=== PATIENT | male | born 1945 | race Caucasian/White ===

== ENCOUNTER 2019-08-18 08:04 | Inpatient (IN) ==
--- OUTSIDE RECORDS SUMMARY | 2019-08-18 08:07 | External Medical Summary | Continuity of Care Document ---
:1945 Author Name Charlotte De La Rosa Address Unavailable Unavailable , Care Team Providers Name Role Phone Unavailable Unavailable Unavailable Sebastien De La Rosa Unavailable [email or web address] Unavailable Unavailable Unavailable Unavailable Unavailable Problems Hypertension (401.9) (I10) Diabetes mellitus (250.00) (E11.9) Coronary arteriosclerosis (414.00) (I25.10) Obstructive sleep apnea (327.23) (G47.33) Shortness of breath (786.05) (R06.02) Sinusitis (473.9) (J32.9) Chronic obstructive pulmonary disease (496) (J44.9) Bloating (787.3) (R14.0) Lower back pain (724.2) (M54.5) Neck pain (723.1) (M54.2) Hyperlipidemia (272.4) (E78.5) Asthma (493.90) (J45.909) Panic disorder without agoraphobia (300.01) (F41.0) Gout (274.9) (M10.9) Allergies and Adverse Reactions Iodinated Contrast Media (Allergy) Lisinopril TABS (Allergy) Morphine Derivatives (Allergy) Medications Naproxen 500 MG Oral Tablet; TAKE 1 TABLET EVERY 12 HOURS NEEDED. , M.DJavon Start: 03-Mar-2013 Quantity: 60 Refills: 1 Omeprazole 20 MG Oral Capsule Delayed Release; TAKE 1 CAPSULE TWICE DAILY. , M.D. Quantity: 60 Refills: 3 Potassium Chloride 20 MEQ TBCR; TAKE 1 TABLET TWICE DAILY. , M.D. Refills: 0 Furosemide 40 MG Oral Tablet; TAKE 1 TABLET DAILY. , M.D. Quantity: 30 Refills: 5 Zolpidem Tartrate 10 MG Oral Tablet; TAKE 1 TABLET AT BEDTIM E NEEDED. , M.D. Refills: 0 metFORMIN HCl - 1000 MG Oral Tablet; TAKE 1 TABLET EVERY 12 HOURS DAILY. , M.DJavon Refills: 0 Plavix 75 MG Oral Tablet; TAKE 1 TABLET DAILY. , M.DJavon Quantity: 30 Refills: 5 Metoprolol Tartrate 50 MG Oral Tablet; TAKE 1 TABLET TWICE D Rj STILES Quantity: 180 Refills: 3 glipiZIDE ER 10 MG Oral Tablet Extended Release 24 Hour; TAKE 1 TABLET TWICE DAILY. , M.D. Refills: 0 EpiPen 2-Micky 0.3 MG/0.3ML CARMEN; USE DIRECTED. Lynn.D. Refills: 0 Nitrostat 0.4 MG Sublingual Tablet Subli ngual; PLACE 1 TABLET UNDER THE TONGUE EVERY 5 MINUTES FOR UP TO 3 DOSES NEEDED FOR CHEST PAIN.CALL 911 IF PAIN PERSISTS. GLORIA Leon Quantity: 25 Refills: 0 Flexeril 10 MG TABS; TAKE 1 TABLET 3 TIMES DAILY NEEDED. , M.D. Quantity: 90 Refills: 0 Symbicort 160-4.5 MCG/ACT Inhalation Aer osol; INHALE 1 PUFF TWICE DAILY. RINSE MOUTH AFTER USE GLORIA Leon Start: 17-Jan-2015 Quantity: 1 10.2 GM Inhaler Refills: 0 Gentamicin in Saline 0.8-0.9 MG/ML-% Int ravenous Solution; GENTAMYCIN 60MG IN 45 ML NASAL SOLUTION SI SPRAYS EACH NOSTRIL TID GLORIA Leon S tart: 17-May-2015 Quantity: 45 Refills: 0 Levalbuterol HCl - 1.25 MG/3ML Inhalatio n Nebulization Solution; USE 1 UNIT DOSE IN NEBULIZER EVERY 4 TO 6 HOURS NEEDED. Rj Crowe Start: 05-Sep-2014 Quantity: 8 3 ML Plas Cont (24 P las Conts) Refills: 5 Spiriva Respimat 2.5 MCG/ACT Inhalation Aerosol Solution; INHALE 2 PUFFS ONCE DAILY GLORIA Leon Start: 05-Sep-2014 Quantity: 4 Refills: 5 SM Saline Solution Solution; USE ONE VIA L SALINE VIA NEBULIZER EVERY 3-4 HOURS NEEDED GLORIA Leon Start: 15-Dec-2013 Quantity: 240 Refills: 0 Ipratropium [place] 0.02 % Inhalation So lution; USE 1 UNIT DOSE IN NEBULIZER EVERY 4 HOURS. MIX WITH 1 UNIT DOSE OF ALBUTEROL FOR EACH TREATMENT. , M.D. Start: 02-Nov-2012 Quantity: 1 2.5 ML Plas Cont (60 Plas Conts) Refills: 5 Actos 45 MG Oral Tablet; TAKE 1 TABLET ONCE DAILY. , M.D. Quantity: 90 Refills: 3 Allopurinol 300 MG Oral Tablet; TAKE 1 TABLET DAILY. , M.D. Quantity: 90 Refills: 3 Percocet 7.5-325 MG Oral Tablet; TAKE 1 TABLET EVERY 8 HOURS NEEDED FOR PAIN. , M.D. Refills: 0 Combivent Respimat AERS; One Puff (4) times daily , M.D. Refills: 0 OneTouch Ultra Blue STRP , M.D. Refills: 0 OneTouch UltraSoft Lancets MISC , M.D. Refills: 0 Lactulose POWD; USE DIRECTED. , M.D. Refills: 0 Procedures History of Card Cath Post-Proc Data: ___ Lesions Successfull y Status: Completed Dilated History of Rotator Cuff Repair Status: C ompleted History of Cholecystectomy Status: Compl eted History of Cath Stent Placement Status: Completed Immunizations Td On: Feb-1999 Influenza On: 03-Dec-2010 Pneumococcal polysaccharide vaccine, 23 valent On: 22-Sep-19 12 Family History Unknown Family Member Family history of Metabolic Disorders Status: Active Co mments: Family History (V18.19) Family history of Reported Family History Of Status: Active Comments: Family History Heart Disease Father Family history of Reported Family History Of Heart Disease S tatus: Active Social History - Smoking Status Ex-smoker Plan of Treatment Planned Observations Planned Goals not documented Results No Known Results Results not documented
[2019-08-18] MEDS ORDERED: ONDANSETRON INJ 2 MG/ML 2 ML VIAL IV STA (08:22)
[2019-08-18 08:45] LABS: Basophils # (auto) 0.03 K/uL (0-0.2); Basophils % (auto) 0.3 %; Eosinophils # (auto) 0.11 K/uL (0-0.5); Immature Granulocytes # (auto) 0.05 K/uL (0.00-0.02); Immature Granulocytes % (auto) 0.5 %; Lymphocytes # (auto) 1.17 K/uL (1.2-3.4); Lymphocytes % (auto) 11.1 %; Mean Corpuscular Hemoglobin 31.7 pg (25-34); Mean Corpuscular Hgb Conc 32.5 g/dL (32-36); Mean Corpuscular Volume 97.6 fL (80-100); Monocytes # (auto) 0.88 K/uL (0.11-0.59); Monocytes % (auto) 8.4 %; Neutrophils # (auto) 8.28 K/uL (1.4-6.5); Neutrophils % (auto) 78.7 %; Platelet Count 226 K/uL (130-400); RDW Standard Deviation 53.6 fL (36.4-46.3); White Blood Count 10.52 K/uL (4.8-10.8)
--- NOTE | 2019-08-18 08:55 | CT Scan Report ---
CT head/brain wo con CT DOSE: 614.27 mGy.cm HISTORY: Trauma. Mental status change. fall at home TECHNIQUE: Multiaxial CT images of the head were performed without the use of intravenous contrast. A dose lowering technique was utilized adhering to the principles of ALARA. Comparison: 03/15/2012 Findings: The paranasal sinuses and mastoid air cells are clear. The calvarium and skull base are int act. The ventricles and sulci are within normal limits. There is no mass, hematoma, midline shift, or acute infarct. Impression: No acute intracranial abnormality. ACT 112: Negative or not required by law. The above report was generated using voice recognition software. It may contain grammatical, syntax or spelling errors. Electronically signed by: Edwar Barajas M.D. 08/18/2019 8:54 AM
[2019-08-18 09:02] LABS: Albumin Level 3.1 gm/dl (3.4-5.0); BUN Creatinine Ratio 18.8 (10-20); Calcium 9.5 mg/dl (8.5-10.1); Creatinine Clr Calc Pharmacy 73.4 ml/min; Est GFR (African American) 68.4; Potassium 3.9 mmol/L (3.5-5.1)
[2019-08-18 09:05] LABS: Albumin Globulin Ratio 0.7 (0.9-2); Globulin 4.4 gm/dl (2.5-4.0); Total Protein 7.5 gm/dl (6.4-8.2)
--- NOTE | 2019-08-18 09:06 | XRay Report ---
XR chest 1V portable CLINICAL HISTORY: SOB dyspnea COMPARISON STUDY: 11/19/2015 FINDINGS: Moderate cardiomegaly. Prominent pulmonary vasculature. Diaphragms are smooth. No focal inf iltrate. IMPRESSION: Developing congestive heart failure ACT 112: Negative or not required by law. The above report was generated using voice recognition software. It may contain grammatical, syntax or spelling errors. Electronically signed by: Edwar Barajas M.D. 08/18/2019 9:05 AM
[2019-08-18] MEDS ORDERED: FUROSEMIDE 40 MG/4 ML VIAL IV STA (09:31)
[2019-08-18] MEDS ORDERED: METOPROLOL TARTRATE 1 MG/ML VIAL IV STA (09:31)
--- NOTE | 2019-08-18 09:35 | Emergency Department Note ---
ED Visit Note This patient was seen in concert with Dr. Cardona. We discussed and agreed upon the history, physical, assessment and plan. . Resident Activity Tracking Resident Involvement: Resident Care Provided Care Provided: Adult ED
[2019-08-18 09:36] LABS: Base Excess ABG 2.8 mEq/L (-9-1.8); HCO3 ABG 28 mmol/L (19-24); Oxygen Saturation ABG 90.7 % (90-95); PCO2 ABG 47 mmHg (35-46); PO2 ABG 60 mmHg (80-95)
[2019-08-18 09:38] LABS: Allen Test Pos (Pos)
[2019-08-18] MEDS ORDERED: GLUCOSE 40% GEL 15 GM TUBE PO PRN (11:12)
[2019-08-18] MEDS ORDERED: GLUCOSE 10 TABS/TUBE PO PRN (11:12)
[2019-08-18] MEDS ORDERED: CARBOHYDRATES FOR HYPOGLYCEMIA PO PRN (11:12)
[2019-08-18] MEDS ORDERED: GLUCAGON FOR INJ 1 MG VIAL SQ PRN (11:12)
[2019-08-18] MEDS ORDERED: DEXTROSE 50% 50 ML SYRINGE IV PRN (11:12)
--- NOTE | 2019-08-18 11:33 | History & Physical Report ---
Date of Service August 18, 2019 Assessment & Plan (1) Congestive heart failure: Suspect related to non-compliance and dietary indiscretion although history from pt is limited. Last ECHO appears to have been in 2016 and shower LVEF 55-59%, moderate concentric LVH, dilated IVC, elevated RA pressure - Lasix 40 mg IV BID - Check ECHO - Monitor on telemetry, I's and O's, daily weights - Consult cardiology - Monitor electrolytes (2) Atrial fibrillation with rapid ventricular response: Given metoprolol 5 mg IV x 1 dose in ED - rate appears more stable around 90-110 unless pt gets agitated. Per pt's MediWound chart, history of PAF diagnosed in Oct 2018 by [facility] - Continue home metoprolol succinate 100 mg daily - unclear if patient is taking consistently - See plan for #1 - Will need to consider risk/benefit of anticoagulation with fall risk and hx of non-compliance (3) Cellulitis of leg: CRP elevated at 3.64. WBCs not elevated and pt currently afebrile. Unclear how actue LE skin changes are but with elevated CRP and physical exam, will start antibiotics. - Will start empiric IV Vanco and Ceftriaxone - Check blood cultures (4) Neck mass: Had a lesion removed from left upper back in late 2018 - biopsy confirmed squamous cell CA (prior hx of same in 2018 on chest and left elbow). Reports two new lesions on neck for which he was trying to get back in with MOHS surgery to see - seem to be causing increasing neck pain. He reports oxycodone has not been helpful and causes GI distress. - Tylenol for pain with Tramadol for breakthrough - Consider CT neck/chest without contrast for further evaluation once more stable from cardiac perspective. (5) COPD (chronic obstructive pulmonary disease): Does not complain of SOB at present and lungs without wheezing - suspect hypoxia on presentation more related to CHF than COPD - Continue home inhalers with prn nebs (6) JOSE on CPAP: Pt unclear if he uses CPAP (which he tells me) or BiPAP (which he told the ED staff) but does know that he uses oxygen with his machine while he sleeps - Will start with CPAP per protocol while admitted (7) CKD (chronic kidney disease) stage 3, GFR 30-59 ml/min: Labs from Feb 2019 - BUN 22, Creatinine 1.3. Stable today on labs in the ED - Monitor labs with diuresis (8) Type 2 diabetes mellitus: Last A1c in Feb 2019 = 9.3. It is unclear if patient is taking oral hypogylcemics as prescribed - HOLD home oral meds - Insulin sliding scale - adjust pending response - BSG ACHS - Diabetic diet - Check A1c in AM Patient seen and reviewed with collaborating physician, Dr. Dawn. Plan of care discussed and as outlined above. Pt's oil dispatcher is Dalia Baumann at [phone]. Stays with patient at night. Jeff Alford PA-C Admission and Anticipated Discharge Date Admission Date: August 18, 2019 History of Present Illness Chief Complaint: "I feel horrible" Primary Care Provider: Guy Atkinson MD This is a 74 y/o male with a complicated PMH including CAD w/ hx AL, hx PAF, DM2, CKD3, chronic neck pain, JOSE on CPAP (or BiPAP - pt unclear), and non- compliance who was brought to the ED today via EMS after apparently falling at home and family unable to get him up. History from the patient was difficult to obtain as he frequently refused to answer questions or changed his answers depending on when and who asked him the question. The chart was extensively reviewed and the patient was discussed with the resident and the ED nurse for additional history. Apparently, the patient fell at home, likely earlier this morning, and his family was unable to get him up so they called EMS. According to the EMS report, pt was unhappy about coming to the ED but did finally agree after discussing with the medic. In the ED, pt's main complaint has been generalized pain, leg cramps, and malaise. He has been non-compliant and frequently attempting to get out of bed without assistance, removing his oxygen canula, and yelling at the nurses. When I asked pt why he was here, he asked where here was and then stated that his family wanted to get rid of him, so they called EMS. He refused to give me any contact information for his family. His PCP is Dr. Atkinson but the pt tells me that he is only willing to see Dr. Briceño with MOHS surgery and she is the "only one who listens" to him. Pt was previously followed by cardiology but has not been seen in the office since 2016 due to multiple cancellations and no-shows. He is unclear on his current medications although can confirm that he is taking the furosemide twice a day and does not think that the Combivent is helping his neck pain, which is his main concern over the past few weeks. He states that he has also tried oxycodone for the next pain but doesn't think that helps either. He is also concerned about leg cramps "since childhood" but more frequent recently so he has been drinking a glass of pickle juice whenever he has these cramps, which helps. He notes chronic issues with LE edema, worse at the end of the day, but is unclear if that has been worse recently. He is unsure how long that he has had redness on his legs. Allergies Allergy/AdvReac Type Severity Reaction Status Date / Time Iodinated Contrast Media Allergy Unknown . Verified 08/18/19 09:14 lisinopril AdvReac Severe Anaphylaxis Unverified 08/18/19 09:14 tetanus toxoid, adsorbed AdvReac Intermediate Arm Unverified 08/18/19 09:14 Swelling codeine AdvReac Mild NAUSEA Verified 08/18/19 09:14 morphine AdvReac Mild itching, Unverified 08/18/19 09:14 nausea/vomiting atorvastatin AdvReac Unknown myalgia Unverified 08/18/19 09:14 doxycycline AdvReac Unknown Unknown Unverified 08/18/19 09:14 Home Medications Home Medications Medication Instructions Recorded Confirmed Type albuterol sulfate 2 puff INHALATION Q6H PRN 08/18/19 08/18/19 History allopurinol 300 mg PO DAILY 08/18/19 08/18/19 History budesonide-formoterol [Symbicort] 2 puff INHALATION BID 08/18/19 08/18/19 History camphor-menthol 1 applic TOPICAL DAILY PRN 08/18/19 08/18/19 History clopidogrel 75 mg PO DAILY 08/18/19 08/18/19 History empagliflozin [Jardiance] 10 mg PO DAILY 08/18/19 08/18/19 History epinephrine [EpiPen] 0.3 mg IM Q3H PRN 08/18/19 08/18/19 History fexofenadine 180 mg PO DAILY PRN 08/18/19 08/18/19 History furosemide 80 mg PO DAILY 08/18/19 08/18/19 History glipizide 20 mg PO BID 08/18/19 08/18/19 History ipratropium-albuterol 3 ml INHALATION Q6H PRN 08/18/19 08/18/19 History melatonin 10 mg PO HS 08/18/19 08/18/19 History metformin 1,000 mg PO BID 08/18/19 08/18/19 History metoprolol succinate 100 mg PO DAILY 08/18/19 08/18/19 History nitroglycerin 0.4 mg SUBLINGUAL UD 08/18/19 08/18/19 History omeprazole 20 mg PO BID 08/18/19 08/18/19 History oxycodone 15 mg PO Q6H PRN 08/18/19 08/18/19 History pioglitazone 30 mg PO DAILY 08/18/19 08/18/19 History potassium chloride 20 meq PO DAILY 08/18/19 08/18/19 History tiotropium bromide [Spiriva 2 puff INHALATION DAILY 08/18/19 08/18/19 History Respimat] zolpidem 1 mg PO HS 08/18/19 08/18/19 History Past Med/Surg History Medical History CAD (coronary artery disease) CKD (chronic kidney disease) stage 3, GFR 30-59 ml/min COPD (chronic obstructive pulmonary disease) Gout History of AL (myocardial infarction) JOSE on CPAP Osteoarthritis Paroxysmal atrial fibrillation Recurrent major depression Type 2 diabetes mellitus Surgical History History of cardiac cath 2003, 2008, 2012, 2016 History of cataract surgery History of cholecystectomy History of coronary angioplasty with insertion of stent 10/11/15 - distal LAD stent placed at [facility] [place] History of repair of rotator cuff Family History Father , age 62 Heart disease Mother , age 70 Stroke Social History Communication Ability: Impaired Beliefs That Will Affect Care: None marital status: Current Living Situation: Alone Feels Safe at Home: Declines to Answer Smoking Status: Former smoker Review of Systems Review of Systems: Other (Limited due to patient refusal/poor historian - see HPI) Physical Exam Constitutional: WD/WN, vitals as above + obese; no acute distress Irritable, attempting to get out of bed, difficult to redirect at times, other t imes appears drowsy Eyes: + anicteric sclerae; no conjunctival abnormality ENMT: external ear and nose normal, oropharynx normal Neck: trachea midline Respiratory: no respiratory distress, no labored breathing and no retractions Auscultation: + crackles (at bilateral bases); no rhonchi and no wheezes Cardiovascular: Rate/Rhythm: + tachycardic and + irregularly irregular Extremities: normal capillary refill and + edema (trace to 1+ bilateral LE edema) Gastrointestinal (Abdomen): Inspection/Auscultation: normal bowel sounds Percussion/Palpation: abdomen soft; abdomen nontender Musculoskeletal: Head/Neck/Chest: neck supple Extremities: no cyanosis and no clubbing Skin: no jaundice Bilateral LE with patchy erythema superimposed on chronic-appearing skin changes - left > right. Mild warmth on left. No drainage or large open wounds. Some peeling skin on left. Neurologic: moves all extremities Psychiatric: Mood: + irritable mood Insight: + limited insight Judgem ent: + poor judgement Results & Data Results & Data ([facility]) Vital Signs (Past 12 Hours) Vital Signs Temp Pulse Pulse Resp BP BP Pulse Ox 08/18/19 10:57 36.6 C 93 H 18 151/91 H 95 08/18/19 10:32 96 H 18 143/67 H 96 08/18/19 09:42 108 H 20 133/80 94 08/18/19 09:41 113 H 22 119/91 88 L 08/18/19 09:03 109 H 22 109/69 93 08/18/19 08:27 88 L 08/18/19 08:16 36.7 C 104 H 24 145/72 H 88 L Laboratory Results Laboratory Results - last 24 hr 08/18/19 08/18/19 08/18/19 08:30 08:30 08:30 WBC 10.52 RBC 4.10 L Hgb 13.0 L Hct 40.0 L MCV 97.6 MCH 31.7 MCHC 32.5 RDW Std Deviation 53.6 H RDW Coeff of [place] 15.0 H Plt Count 226 MPV 10.0 Immature Gran % (Auto) 0.5 Neut % (Auto) 78.7 Lymph % (Auto) 11.1 Cochran % (Auto) 8.4 Eos % (Auto) 1.0 Baso % (Auto) 0.3 Neut # (Auto) 8.28 H Lymph # (Auto) 1.17 L Cochran # (Auto) 0.88 H Eos # (Auto) 0.11 Baso # (Auto) 0.03 Immature Gran # (Auto) 0.05 H ABG pH ABG pCO2 ABG pO2 ABG HCO3 ABG O2 Saturation ABG Base Excess Augustine Test Barometric Pressure Oxygen Given Sodium 137 Potassium 3.9 Chloride 103 Carbon Dioxide 27 Anion Gap 7.0 BUN 23 H Creatinine 1.21 Est Cr Clr Drug Dosing 73.4 Est GFR ( Amer) 68.4 Est GFR (Non-Af Amer) 59.0 BUN/Creatinine Ratio 18.8 Glucose 261 H POC Glucose Calcium 9.5 Total Bilirubin 1.0 AST 20 ALT 21 Alkaline Phosphatase 131 H Troponin I 0.015 Total Protein 7.5 Albumin 3.1 L Globulin 4.4 H Albumin/Globulin Ratio 0.7 L 08/18/19 08/18/19 09:18 11:35 WBC RBC Hgb Hct MCV MCH MCHC RDW Std Deviation RDW Coeff of [place] Plt Count MPV Immature Gran % (Auto) Neut % (Auto) Lymph % (Auto) [place]chran % (Auto) Eos % (Auto) Baso % (Auto) Neut # (Auto) Lymph # (Auto) Cochran # (Auto) Eos # (Auto) Baso # (Auto) Immature Gran # (Auto) ABG pH 7.40 ABG pCO2 47 H ABG pO2 60 L ABG HCO3 28 H ABG O2 Saturation 90.7 ABG Base Excess 2.8 H Augustine Test Pos Barometric Pressure 732.6 Oxygen Given ROOM AIR Sodium Potassium Chloride Carbon Dioxide Anion Gap BUN Creatinine Est Cr Clr Drug Dosing Est GFR ( Amer) Est GFR (Non-Af Amer) BUN/Creatinine Ratio Glucose POC Glucose 242 H Calcium Total Bilirubin AST ALT Alkaline Phosphatase Troponin I Total Protein Albumin Globulin Albumin/Globulin Ratio Diagnostic Findings Chest x-ray 08/18/19 - IMPRESSION: Developing congestive heart failure CT Head 08/18/19 - Impression: No acute intracranial abnormality. Medications Administered Discontinued Medications Furosemide (Lasix) 40 mg IV NOW STA Stop: 08/18/19 09:32 Last Admin: 08/18/19 09:37 Dose: 40 mg Documented by: [id number] Metoprolol Tartrate (Lopressor) 5 mg IV NOW STA Stop: 08/18/19 09:32 Last Admin: 08/18/19 09:37 Dose: 5 mg Documented by: [id number] Ondansetron HCl (Zofran) 4 mg IV NOW STA Stop: 08/18/19 08:23 Last Admin: 08/18/19 08:41 Dose: 4 mg Documented by: [id number] Code Status & VTE Plan VTE Prophylaxis Plan VTE Prophylaxis will be ordered: Yes Supervising Physician Co-Signing Physician Notes HISTORY: Record reviewed. Patient interviewed and examined. Care coordinated with Sierra Alford PA-C; please refer to her documentation for complete history. Briefly, 74 YO M with history of CAD, atrial fibrillation (? PAF or chronic), CHF, COPD, sleep apnea, DM, squamous cell carcinoma of skin. Has noted growths in the left supraclavicular and left axillary regions, increasing in size. The masses are sometimes painful and he has been using acetaminophen PRN. Not sleeping well because of pain. Fell this morning and could not raise himself from the floor. No apparent chest pain, unusual SOB, palpitations, lightheadedness, LOC. Animal Care Provider called 911 and he was brought to the ED for evaluation. EXAM: General- no distress Lungs- bibasilar rales; no respiratory distress Cardiovascular- irregular; no murmur (exam limited); no gallop (exam limited) ; + JVD; 1-2+ pretibial edema Abdomen- + bowel sounds, soft, nontender Extremities- no cyanosis; no calf tenderness Neuro- alert, oriented Skin- warm & dry; erythema and warmth bilat legs L > R Lymphatics- large palpable masses left supraclavicular region and left axilla DATA: Hgb 13.0, WBC 10,520, plts 226,000. BUN 23, creatinine 1.21, random glucose 261. Other lab studies as noted. Chest x-ray reviewed and demonstrated cardiomegaly, CHF. EKG performed at 0812 reviewed and demonstrated AF at 130 / minute, no significant ST or T-wave changes. ASSESSMENT AND PLAN: CHF Exam and CXR consistent with CHF. Cardiology consulted. IV furosemide ordered. Echo shows LVEF 45-50%. Acute on chronic left ventricular systolic heart failure. Further titration of meds per Cardiology. AF with RVR Atrial fib / flutter apparently noted in Oct 2018, but has not had regular follow-up. Records state PAF, but may be chronic. Cardiology consulted. Metoprolol for rate control. IV heparin. Long-term plan to be determined. ERYTHEMA LOWER EXTREMITIES Cellulitis vs venous stasis. No fever or leukocytosis, but CRP elevated. Check blood cultures. IV vancomycin and ceftriaxone pending culture results. HISTORY OF SQUAMOUS CELL CA BACK S/P Mohs excision Jan [address] Briceño. Current findings worrisome for metastatic disease. Check CT neck / chest once cardiac status permits. Please refer to YESICA Alford's documentation for discussion of other issues. (1) Type 2 diabetes mellitus Chronic kidney disease stage: stage 3 (moderate) Diabetes mellitus complication detail: with chronic kidney disease Diabetes mellitus complication status: with kidney complications Diabetes mellitus retirement insulin use: without retirement use Qualified Code(s): 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 mellitus with diabetic chronic kidney disease; N18.3 - Chronic kidney disease, stage 3 (moderate) (2) Congestive heart failure Heart failure chronicity: acute Heart failure type: unspecified Qualified Code(s): I50.9 - Heart failure, unspecified (3) Cellulitis of leg Laterality: left Qualified Code(s): L03.116 - Cellulitis of left lower limb (4) COPD (chronic obstructive pulmonary disease) COPD type: unspecified COPD Qualified Code(s): J44.9 - Chronic obstructive pulmonary disease, unspecified
[2019-08-18 12:16] LABS: C Reactive Protein 3.64 mg/dl (0-0.29); Magnesium 1.8 mg/dl (1.8-2.4)
[2019-08-18] MEDS ORDERED: ENOXAPARIN INJ 40 MG/0.4 ML SYR SQ SCH (12:30)
[2019-08-18] MEDS ORDERED: VANCOMYCIN CONSULT ACTIVE PRN (12:34)
[2019-08-18] MEDS ORDERED: VANCOMYCIN HCL 2,750 MG in SODIUM CHLORIDE 0.9% 500 ML IV SCH (13:00)
--- NOTE | 2019-08-18 13:00 | Cardiology Consultation ---
Date of Consultation August 18, 2019 Assessment & Plan (1) Acute decompensated heart failure: (2) Paroxysmal atrial fibrillation: (3) Cellulitis of leg: (4) CAD (coronary artery disease), jena coronary artery: (5) CKD (chronic kidney disease) stage 3, GFR 30-59 ml/min: (6) Type 2 diabetes mellitus: (7) JOSE on CPAP: Continue IV Lasix 40 mg every 12. Follow daily weight, fluid balance, GFR, and electrolytes. Duration of atrial fibrillation unknown. Recommend anticoagulation with IV heparin. Candidacy for long-term anticoagulation to be determined. Metoprolol succinate will be transitioned to tartrate formulation, 25 mg every 6hrs, to allow for ease of titration during hospitalization. Patient relatively asymptomatic in regard to his atrial fibrillation. I would not add IV AV edwige blocking agents currently. Update resting 2D transthoracic echocardiogram. Trend cardiac enzymes x3 sets. Diabetes management and antibiotic therapy as per internal medicine. History of Present Illness Reason for Consultation: 74-year-old male with complex cardiovascular history noted below. Presented to the emergency department today via EMS after falling at home. His family was unable to get him off the floor. Patient is a poor historian. History gleaned from chart and discussion with consulting physicians. He denies chest pain or shortness of breath. He does not recall falling. No injuries reported. CT of the head without acute intracranial abnormality. Patient previously followed by cardiology until 2016. He has missed multiple appointments due to cancellations. There is a chart history of paroxysmal atrial fibrillation however, no documented ECGs available. Telemetry currently demonstrate atrial fibrillation heart rates ranging from 90 to 110 bpm. Patient is somewhat confused, however, he is cooperative with physical exam. History of complex coronary disease dating back to 1991 when he had his first angioplasty. Since that time he has had multiple cardiac catheterizations and coronary interventions including PCI to the right coronary artery, LAD, circumflex. Most recent stenting procedure occurred 2012 at [facility]. During that procedure, LAD stent was noted to be patent. Percutaneous intervention of the proximal circumflex was successful. Drug-eluting stent implanted without complication. Requesting Physician: Dr. Moffett Attending Physician: Mariangel Moffett MD Allergies Allergy/AdvReac Type Severity Reaction Status Date / Time Iodinated Contrast Media Allergy Unknown . Verified 08/18/19 09:14 lisinopril AdvReac Severe Anaphylaxis Unverified 08/18/19 09:14 tetanus toxoid, adsorbed AdvReac Intermediate Arm Unverified 08/18/19 09:14 Swelling codeine AdvReac Mild NAUSEA Verified 08/18/19 09:14 morphine AdvReac Mild itching, Unverified 08/18/19 09:14 nausea/vomiting atorvastatin AdvReac Unknown myalgia Unverified 08/18/19 09:14 doxycycline AdvReac Unknown Unknown Unverified 08/18/19 09:14 Home Medications Home Medications Medication Instructions Recorded Confirmed Type albuterol sulfate 2 puff INHALATION Q6H PRN 08/18/19 08/18/19 History allopurinol 300 mg PO DAILY 08/18/19 08/18/19 History budesonide-formoterol [Symbicort] 2 puff INHALATION BID 08/18/19 08/18/19 History camphor-menthol 1 applic TOPICAL DAILY PRN 08/18/19 08/18/19 History clopidogrel 75 mg PO DAILY 08/18/19 08/18/19 History empagliflozin [Jardiance] 10 mg PO DAILY 08/18/19 08/18/19 History epinephrine [EpiPen] 0.3 mg IM Q3H PRN 08/18/19 08/18/19 History fexofenadine 180 mg PO DAILY PRN 08/18/19 08/18/19 History furosemide 80 mg PO DAILY 08/18/19 08/18/19 History glipizide 20 mg PO BID 08/18/19 08/18/19 History ipratropium-albuterol 3 ml INHALATION Q6H PRN 08/18/19 08/18/19 History melatonin 10 mg PO HS 08/18/19 08/18/19 History metformin 1,000 mg PO BID 08/18/19 08/18/19 History metoprolol succinate 100 mg PO DAILY 08/18/19 08/18/19 History nitroglycerin 0.4 mg SUBLINGUAL UD 08/18/19 08/18/19 History omeprazole 20 mg PO BID 08/18/19 08/18/19 History oxycodone 15 mg PO Q6H PRN 08/18/19 08/18/19 History pioglitazone 30 mg PO DAILY 08/18/19 08/18/19 History potassium chloride 20 meq PO DAILY 08/18/19 08/18/19 History tiotropium bromide [Spiriva 2 puff INHALATION DAILY 08/18/19 08/18/19 History Respimat] zolpidem 1 mg PO HS 08/18/19 08/18/19 History Patient History Medical History CAD (coronary artery disease) CKD (chronic kidney disease) stage 3, GFR 30-59 ml/min COPD (chronic obstructive pulmonary disease) Gout History of VT (myocardial infarction) JOSE on CPAP Osteoarthritis Paroxysmal atrial fibrillation Recurrent major depression Type 2 diabetes mellitus Surgical History History of cardiac cath 2003, 2008, 2012, 2016 History of cataract surgery History of cholecystectomy History of coronary angioplasty with insertion of stent 10/11/15 - distal LAD stent placed at [facility] History of repair of rotator cuff Family History Father , age 62 Heart disease Mother , age 70 Stroke Social History Communication Ability: Impaired Beliefs That Will Affect Care: None marital status: Current Living Situation: Alone Feels Safe at Home: Declines to Answer Smoking Status: Former smoker Physical Exam Constitutional: well developed, well nourished, + ill appearing and + obese; no acute distress Respiratory: + abnormal respiratory effort, no respiratory distress, no labored breathing and no retractions Auscultation: + diminished lung sounds and + rales (Bases bilateral); no crackles, no rhonchi and no wheezes Cardiovascular: Rate/Rhythm: + tachycardic and + irregularly irregular Heart Sounds: normal S1 and normal S2; no murmur Vessels: no JVD Extremities: + edema (1+ bilateral pedal edema.) Gastrointestinal (Abdomen): Inspection/Auscultation: abdomen normal to inspection and normal bowel sounds; abdomen not distended Percussion/Palpation: abdomen soft; abdomen nontender, no guarding and abdomen not rigid Skin: no rashes, warm and dry Neurologic: CN's II-XI intact bilaterally and moves all extremities; no focal motor deficits Speech / Cognition: normal speech Motor/Sensory: no tremor Results & Data ([facility]) Vital Signs (Past 12 Hours) Vital Signs Temp Pulse Pulse Resp BP BP Pulse Ox 08/18/19 10:57 36.6 C 93 H 18 151/91 H 95 08/18/19 10:32 96 H 18 143/67 H 96 08/18/19 09:42 108 H 20 133/80 94 08/18/19 09:41 113 H 22 119/91 88 L 08/18/19 09:03 109 H 22 109/69 93 08/18/19 08:27 88 L 08/18/19 08:16 36.7 C 104 H 24 145/72 H 88 L (1) Type 2 diabetes mellitus Chronic kidney disease stage: stage 3 (moderate) Diabetes mellitus complication detail: with chronic kidney disease Diabetes mellitus complication status: with kidney complications Diabetes mellitus tank terminal gauger insulin use: without tank terminal gauger use Qualified Code(s): 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 mellitus with diabetic chronic kidney disease; N18.3 - Chronic kidney disease, stage 3 (moderate) (2) Cellulitis of leg Laterality: left Qualified Code(s): L03.116 - Cellulitis of left lower limb (3) CAD (coronary artery disease), jena coronary artery Associated angina: angina presence unspecified [place] vs. transplanted heart: jena heart Qualified Code(s): I25.10 - Atherosclerotic heart disease of jena coronary artery without angina pectoris
[2019-08-18] MEDS: UMECLIDINIUM BROMIDE 62.5MCG/BLISTER 7 PUFFS/INHALER INH SCH (13:10)
[2019-08-18] MEDS: cefTRIAXone SODIUM 2,000 MG in DEXTROSE 5% 50 ML IV SCH (13:10)
[2019-08-18] MEDS ORDERED: TRAMADOL HCL 50 MG TABLET PO PRN (13:32)
[2019-08-18] MEDS ORDERED: HEPARIN IV BOLUS 8,000 UNITS in SYRINGE 0 ML IV ONE (14:00)
[2019-08-18] MEDS: INSULIN ASPART 100 UNITS/ML 3 ML PEN SC SCH ×3 (14:11→21:26)
[2019-08-18] MEDS: HEPARIN SODIUM/DEXTROSE 25,000 UNITS/500 ML BAG IV SCH (14:12)
[2019-08-18 14:25] LABS: Partial Thromboplastin Time 27.3 Seconds (21.0-31.0)
--- NOTE | 2019-08-18 14:28 | Pharmacy Report ---
Pharmacy Abx Initial Consult - Date of Service August 18, 2019 - Pharmacy Dosing Scope Date of Consult: 08/17 Consultation requested by: Irais Alford PA-c Pharmacy is consulted to initiate vancomycin IV/PO dosing therapy, order appropriate labs and adjust drug dose/frequency. - Subjective The patient is a 74 year old M admitted on 08/18/19 10:06. - Objective Height: 5 ft 9 in Weight: 132.5 kg Vital Signs (Past 12hrs): Vital Signs Temp Pulse Pulse Resp BP BP Pulse Ox 08/18/19 10:57 36.6 C 93 H 18 151/91 H 95 08/18/19 10:32 96 H 18 143/67 H 96 08/18/19 09:42 108 H 20 133/80 94 08/18/19 09:41 113 H 22 119/91 88 L 08/18/19 09:03 109 H 22 109/69 93 08/18/19 08:27 88 L 08/18/19 08:16 36.7 C 104 H 24 145/72 H 88 L Lab Results (24hrs): Laboratory Tests (24 Hours) 08/18/19 08/18/19 08/18/19 08:30 08:30 08:30 WBC 10.52 Neut # (Auto) 8.28 H Creatinine 1.21 Est Cr Clr Drug Dosing 73.4 C-Reactive Protein 3.64 H Micro Results: 08/18/19 13:49 Aerobic Blood Culture - Pending Blood Anaerobic Blood Culture - Pending 08/18/19 13:40 Aerobic Blood Culture - Pending Blood Anaerobic Blood Culture - Pending - Assessment & Plan Assessment 74 year old M admitted with heart failure, complaints of lower extremity pain. Normal WBC, afebrile, beginning vancomycin/ceftriaxone empirically for cellulitis. Plan Vancomycin IV * Estimated PK Parameters: Vd 0.6 L/kg, Feng 0.065 hr-1, t1/2 10.6 hr * Loading dose: 2750 mg (20.7 mg/kg) * Maintenance dose: 1500 mg IV (11.3 mg/kg) every 12 hours * Goal trough level 10-20 mcg/mL * Trough ordered for 08/18@2330 * A less than traditional dose and/or extended dosing interval has/have been selected due to likelihood of drug accumulation in obese patient Pharmacy will continue to follow and will adjust dose/frequency as necessary. Thank you.
[2019-08-18] MEDS ORDERED: METOPROLOL TARTRATE 25 MG TAB PO STA (15:49)
--- NOTE | 2019-08-18 15:55 | Emergency Department Note ---
History of Present Illness General Chief complaint: Fall Stated complaint: fall/ ams Source: patient and RN notes reviewed Mode of arrival: EMS Limitations: patient cooperation History of Present Illness Provider complaint: Fall Maximum Pain Intensity: 0 This patient is a 74-year-old male who presents emergency department after a fall today. Patient has difficulty hearing and limited enthusiasm to cooperate with the history. By report the patient states he was nauseated and attempted to get up out of his chair. He fell to the ground. Family was unable to get him up off of the floor and called the ambulance. Patient denies hitting his head or loss of consciousness. He denies chest pain currently. Home Medications Home Medications Medication Instructions Recorded Confirmed Type albuterol sulfate 2 puff INHALATION Q6H PRN 08/18/19 08/18/19 History allopurinol 300 mg PO DAILY 08/18/19 08/18/19 History budesonide-formoterol [Symbicort] 2 puff INHALATION BID 08/18/19 08/18/19 History camphor-menthol 1 applic TOPICAL DAILY PRN 08/18/19 08/18/19 History clopidogrel 75 mg PO DAILY 08/18/19 08/18/19 History empagliflozin [Jardiance] 10 mg PO DAILY 08/18/19 08/18/19 History epinephrine [EpiPen] 0.3 mg IM Q3H PRN 08/18/19 08/18/19 History fexofenadine 180 mg PO DAILY PRN 08/18/19 08/18/19 History furosemide 80 mg PO DAILY 08/18/19 08/18/19 History glipizide 20 mg PO BID 08/18/19 08/18/19 History ipratropium-albuterol 3 ml INHALATION Q6H PRN 08/18/19 08/18/19 History melatonin 10 mg PO HS 08/18/19 08/18/19 History metformin 1,000 mg PO BID 08/18/19 08/18/19 History metoprolol succinate 100 mg PO DAILY 08/18/19 08/18/19 History nitroglycerin 0.4 mg SUBLINGUAL UD 08/18/19 08/18/19 History omeprazole 20 mg PO BID 08/18/19 08/18/19 History oxycodone 15 mg PO Q6H PRN 08/18/19 08/18/19 History pioglitazone 30 mg PO DAILY 08/18/19 08/18/19 History potassium chloride 20 meq PO DAILY 08/18/19 08/18/19 History tiotropium bromide [Spiriva 2 puff INHALATION DAILY 08/18/19 08/18/19 History Respimat] zolpidem 1 mg PO HS 08/18/19 08/18/19 History Allergies Allergy/AdvReac Type Severity Reaction Status Date / Time Iodinated Contrast Media Allergy Unknown . Verified 08/18/19 09:14 lisinopril AdvReac Severe Anaphylaxis Unverified 08/18/19 09:14 tetanus toxoid, adsorbed AdvReac Intermediate Arm Unverified 08/18/19 09:14 Swelling codeine AdvReac Mild NAUSEA Verified 08/18/19 09:14 morphine AdvReac Mild itching, Unverified 08/18/19 09:14 nausea/vomiting atorvastatin AdvReac Unknown myalgia Unverified 08/18/19 09:14 doxycycline AdvReac Unknown Unknown Unverified 08/18/19 09:14 Past Med/Surg History Medical History CAD (coronary artery disease) CKD (chronic kidney disease) stage 3, GFR 30-59 ml/min COPD (chronic obstructive pulmonary disease) Gout History of NV (myocardial infarction) JOSE on CPAP Osteoarthritis Paroxysmal atrial fibrillation Recurrent major depression Type 2 diabetes mellitus Surgical History History of cardiac cath 2004, 2008, 2012, 2016 History of cataract surgery History of cholecystectomy History of coronary angioplasty with insertion of stent 10/11/15 - distal LAD stent placed at [facility] [place] History of repair of rotator cuff Family History Father , age 62 Heart disease Mother , age 70 Stroke Social History Communication Ability: Effective Beliefs That Will Affect Care: None marital status: Current Living Situation: Alone Feels Safe at Home: Declines to Answer Smoking Status: Former smoker Review of Systems See HPI for pertinent positives & negatives. and A total of 10 systems reviewed and were otherwise negative Physical Exam Vital Signs Vital Signs - 24 hr 08/18/19 08:16 08/18/19 08:27 08/18/19 09:03 Temperature 36.7 C Temperature Source Oral Pulse Rate 104 H Pulse Rate [Left Finger] 109 H Respiratory Rate 24 22 Blood Pressure 145/72 H Blood Pressure [Left Arm] 109/69 Blood Pressure Mean 96 Blood Pressure Mean [Left Arm] 82 Pulse Oximetry 88 L 88 L 93 Oxygen Delivery Method Room Air Nasal Cannula Nasal Cannula Oxygen Flow Rate 2 3 Sepsis Recent Fever Within 48 Hours No Sepsis New/Unexplained Change in Mental Status No Sepsis Action Taken by Nursing No Action Required 08/18/19 09:41 08/18/19 09:42 Temperature Temperature Source Pulse Rate Pulse Rate [Left Finger] 113 H 108 H Respiratory Rate 22 20 Blood Pressure Blood Pressure [Left Arm] 119/91 133/80 Blood Pressure Mean Blood Pressure Mean [Left Arm] 100 97 Pulse Oximetry 88 L 94 Oxygen Delivery Method Room Air Nasal Cannula Oxygen Flow Rate 2 Sepsis Recent Fever Within 48 Hours Sepsis New/Unexplained Change in Mental Status Sepsis Action Taken by Nursing Vital signs reviewed. General: Chronically ill-appearing 74-year-old male, in no significant distress. HEENT: No scleral icterus, PERRLA, neck supple. Atraumatic. Cardiovascular: Tachycardic and irregular, diminished heart tones Pulmonary: Slightly increased work of breathing, noted to be hypoxic on room air. Abdomen: Soft, nontender, nondistended, positive bowel sounds. Musculoskeletal: Atraumatic, edema to the bilateral lower extremities. Neurologic: Patient awake alert and oriented x 3 Skin: Warm, dry, no rash Course Administered Medications Clopidogrel Bisulfate (Plavix) 75 mg PO DAILY [facility] Stop: 09/18/19 08:59 Last Admin: 08/19/19 08:15 Dose: 75 mg Documented by: [id number] Fluticasone/Vilanterol (Breo Ellipta 100/25 Mcg Inh) 1 puffs INH DAILY [facility]; Protocol Stop: 09/18/19 08:59 Last Admin: 08/19/19 08:15 Dose: 1 puffs Documented by: [id number] Furosemide 40 mg/ Syringe 4 mls @ 4 mls/min IV BID17 [facility] Stop: 09/17/19 16:59 Last Admin: 08/19/19 08:13 Dose: 4 mls/min Documented by: [id number] Admin: 08/18/19 18:22 Dose: 4 mls/min Documented by: [id number] Ceftriaxone Sodium 2,000 mg/ (Dextrose) 70 mls @ 100 mls/hr IV DAILY [facility]; Prot ocol Stop: 08/25/19 12:59 Last Infusion: 08/19/19 09:02 Dose: 0 mls/hr Documented by: [id number] Admin: 08/19/19 08:20 Dose: 100 mls/hr Documented by: [id number] Infusion: 08/18/19 15:30 Dose: 0 mls/hr Documented by: [id number] Admin: 08/18/19 13:10 Dose: 100 mls/hr Documented by: [id number] Heparin Sodium/Dextrose (Heparin Sodium/Dextrose) 25,000 units in 500 mls @ 34 mls/hr IV .[id number] [facility]; Protocol Stop: 09/17/19 12:59 Last Titration: 08/19/19 08:25 Dose: 1,700 units/hr, 34 mls/hr Documented by: [id number] Cosigned by: [id number] Titration: 08/19/19 07:08 Dose: 1,700 units/hr, 34 mls/hr Documented by: [id number] Cosigned by: [id number] Admin: 08/19/19 04:32 Dose: 1,700 units/hr, 34 mls/hr Documented by: [id number] Cosigned by: [id number] Titration: 08/19/19 04:32 Dose: 1,700 units/hr, 34 mls/hr Documented by: [id number] Cosigned by: [id number] Titration: 08/18/19 22:20 Dose: 1,700 units/hr, 34 mls/hr Documented by: [id number] Cosigned by: [id number] Titration: 08/18/19 18:54 Dose: 1,700 units/hr, 34 mls/hr Documented by: [id number] Cosigned by: [id number] Admin: 08/18/19 14:12 Dose: 1,700 units/hr, 34 mls/hr Documented by: [id number] Cosigned by: [id number] Vancomycin HCl 1,500 mg/ (Sodium Chloride) 530 mls @ 200 mls/hr IV Q12H [facility] Stop: 08/26/19 00:00 Last Infusion: 08/19/19 15:05 Dose: 0 mls/hr Documented by: [id number] Admin: 08/19/19 12:13 Dose: 200 mls/hr Documented by: [id number] Infusion: 08/19/19 04:42 Dose: 0 mls/hr Documented by: [id number] Admin: 08/19/19 01:38 Dose: 200 mls/hr Documented by: [id number] Insulin Aspart (Novolog Flexpen) 0 units SC ACHS [facility] Stop: 09/17/19 11:29 Last Admin: 08/19/19 12:14 Dose: 2 units Documented by: [id number] Cosigned by: [id number] Admin: 08/19/19 08:14 Dose: 4 units Documented by: [id number] Cosigned by: [id number] Admin: 08/18/19 21:26 Dose: Not Given Documented by: [id number] Cosigned by: [id number] Admin: 08/18/19 17:15 Dose: 2 units Documented by: [id number] Cosigned by: [id number] Admin: 08/18/19 14:11 Dose: 12 units Documented by: [id number] Cosigned by: [id number] Insulin Glargine (Lantus Solostar Pen) 0 units SC BID [facility]; Protocol Stop: 09/17/19 20:59 Last Admin: 08/19/19 08:14 Dose: 20 units Documented by: [id number] Cosigned by: [id number] Admin: 08/18/19 21:27 Dose: 10 units Documented by: [id number] Cosigned by: [id number] Metoprolol Tartrate (Lopressor) 50 mg PO TID [facility] Stop: 09/18/19 13:59 Last Admin: 08/19/19 13:56 Dose: 50 mg Documented by: [id number] Oxycodone/Acetaminophen (Percocet 5mg/325mg) 2 tab PO Q4H PRN PRN Reason: Pain Stop: 09/02/19 10:15 Last Admin: 08/19/19 14:58 Dose: 2 tab Documented by: [id number] Admin: 08/19/19 11:02 Dose: 2 tab Documented by: [id number] Umeclidinium [place] (Incruse Ellipta) 1 puffs INH DAILY [facility] Stop: 09/17/19 12:29 Last Admin: 08/19/19 08:15 Dose: 1 puffs Documented by: [id number] Admin: 08/18/19 13:10 Dose: 1 puffs Documented by: [id number] Discontinued Medications Acetaminophen (Tylenol) 650 mg PO Q4H PRN PRN Reason: Pain or Fever Stop: 09/17/19 11:05 Last Admin: 08/19/19 05:56 Dose: 650 mg Documented by: [id number] Admin: 08/18/19 21:33 Dose: 650 mg Documented by: [id number] Enoxaparin Sodium (Lovenox) 40 mg SQ Q12H [facility] Stop: 09/17/19 12:29 Last Admin: 08/18/19 19:17 Dose: Not Given Documented by: [id number] Furosemide (Lasix) 40 mg IV NOW STA Stop: 08/18/19 09:32 Last Admin: 08/18/19 09:37 Dose: 40 mg Documented by: [id number] Vancomycin HCl 2,750 mg/ (Sodium Chloride) 555 mls @ 200 mls/hr IV TODAY@1300 [facility] Stop: 08/18/19 15:47 Last Infusion: 08/18/19 17:24 Dose: 0 mls/hr Documented by: [id number] Admin: 08/18/19 14:12 Dose: 200 mls/hr Documented by: [id number] Heparin Sodium (Porcine) 8,000 (units/ Syringe) 8 mls @ 10 mls/min IV NOW ONE Stop: 08/18/19 14:01 Last Admin: 08/18/19 14:12 Dose: 10 mls/min Documented by: [id number] Cosigned by: [id number] Metoprolol Tartrate (Lopressor) 5 mg IV NOW STA Stop: 08/18/19 09:32 Last Admin: 08/18/19 09:37 Dose: 5 mg Documented by: [id number] Metoprolol Tartrate (Lopressor) 25 mg PO Q6 [facility] Stop: 09/17/19 17:59 Last Admin: 08/19/19 08:13 Dose: 25 mg Documented by: [id number] Admin: 08/19/19 06:22 Dose: 25 mg Documented by: [id number] Admin: 08/19/19 01:39 Dose: 25 mg Documented by: [id number] Admin: 08/18/19 18:22 Dose: 25 mg Documented by: [id number] Metoprolol Tartrate (Lopressor) 25 mg PO NOW STA Stop: 08/18/19 15:50 Last Admin: 08/18/19 17:14 Dose: 25 mg Documented by: [id number] Ondansetron HCl (Zofran) 4 mg IV NOW STA Stop: 08/18/19 08:23 Last Admin: 08/18/19 08:41 Dose: 4 mg Documented by: [id number] Tramadol HCl (Ultram) 50 mg PO Q8H PRN PRN Reason: Pain Stop: 09/17/19 13:31 Last Admin: 08/19/19 08:13 Dose: 50 mg Documented by: [id number] Critical Care Time Critical Care Time: Yes I have personally spent greater than 35 minutes of critical care time in the direct management of this patient. This includes bedside care, interpretation of diagnostic studies, and testing, discussion with consultants, patient, and family members, and other required patient management activities. This 35 minutes is in excess of all separately billable procedures. Medical Decision Making Differential Diagnosis Differential includes acute coronary syndrome, myocardial infarction, CVA, TIA, anemia, infection, pneumonia, UTI, pyelonephritis, poor nutrition, dehydration, electrolyte disturbance,hypoglycemia. Medical Records Attestation: I reviewed the patient's medical records. Home Medications Current Medication List: was personally reviewed by me Laboratory Data Attestation: I reviewed the patient's lab results. Result diagrams: 08/18/19 08:30 08/19/19 06:45 Lab Results 08/18/19 08/18/19 08/18/19 Range/Units 08:30 08:30 08:30 WBC 10.52 (4.8-10.8) K/uL RBC 4.10 L (4.7-6.1) M/uL Hgb 13.0 L (14.0-18.0) g/dL Hct 40.0 L (42-52) % MCV 97.6 (80-100) fL MCH 31.7 (25-34) pg MCHC 32.5 (32-36) g/dL RDW Std Deviation 53.6 H (36.4-46.3) fL RDW Coeff of [place] 15.0 H (11.5-14.5) % Plt Count 226 (130-400) K/uL MPV 10.0 (7.4-10.4) fL Immature Gran % (Auto) 0.5 % Neut % (Auto) 78.7 % Lymph % (Auto) 11.1 % [place] % (Auto) 8.4 % Eos % (Auto) 1.0 % Baso % (Auto) 0.3 % Neut # (Auto) 8.28 H (1.4-6.5) K/uL Lymph # (Auto) 1.17 L (1.2-3.4) K/uL [place] # (Auto) 0.88 H (0.11-0.59) K/uL Eos # (Auto) 0.11 (0-0.5) K/uL Baso # (Auto) 0.03 (0-0.2) K/uL Immature Gran # (Auto) 0.05 H (0.00-0.02) K/uL ABG pH (7.35-7.45) ABG pCO2 (35-46) mmHg ABG pO2 (80-95) mmHg ABG HCO3 (19-24) mmol/L ABG O2 Saturation (90-95) % ABG Base Excess (-9-1.8) mEq/L [place] Test (Pos) Barometric Pressure mm/Hg Oxygen Given Sodium 137 (136-145) mmol/L Potassium 3.9 (3.5-5.1) mmol/L Chloride 103 (98-107) mmol/L Carbon Dioxide 27 (21-32) mmol/L Anion Gap 7.0 (3-11) BUN 23 H (7-18) mg/dl Creatinine 1.21 (0.6-1.4) mg/dl Est Cr Clr Drug Dosing 73.4 ml/min Est GFR ( Amer) 68.4 Est GFR (Non-Af Amer) 59.0 BUN/Creatinine Ratio 18.8 (10-20) Glucose 261 H (70-99) mg/dl Calcium 9.5 (8.5-10.1) mg/dl Magnesium (1.8-2.4) mg/dl Total Bilirubin 1.0 (0.2-1) mg/dl AST 20 (15-37) U/L ALT 21 (12-78) U/L Alkaline Phosphatase 131 H (45-117) U/L Troponin I 0.015 (0-0.045) ng/ml C-Reactive Protein (0-0.29) mg/dl Total Protein 7.5 (6.4-8.2) gm/dl Albumin 3.1 L (3.4-5.0) gm/dl Globulin 4.4 H (2.5-4.0) gm/dl Albumin/Globulin Ratio 0.7 L (0.9-2) 08/18/19 08/18/19 Range/Units 08:30 09:18 WBC (4.8-10.8) K/uL RBC (4.7-6.1) M/uL Hgb (14.0-18.0) g/dL Hct (42-52) % MCV (80-100) fL MCH (25-34) pg MCHC (32-36) g/dL RDW Std Deviation (36.4-46.3) fL RDW Coeff of [place] (11.5-14.5) % Plt Count (130-400) K/uL MPV (7.4-10.4) fL Immature Gran % (Auto) % Neut % (Auto) % Lymph % (Auto) % [place] % (Auto) % Eos % (Auto) % Baso % (Auto) % Neut # (Auto) (1.4-6.5) K/uL Lymph # (Auto) (1.2-3.4) K/uL [place] # (Auto) (0.11-0.59) K/uL Eos # (Auto) (0-0.5) K/uL Baso # (Auto) (0-0.2) K/uL Immature Gran # (Auto) (0.00-0.02) K/uL ABG pH 7.40 (7.35-7.45) ABG pCO2 47 H (35-46) mmHg ABG pO2 60 L (80-95) mmHg ABG HCO3 28 H (19-24) mmol/L ABG O2 Saturation 90.7 (90-95) % ABG Base Excess 2.8 H (-9-1.8) mEq/L [place] Test Pos (Pos) Barometric Pressure 732.6 mm/Hg Oxygen Given ROOM AIR Sodium (136-145) mmol/L Potassium (3.5-5.1) mmol/L Chloride (98-107) mmol/L Carbon Dioxide (21-32) mmol/L Anion Gap (3-11) BUN (7-18) mg/dl Creatinine (0.6-1.4) mg/dl Est Cr Clr Drug Dosing ml/min Est GFR ( Amer) Est GFR (Non-Af Amer) BUN/Creatinine Ratio (10-20) Glucose (70-99) mg/dl Calcium (8.5-10.1) mg/dl Magnesium 1.8 (1.8-2.4) mg/dl Total Bilirubin (0.2-1) mg/dl AST (15-37) U/L ALT (12-78) U/L Alkaline Phosphatase (45-117) U/L Troponin I (0-0.045) ng/ml C-Reactive Protein 3.64 H (0-0.29) mg/dl Total Protein (6.4-8.2) gm/dl Albumin (3.4-5.0) gm/dl Globulin (2.5-4.0) gm/dl Albumin/Globulin Ratio (0.9-2) Imaging Data Radiologist's Impression: XR chest 1V portable CLINICAL HISTORY: SOB dyspnea COMPARISON STUDY: 11/19/2015 FINDINGS: Moderate cardiomegaly. Prominent pulmonary vasculature. Diaphragms are smooth. No focal infiltrate. IMPRESSION: Developing congestive heart failure ACT 112: Negative or not required by law. The above report was generated using voice recognition software. It may contain grammatical, syntax or spelling errors. Electronically signed by: Edwar Barajas M.D. 08/18/2019 9:05 AM Dictated: 08/18/19904 Transcribed: 08/18/19904 CT head/brain wo con CT DOSE: 614.27 mGy.cm HISTORY: Trauma. Mental status change. fall at home TECHNIQUE: Multiaxial CT images of the head were performed without the use of intravenous contrast. A dose lowering technique was utilized adhering to the principles of ALARA. Comparison: 03/15/2012 Findings: The paranasal sinuses and mastoid air cells are clear. The calvarium and skull base are intact. The ventricles and sulci are within normal limits. There is no mass, hematoma, midline shift, or acute infarct. Impression: No acute intracranial abnormality. ACT 112: Negative or not required by law. The above report was generated using voice recognition software. It may contain grammatical, syntax or spelling errors. Electronically signed by: Edwar Barajas M.D. 08/18/2019 8:54 AM Dictated: 08/18/1950 Transcribed: 08/18/19850 ECG Data Attestation: I personally reviewed and interpreted this ECG as follows: Indication: + tachycardia Rate (beats per minute): 126 Rhythm: + atrial fibrillation ECG Intervals/blocks: + Normal QT ECG [place]: + Normal ECG ST segments: + Nonspecific ST abnormalities (inferior) ECG Findings: no PACs and no PVCs Blood Pressure Blood Pressure Findings: Elevated blood pressure Blood Pressure Disposition: further management by hospitalist MDM Narrative This patient was evaluated and appeared to be in no significant distress. Patient is noted to be somewhat hypoxia. IV access was obtained and laboratory work was drawn. An order was placed for cardiac monitoring and patient is found to be in rapid atrial fibrillation. He did receive 4 mg of IV Zofran for na usea. 5 mg of IV metoprolol was ordered. Patient was also given 40 mg of IV Lasix after chest x-ray reveals pulmonary vascular congestion. Patient's laboratory work reveals a WBC of 10.5, troponin of 0.015. Patient will be evaluated by the hospitalist service due to pulmonary vascular congestion, rapid atrial fib and hypoxia. Impression & Plan Congestive heart failure, Atrial fibrillation with rapid ventricular response, Hypoxia Discharge Plan Visit Data *Final* Discharge Date/Time: 08/18/19 10:47 Chief Complaint: Fall Stated Complaint: fall/ ams ED Provider: Janie Cardona ED Midlevel Provider: Fina Garcia Discharge Problem: Congestive heart failure, Atrial fibrillation with rapid ventricular response, Hypoxia Patient Disposition: Admitted As Inpatient Discharge Instructions Interventions: ED Discharge Assessment Last Done: 08/18/19 10:47 Discharge Problem: Congestive heart failure Qualifiers: Heart failure type: unspecified Heart failure chronicity: acute on chronic Qualified Code(s): I50.9 - Heart failure, unspecified
[2019-08-18] MEDS: METOPROLOL TARTRATE 25 MG TAB PO SCH (18:22)
[2019-08-18] MEDS: FUROSEMIDE 40 MG in SYRINGE 0 ML IV SCH (18:22)
[2019-08-18 20:56] LABS: Partial Thromboplastin Ratio 2.4
[2019-08-18 21:03] LABS: Partial Thromboplastin Time 66.1 Seconds (21.0-31.0)
[2019-08-18] MEDS: INSULIN GLARGINE SOLOSTAR 100 UNITS/ML 3 ML PEN SC SCH (21:27)
[2019-08-18] MEDS: ACETAMINOPHEN 325 MG TAB PO PRN (21:33)
[2019-08-19] MEDS: VANCOMYCIN HCL 1,500 MG in SODIUM CHLORIDE 0.9% 500 ML IV SCH ×2 (01:38→12:13)
[2019-08-19] MEDS: METOPROLOL TARTRATE 25 MG TAB PO SCH ×3 (01:39→08:13)
[2019-08-19 01:53] LABS: Appearance Urine Clear (Clear); Bacteria Urine Automated Negative (Negative); Bilirubin Urine Negative (Negative); Blood Urine Negative (Negative); Color Urine Dark Yellow; Glucose Urine UA Negative (Negative); Ketones Urine Negative (Negative); Leukocyte Esterase Urine Negative (Negative); Nitrite Urine Negative (Negative); Protein Urine 1+ (Negative); RBC Urine Automated 0-4 /hpf (0-4); Specific Gravity Urine 1.025 (1.000-1.030); Urobilinogen Urine Negative (Negative)
[2019-08-19] MEDS: HEPARIN SODIUM/DEXTROSE 25,000 UNITS/500 ML BAG IV SCH ×2 (04:32→19:24)
--- NOTE | 2019-08-19 04:48 | Electrocardiogram Report ---
Test Reason : Blood Pressure : / mmHG Vent. Rate : 126 BPM Atrial Rate : 077 BPM P-R Int : 000 ms QRS Dur : 088 ms QT Int : 324 ms P-R-T Axes : 000 060 039 degrees QTc Int : 469 ms Atrial fibrillation with rapid ventricular response Abnormal ECG When compared with ECG of 19-NOV-2015 22:37, Atrial fibrillation has replaced Sinus rhythm Confirmed by Fidel Mcgrath ([id number]) on 08/19/2019 4:48:10 AM Referred By: REFERRED SELF Confirmed By:Fidel Mcgrath
[2019-08-19] MEDS: ACETAMINOPHEN 325 MG TAB PO PRN (05:56)
[2019-08-19 07:23] LABS: BUN Creatinine Ratio 18.7 (10-20); Calcium 9.6 mg/dl (8.5-10.1); Creatinine Clr Calc Pharmacy 66.3 ml/min; Est GFR (African American) 62.2; Est GFR (Non-African American) 53.6; Potassium 3.7 mmol/L (3.5-5.1)
[2019-08-19 07:24] LABS: Estimated Average Glucose 301 mg/dl; Hemoglobin A1C 12.1 % (4.5-5.6)
[2019-08-19 07:26] LABS: Partial Thromboplastin Ratio 1.8
[2019-08-19 07:34] LABS: Partial Thromboplastin Time 49.8 Seconds (21.0-31.0)
[2019-08-19] MEDS: FUROSEMIDE 40 MG in SYRINGE 0 ML IV SCH ×2 (08:13→17:24)
[2019-08-19] MEDS: INSULIN ASPART 100 UNITS/ML 3 ML PEN SC SCH ×4 (08:14→21:27)
[2019-08-19] MEDS: INSULIN GLARGINE SOLOSTAR 100 UNITS/ML 3 ML PEN SC SCH ×2 (08:14→21:25)
[2019-08-19] MEDS: UMECLIDINIUM BROMIDE 62.5MCG/BLISTER 7 PUFFS/INHALER INH SCH (08:15)
[2019-08-19] MEDS: CLOPIDOGREL BISULFATE 75 MG TAB PO SCH (08:15)
[2019-08-19] MEDS: FLUTICASONE/VILANTEROL 100/25MCG 14 PUFFS/INHALER INH SCH (08:15)
[2019-08-19] MEDS: cefTRIAXone SODIUM 2,000 MG in DEXTROSE 5% 50 ML IV SCH (08:20)
[2019-08-19] MEDS ORDERED: METOPROLOL SUCC 50MG EXT REL TAB PO SCH (09:00)
[2019-08-19] MEDS: OXYCODONE/ACETAMINOPHEN 5mg/325mg TAB PO PRN ×2 (11:02→14:58)
--- NOTE | 2019-08-19 12:03 | Cardiology Progress Note ---
Date of Service August 19, 2019 Assessment & Plan (1) Acute decompensated heart failure: (2) Paroxysmal atrial fibrillation: (3) Cellulitis of leg: (4) CAD (coronary artery disease), [place] coronary artery: (5) CKD (chronic kidney disease) stage 3, GFR 30-59 ml/min: (6) Type 2 diabetes mellitus: (7) JOSE on CPAP: Titrate metoprolol tartrate to 50 mg 3 times daily. (Outpatient beta-pao dose, Toprol-XL 100 mg daily). I had a long discussion with the patient regarding natural history, pathophysiology, and stroke risk associated with atrial fibrillation. Oral anticoagulation options discussed. Patient agreeable to Eliquis 5 mg twice daily at time of discharge. Echocardiogram demonstrates mild left ventricular systolic dysfunction without significant valvular pathology. Continue IV Lasix 40 mg every 12hours. Follow daily weight, fluid balance, GFR, and electrolytes. Consider addition of BHARAT inhibitor or ARB prior to discharge, however, will not add currently to allow for titration of beta-pao therapy. Diabetes management and antibiotic therapy as per internal medicine. Subjective Patient seen exam at the bedside. Complains of left-sided neck and shoulder discomfort. Reports pain is chronic and typically managed with oxycodone at home. Denies chest heaviness or tightness. No unusual shortness of breath. Notes lower extremity edema which she states "is usual for me". Denies orthopnea or PND. He becomes tearful at times when discussing his chronic pain. Denies signs/symptoms of GI/ blood loss. Voices frustration with his medical care. Telemetry reveals atrial fibrillation with heart rate ranging from 90 to 110 bpm. Review of Systems Review of Systems: All systems reviewed & are unremarkable except as noted in HPI & below Physical Exam Constitutional: well developed, well nourished, + ill appearing and + obese; no acute distress Respiratory: normal respiratory effort; no respiratory distress, no labored breathing and no retractions Auscultation: + diminished lung sounds, + rales (Bases bilateral) and + wheezes (Bilateral expiratory); no crackles and no rhonchi Cardiovascular: Rate/Rhythm: + tachycardic and + irregularly irregular Heart Sounds: normal S1 and normal S2; no murmur Vessels: no JVD Extrem ities: + edema (1+ bilateral pedal edema. + Stasis changes) Gastrointestinal (Abdomen): Inspection/Auscultation: abdomen normal to ins pection and normal bowel sounds; abdomen not distended Percussion/Palpation: abdomen soft; abdomen nontender, no guarding and abdomen not rigid Skin: no rashes, warm and dry Neurologic: CN's II-XI intact bilaterally and moves all extremities; no focal motor deficits Speech / Cognition: normal speech Motor/Sensory: no tremor Results & Data Vital Signs (Past 12 Hours) Vital Signs Temp Pulse Pulse Resp BP Pulse Ox 08/19/19 11:30 36.7 C 102 H 20 130/83 94 08/19/19 08:00 109 H 08/19/19 07:28 36.7 C 89 18 133/95 91 08/19/19 03:52 37.0 C 85 20 141/108 H 95 08/19/19 00:06 36.7 C 93 H 20 151/94 H 92 (1) Cellulitis of leg Laterality: left Qualified Code(s): L03.116 - Cellulitis of left lower limb (2) CAD (coronary artery disease), [place] coronary artery [place] vs. transplanted heart: [place] heart Associated angina: angina presence unspecified Qualified Code(s): I25.10 - Atherosclerotic heart disease of [place] coronary artery without angina pectoris (3) Type 2 diabetes mellitus Diabetes mellitus usp insulin use: without usp use Diabetes mellitus complication status: with kidney complications Diabetes mellitus complication detail: with chronic kidney disease Chronic kidney disease stage: stage 3 (moderate) Qualified Code(s): 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 mellitus with diabetic chronic kidney disease; N18.3 - Chronic kidney disease, stage 3 (moderate)
[2019-08-19] MEDS: METOPROLOL TARTRATE 50 MG TAB PO SCH ×2 (13:56→21:24)
--- NOTE | 2019-08-19 15:08 | Hospitalist Progress Note ---
Date of Service August 19, 2019 Assessment & Plan (1) Congestive heart failure: Suspect related to non-compliance and dietary indiscretion although history from pt is limited. Last ECHO appears to have been in 2016 and shower LVEF 55-59%, moderate concentric LVH, dilated IVC, elevated RA pressure Acute decompensated congestive heart failure Lasix 40 mg IV BID ECHO showed LV systolic function is mildly reduced to 45 to 50% of EF, mild global hypokinesis of the left ventricle, left atrium moderately dilated, aortic valve sclerosis without significant stenosis, trace AR, mild MR and mild TR estimated systolic pulmonary artery pressure 45 mmHg and dilated IVC with normal inspiratory variation suggesting a right atrial pressure of 8 mmHg Consult cardiology-appreciate input and recommendation Patient is clinically a little bit better (2) Atrial fibrillation with rapid ventricular response: Given metoprolol 5 mg IV x 1 dose in ED - rate appears more stable around 90-110 Toprol-XL 100 mg daily has been changed to metoprolol tartrate 50 mg 3 times daily Eliquis 5 mg twice daily has been started Heart rate seems to be in the right direction (3) Cellulitis of leg: CRP elevated at 3.64. WBCs not elevated and pt currently afebrile. Unclear how actue LE skin changes are but with elevated CRP and physical exam, will start antibiotics. - Will start empiric IV Vanco and Ceftriaxone - Check blood cultures (4) Neck mass: Had a lesion removed from left upper back in late 2019 - biopsy confirmed squamous cell CA (prior hx of same in 2018 on chest and left elbow). Reports two new lesions on neck for which he was trying to get back in with MOHS surgery to see - seem to be causing increasing neck pain. He reports oxycodone has not been helpful and causes GI distress. - Tylenol for pain with Tramadol for breakthrough -Has been screaming in pain -Would have metastatic disease -Started oral Percocet and will get CT of the neck and chest without contrast to evaluate the mass (5) COPD (chronic obstructive pulmonary disease): Does not complain of SOB at present and lungs without wheezing - suspect hypoxia on presentation more related to CHF than COPD - Continue home inhalers with prn nebs (6) JOSE on CPAP: Pt unclear if he uses CPAP (which he tells me) or BiPAP (which he told the ED staff) but does know that he uses oxygen with his machine while he sleeps - Will start with CPAP per protocol while admitted (7) CKD (chronic kidney disease) stage 3, GFR 30-59 ml/min: Labs from Feb 2019 - BUN 22, Creatinine 1.3. Stable today on labs in the ED - Monitor labs with diuresis (8) Type 2 diabetes mellitus: Last A1c in Feb 2019 = 9.3. It is unclear if patient is taking oral hypogylcemics as prescribed - HOLD home oral meds - Insulin sliding scale - adjust pending response - BSG ACHS - Diabetic diet - Check A1c in AM-12.1 Admission and Anticipated Discharge Date Admission Date: August 18, 2019 Subjective The patient was seen and examined in telemetry unit He is a 74-year-old obese male with significant past medical history including JOSE on CPAP, CKD, COPD, CHF was admitted with increasing shortness of breath His breathing seems to be improving but complains of some pain in the left lower neck and left upper chest wall adjoining the axillary area He denies any chest pain and/or palpitation No abdominal pain, nausea and/or vomiting Review of Systems Review of Systems: All systems reviewed and are unremarkable except as noted below Constitutional: + body aches and + weight gain Respiratory: Left upper chest wall pain Musculoskeletal: + neck pain Physical Exam Physical Exam: Sitting on a chair with distress secondary to neck pain and left anterior chest pain Constitutional: + acute distress (Due to pain), + ill appearing and + morbidly obese Eyes: Slight redness involving eyelids on both sides. No drainage from the eyes ENMT: external ear and nose normal, oropharynx normal Neck: Swelling in the lower left lateral neck with tenderness to palpation Respiratory: normal respiratory effort; no respiratory distress Auscultation: + diminished lung sounds and + crackles (Bibasilar crackles) Cardiovascular: Rate/Rhythm: regular rate and regular rhythm Heart Sounds: no murmur Gastrointestinal (Abdomen): Inspection/Auscultation: + abdomen distended Percussion/Palpation: abdomen soft; abdomen nontender Musculoskeletal: No acute arthritis involving any joints Neurologic: moves all extremities; no focal motor deficits Results & Data Results & Data ([facility]) Vital Signs (Past 12 Hours) Vital Signs Temp Pulse Pulse Resp BP Pulse Ox 08/19/19 14:52 102 H 08/19/19 13:57 120 H 136/112 H 08/19/19 11:30 36.7 C 102 H 20 130/83 94 08/19/19 08:00 109 H 08/19/19 07:28 36.7 C 89 18 133/95 91 08/19/19 03:52 37.0 C 85 20 141/108 H 95 Laboratory Results BMP 08/19/19 06:45 Sodium 136 Potassium 3.7 Chloride 100 Carbon Dioxide 27 BUN 25 H Creatinine 1.31 Glucose 166 H Calcium 9.6 Urine 08/19/19 Range/Units Unknown Urine Color Dark Yellow Urine Appearance Clear (Clear) Urine pH 5.0 (4.5-7.5) Ur Specific [place] 1.025 (1.000-1.030) Urine Protein 1+ H (Negative) Urine Glucose (UA) Negative (Negative) Medications Administered Current Inpatient Medications Albuterol (Duoneb) 3 ml INH Q6R PRN PRN Reason: cough/shortness of breath Stop: 09/17/19 12:59 Clopidogrel Bisulfate (Plavix) 75 mg PO DAILY JOS[facility] Stop: 09/18/19 08:59 Last Admin: 08/19/19 08:15 Dose: 75 mg Documented by: Dextrose (Dextrose 50%) 25 - 50 ml IV UD PRN; Protocol PRN Reason: Hypoglycemia Protocol Stop: 09/17/19 11:11 Fluticasone/Vilanterol (Breo Ellipta 100/25 Mcg Inh) 1 puffs INH DAILY JOS[facility]; Protocol Stop: 09/18/19 08:59 Last Admin: 08/19/19 08:15 Dose: 1 puffs Documented by: Glucagon (Glucagen) 1 mg SQ UD PRN; Protocol PRN Reason: Hypoglycemia Protocol Stop: 09/17/19 11:11 Glucose (Dex4 Glucose) 4 - 8 tabs PO UD PRN; Protocol PRN Reason: Hypoglycemia Protocol Stop: 09/17/19 11:11 Glucose (Glucose 40%) 15 - 30 gm PO UD PRN; Protocol PRN Reason: Hypoglycemia Protocol Stop: 09/17/19 11:11 Furosemide 40 mg/ Syringe 4 mls @ 4 mls/min IV [id number] JOS[facility] Stop: 09/17/19 16:59 Last Admin: 08/19/19 08:13 Dose: 4 mls/min Documented by: Ceftriaxone Sodium 2,000 mg/ (Dextrose) 70 mls @ 100 mls/hr IV DAILY JOSH; Protocol Stop: 08/25/19 12:59 Last Infusion: 08/19/19 09:02 Dose: Infused Documented by: Heparin Sodium/Dextrose (Heparin Sodium/Dextrose) 25,000 units in 500 mls @ 34 mls/hr IV .[id number] [facility]; Protocol Stop: 09/17/19 12:59 Last Titration: 08/19/19 08:25 Dose: 1,700 units/hr, 34 mls/hr Documented by: Vancomycin HCl 1,500 mg/ (Sodium Chloride) 530 mls @ 200 mls/hr IV Q12H [facility] Stop: 08/26/19 00:00 Last Infusion: 08/19/19 15:05 Dose: Infused Documented by: Insulin Aspart (Novolog Flexpen) 0 units SC ACHS [facility] Stop: 09/17/19 11:29 Last Admin: 08/19/19 12:14 Dose: 2 units Documented by: Insulin Glargine (Lantus Solostar Pen) 0 units SC BID [facility]; Protocol Stop: 09/17/19 20:59 Last Admin: 08/19/19 08:14 Dose: 20 units Documented by: Metoprolol Tartrate (Lopressor) 50 mg PO TID [facility] Stop: 09/18/19 13:59 Last Admin: 08/19/19 13:56 Dose: 50 mg Documented by: Miscellaneous (Carbohydrates For Hypoglycemia) 15 - 30 gm PO UD PRN PRN Reason: Hypoglycemia Protocol Stop: 09/17/19 11:11 Miscellaneous Information (Consult) 1 ea N/A UD PRN PRN Reason: Consult Stop: 09/17/19 12:33 Oxycodone/Acetaminophen (Percocet 5mg/325mg) 2 tab PO Q4H PRN PRN Reason: Pain Stop: 09/02/19 10:15 Last Admin: 08/19/19 14:58 Dose: 2 tab Documented by: Umeclidinium [place] (Incruse Ellipta) 1 puffs INH DAILY [facility] Stop: 09/17/19 12:29 Last Admin: 08/19/19 08:15 Dose: 1 puffs Documented by: (1) Congestive heart failure Heart failure type: unspecified Heart failure chronicity: acute Qualified Code(s): I50.9 - Heart failure, unspecified (2) Cellulitis of leg Laterality: left Qualified Code(s): L03.116 - Cellulitis of left lower limb (3) COPD (chronic obstructive pulmonary disease) COPD type: unspecified COPD Qualified Code(s): J44.9 - Chronic obstructive pulmonary disease, unspecified (4) Type 2 diabetes mellitus Diabetes mellitus nursing home insulin use: without ferry terminal supervisor use Diabetes mellitus complication status: with kidney complications Diabetes mellitus complication detail: with chronic kidney disease Chronic kidney disease stage: stage 3 (moderate) Qualified Code(s): 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 mellitus with diabetic chronic kidney disease; N18.3 - Chronic kidney disease, stage 3 (moderate)
[2019-08-19] MEDS ORDERED: VANCOMYCIN TROUGH ONE (23:30)
[2019-08-20] MEDS: VANCOMYCIN HCL 1,500 MG in SODIUM CHLORIDE 0.9% 500 ML IV SCH (00:19)
[2019-08-20] MEDS: OXYCODONE/ACETAMINOPHEN 5mg/325mg TAB PO PRN ×2 (04:25→09:54)
[2019-08-20] MEDS ORDERED: HALOPERIDOL LACTATE 5 MG/ML 1 ML VIAL IM STA (04:48)
[2019-08-20 07:58] LABS: Partial Thromboplastin Ratio 1.9
[2019-08-20 08:08] LABS: Partial Thromboplastin Time 53.2 Seconds (21.0-31.0)
[2019-08-20 08:09] LABS: Calcium 9.2 mg/dl (8.5-10.1); Creatinine Clr Calc Pharmacy 63.7 ml/min; Est GFR (African American) 58.9; Est GFR (Non-African American) 50.8; Potassium 3.5 mmol/L (3.5-5.1)
[2019-08-20] MEDS: FLUTICASONE/VILANTEROL 100/25MCG 14 PUFFS/INHALER INH SCH (08:58)
[2019-08-20] MEDS: INSULIN GLARGINE SOLOSTAR 100 UNITS/ML 3 ML PEN SC SCH ×2 (08:58→21:33)
[2019-08-20] MEDS: UMECLIDINIUM BROMIDE 62.5MCG/BLISTER 7 PUFFS/INHALER INH SCH (08:58)
[2019-08-20] MEDS: FUROSEMIDE 40 MG in SYRINGE 0 ML IV SCH (08:59)
[2019-08-20] MEDS: METOPROLOL TARTRATE 50 MG TAB PO SCH (08:59)
[2019-08-20] MEDS: CLOPIDOGREL BISULFATE 75 MG TAB PO SCH (09:00)
[2019-08-20] MEDS: INSULIN ASPART 100 UNITS/ML 3 ML PEN SC SCH ×4 (09:01→21:33)
[2019-08-20] MEDS: cefTRIAXone SODIUM 2,000 MG in DEXTROSE 5% 50 ML IV SCH (09:07)
[2019-08-20] MEDS: HEPARIN SODIUM/DEXTROSE 25,000 UNITS/500 ML BAG IV SCH ×2 (09:51→23:03)
--- NOTE | 2019-08-20 10:21 | Cardiology Progress Note ---
Date of Service August 20, 2019 Assessment & Plan (1) Acute decompensated heart failure: Significant edema and minimal diuresis with high-volume IV fluids (2) Paroxysmal atrial fibrillation: (3) Cellulitis of leg: (4) CAD (coronary artery disease), [place] coronary artery: (5) CKD (chronic kidney disease) stage 3, GFR 30-59 ml/min: (6) Type 2 diabetes mellitus: (7) JOSE on CPAP: Little change other than slightly better heart rate control since admission. We will titrate diuretics higher, furosemide IV 60 mg 3 times daily Change metoprolol tartrate to metoprolol succinate at increased dosing Supplement potassium, add spironolactone Recommend restriction of fluid minimization of IV fluids if possible Subjective Patient was seen and examined, chart, medications, telemetry reviewed. Patient sitting out of bed in chair. Still in atrial fibrillation with elevated ventricular response rates. Blood pressure elevated Denies chest pain or worsening shortness of breath. Persistent lower extremity edema and abdominal fullness present, not much diuresis Physical Exam Constitutional: + morbidly obese; no acute distress Eyes: PERRL, conjunctivae normal, anicteric sclerae ENMT: external ear and nose normal, oropharynx normal Neck: trachea midline, no thyromegaly + thick neck Respiratory: Auscultation: + diminished lung sounds Cardiovascular: Rate/Rhythm: + tachycardic and + irregularly irregular Heart Sounds: normal S1 and normal S2; no gallop and no murmur Palpation: normal PMI Vessels: normal carotid upstroke and radial pulses present; no carotid bruit Extremities: + edema (3+ lower extremity) Chest (Breasts): Additional Comments: Barrel chested Gastrointestinal (Abdomen): Percussion/Palpation: abdomen soft Mildly distended with large panniculus Musculoskeletal: no cyanosis or clubbing, extremities motor strength 5/5 Skin: no rashes, warm and dry Neurologic: PERRL, EOMI, accommodation nl, no face palsy, no dysarthria Psychiatric: A+Ox3, euthymic affect Results & Data Vital Signs (Past 12 Hours) Vital Signs Temp Pulse Pulse Resp BP Pulse Ox 08/20/19 07:30 98 H 08/20/19 07:22 37.3 C 93 H 23 141/113 H 93 08/20/19 04:15 37.2 C 98 H 20 93 08/20/19 03:06 95 H 18 93 07/11/20 00:00 87 16 121/69 94 Laboratory Results Laboratory Results - last 24 hr 08/19/19 08/19/19 08/19/19 11:32 16:45 20:11 APTT PTT Ratio Sodium Potassium Chloride Carbon Dioxide Anion Gap BUN Creatinine Est Cr Clr Drug Dosing Est GFR ( Amer) Est GFR (Non-Af Amer) BUN/Creatinine Ratio Glucose POC Glucose 198 H 195 H 187 H Calcium Vancomycin Trough 08/19/19 08/20/19 08/20/19 23:18 06:57 06:57 APTT 53.2 H* PTT Ratio 1.9 Sodium 132 L Potassium 3.5 Chloride 95 L Carbon Dioxide 28 Anion Gap 9.0 BUN 30 H Creatinine 1.37 Est Cr Clr Drug Dosing 63.7 Est GFR ( Amer) 58.9 Est GFR (Non-Af Amer) 50.8 BUN/Creatinine Ratio 22.0 H Glucose 193 H POC Glucose Calcium 9.2 Vancomycin Trough 24.6 08/20/19 07:17 APTT PTT Ratio Sodium Potassium Chloride Carbon Dioxide Anion Gap BUN Creatinine Est Cr Clr Drug Dosing Est GFR ( Amer) Est GFR (Non-Af Amer) BUN/Creatinine Ratio Glucose POC Glucose 209 H Calcium Vancomycin Trough (1) Cellulitis of leg Laterality: left Qualified Code(s): L03.116 - Cellulitis of left lower limb (2) CAD (coronary artery disease), [place] coronary artery [place] vs. transplanted heart: [place] heart Associated angina: angina presence unspecified Qualified Code(s): I25.10 - Atherosclerotic heart disease of [place] coronary artery without angina pectoris (3) Type 2 diabetes mellitus Diabetes mellitus long term care pharmacist insulin use: without senior care use Diabetes mellitus complication status: with kidney complications Diabetes mellitus complication detail: with chronic kidney disease Chronic kidney disease stage: stage 3 (moderate) Qualified Code(s): 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 mellitus with diabetic chronic kidney disease; N18.3 - Chronic kidney disease, stage 3 (moderate)
[2019-08-20] MEDS ORDERED: POTASSIUM CHLORIDE 20 MEQ TABCR PO ONE (10:29)
[2019-08-20] MEDS: SPIRONOLACTONE 12.5 MG TAB PO SCH (13:03)
[2019-08-20] MEDS: FUROSEMIDE 60 MG in SYRINGE 0 ML IV SCH ×2 (14:33→20:36)
[2019-08-20] MEDS: METOPROLOL SUCC 50MG EXT REL TAB PO SCH ×2 (14:33→20:36)
--- NOTE | 2019-08-20 14:44 | Hospitalist Progress Note ---
Date of Service August 20, 2019 Assessment & Plan (1) Congestive heart failure: Suspect related to non-compliance and dietary indiscretion although history from pt is limited. Last ECHO appears to have been in 2016 and shower LVEF 55-59%, moderate concentric LVH, dilated IVC, elevated RA pressure Acute decompensated congestive heart failure Lasix 40 mg IV BID ECHO showed LV systolic function is mildly reduced to 45 to 50% of EF, mild global hypokinesis of the left ventricle, left atrium moderately dilated, aortic valve sclerosis without significant stenosis, trace AR, mild MR and mild TR estimated systolic pulmonary artery pressure 45 mmHg and dilated IVC with normal inspiratory variation suggesting a right atrial pressure of 8 mmHg Consult cardiology-appreciate input and recommendation Denies any significant shortness of breath at rest Looks better clinically Essential (primary) hypertension Blood pressure seems to be controlled with current medication (2) Atrial fibrillation with rapid ventricular response: Given metoprolol 5 mg IV x 1 dose in ED - rate appears more stable around 90-110 Toprol-XL 100 mg daily has been changed to metoprolol tartrate 50 mg 3 times daily Eliquis 5 mg twice daily has been started Heart rate seems to be in the right direction Rate remains elevated at 102 (3) Cellulitis of leg: CRP elevated at 3.64. WBCs not elevated and pt currently afebrile. Unclear how actue LE skin changes are but with elevated CRP and physical exam, will start antibiotics. - Will start empiric IV Vanco and Ceftriaxone - Check blood cultures-negative -We will continue current antibiotic for now and de-escalate tomorrow (4) Neck mass: Had a lesion removed from left upper back in late 2019 - biopsy confirmed squamous cell CA (prior hx of same in 2018 on chest and left elbow). Reports two new lesions on neck for which he was trying to get back in with MOHS surgery to see - seem to be causing increasing neck pain. He reports oxycodone has not been helpful and causes GI distress. - Tylenol for pain with Tramadol for breakthrough -Has been screaming in pain -Would have metastatic disease -Started oral Percocet and will get CT of the neck and chest without contrast to evaluate the mass -Patient acute to have CAT scan of the neck and chest any time now (5) COPD (chronic obstructive pulmonary disease): Does not complain of SOB at present and lungs without wheezing - suspect hypoxia on presentation more related to CHF than COPD - Continue home inhalers with prn nebs (6) JOSE on CPAP: Pt unclear if he uses CPAP (which he tells me) or BiPAP (which he told the ED staff) but does know that he uses oxygen with his machine while he sleeps - Will start with CPAP per protocol while admitted (7) CKD (chronic kidney disease) stage 3, GFR 30-59 ml/min: Labs from Feb 2019 - BUN 22, Creatinine 1.3. Stable today on labs in the ED - Monitor labs with diuresis (8) Type 2 diabetes mellitus: Last A1c in Feb 2019 = 9.3. It is unclear if patient is taking oral hypogylcemics as prescribed - HOLD home oral meds - Insulin sliding scale - adjust pending response - BSG ACHS - Diabetic diet - Check A1c in AM-12.1 Admission and Anticipated Discharge Date Admission Date: August 18, 2019 Subjective The patient was seen and examined in telemetry unit He is a 74-year-old obese male with significant past medical history including JOSE on CPAP, CKD, COPD, CHF was admitted with increasing shortness of breath His breathing seems to be improving but complains of some pain in the left lower neck and left upper chest wall adjoining the axillary area He denies any chest pain and/or palpitation No abdominal pain, nausea and/or vomiting 08/20/2019 Patient was seen and examined in telemetry unit He has been feeling a little bit better today and wanted to know who sent him to the hospital His neck pain has been reasonably controlled He was rushed out from the city department yesterday due to aggressive behavior which required security to call up-he was upset by the way he was handled to the city department He agreed to have the test again Review of Systems Review of Systems: All systems reviewed and are unremarkable except as noted below Constitutional: + body aches and + weight gain Respiratory: Left upper chest wall pain Musculoskeletal: + neck pain (Left lateral neck pain and left upper chest wall pain are much better) Physical Exam Physical Exam: Sitting on a chair without significant distress Constitutional: + ill appearing and + morbidly obese; no acute distress (Due to pain) ENMT: external ear and nose normal, oropharynx normal Respiratory: normal respiratory effort; no respiratory distress Auscultation: + diminished lung sounds and + crackles (Bibasilar crackles) Cardiovascular: Rate/Rhythm: regular rate and regular rhythm Heart Sounds: no murmur Gastrointestinal (Abdomen): Inspection/Auscultation: + abdomen distended Percussion/Palpation: abdomen soft; abdomen nontender Musculoskeletal: Denies any acute arthritis involving any joints Neurologic: moves all extremities; no focal motor deficits Results & Data Results & Data ([facility]) Vital Signs (Past 12 Hours) Vital Signs Temp Pulse Pulse Resp BP BP Pulse Ox 08/20/19 12:14 37.5 C 08/20/19 11:36 37.7 C H 97 H 20 102/68 90 08/20/19 07:30 98 H 08/20/19 07:22 37.3 C 93 H 23 141/113 H 93 08/20/19 04:15 37.2 C 98 H 20 93 08/20/19 03:06 95 H [address] [facility] 08/20/19 06:57 Sodium 132 L Potassium 3.5 Chloride 95 L Carbon Dioxide 28 BUN 30 H Creatinine 1.37 Glucose 193 H Calcium 9.2 Medications Administered Current Inpatient Medications Albuterol (Duoneb) 3 ml INH Q6R PRN PRN Reason: cough/shortness of breath Stop: 09/17/19 12:59 Clopidogrel Bisulfate (Plavix) 75 mg PO DAILY JOSH Stop: 09/18/19 08:59 Last Admin: 08/20/19 09:00 Dose: 75 mg Documented by: Dextrose (Dextrose 50%) 25 - 50 ml IV UD PRN; Protocol PRN Reason: Hypoglycemia Protocol Stop: 09/17/19 11:11 Fluticasone/Vilanterol (Breo Ellipta 100/25 Mcg Inh) 1 puffs INH DAILY [facility]OS[facility]; Protocol Stop: 09/18/19 08:59 Last Admin: 08/20/19 08:58 Dose: 1 puffs Documented by: Glucagon (Glucagen) 1 mg SQ UD PRN; Protocol PRN Reason: Hypoglycemia Protocol Stop: 09/17/19 11:11 Glucose (Dex4 Glucose) 4 - 8 tabs PO UD PRN; Protocol PRN Reason: Hypoglycemia Protocol Stop: 09/17/19 11:11 Glucose (Glucose 40%) 15 - 30 gm PO UD PRN; Protocol PRN Reason: Hypoglycemia Protocol Stop: 09/17/19 11:11 Haloperidol Lactate (Haldol) 2 mg IM TID PRN PRN Reason: Agitation Stop: 09/19/19 04:50 Ceftriaxone Sodium 2,000 mg/ (Dextrose) 70 mls @ 100 mls/hr IV DAILY [facility]; Protocol Stop: 08/25/19 12:59 Last Infusion: 08/20/19 09:50 Dose: Infused Documented by: Heparin Sodium/Dextrose (Heparin Sodium/Dextrose) 25,000 units in 500 mls @ 34 mls/hr IV .[id number] [facility]; Protocol Stop: 09/17/19 12:59 Last Admin: 08/20/19 09:51 Dose: 1,700 units/hr, 34 mls/hr Documented by: Vancomycin HCl 1,500 mg/ (Sodium Chloride) 530 mls @ 200 mls/hr IV Q12H [facility] Stop: 08/26/19 00:00 Last Infusion: 08/20/19 03:01 Dose: Infused Documented by: Furosemide 60 mg/ Syringe 6 mls @ 4 mls/min IV TID [facility] Stop: 09/19/19 13:59 Last Admin: 08/20/19 14:33 Dose: 4 mls/min Documented by: Insulin Aspart (Novolog Flexpen) 0 units SC ACHS [facility] Stop: 09/17/19 11:29 Last Admin: 08/20/19 12:39 Dose: 9 units Documented by: Insulin Glargine (Lantus Solostar Pen) 0 units SC BID [facility]; Protocol Stop: 09/17/19 20:59 Last Admin: 08/20/19 08:58 Dose: 25 units Documented by: Metoprolol Succinate (Toprol Xl) 50 mg PO TID [facility] Stop: 09/19/19 13:59 Last Admin: 08/20/19 14:33 Dose: 50 mg Documented by: Miscellaneous (Carbohydrates For Hypoglycemia) 15 - 30 gm PO UD PRN PRN Reason: Hypoglycemia Protocol Stop: 09/17/19 11:11 Miscellaneous Information (Consult) 1 ea N/A UD PRN PRN Reason: Consult Stop: 09/17/19 12:33 Oxycodone/Acetaminophen (Percocet 5mg/325mg) 2 tab PO Q4H PRN PRN Reason: Pain Stop: 09/02/19 10:15 Last Admin: 08/20/19 09:54 Dose: 2 tab Documented by: Spironolactone (Aldactone) 12.5 mg PO DAILY [facility] Stop: 09/19/19 10:29 Last Admin: 08/20/19 13:03 Dose: 12.5 mg Documented by: Umeclidinium [place] (Incruse Ellipta) 1 puffs INH DAILY [facility] Stop: 09/17/19 12:29 Last Admin: 08/20/19 08:58 Dose: 1 puffs Documented by: (1) Type 2 diabetes mellitus Chronic kidney disease stage: stage 3 (moderate) Diabetes mellitus complication detail: with chronic kidney disease Diabetes mellitus complication status: with kidney complications Diabetes mellitus shelter insulin use: without shelter use Qualified Code(s): 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 mellitus with diabetic chronic kidney disease; N18.3 - Chronic kidney disease, stage 3 (moderate) (2) Congestive heart failure Heart failure chronicity: acute on chronic Heart failure type: unspecified Qualified Code(s): I50.9 - Heart failure, unspecified (3) Cellulitis of leg Laterality: left Qualified Code(s): L03.116 - Cellulitis of left lower limb (4) COPD (chronic obstructive pulmonary disease) COPD type: unspecified COPD Qualified Code(s): J44.9 - Chronic obstructive pulmonary disease, unspecified
[2019-08-20] MEDS ORDERED: LORazepam 0.5 MG/1 ML VIAL IV STA (16:27)
[2019-08-20] MEDS: HALOPERIDOL LACTATE 5 MG/ML 1 ML VIAL IM PRN (19:42)
[2019-08-21 07:59] LABS: Basophils # (auto) 0.03 K/uL (0-0.2); Basophils % (auto) 0.2 %; Eosinophils # (auto) 0.05 K/uL (0-0.5); Eosinophils % (auto) 0.3 %; Hematocrit (blood only) 41.6 % (42-52); Hemoglobin 13.3 g/dL (14.0-18.0); Immature Granulocytes # (auto) 0.08 K/uL (0.00-0.02); Immature Granulocytes % (auto) 0.4 %; Lymphocytes # (auto) 1.35 K/uL (1.2-3.4); Lymphocytes % (auto) 7.4 %; Mean Corpuscular Hemoglobin 31.2 pg (25-34); Mean Corpuscular Volume 97.7 fL (80-100); Mean Platelet Volume 10.3 fL (7.4-10.4); Monocytes # (auto) 1.43 K/uL (0.11-0.59); Monocytes % (auto) 7.9 %; Neutrophils # (auto) 15.19 K/uL (1.4-6.5); Neutrophils % (auto) 83.8 %; Platelet Count 261 K/uL (130-400); RDW Coefficient of Variation 15.1 % (11.5-14.5); Red Blood Count 4.26 M/uL (4.7-6.1); White Blood Count 18.13 K/uL (4.8-10.8)
[2019-08-21 08:07] LABS: Partial Thromboplastin Ratio 1.3; Partial Thromboplastin Time 37.3 Seconds (21.0-31.0)
[2019-08-21 08:25] LABS: BUN Creatinine Ratio 22.2 (10-20); Calcium 9.4 mg/dl (8.5-10.1); Creatinine Clr Calc Pharmacy 65.9 ml/min; Est GFR (African American) 61.6; Est GFR (Non-African American) 53.1; Magnesium 1.7 mg/dl (1.8-2.4); Potassium 3.6 mmol/L (3.5-5.1)
[2019-08-21] MEDS: FLUTICASONE/VILANTEROL 100/25MCG 14 PUFFS/INHALER INH SCH (08:36)
[2019-08-21] MEDS: CLOPIDOGREL BISULFATE 75 MG TAB PO SCH (08:37)
[2019-08-21] MEDS: METOPROLOL SUCC 50MG EXT REL TAB PO SCH ×2 (08:37→20:40)
[2019-08-21] MEDS: FUROSEMIDE 60 MG in SYRINGE 0 ML IV SCH (08:37)
[2019-08-21] MEDS: SPIRONOLACTONE 12.5 MG TAB PO SCH (08:37)
[2019-08-21] MEDS: UMECLIDINIUM BROMIDE 62.5MCG/BLISTER 7 PUFFS/INHALER INH SCH (08:37)
[2019-08-21] MEDS: INSULIN GLARGINE SOLOSTAR 100 UNITS/ML 3 ML PEN SC SCH ×2 (08:40→20:38)
[2019-08-21] MEDS: INSULIN ASPART 100 UNITS/ML 3 ML PEN SC SCH ×4 (08:42→20:36)
[2019-08-21] MEDS: cefTRIAXone SODIUM 2,000 MG in DEXTROSE 5% 50 ML IV SCH (08:44)
[2019-08-21] MEDS ORDERED: HEPARIN IV BOLUS 8,000 UNITS in SYRINGE 0 ML IV ONE (08:45)
[2019-08-21] MEDS: OXYCODONE/ACETAMINOPHEN 5mg/325mg TAB PO PRN ×2 (09:18→20:35)
--- NOTE | 2019-08-21 10:11 | CT Scan Report ---
CT soft tissue neck wo con CT DOSE: CLINICAL HISTORY: left neck lump,R/O Metastasis TECHNIQUE: Patient was scanned without intravenous contrast due to reported contrast allergy. A dose lowering technique was utilized adhering to the principles of ALARA. COMPARISON STUDY: None. FINDINGS: The lung apices are unremarkable in appearance. No thyroid lesions are visualized. No salivary gland lesions are visualized on this noncontrast study. No mucosal space lesions are visualized. There is a large left supraclavicular mass/pathologic node measuring 5 cm. This is suspicious for manuel plasm. This lesion would be amenable to ultrasound-guided fine-needle aspiration biopsy. IMPRESSION: 5 cm left supraclavicular mass/pathologic node suspicious for neoplasm. This lesion woul d be amenable to ultrasound-guided fine-needle aspiration biopsy. ACT 112: Negative or not required by law. Electronically signed by: Michel Mejia M.D. 08/21/2019 10:09 AM
--- NOTE | 2019-08-21 10:14 | CT Scan Report ---
CT chest wo con CLINICAL HISTORY: Palpable mass. Evaluate for malignancy. COMPARISON STUDY: No previous studies for comparison. CT DOSE: 2093.55 mGy.cm TECHNIQUE: CT of the thorax was performed from the thoracic inlet to the lung bases. Images are revi ewed in the axial, sagittal, and coronal planes. IV contrast was not administered for this examinatio n. A dose lowering technique was utilized adhering to the principles of ALARA. FINDINGS: Thyroid: Imaged portions of the thyroid gland are normal in appearance. Thoracic aorta: The thoracic aorta is normal in course and caliber, noting standard 3 vessel arch jerome lefty. Heart: The heart is enlarged with coronary artery calcifications. Lungs and pleural spaces: There is respiratory motion artifact. There are dependent atelectatic christopher es. There is no focal pulmonary consolidation. No suspicious pulmonary masses are visualized. Mediastinum: There is no evidence of pathologic mediastinal lymphadenopathy. Darling: There is no evidence of pathologic hilar lymphadenopathy given the limitations of a noncontrast study Axilla: There is a 10 cm left axillary mass suspicious for neoplasm. This would be amenable to ultras ound-guided fine-needle aspiration biopsy. Upper abdomen: Partially visualized upper abdominal viscera is within normal limits. Skeletal structures: There are no lytic or blastic osseous lesions. IMPRESSION: 10 cm left axillary mass/adenopathy. This lesion would be amenable to ultrasound-guided fine-needle aspiration biopsy ACT 112: Negative or not required by law. Electronically signed by: Michel Mejia M.D. 08/21/2019 10:12 AM
--- NOTE | 2019-08-21 12:05 | Cardiology Progress Note ---
Date of Service August 21, 2019 Assessment & Plan (1) Acute decompensated heart failure: (2) Paroxysmal atrial fibrillation: (3) Cellulitis of leg: (4) CAD (coronary artery disease), [place] coronary artery: (5) CKD (chronic kidney disease) stage 3, GFR 30-59 ml/min: (6) Type 2 diabetes mellitus: (7) JOSE on CPAP: Will increase metoprolol succinate to 100 mg twice daily Increase furosemide 80 mg 3 times daily Tenderness overlying left axilla on antibiotic therapy Patient anticoagulated appropriate with heparin but due to body mass receiving nearly liter of fluids. Will ask pharmacy to concentrate if possible Supplement potassium, increase Spironolactone Subjective Patient seen and examined, chart, medications, telemetry reviewed. Main complaint today is left axillary pain, tenderness Only minimal diuresis with heart rate still elevated White cell count now elevated Physical Exam Constitutional: + morbidly obese; no acute distress Eyes: PERRL, conjunctivae normal, anicteric sclerae ENMT: external ear and nose normal, oropharynx normal Neck: trachea midline, no thyromegaly + thick neck Respiratory: Auscultation: + diminished lung sounds Cardiovascular: Rate/Rhythm: + tachycardic and + irregularly irregular Heart Sounds: normal S1 and normal S2; no gallop and no murmur Palpation: normal PMI Vessels: normal carotid upstroke and radial pulses present; no carotid bruit Extremities: + edema (3+ lower extremity) Gastrointestinal (Abdomen): Percussion/Palpation: abdomen soft Musculoskeletal: no cyanosis or clubbing, extremities motor strength 5/5 Skin: Erythema and tenderness overlying left axilla Neurologic: PERRL, EOMI, accommodation nl, no face palsy, no dysarthria Psychiatric: A+Ox3, euthymic affect Results & Data Vital Signs (Past 12 Hours) Vital Signs Temp Pulse Pulse Resp BP BP Pulse Ox 08/21/19 08:00 100 H 08/21/19 07:07 37.3 C 102 H 24 170/87 H 92 08/21/19 03:54 37.6 C H 100 H 24 147/75 H 92 Laboratory Results Laboratory Results - last 24 hr 08/20/19 08/20/19 08/21/19 16:32 21:30 07:05 WBC RBC Hgb Hct MCV MCH MCHC RDW Std Deviation RDW Coeff of [place] Plt Count MPV Immature Gran % (Auto) Neut % (Auto) Lymph % (Auto) [place] % (Auto) Eos % (Auto) Baso % (Auto) Neut # (Auto) Lymph # (Auto) [place] # (Auto) Eos # (Auto) Baso # (Auto) Immature Gran # (Auto) APTT PTT Ratio Sodium Potassium Chloride Carbon Dioxide Anion Gap BUN Creatinine Est Cr Clr Drug Dosing Est GFR ( Amer) Est GFR (Non-Af Amer) BUN/Creatinine Ratio Glucose POC Glucose 131 H 195 H 172 H Calcium Magnesium 08/21/19 08/21/19 08/21/19 07:41 07:41 07:41 WBC 18.13 H RBC 4.26 L Hgb 13.3 L Hct 41.6 L MCV 97.7 MCH 31.2 MCHC 32.0 RDW Std Deviation 53.0 H RDW Coeff of [place] 15.1 H Plt Count 261 MPV 10.3 Immature Gran % (Auto) 0.4 Neut % (Auto) 83.8 Lymph % (Auto) 7.4 [place] % (Auto) 7.9 Eos % (Auto) 0.3 Baso % (Auto) 0.2 Neut # (Auto) 15.19 H Lymph # (Auto) 1.35 [place] # (Auto) 1.43 H Eos # (Auto) 0.05 Baso # (Auto) 0.03 Immature Gran # (Auto) 0.08 H APTT 37.3 H PTT Ratio 1.3 Sodium 132 L Potassium 3.6 Chloride 95 L Carbon Dioxide 30 Anion Gap 8.0 BUN 29 H Creatinine 1.32 Est Cr Clr Drug Dosing 65.9 Est GFR ( Amer) 61.6 Est GFR (Non-Af Amer) 53.1 BUN/Creatinine Ratio 22.2 H Glucose 159 H POC Glucose Calcium 9.4 Magnesium 1.7 L 08/21/19 11:37 WBC RBC Hgb Hct MCV MCH MCHC RDW Std Deviation RDW Coeff of [place] Plt Count MPV Immature Gran % (Auto) Neut % (Auto) Lymph % (Auto) [place] % (Auto) Eos % (Auto) Baso % (Auto) Neut # (Auto) Lymph # (Auto) [place] # (Auto) Eos # (Auto) Baso # (Auto) Immature Gran # (Auto) APTT PTT Ratio Sodium Potassium Chloride Carbon Dioxide Anion Gap BUN Creatinine Est Cr Clr Drug Dosing Est GFR ( Amer) Est GFR (Non-Af Amer) BUN/Creatinine Ratio Glucose POC Glucose 389 H* Calcium Magnesium (1) Cellulitis of leg Laterality: left Qualified Code(s): L03.116 - Cellulitis of left lower limb (2) CAD (coronary artery disease), [place] coronary artery [place] vs. 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
[2019-08-21] MEDS ORDERED: POTASSIUM CHLORIDE 20 MEQ TABCR PO ONE (12:18)
[2019-08-21] MEDS: FUROSEMIDE 80 MG in SYRINGE 0 ML IV SCH ×2 (14:19→20:39)
[2019-08-21] MEDS: HEPARIN SODIUM/DEXTROSE 25,000 UNITS/500 ML BAG IV SCH ×2 (14:19→18:46)
--- NOTE | 2019-08-21 14:42 | Hospitalist Progress Note ---
Date of Service August 21, 2019 Assessment & Plan (1) Congestive heart failure: Suspect related to non-compliance and dietary indiscretion although history from pt is limited. Last ECHO appears to have been in 2016 and shower LVEF 55-59%, moderate concentric LVH, dilated IVC, elevated RA pressure Acute decompensated congestive heart failure Lasix 40 mg IV BID ECHO showed LV systolic function is mildly reduced to 45 to 50% of EF, mild global hypokinesis of the left ventricle, left atrium moderately dilated, aortic valve sclerosis without significant stenosis, trace AR, mild MR and mild TR estimated systolic pulmonary artery pressure 45 mmHg and dilated IVC with normal inspiratory variation suggesting a right atrial pressure of 8 mmHg Consult cardiology-appreciate input and recommendation Denies any significant shortness of breath at rest Lasix dose has been increased to 80 mg 3 times daily Essential (primary) hypertension Blood pressure seems to be controlled with current medication (2) Atrial fibrillation with rapid ventricular response: Given metoprolol 5 mg IV x 1 dose in ED - rate appears more stable around 90-110 Toprol-XL 100 mg daily has been changed to metoprolol tartrate 50 mg 3 times daily Eliquis 5 mg twice daily has been started Heart rate seems to be in the right direction Rate remains elevated at 102 Metoprolol succinate has been increased to 100 mg twice daily (3) Cellulitis of leg: CRP elevated at 3.64. WBCs not elevated and pt currently afebrile. Unclear how actue LE skin changes are but with elevated CRP and physical exam, will start antibiotics. - Will start empiric IV Vanco and Ceftriaxone - Check blood cultures-negative -We will continue current antibiotic for now and de-escalate tomorrow -There is no definite cellulitis of the leg and the erythema has improved -We will change antibiotic to intravenous Unasyn to cover possible axillary abscess/erysipelas involving the lower extremity (4) Neck mass: Had a lesion removed from left upper back in late 2019 - biopsy confirmed squamous cell CA (prior hx of same in 2018 on chest and left elbow). Reports two new lesions on neck for which he was trying to get back in with [facility] surgery to see - seem to be causing increasing neck pain. He reports oxycodone has not been helpful and causes GI distress. - Tylenol for pain with Tramadol for breakthrough -Has been screaming in pain -Would have metastatic disease -Started oral Percocet and will get CT of the neck and chest without contrast to evaluate the mass -CT of the neck:5 cm left supraclavicular mass/pathologic node suspicious for neoplasm. This lesion would be amenable to ultrasound-guided fine-needle aspiration biopsy. - CT chest did show: 10 cm left axillary mass/adenopathy. This lesion would be amenable to ultrasound-guided fine-needle aspiration biopsy -Ultrasound-guided biopsy will be done tomorrow (5) COPD (chronic obstructive pulmonary disease): Does not complain of SOB at present and lungs without wheezing - suspect hypoxia on presentation more related to CHF than COPD - Continue home inhalers with prn nebs (6) JOSE on CPAP: Pt unclear if he uses CPAP (which he tells me) or BiPAP (which he told the ED staff) but does know that he uses oxygen with his machine while he sleeps - Will start with CPAP per protocol while admitted (7) CKD (chronic kidney disease) stage 3, GFR 30-59 ml/min: Labs from Feb 2019 - BUN 22, Creatinine 1.3. Stable today on labs in the ED - Monitor labs with diuresis (8) Type 2 diabetes mellitus: Last A1c in Feb 2019 = 9.3. It is unclear if patient is taking oral hypogylcemics as prescribed - HOLD home oral meds - Insulin sliding scale - adjust pending response - BSG ACHS - Diabetic diet - Check A1c in AM-Very High at 12.1 Admission and Anticipated Discharge Date Admission Date: August 18, 2019 Subjective The patient was seen and examined in telemetry unit He is a 74-year-old obese male with significant past medical history including JOSE on CPAP, CKD, COPD, CHF was admitted with increasing shortness of breath His breathing seems to be improving but complains of some pain in the left lower neck and left upper chest wall adjoining the axillary area He denies any chest pain and/or palpitation No abdominal pain, nausea and/or vomiting 08/20/2019 Patient was seen and examined in telemetry unit He has been feeling a little bit better today and wanted to know who sent him to the hospital His neck pain has been reasonably controlled He was rushed out from the city department yesterday due to aggressive behavior which required security to call up-he was upset by the way he was handled to the city department He agreed to have the test again 08/21/2019 The patient was seen and examined in telemetry unit He has been complaining of ongoing swelling of the legs Denies any significant shortness of breath at rest His neck and axilla pain seem to be improving Review of Systems Review of Systems: All systems reviewed and are unremarkable except as noted below Constitutional: + body aches and + weight gain Respiratory: Left upper chest wall pain Musculoskeletal: + neck pain (Left lateral neck pain and left upper chest wall pain are much better) Physical Exam Physical Exam: Sitting on a chair without significant distress Constitutional: + ill appearing and + morbidly obese; no acute distress (Due to pain) ENMT: external ear and nose normal, oropharynx normal Neck: Left lateral lower neck lump which is tense and tender. Left anterior axillary fold tenderness with lumpiness Respiratory: normal respiratory effort; no respiratory distress Auscultation: + diminished lung sounds and + crackles (Bibasilar crackles) Cardiovascular: Rate/Rhythm: regular rate and regular rhythm Heart Sounds: no murmur Gastrointestinal (Abdomen): Inspection/Auscultation: + abdomen distended Percussion/Palpation: abdomen soft; abdomen nontender Musculoskeletal: No acute arthritis involving any joints Neurologic: moves all extremities; no focal motor deficits Alert, awake and oriented x3 Results & Data Results & Data ([facility]) Vital Signs (Past 12 Hours) Vital Signs Temp Pulse Pulse Resp BP BP Pulse Ox 08/21/19 13:23 37.3 C 99 H 20 121/62 91 08/21/19 08:00 100 H 08/21/19 07:07 37.3 C 102 H 24 170/87 H 92 08/21/19 03:54 37.6 C H 100 H 24 147/75 H 92 Laboratory Results Short CBC 08/21/19 Range/Units 07:41 WBC 18.13 H (4.8-10.8) K/uL Hgb 13.3 L (14.0-18.0) g/dL Hct 41.6 L (42-52) % Plt Count 261 (130-400) K/uL BMP 08/21/19 07:41 Sodium 132 L Potassium 3.6 Chloride 95 L Carbon Dioxide 30 BUN 29 H Creatinine 1.32 Glucose 159 H Calcium 9.4 Medications Administered Current Inpatient Medications Albuterol (Duoneb) 3 ml INH Q6R PRN PRN Reason: cough/shortness of breath Stop: 09/17/19 12:59 Clopidogrel Bisulfate (Plavix) 75 mg PO DAILY JOSH Stop: 09/18/19 08:59 Last Admin: 08/21/19 08:37 Dose: 75 mg Documented by: Dextrose (Dextrose 50%) 25 - 50 ml IV UD PRN; Protocol PRN Reason: Hypoglycemia Protocol Stop: 09/17/19 11:11 Fluticasone/Vilanterol (Breo Ellipta 100/25 Mcg Inh) 1 puffs INH DAILY JOSH; Protocol Stop: 09/18/19 08:59 Last Admin: 08/21/19 08:36 Dose: 1 puffs Documented by: Glucagon (Glucagen) 1 mg SQ UD PRN; Protocol PRN Reason: Hypoglycemia Protocol Stop: 09/17/19 11:11 Glucose (Dex4 Glucose) 4 - 8 tabs PO UD PRN; Protocol PRN Reason: Hypoglycemia Protocol Stop: 09/17/19 11:11 Glucose (Glucose 40%) 15 - 30 gm PO UD PRN; Protocol PRN Reason: Hypoglycemia Protocol Stop: 09/17/19 11:11 Haloperidol Lactate (Haldol) 2 mg IM TID PRN PRN Reason: Agitation Stop: 09/19/19 04:50 Last Admin: 08/20/19 19:42 Dose: 2 mg Documented by: Ceftriaxone Sodium 2,000 mg/ (Dextrose) 70 mls @ 100 mls/hr IV DAILY JOSH; Protocol Stop: 08/25/19 12:59 Last Infusion: 08/21/19 09:26 Dose: Infused Documented by: Heparin Sodium/Dextrose (Heparin Sodium/Dextrose) 25,000 units in 500 mls @ 42 mls/hr IV .[id number] JOSH; Protocol Stop: 08/21/19 14:59 Last Admin: 08/21/19 14:19 Dose: 2,100 units/hr, 42 mls/hr Documented by: Furosemide 80 mg/ Syringe 8 mls @ 4 mls/min IV TID JOSH Stop: 09/20/19 13:59 Last Admin: 08/21/19 14:19 Dose: 4 mls/min Documented by: Heparin Sodium (Porcine) 25, (000 units/ Dextrose) 250 mls @ 21 mls/hr IV .[id number] PRN; Protocol PRN Reason: IV Anticoagulation titration Stop: 08/11/20 14:59 Insulin Aspart (Novolog Flexpen) 0 units SC ACHS [facility] Stop: 09/17/19 11:29 Last Admin: 08/21/19 12:16 Dose: 17 units Documented by: Insulin Glargine (Lantus Solostar Pen) 0 units SC BID [facility]; Protocol Stop: 09/17/19 20:59 Last Admin: 08/21/19 08:40 Dose: 20 units Documented by: Metoprolol Succinate (Toprol Xl) 100 mg PO BID [facility] Stop: 09/20/19 20:59 Miscellaneous (Carbohydrates For Hypoglycemia) 15 - 30 gm PO UD PRN PRN Reason: Hypoglycemia Protocol Stop: 09/17/19 11:11 Oxycodone/Acetaminophen (Percocet 5mg/325mg) 2 tab PO Q4H PRN PRN Reason: Pain Stop: 09/02/19 10:15 Last Admin: 08/21/19 09:18 Dose: 2 tab Documented by: Spironolactone (Aldactone) 25 mg PO DAILY [facility] Stop: 09/21/19 08:59 Umeclidinium [place] (Incruse Ellipta) 1 puffs INH DAILY [facility] Stop: 09/17/19 12:29 Last Admin: 08/21/19 08:37 Dose: 1 puffs Documented by: (1) Type 2 diabetes mellitus Chronic kidney disease stage: stage 3 (moderate) Diabetes mellitus complication detail: with chronic kidney disease Diabetes mellitus complication status: with kidney complications Diabetes mellitus alf insulin use: without alf use Qualified Code(s): 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 mellitus with diabetic chronic kidney disease; N18.3 - Chronic kidney disease, stage 3 (moderate) (2) Congestive heart failure Heart failure chronicity: acute on chronic Heart failure type: unspecified Qualified Code(s): I50.9 - Heart failure, unspecified (3) Cellulitis of leg Laterality: left Qualified Code(s): L03.116 - Cellulitis of left lower limb (4) COPD (chronic obstructive pulmonary disease) COPD type: unspecified COPD Qualified Code(s): J44.9 - Chronic obstructive pulmonary disease, unspecified
[2019-08-21] MEDS: DEXTROSE 5% IV PRN (15:14)
[2019-08-21] MEDS: HEPARIN SODIUM IV PRN (15:14)
[2019-08-21 15:40] LABS: Partial Thromboplastin Ratio 2.3
[2019-08-21 15:50] LABS: Partial Thromboplastin Time 63.8 Seconds (21.0-31.0)
[2019-08-21] MEDS: AMPICILLIN/SULBACTAM SOD 3,000 MG in 0.9 % SODIUM CHLORIDE 100 ML IV SCH ×2 (15:54→22:31)
[2019-08-22] MEDS: DEXTROSE 5% IV PRN ×2 (03:49→16:41)
[2019-08-22] MEDS: HEPARIN SODIUM IV PRN ×2 (03:49→16:41)
[2019-08-22] MEDS: AMPICILLIN/SULBACTAM SOD 3,000 MG in 0.9 % SODIUM CHLORIDE 100 ML IV SCH ×4 (04:00→20:31)
[2019-08-22 06:03] LABS: Basophils # (auto) 0.04 K/uL (0-0.2); Basophils % (auto) 0.3 %; Eosinophils % (auto) 1.6 %; Hematocrit (blood only) 43.2 % (42-52); Hemoglobin 13.9 g/dL (14.0-18.0); Immature Granulocytes # (auto) 0.07 K/uL (0.00-0.02); Immature Granulocytes % (auto) 0.5 %; Lymphocytes # (auto) 1.21 K/uL (1.2-3.4); Lymphocytes % (auto) 9.5 %; Mean Corpuscular Hemoglobin 31.4 pg (25-34); Mean Corpuscular Hgb Conc 32.2 g/dL (32-36); Mean Corpuscular Volume 97.7 fL (80-100); Mean Platelet Volume 10.5 fL (7.4-10.4); Monocytes # (auto) 1.16 K/uL (0.11-0.59); Monocytes % (auto) 9.1 %; Neutrophils # (auto) 10.06 K/uL (1.4-6.5); Platelet Count 254 K/uL (130-400); RDW Coefficient of Variation 14.8 % (11.5-14.5); RDW Standard Deviation 53.3 fL (36.4-46.3); Red Blood Count 4.42 M/uL (4.7-6.1); White Blood Count 12.74 K/uL (4.8-10.8)
[2019-08-22 06:37] LABS: BUN Creatinine Ratio 20.3 (10-20); Calcium 9.2 mg/dl (8.5-10.1); Creatinine Clr Calc Pharmacy 54.6 ml/min; Est GFR (African American) 49.6; Est GFR (Non-African American) 42.8; Magnesium 1.9 mg/dl (1.8-2.4); Potassium 3.6 mmol/L (3.5-5.1)
[2019-08-22 06:42] LABS: Partial Thromboplastin Ratio 1.6
[2019-08-22] MEDS: UMECLIDINIUM BROMIDE 62.5MCG/BLISTER 7 PUFFS/INHALER INH SCH (08:34)
[2019-08-22] MEDS: FLUTICASONE/VILANTEROL 100/25MCG 14 PUFFS/INHALER INH SCH (08:34)
[2019-08-22] MEDS: FUROSEMIDE 80 MG in SYRINGE 0 ML IV SCH (08:34)
[2019-08-22] MEDS: METOPROLOL SUCC 50MG EXT REL TAB PO SCH ×2 (10:05→20:07)
[2019-08-22] MEDS: SPIRONOLACTONE 25 MG TAB PO SCH (10:05)
[2019-08-22] MEDS: CLOPIDOGREL BISULFATE 75 MG TAB PO SCH (10:05)
[2019-08-22] MEDS: INSULIN GLARGINE SOLOSTAR 100 UNITS/ML 3 ML PEN SC SCH ×2 (10:21→20:32)
[2019-08-22] MEDS: INSULIN ASPART 100 UNITS/ML 3 ML PEN SC SCH ×4 (10:22→20:33)
--- NOTE | 2019-08-22 10:54 | Ultrasound Report ---
ULTRASOUND-GUIDED FINE-NEEDLE ASPIRATION OF A LEFT AXILLARY MASS HISTORY: Left axillary mass. Left lower neck and left Axillary nodes COMPARISON: Chest CT 08/21/2019. PROCEDURE: Written informed consent was obtained. The left axilla was prepped and draped in the usual sterile fashion. 1% lidocaine was used for local anesthesia. A total of 2 passes using a 25-gauge n eedle and 20-gauge needle were made through 10 cm left axillary mass/lymph node under ultrasound guid ance. Specimens were given to the on-site pathologist who determined adequate tissue for diagnosis. T he patient tolerated the procedure well. There were no immediate locations. IMPRESSION: Successful ultrasound-guided fine-needle aspiration of a left axillary mass/lymph node. ACT 112: Negative or not required by law. Electronically signed by: Rishi Truong M.D. 08/22/2019 10:52 AM
--- NOTE | 2019-08-22 11:24 | Cardiology Progress Note ---
Date of Service August 22, 2019 Assessment & Plan (1) Acute decompensated heart failure: Significant edema and minimal diuresis with high-volume IV fluids (2) Paroxysmal atrial fibrillation: (3) Cellulitis of leg: (4) CAD (coronary artery disease), [place] coronary artery: (5) CKD (chronic kidney disease) stage 3, GFR 30-59 ml/min: (6) Type 2 diabetes mellitus: (7) JOSE on CPAP: Will increase metoprolol succinate to 100 mg twice daily We will discontinue IV furosemide today begin furosemide 80 mg p.o. twice daily Continue spironolactone Likely switch anticoagulation to apixaban versus warfarin in a.m. patient is at upper limits of weight for apixaban however would likely be more compliant with this medication if insurance approved Subjective Patient seen and examined, chart, medications telemetry reviewed. Underwent biopsy earlier today with good tolerance patient remains in atrial fibrillation though rates better controlled. Good diuresis over the last 48 hours weight down 7 kg from admission. Less dyspneic less edema Recent diuresis of greater than 3 L Physical Exam Constitutional: + morbidly obese; no acute distress Eyes: PERRL, conjunctivae normal, anicteric sclerae ENMT: external ear and nose normal, oropharynx normal Neck: trachea midline, no thyromegaly + thick neck Respiratory: Auscultation: + diminished lung sounds Cardiovascular: Rate/Rhythm: + tachycardic and + irregularly irregular Heart Sounds: normal S1 and normal S2; no gallop and no murmur Palpation: normal PMI Vessels: normal carotid upstroke and radial pulses present; no carotid bruit Extremities: + edema (1-2+, improved) Gastrointestinal (Abdomen): Percussion/Palpation: abdomen soft Musculoskeletal: no cyanosis or clubbing, extremities motor strength 5/5 Skin: no rashes, warm and dry Neurologic: PERRL, EOMI, accommodation nl, no face palsy, no dysarthria Psychiatric: A+Ox3, euthymic affect Results & Data Vital Signs (Past 12 Hours) Vital Signs Temp Pulse Pulse Resp BP Pulse Ox 08/22/19 08:32 37.1 C 94 H 20 144/96 H 94 08/22/19 07:27 94 H 08/22/19 03:45 36.8 C 95 H 18 138/85 92 08/22/19 03:42 101 H 18 99 Laboratory Results Laboratory Results - last 24 hr 08/21/19 08/21/19 08/21/19 11:37 15:05 16:24 WBC RBC Hgb Hct MCV MCH MCHC RDW Std Deviation RDW Coeff of [place] Plt Count MPV Immature Gran % (Auto) Neut % (Auto) Lymph % (Auto) [place] % (Auto) Eos % (Auto) Baso % (Auto) Neut # (Auto) Lymph # (Auto) [place] # (Auto) Eos # (Auto) Baso # (Auto) Immature Gran # (Auto) APTT 63.8 H* PTT Ratio 2.3 Sodium Potassium Chloride Carbon Dioxide Anion Gap BUN Creatinine Est Cr Clr Drug Dosing Est GFR ( Amer) Est GFR (Non-Af Amer) BUN/Creatinine Ratio Glucose POC Glucose 389 H* 106 H Calcium Magnesium 08/21/19 08/22/19 08/22/19 20:26 05:32 05:32 WBC 12.74 H RBC 4.42 L Hgb 13.9 L Hct 43.2 MCV 97.7 MCH 31.4 MCHC 32.2 RDW Std Deviation 53.3 H RDW Coeff of [place] 14.8 H Plt Count 254 MPV 10.5 H Immature Gran % (Auto) 0.5 Neut % (Auto) 79.0 Lymph % (Auto) 9.5 [place] % (Auto) 9.1 Eos % (Auto) 1.6 Baso % (Auto) 0.3 Neut # (Auto) 10.06 H Lymph # (Auto) 1.21 [place] # (Auto) 1.16 H Eos # (Auto) 0.20 Baso # (Auto) 0.04 Immature Gran # (Auto) 0.07 H APTT PTT Ratio Sodium 137 Potassium 3.6 Chloride 99 Carbon Dioxide 30 Anion Gap 8.0 BUN 32 H Creatinine 1.58 H Est Cr Clr Drug Dosing 54.6 Est GFR ( Amer) 49.6 Est GFR (Non-Af Amer) 42.8 BUN/Creatinine Ratio 20.3 H Glucose 117 H POC Glucose 175 H Calcium 9.2 Magnesium 1.9 08/22/19 08/22/19 05:32 10:17 WBC RBC Hgb Hct MCV MCH MCHC RDW Std Deviation RDW Coeff of [place] Plt Count MPV Immature Gran % (Auto) Neut % (Auto) Lymph % (Auto) [place] % (Auto) Eos % (Auto) Baso % (Auto) Neut # (Auto) Lymph # (Auto) [place] # (Auto) Eos # (Auto) Baso # (Auto) Immature Gran # (Auto) APTT 46.0 H* PTT Ratio 1.6 Sodium Potassium Chloride Carbon Dioxide Anion Gap BUN Creatinine Est Cr Clr Drug Dosing Est GFR ( Amer) Est GFR (Non-Af Amer) BUN/Creatinine Ratio Glucose POC Glucose 143 H Calcium Magnesium (1) Type 2 diabetes mellitus Chronic kidney disease stage: stage 3 (moderate) Diabetes mellitus complication detail: with chronic kidney disease Diabetes mellitus complication status: with kidney complications Diabetes mellitus [employer] insulin use: without [employer] use Qualified Code(s): 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 mellitus with diabetic chronic kidney disease; N18.3 - Chronic kidney disease, stage 3 (moderate) (2) Cellulitis of leg Laterality: left Qualified Code(s): L03.116 - Cellulitis of left lower limb (3) CAD (coronary artery disease), [place] coronary artery Associated angina: angina presence unspecified [place] vs. transplanted heart: [place] heart Qualified Code(s): I25.10 - Atherosclerotic heart disease of [place] coronary artery without angina pectoris
--- NOTE | 2019-08-22 13:57 | Hospitalist Progress Note ---
Date of Service August 22, 2019 Assessment & Plan (1) Congestive heart failure: Suspect related to non-compliance and dietary indiscretion although history from pt is limited. Last ECHO appears to have been in 2016 and shower LVEF 55-59%, moderate concentric LVH, dilated IVC, elevated RA pressure Acute decompensated congestive heart failure Lasix 40 mg IV BID ECHO showed LV systolic function is mildly reduced to 45 to 50% of EF, mild global hypokinesis of the left ventricle, left atrium moderately dilated, aortic valve sclerosis without significant stenosis, trace AR, mild MR and mild TR estimated systolic pulmonary artery pressure 45 mmHg and dilated IVC with normal inspiratory variation suggesting a right atrial pressure of 8 mmHg Consult cardiology-appreciate input and recommendation Denies any significant shortness of breath at rest Lasix dose has been increased to 80 mg 3 times daily Symptomatically a little better We will continue current doses of Lasix Essential (primary) hypertension Blood pressure seems to be controlled with current medication better (2) Atrial fibrillation with rapid ventricular response: Given metoprolol 5 mg IV x 1 dose in ED - rate appears more stable around 90-110 Toprol-XL 100 mg daily has been changed to metoprolol tartrate 50 mg 3 times daily Eliquis 5 mg twice daily has been started Heart rate seems to be in the right direction Rate remains elevated at 102 Metoprolol succinate has been increased to 100 mg twice daily Heart rate remains elevated at around 120s Appreciate cardiology input and adjustment of medication to control the heart rate (3) Cellulitis of leg: CRP elevated at 3.64. WBCs not elevated and pt currently afebrile. Unclear how actue LE skin changes are but with elevated CRP and physical exam, will start antibiotics. - Will start empiric IV Vanco and Ceftriaxone - Check blood cultures-negative -We will continue current antibiotic for now and de-escalate tomorrow -There is no definite cellulitis of the leg and the erythema has improved -We will change antibiotic to intravenous Unasyn to cover possible axillary abscess/erysipelas involving the lower extremity Left axillary area cellulitis Skin redness and tenderness Lymphadenopathy without any abscess Antibiotics have been changed to intravenous Unasyn Oral Augmentin on discharge (4) Neck mass: Had a lesion removed from left upper back in late 2019 - biopsy confirmed squamous cell CA (prior hx of same in 2018 on chest and left elbow). Reports two new lesions on neck for which he was trying to get back in with [facility] surgery to see - seem to be causing increasing neck pain. He reports oxycodone has not been helpful and causes GI distress. - Tylenol for pain with Tramadol for breakthrough -Has been screaming in pain -Would have metastatic disease -Started oral Percocet and will get CT of the neck and chest without contrast to evaluate the mass -CT of the neck:5 cm left supraclavicular mass/pathologic node suspicious for neoplasm. This lesion would be amenable to ultrasound-guided fine-needle aspiration biopsy. - CT chest did show: 10 cm left axillary mass/adenopathy. This lesion would be amenable to ultrasound-guided fine-needle aspiration biopsy -Status post US guided lymph node biopsy from left supraclavicular lymph node (5) COPD (chronic obstructive pulmonary disease): Does not complain of SOB at present and lungs without wheezing - suspect hypoxia on presentation more related to CHF than COPD - Continue home inhalers with prn nebs -No signs of exacerbation (6) JOSE on CPAP: Pt unclear if he uses CPAP (which he tells me) or BiPAP (which he told the ED staff) but does know that he uses oxygen with his machine while he sleeps - Will start with CPAP per protocol while admitted (7) CKD (chronic kidney disease) stage 3, GFR 30-59 ml/min: Labs from Feb 2019 - BUN 22, Creatinine 1.3. Stable today on labs in the ED - Monitor labs with diuresis (8) Type 2 diabetes mellitus: Last A1c in Feb 2019 = 9.3. It is unclear if patient is taking oral hypogylcemics as prescribed - HOLD home oral meds - Insulin sliding scale - adjust pending response - BSG ACHS - Diabetic diet - Check A1c in AM-Very High at 12.1 PT and OT evaluation Possible discharge in 2 to 3 days Admission and Anticipated Discharge Date Admission Date: August 18, 2019 Subjective The patient was seen and examined in telemetry unit He is a 74-year-old obese male with significant past medical history including JOSE on CPAP, CKD, COPD, CHF was admitted with increasing shortness of breath His breathing seems to be improving but complains of some pain in the left lower neck and left upper chest wall adjoining the axillary area He denies any chest pain and/or palpitation No abdominal pain, nausea and/or vomiting 08/20/2019 Patient was seen and examined in telemetry unit He has been feeling a little bit better today and wanted to know who sent him to the hospital His neck pain has been reasonably controlled He was rushed out from the city department yesterday due to aggressive behavior which required security to call up-he was upset by the way he was handled to the city department He agreed to have the test again 08/21/2019 The patient was seen and examined in telemetry unit He has been complaining of ongoing swelling of the legs Denies any significant shortness of breath at rest His neck and axilla pain seem to be improving 08/22/2019 The patient was seen and examined in telemetry unit He feels a little bit better but he still has shortness of breath with minimal exertion Pain in the left lower neck and left axillary area are improved Review of Systems Review of Systems: All systems reviewed and are unremarkable except as noted below Constitutional: + body aches and + weight gain Respiratory: Left upper chest wall pain Musculoskeletal: + neck pain (Left lateral neck pain and left upper chest wall pain are much better) Physical Exam Physical Exam: Sitting on a chair without significant distress Constitutional: + ill appearing and + morbidly obese; no acute distress (Due to pain) ENMT: external ear and nose normal, oropharynx normal Neck: Tender lymphadenopathy left supraclavicular area and left axillary region Respiratory: normal respiratory effort; no respiratory distress Auscultation: + diminished lung sounds and + crackles (Bibasilar crackles) Cardiovascular: Rate/Rhythm: regular rate and regular rhythm Heart Sounds: no murmur Extremities: + edema (1+ bilateral) Gastrointestinal (Abdomen): Inspection/Auscultation: + abdomen distended Percussion/Palpation: abdomen soft; abdomen nontender Musculoskeletal: No acute arthritis involving any joints Neurologic: moves all extremities; no focal motor deficits Alert, awake and oriented. Occasional confusion Results & Data Results & Data ([facility]) Vital Signs (Past 12 Hours) Vital Signs Temp Pulse Pulse Resp BP Pulse Ox 08/22/19 12:23 36.9 C 121 H 24 135/79 88 L 08/22/19 11:53 92 08/22/19 08:32 37.1 C 94 H 20 144/96 H 94 08/22/19 07:27 94 H 08/22/19 03:45 36.8 C 95 H 18 138/85 92 08/22/19 03:42 101 H 18 99 Laboratory Results Short CBC 08/22/19 Range/Units 05:32 WBC 12.74 H (4.8-10.8) K/uL Hgb 13.9 L (14.0-18.0) g/dL Hct 43.2 (42-52) % Plt Count 254 (130-400) K/uL BMP 08/22/19 05:32 Sodium 137 Potassium 3.6 Chloride 99 Carbon Dioxide 30 BUN 32 H Creatinine 1.58 H Glucose 117 H Calcium 9.2 Medications Administered Current Inpatient Medications Albuterol (Duoneb) 3 ml INH Q6R PRN PRN Reason: cough/shortness of breath Stop: 09/17/19 12:59 Clopidogrel Bisulfate (Plavix) 75 mg PO DAILY JOSH Stop: 09/18/19 08:59 Last Admin: 08/22/19 10:05 Dose: 75 mg Documented by: Dextrose (Dextrose 50%) 25 - 50 ml IV UD PRN; Protocol PRN Reason: Hypoglycemia Protocol Stop: 09/17/19 11:11 Fluticasone/Vilanterol (Breo Ellipta 100/25 Mcg Inh) 1 puffs INH DAILY JOSH; Protocol Stop: 09/18/19 08:59 Last Admin: 08/22/19 08:34 Dose: 1 puffs Documented by: Furosemide (Lasix) 80 mg PO BID17 JOSH Stop: 09/21/19 16:59 Glucagon (Glucagen) 1 mg SQ UD PRN; Protocol PRN Reason: Hypoglycemia Protocol Stop: 09/17/19 11:11 Glucose (Dex4 Glucose) 4 - 8 tabs PO UD PRN; Protocol PRN Reason: Hypoglycemia Protocol Stop: 09/17/19 11:11 Glucose (Glucose 40%) 15 - 30 gm PO UD PRN; Protocol PRN Reason: Hypoglycemia Protocol Stop: 09/17/19 11:11 Haloperidol Lactate (Haldol) 2 mg IM TID PRN PRN Reason: Agitation Stop: 09/19/19 04:50 Last Admin: 08/20/19 19:42 Dose: 2 mg Documented by: Heparin Sodium (Porcine) 25, (000 units/ Dextrose) 250 mls @ 21 mls/hr IV .[id number] PRN; Protocol PRN Reason: IV Anticoagulation titration Stop: 09/20/19 14:59 Last Titration: 08/22/19 07:07 Dose: 2,100 units/hr, 21 mls/hr Documented by: Ampicillin Sodium/Sulbactam Sodium 3,000 mg/ Sodium Chloride 108 mls @ 200 mls/hr IV Q6H [facility]; Protocol Stop: 08/28/19 15:29 Last Infusion: 08/22/19 09:11 Dose: Infused Documented by: Insulin Aspart (Novolog Flexpen) 0 units SC ACHS [facility] Stop: 09/17/19 11:29 Last Admin: 08/22/19 11:54 Dose: 6 units Documented by: Insulin Glargine (Lantus Solostar Pen) 0 units SC BID [facility]; Protocol Stop: 09/17/19 20:59 Last Admin: 08/22/19 10:21 Dose: 20 units Documented by: Metoprolol Succinate (Toprol Xl) 100 mg PO BID [facility] Stop: 09/20/19 20:59 Last Admin: 08/22/19 10:05 Dose: 100 mg Documented by: Miscellaneous (Carbohydrates For Hypoglycemia) 15 - 30 gm PO UD PRN PRN Reason: Hypoglycemia Protocol Stop: 09/17/19 11:11 Oxycodone/Acetaminophen (Percocet 5mg/325mg) 2 tab PO Q4H PRN PRN Reason: Pain Stop: 09/02/19 10:15 Last Admin: 08/21/19 20:35 Dose: 2 tab Documented by: Spironolactone (Aldactone) 25 mg PO DAILY [facility] Stop: 09/21/19 08:59 Last Admin: 08/22/19 10:05 Dose: 25 mg Documented by: Umeclidinium [place] (Incruse Ellipta) 1 puffs INH DAILY [facility] Stop: 09/17/19 12:29 Last Admin: 08/22/19 08:34 Dose: 1 puffs Documented by: (1) Congestive heart failure Heart failure type: unspecified Heart failure chronicity: acute on chronic Qualified Code(s): I50.9 - Heart failure, unspecified (2) Cellulitis of leg Laterality: left Qualified Code(s): L03.116 - Cellulitis of left lower limb (3) COPD (chronic obstructive pulmonary disease) COPD type: unspecified COPD Qualified Code(s): J44.9 - Chronic obstructive pulmonary disease, unspecified (4) Type 2 diabetes mellitus Diabetes mellitus termite inspector insulin use: without custodial use Diabetes mellitus complication status: with kidney complications Diabetes mellitus complication detail: with chronic kidney disease Chronic kidney disease stage: stage 3 (moderate) Qualified Code(s): 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 mellitus with diabetic chronic kidney disease; N18.3 - Chronic kidney disease, stage 3 (moderate)
[2019-08-22] MEDS: FUROSEMIDE 80 MG TAB PO SCH (16:13)
[2019-08-22] MEDS ORDERED: ACETAMINOPHEN 500 MG TAB ONE (19:13)
[2019-08-23] MEDS: ACETAMINOPHEN 500 MG TAB PO PRN ×2 (04:22→13:42)
[2019-08-23] MEDS: DEXTROSE 5% IV PRN ×2 (04:22→17:09)
[2019-08-23] MEDS: HEPARIN SODIUM IV PRN ×2 (04:22→17:09)
[2019-08-23] MEDS: AMPICILLIN/SULBACTAM SOD 3,000 MG in 0.9 % SODIUM CHLORIDE 100 ML IV SCH ×4 (04:22→20:35)
[2019-08-23 06:17] LABS: Partial Thromboplastin Ratio 1.7
[2019-08-23 06:21] LABS: Partial Thromboplastin Time 46.7 Seconds (21.0-31.0)
[2019-08-23] MEDS: METOPROLOL SUCC 50MG EXT REL TAB PO SCH ×2 (08:16→20:36)
[2019-08-23] MEDS: INSULIN GLARGINE SOLOSTAR 100 UNITS/ML 3 ML PEN SC SCH ×2 (08:16→20:37)
[2019-08-23] MEDS: FUROSEMIDE 80 MG TAB PO SCH ×2 (08:16→17:36)
[2019-08-23] MEDS: SPIRONOLACTONE 25 MG TAB PO SCH (08:16)
[2019-08-23] MEDS: CLOPIDOGREL BISULFATE 75 MG TAB PO SCH (08:16)
[2019-08-23] MEDS: FLUTICASONE/VILANTEROL 100/25MCG 14 PUFFS/INHALER INH SCH (08:18)
[2019-08-23] MEDS: INSULIN ASPART 100 UNITS/ML 3 ML PEN SC SCH ×4 (08:18→20:38)
[2019-08-23] MEDS: UMECLIDINIUM BROMIDE 62.5MCG/BLISTER 7 PUFFS/INHALER INH SCH (08:19)
--- NOTE | 2019-08-23 13:53 | Cardiology Progress Note ---
Date of Service August 23, 2019 Assessment & Plan (1) Acute decompensated heart failure: (2) Paroxysmal atrial fibrillation: (3) Cellulitis of leg: (4) CAD (coronary artery disease), [place] coronary artery: (5) CKD (chronic kidney disease) stage 3, GFR 30-59 ml/min: (6) Type 2 diabetes mellitus: (7) JOSE on CPAP: Problem list as above. Patient's heart failure has improved with therapies. Still remains in atrial fibrillation with elevated ventricular response though better controlled. Discussed management in detail with the patient. Noted indications for anticoagulation although uncertain patient would manage anticoagulation with warfarin well Plan continue oral diuretics as ordered. 1800 cc fluid restriction. CHF instructions/daily weight. Continue Spironolactone Continue Toprol-XL 125 mg twice per day (increased dose) We will discontinue heparin and initiate anticoagulation with apixaban Given significant fluid retention would not initiate Actos on discharge given significant fluid retention Optimally patient should be on BHARAT inhibitor given diabetes hypertension and right heart failure however with prior noted allergy. May consider combination hydralazine / nitrates in the future Subjective Patient seen and examined, chart, medications telemetry reviewed. Underwent biopsy earlier today with good tolerance patient remains in atrial fibrillation though rates better controlled. Continues to diurese on oral medications, uncertain of patient following fluid restriction Physical Exam Constitutional: + morbidly obese; no acute distress Eyes: PERRL, conjunctivae normal, anicteric sclerae ENMT: external ear and nose normal, oropharynx normal Neck: trachea midline, no thyromegaly + thick neck Respiratory: Auscultation: + diminished lung sounds Cardiovascular: Rate/Rhythm: + tachycardic and + irregularly irregular Heart Sounds: normal S1 and normal S2; no gallop and no murmur Palpation: normal PMI Vessels: normal carotid upstroke and radial pulses present; no carotid bruit Extremities: + edema (1-2+, improved) Gastrointestinal (Abdomen): Percussion/Palpation: abdomen soft Musculoskeletal: no cyanosis or clubbing, extremities motor strength 5/5 Skin: no rashes, warm and dry Neurologic: PERRL, EOMI, accommodation nl, no face palsy, no dysarthria Psychiatric: A+Ox3, euthymic affect Results & Data Vital Signs (Past 12 Hours) Vital Signs Temp Pulse Resp BP BP Pulse Ox Pulse Ox 08/23/19 12:03 37.2 C 76 20 139/106 H 93 08/23/19 11:00 94 08/23/19 07:35 36.9 C 92 H 20 163/66 H 94 08/23/19 04:29 36.6 C 93 H 18 142/82 H 94 (1) Cellulitis of leg Laterality: left Qualified Code(s): L03.116 - Cellulitis of left lower limb (2) CAD (coronary artery disease), [place] coronary artery [place] vs. transplanted heart: [place] heart Associated angina: angina presence unspecified Qualified Code(s): I25.10 - Atherosclerotic heart disease of [place] coronary artery without angina pectoris (3) Type 2 diabetes mellitus Diabetes mellitus superintendent terminal insulin use: without fci use Diabetes mellitus complication status: with kidney complications Diabetes mellitus complication detail: with chronic kidney disease Chronic kidney disease stage: stage 3 (moderate) Qualified Code(s): 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 mellitus with diabetic chronic kidney disease; N18.3 - Chronic kidney disease, stage 3 (moderate)
--- NOTE | 2019-08-23 16:11 | Hospitalist Progress Note ---
Date of Service August 23, 2019 Assessment & Plan (1) Congestive heart failure: Suspect related to non-compliance and dietary indiscretion although history from pt is limited. Last ECHO appears to have been in 2016 and shower LVEF 55-59%, moderate concentric LVH, dilated IVC, elevated RA pressure Acute decompensated congestive heart failure Lasix 40 mg IV BID ECHO showed LV systolic function is mildly reduced to 45 to 50% of EF, mild global hypokinesis of the left ventricle, left atrium moderately dilated, aortic valve sclerosis without significant stenosis, trace AR, mild MR and mild TR estimated systolic pulmonary artery pressure 45 mmHg and dilated IVC with normal inspiratory variation suggesting a right atrial pressure of 8 mmHg Consult cardiology-appreciate input and recommendation Denies any significant shortness of breath at rest Lasix dose has been increased to 80 mg 3 times daily Symptomatically a little better Furosemide has been changed to oral 80 mg twice daily and will be continued as an outpatient Essential (primary) hypertension Blood pressure seems to be controlled with current medication better Blood pressure seems to be reasonably controlled Down the line hydralazine/nitrates can be used (2) Atrial fibrillation with rapid ventricular response: Given metoprolol 5 mg IV x 1 dose in ED - rate appears more stable around 90-110 Toprol-XL 100 mg daily has been changed to metoprolol tartrate 50 mg 3 times daily Eliquis 5 mg twice daily has been started Heart rate seems to be in the right direction Rate remains elevated at 102 Metoprolol succinate has been increased to 100 mg twice daily Heart rate remains elevated at around 120s Appreciate cardiology input and adjustment of medication to control the heart rate Beta-pao dose has been increased and will continue to maintain heart rate (3) Cellulitis of leg: CRP elevated at 3.64. WBCs not elevated and pt currently afebrile. Unclear how actue LE skin changes are but with elevated CRP and physical exam, will start antibiotics. - Will start empiric IV Vanco and Ceftriaxone - Check blood cultures-negative -We will continue current antibiotic for now and de-escalate tomorrow -There is no definite cellulitis of the leg and the erythema has improved -We will change antibiotic to intravenous Unasyn to cover possible axillary abscess/erysipelas involving the lower extremity Left axillary area cellulitis Skin redness and tenderness Lymphadenopathy without any abscess Antibiotics have been changed to intravenous Unasyn Oral Augmentin on discharge (4) Neck mass: Had a lesion removed from left upper back in late 2018 - biopsy confirmed squamous cell CA (prior hx of same in 2018 on chest and left elbow). Reports two new lesions on neck for which he was trying to get back in with [facility] surgery to see - seem to be causing increasing neck pain. He reports oxycodone has not been helpful and causes GI distress. - Tylenol for pain with Tramadol for breakthrough -Has been screaming in pain -Would have metastatic disease -Started oral Percocet and will get CT of the neck and chest without contrast to evaluate the mass -CT of the neck:5 cm left supraclavicular mass/pathologic node suspicious for neoplasm. This lesion would be amenable to ultrasound-guided fine-needle aspiration biopsy. - CT chest did show: 10 cm left axillary mass/adenopathy. 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 -We will talk to her plastic surgeon and he will need to have an appointment with oncologist on discharge (5) COPD (chronic obstructive pulmonary disease): Does not complain of SOB at present and lungs without wheezing - suspect hypoxia on presentation more related to CHF than COPD - Continue home inhalers with prn nebs -No signs of exacerbation (6) JOSE on CPAP: Pt unclear if he uses CPAP (which he tells me) or BiPAP (which he told the ED staff) but does know that he uses oxygen with his machine while he sleeps - Will start with CPAP per protocol while admitted (7) CKD (chronic kidney disease) stage 3, GFR 30-59 ml/min: Labs from Feb 2019 - BUN 22, Creatinine 1.3. Stable today on labs in the ED - Monitor labs with diuresis (8) Type 2 diabetes mellitus: Last A1c in Feb 2019 = 9.3. It is unclear if patient is taking oral hypogylcemics as prescribed - HOLD home oral meds - Insulin sliding scale - adjust pending response - BSG ACHS - Diabetic diet - Check A1c in AM-Very High at 12.1 PT and OT evaluation Possible discharge in in a day or 2 Discussed with the daughter in detail and answered all of her questions. Overall prognosis remains guarded Admission and Anticipated Discharge Date Admission Date: August 18, 2019 Subjective The patient was seen and examined in telemetry unit He is a 74-year-old obese male with significant past medical history including JOSE on CPAP, CKD, COPD, CHF was admitted with increasing shortness of breath His breathing seems to be improving but complains of some pain in the left lower neck and left upper chest wall adjoining the axillary area He denies any chest pain and/or palpitation No abdominal pain, nausea and/or vomiting 08/20/2019 Patient was seen and examined in telemetry unit He has been feeling a little bit better today and wanted to know who sent him to the hospital His neck pain has been reasonably controlled He was rushed [facility] from the city department yesterday due to aggressive behavior which required security to call up-he was upset by the way he was handled to the [facility] He agreed to have the test again 08/21/2019 The patient was seen and examined in telemetry unit He has been complaining of ongoing swelling of the legs Denies any significant shortness of breath at rest His neck and axilla pain seem to be improving 08/22/2019 The patient was seen and examined in telemetry unit He feels a little bit better but he still has shortness of breath with minimal exertion Pain in the left lower neck and left axillary area are improved 08/23/2019 The patient was seen and examined in telemetry unit He has been complaining of more pain in the neck and left lateral chest wall and axillary area Denies any increasing shortness of breath and no chest pain No fever and/or chills Review of Systems Review of Systems: All systems reviewed and are unremarkable except as noted below Constitutional: + body aches and + weight gain Respiratory: Left upper chest wall pain Musculoskeletal: + neck pain (Left lateral neck pain and left upper chest wall pain are much better) Physical Exam Physical Exam: Sitting on a chair with distress due to neck pain and moderate shortness of breath Constitutional: + ill appearing and + morbidly obese; no acute distress (Due to pain) Eyes: PERRL, conjunctivae normal, anicteric sclerae ENMT: external ear and nose normal, oropharynx normal Neck: Left supraclavicular swelling with tenderness on palpation Respiratory: normal respiratory effort; no respiratory distress Auscultation: + diminished lung sounds and + crackles (Bibasilar crackles) Cardiovascular: Rate/Rhythm: regular rate and regular rhythm Heart Sounds: no murmur Extremities: + edema (1+ bilateral) Gastrointestinal (Abdomen): Inspection/Auscultation: + abdomen distended and normal bowel sounds Percussion/Palpation: abdomen soft; abdomen nontender Musculoskeletal: No acute arthritis involving any joint Neurologic: moves all extremities; no focal motor deficits Alert , awake .pleasantly confused at times with occasional hallucinations worse with use of narcotics pain medication Lymphatic: + lymphadenopathy (Left supraclavicular) Results & Data Results & Data ([facility]) Vital Signs (Past 12 Hours) Vital Signs Temp Pulse Resp BP BP Pulse Ox Pulse Ox 08/23/19 12:03 37.2 C 76 20 139/106 H 93 08/23/19 11:00 94 08/23/19 07:35 36.9 C 92 H 20 163/66 H 94 08/23/19 04:29 36.6 C 93 H 18 142/82 H 94 Medications Administered Current Inpatient Medications Acetaminophen (Tylenol) 1,000 mg PO Q6H PRN PRN Reason: Pain Stop: 09/21/19 19:06 Last Admin: 08/23/19 13:42 Dose: 1,000 mg Documented by: Albuterol (Duoneb) 3 ml INH Q6R PRN PRN Reason: cough/shortness of breath Stop: 09/17/19 12:59 Apixaban (Eliquis) 5 mg PO BID [facility] Stop: 09/22/19 20:59 Clopidogrel Bisulfate (Plavix) 75 mg PO DAILY [facility] Stop: 09/18/19 08:59 Last Admin: 08/23/19 08:16 Dose: 75 mg Documented by: Dextrose (Dextrose 50%) 25 - 50 ml IV UD PRN; Protocol PRN Reason: Hypoglycemia Protocol Stop: 09/17/19 11:11 Fluticasone/Vilanterol (Breo Ellipta 100/25 Mcg Inh) 1 puffs INH DAILY [facility]; Protocol Stop: 09/18/19 08:59 Last Admin: 08/23/19 08:18 Dose: 1 puffs Documented by: Furosemide (Lasix) 80 mg PO BID17 [facility] Stop: 09/21/19 16:59 Last Admin: 08/23/19 08:16 Dose: 80 mg Documented by: Glucagon (Glucagen) 1 mg SQ UD PRN; Protocol PRN Reason: Hypoglycemia Protocol Stop: 09/17/19 11:11 Glucose (Dex4 Glucose) 4 - 8 tabs PO UD PRN; Protocol PRN Reason: Hypoglycemia Protocol Stop: 09/17/19 11:11 Glucose (Glucose 40%) 15 - 30 gm PO UD PRN; Protocol PRN Reason: Hypoglycemia Protocol Stop: 09/17/19 11:11 Haloperidol Lactate (Haldol) 2 mg IM TID PRN PRN Reason: Agitation Stop: 09/19/19 04:50 Last Admin: 08/20/19 19:42 Dose: 2 mg Documented by: Heparin Sodium (Porcine) 25, (000 units/ Dextrose) 250 mls @ 21 mls/hr IV .[id number] PRN; Protocol PRN Reason: IV Anticoagulation titration Stop: 08/23/19 20:00 Last Titration: 08/23/19 06:26 Dose: 2,100 units/hr, 21 mls/hr Documented by: Ampicillin Sodium/Sulbactam Sodium 3,000 mg/ Sodium Chloride 108 mls @ 200 mls/hr IV Q6H [facility]; Protocol Stop: 08/28/19 15:29 Last Infusion: 08/23/19 09:26 Dose: Infused Documented by: Insulin Aspart (Novolog Flexpen) 0 units SC ACHS [facility] Stop: 09/17/19 11:29 Last Admin: 08/23/19 12:05 Dose: 9 units Documented by: Insulin Glargine (Lantus Solostar Pen) 25 units SC BID [facility]; Protocol Stop: 09/21/19 20:59 Last Admin: 08/23/19 08:16 Dose: 25 units Documented by: Metoprolol Succinate (Toprol Xl) 100 mg PO BID [facility] Stop: 09/20/19 20:59 Last Admin: 08/23/19 08:16 Dose: 100 mg Documented by: Miscellaneous (Carbohydrates For Hypoglycemia) 15 - 30 gm PO UD PRN PRN Reason: Hypoglycemia Protocol Stop: 09/17/19 11:11 Miscellaneous (Remove Nicoderm Patch) 1 ea N/A DAILY@0859 [facility] Stop: 09/23/19 08:58 Nicotine (Nicoderm Cq) 21 mg TD QAM [facility] Stop: 09/23/19 08:59 Oxycodone/Acetaminophen (Percocet 5mg/325mg) 1 tab PO Q4H PRN PRN Reason: Pain Stop: 09/02/19 10:15 Spironolactone (Aldactone) 25 mg PO DAILY [facility] Stop: 09/21/19 08:59 Last Admin: 08/23/19 08:16 Dose: 25 mg Documented by: Umeclidinium [place] (Incruse Ellipta) 1 puffs INH DAILY [facility] Stop: 09/17/19 12:29 Last Admin: 08/23/19 08:19 Dose: 1 puffs Documented by: (1) Congestive heart failure Heart failure type: unspecified Heart failure chronicity: acute on chronic Qualified Code(s): I50.9 - Heart failure, unspecified (2) Cellulitis of leg Laterality: left Qualified Code(s): L03.116 - Cellulitis of left lower limb (3) COPD (chronic obstructive pulmonary disease) COPD type: unspecified COPD Qualified Code(s): J44.9 - Chronic obstructive pulmonary disease, unspecified (4) Type 2 diabetes mellitus Diabetes mellitus [employer] insulin use: without watcher [employer] use Diabetes mellitus complication status: with kidney complications Diabetes mellitus complication detail: with chronic kidney disease Chronic kidney disease stage: stage 3 (moderate) Qualified Code(s): 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 mellitus with diabetic chronic kidney disease; N18.3 - Chronic kidney disease, stage 3 (moderate)
[2019-08-23] MEDS: OXYCODONE/ACETAMINOPHEN 5mg/325mg TAB PO PRN ×2 (16:14→21:13)
[2019-08-23] MEDS: APIXABAN 5 MG TABLET PO SCH (20:36)
[2019-08-24] MEDS: AMPICILLIN/SULBACTAM SOD 3,000 MG in 0.9 % SODIUM CHLORIDE 100 ML IV SCH ×4 (03:44→20:49)
[2019-08-24] MEDS ORDERED: PHARMACY GLYCEMIC MGMT CONSULT SCH (08:26)
[2019-08-24] MEDS: INSULIN ASPART 100 UNITS/ML 3 ML PEN SC SCH ×4 (08:27→20:53)
[2019-08-24] MEDS: APIXABAN 5 MG TABLET PO SCH ×2 (08:28→20:50)
[2019-08-24] MEDS: METOPROLOL SUCC 50MG EXT REL TAB PO SCH ×2 (08:28→20:50)
[2019-08-24] MEDS: NICOTINE 21 MG/24 HR TDSY TD SCH (08:28)
[2019-08-24] MEDS: CLOPIDOGREL BISULFATE 75 MG TAB PO SCH (08:28)
[2019-08-24] MEDS: SPIRONOLACTONE 25 MG TAB PO SCH (08:28)
[2019-08-24] MEDS: INSULIN GLARGINE SOLOSTAR 100 UNITS/ML 3 ML PEN SC SCH ×2 (08:29→20:51)
[2019-08-24] MEDS: UMECLIDINIUM BROMIDE 62.5MCG/BLISTER 7 PUFFS/INHALER INH SCH (08:29)
[2019-08-24] MEDS: FLUTICASONE/VILANTEROL 100/25MCG 14 PUFFS/INHALER INH SCH (08:29)
[2019-08-24] MEDS: OXYCODONE/ACETAMINOPHEN 5mg/325mg TAB PO PRN ×3 (08:31→20:51)
--- NOTE | 2019-08-24 09:04 | Hospitalist Progress Note ---
Date of Service August 24, 2019 Assessment & Plan (1) Congestive heart failure: Suspect related to non-compliance and dietary indiscretion although history from pt is limited. Last ECHO appears to have been in 2016 and shower LVEF 55-59%, moderate concentric LVH, dilated IVC, elevated RA pressure Acute decompensated congestive heart failure Diuresed initially with IV Lasix Current ECHO showed LV systolic function is mildly reduced to 45 to 50% of EF, mild global hypokinesis of the left ventricle, left atrium moderately dilated, aortic valve sclerosis without significant stenosis, trace AR, mild MR and mild TR estimated systolic pulmonary artery pressure 45 mmHg and dilated IVC with normal inspiratory variation suggesting a right atrial pressure of 8 mmHg Consult cardiology-appreciate input and recommendation Denies any significant shortness of breath at rest Symptomatically much better Furosemide has been changed to oral 80 mg twice daily and will be continued as an outpatient Essential (primary) hypertension Blood pressure seems to be controlled with current medication better Down the line hydralazine/nitrates can be used (2) Atrial fibrillation with rapid ventricular response: Given metoprolol 5 mg IV x 1 dose in ED - rate appears more stable around 90-110 Toprol-XL 100 mg daily has been changed to metoprolol tartrate 50 mg 3 times daily Eliquis 5 mg twice daily has been started HR in low 100 Metoprolol succinate has been increased to 100 mg twice daily Beta-pao dose has been increased and will continue to maintain heart rate (3) Cellulitis of leg: CRP elevated at 3.64. WBCs not elevated and pt currently afebrile. Unclear how actue LE skin changes are but with elevated CRP and physical exam, will start antibiotics. - Will start empiric IV Vanco and Ceftriaxone - Check blood cultures-negative -There is no definite cellulitis of the leg and the erythema has improved -changed antibiotic to intravenous Unasyn to cover possible axillary abscess/erysipelas involving the lower extremity Left axillary area cellulitis Skin redness and tenderness Lymphadenopathy without any abscess Antibiotics have been changed to intravenous Unasyn Oral Augmentin on discharge (4) Neck mass: Had a lesion removed from left upper back in late 2019 - biopsy confirmed squamous cell CA (prior hx of same in 2018 on chest and left elbow). Reports two new lesions on neck for which he was trying to get back in with [facility] surgery to see - seem to be causing increasing neck pain. He reports oxycodone has not been helpful and causes GI distress. - Tylenol for pain with Tramadol for breakthrough -Would have metastatic disease -Started oral Percocet and obtained CT of the neck and chest without contrast to evaluate the mass -CT of the neck:5 cm left supraclavicular mass/pathologic node suspicious for neoplasm. This lesion would be amenable to ultrasound-guided fine-needle aspiration biopsy. - CT chest did show: 10 cm left axillary mass/adenopathy. 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 Moffett discussed with plastic surgeon and pt will need to have an appointment with oncolog. surgeon on discharge (5) COPD (chronic obstructive pulmonary disease): Does not complain of SOB at present and lungs without wheezing - suspect hypoxia on presentation more related to CHF than COPD - Continue home inhalers with prn nebs -No signs of exacerbation (6) JOSE on CPAP: Pt unclear if he uses CPAP (which he tells me) or BiPAP (which he told the ED staff) but does know that he uses oxygen with his machine while he sleeps -CPAP per protocol while admitted (7) CKD (chronic kidney disease) stage 3, GFR 30-59 ml/min: Labs from Feb 2019 - BUN 22, Creatinine 1.3. Stable labs in the ED - Monitor labs with diuresis (8) Type 2 diabetes mellitus: Uncontrolled Last A1c in Feb 2019 = 9.3. It is unclear if patient is taking oral hypogylcemics as prescribed - HOLD home oral meds - Insulin sliding scale - adjust pending response - BSG ACHS - Diabetic diet - Current A1c 12.1% - diabetic education and pharm. glycemic control ordered - pt will benefit from starting insulin on discharge (pt is new insulin) PT and OT evaluation - recommend rehab but pt hesitant about rehab, discussed w/ caregiver Dalia who also agrees that pt would benefit from rehab after d/c Possible discharge in a day or 2 Dr. Moffett discussed with the daughter in detail and answered all of her questions. I discussed with Dalia (caregiver) and answered all her questions. Overall prognosis remains guarded Admission and Anticipated Discharge Date Admission Date: August 18, 2019 Subjective Pt is sitting up in chair, in some distress d/t neck pain. Pt cries d/t pain but then gets easily distracted during my interview. Otherwise answers questions slowly but appropriately. Denies any fever, chills, chest pain or shortness of breath. Seen earlier by [facility] liaison, at that time pt was confused, and possibly had some hallucinations. This seems to be related to pain meds. Review of Systems Review of Systems: All systems reviewed & are unremarkable except as noted in HPI & below Constitutional: no fever and no chills Respiratory: no cough and no dyspnea Left upper chest wall pain Cardiovascular: no chest pain and no palpitations Gastrointestinal: no abdominal pain, no nausea and no vomiting Musculoskeletal: left chest wall and left neck pain Physical Exam Physical Exam: Physical Exam: Sitting on a chair, in some distress due to neck pain Constitutional: + ill appearing and + morbidly obese; some distress (Due to pain) Eyes: PERRL, conjunctivae normal, anicteric sclerae ENMT: external ear and nose normal, oropharynx normal Neck: Left supraclavicular swelling with tenderness on palpation Respiratory: normal respiratory effort; no respiratory distress Auscultation: + diminished lung sounds and + crackles (Bibasilar crackles) Cardiovascular: Rate/Rhythm: regular rate and regular rhythm Heart Sounds: no murmur Extremities: + edema (1+ bilateral) Gastrointestinal (Abdomen): Inspection/Auscultation: + abdomen distended and normal bowel sounds Percussion/Palpation: abdomen soft; abdomen nontender Musculoskeletal: No acute arthritis involving any joint Neurologic: moves all extremities; no focal motor deficits Alert , awake .p leasantly confused at times with occasional hallucinations worse with use of narcotics pain medication Lymphatic: + lymphadenopathy (Left supraclavicular) Results & Data Results & Data ([facility]) Vital Signs (Past 12 Hours) Vital Signs Temp Pulse Resp BP Pulse Ox 08/24/19 08:50 37.0 C 108 H 22 119/75 90 08/24/19 04:00 36.7 C 100 H 20 138/66 90 08/23/19 23:03 36.8 C 84 20 110/58 L 90 Laboratory Results 08/24/19 08/23/19 08/23/19 Range/Units 07:22 20:34 16:25 POC Glucose 140 H 159 H 147 H (70-99) mg/dl Magnesium (1.8-2.4) mg/dl 08/23/19 08/23/19 Range/Units 11:32 08:40 POC Glucose 236 H (70-99) mg/dl Magnesium 2.0 (1.8-2.4) mg/dl Medications Administered Current Inpatient Medications Acetaminophen (Tylenol) 1,000 mg PO Q6H PRN PRN Reason: Pain Stop: 09/21/19 19:06 Last Admin: 08/23/19 13:42 Dose: 1,000 mg Documented by: Albuterol (Duoneb) 3 ml INH Q6R PRN PRN Reason: cough/shortness of breath Stop: 09/17/19 12:59 Apixaban (Eliquis) 5 mg PO BID [facility] Stop: 09/22/19 20:59 Last Admin: 08/24/19 08:28 Dose: 5 mg Documented by: Clopidogrel Bisulfate (Plavix) 75 mg PO DAILY [facility] Stop: 09/18/19 08:59 Last Admin: 08/24/19 08:28 Dose: 75 mg Documented by: Dextrose (Dextrose 50%) 25 - 50 ml IV UD PRN; Protocol PRN Reason: Hypoglycemia Protocol Stop: 09/17/19 11:11 Fluticasone/Vilanterol (Breo Ellipta 100/25 Mcg Inh) 1 puffs INH DAILY [facility]; Protocol Stop: 09/18/19 08:59 Last Admin: 08/24/19 08:29 Dose: 1 puffs Documented by: Furosemide (Lasix) 80 mg PO BID17 [facility] Stop: 09/21/19 16:59 Last Admin: 08/23/19 17:36 Dose: 80 mg Documented by: Glucagon (Glucagen) 1 mg SQ UD PRN; Protocol PRN Reason: Hypoglycemia Protocol Stop: 09/17/19 11:11 Glucose (Dex4 Glucose) 4 - 8 tabs PO UD PRN; Protocol PRN Reason: Hypoglycemia Protocol Stop: 09/17/19 11:11 Glucose (Glucose 40%) 15 - 30 gm PO UD PRN; Protocol PRN Reason: Hypoglycemia Protocol Stop: 09/17/19 11:11 Haloperidol Lactate (Haldol) 2 mg IM TID PRN PRN Reason: Agitation Stop: 09/19/19 04:50 Last Admin: 08/20/19 19:42 Dose: 2 mg Documented by: Ampicillin Sodium/Sulbactam Sodium 3,000 mg/ Sodium Chloride 108 mls @ 200 mls/hr IV Q6H [facility]; Protocol Stop: 08/28/19 15:29 Last Admin: 08/24/19 08:31 Dose: 200 mls/hr Documented by: Insulin Aspart (Novolog Flexpen) 0 units SC ACHS [facility] Stop: 09/17/19 11:29 Last Admin: 08/24/19 08:27 Dose: 10 units Documented by: Insulin Glargine (Lantus Solostar Pen) 25 units SC BID [facility]; Protocol Stop: 09/21/19 20:59 Last Admin: 08/24/19 08:29 Dose: 25 units Documented by: Metoprolol Succinate (Toprol Xl) 100 mg PO BID [facility] Stop: 09/20/19 20:59 Last Admin: 08/24/19 08:28 Dose: 100 mg Documented by: Miscellaneous (Carbohydrates For Hypoglycemia) 15 - 30 gm PO UD PRN PRN Reason: Hypoglycemia Protocol Stop: 09/17/19 11:11 Miscellaneous (Remove Nicoderm Patch) 1 ea N/A DAILY@0859 [facility] Stop: 09/23/19 08:58 Last Admin: 08/24/19 08:28 Dose: 1 ea Documented by: Miscellaneous Information (Consult Glycemic Management Pharmacy) 1 ea N/A UD [facility] Stop: 09/23/19 08:25 Nicotine (Nicoderm Cq) 21 mg TD QAM [facility] Stop: 09/23/19 08:59 Last Admin: 08/24/19 08:28 Dose: 21 mg Documented by: Oxycodone/Acetaminophen (Percocet 5mg/325mg) 1 tab PO Q4H PRN PRN Reason: Pain Stop: 09/02/19 10:15 Last Admin: 08/24/19 08:31 Dose: 1 tab Documented by: Spironolactone (Aldactone) 25 mg PO DAILY [facility] Stop: 09/21/19 08:59 Last Admin: 08/24/19 08:28 Dose: 25 mg Documented by: Umeclidinium [place] (Incruse Ellipta) 1 puffs INH DAILY [facility] Stop: 09/17/19 12:29 Last Admin: 08/24/19 08:29 Dose: 1 puffs Documented by: (1) Congestive heart failure Heart failure type: unspecified Heart failure chronicity: acute on chronic Qualified Code(s): I50.9 - Heart failure, unspecified (2) Cellulitis of leg Laterality: left Qualified Code(s): L03.116 - Cellulitis of left lower limb (3) COPD (chronic obstructive pulmonary disease) COPD type: unspecified COPD Qualified Code(s): J44.9 - Chronic obstructive pulmonary disease, unspecified (4) Type 2 diabetes mellitus Diabetes mellitus shelter insulin use: without supervisor long goods use Diabetes mellitus complication status: with kidney complications Diabetes mellitus complication detail: with chronic kidney disease Chronic kidney disease stage: stage 3 (moderate) Qualified Code(s): 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 mellitus with diabetic chronic kidney disease; N18.3 - Chronic kidney disease, stage 3 (moderate)
[2019-08-24 09:11] LABS: Basophils # (auto) 0.06 K/uL (0-0.2); Basophils % (auto) 0.4 %; Eosinophils # (auto) 0.21 K/uL (0-0.5); Eosinophils % (auto) 1.5 %; Hematocrit (blood only) 41.5 % (42-52); Immature Granulocytes # (auto) 0.08 K/uL (0.00-0.02); Immature Granulocytes % (auto) 0.6 %; Lymphocytes # (auto) 1.47 K/uL (1.2-3.4); Lymphocytes % (auto) 10.4 %; Mean Corpuscular Hemoglobin 32.1 pg (25-34); Mean Corpuscular Hgb Conc 33.7 g/dL (32-36); Mean Corpuscular Volume 95.2 fL (80-100); Mean Platelet Volume 10.1 fL (7.4-10.4); Monocytes # (auto) 1.09 K/uL (0.11-0.59); Monocytes % (auto) 7.7 %; Neutrophils # (auto) 11.23 K/uL (1.4-6.5); Neutrophils % (auto) 79.4 %; Platelet Count 294 K/uL (130-400); RDW Coefficient of Variation 14.6 % (11.5-14.5); RDW Standard Deviation 51.1 fL (36.4-46.3); Red Blood Count 4.36 M/uL (4.7-6.1); White Blood Count 14.14 K/uL (4.8-10.8)
[2019-08-24 09:26] LABS: Partial Thromboplastin Ratio 0.9; Partial Thromboplastin Time 26.2 Seconds (21.0-31.0)
[2019-08-24 10:34] LABS: BUN Creatinine Ratio 21.5 (10-20); Calcium 9.8 mg/dl (8.5-10.1); Creatinine Clr Calc Pharmacy 59.1 ml/min; Est GFR (Non-African American) 47.4; Potassium 4.2 mmol/L (3.5-5.1)
--- NOTE | 2019-08-24 10:58 | Pharmacy Report ---
Pharmacy Glycemic Short Note 2 - Date of Service August 24, 2019 - Glycemic Short BSG Results (Last 24 hours): 08/23/19 08/23/19 08/23/19 11:32 16:25 20:34 POC Glucose 236 H 147 H 159 H 08/24/19 07:22 POC Glucose 140 H OUTPATIENT ANTIDIABETIC REGIMEN: * Compliance with out-pt regimen uncertain * empagliflozin 10mg PO daily * glipizide 20mg PO BID * metformin 1gm PO BID * A1c = 12.1% ASSESSMENT: * Type 2 diabetic admitted for ADHF, a fib w/ RVR, lower extremity and axiliary cellulitis * Patient's compliance with home medication regimen uncertain, however given A1c a trail of insulin therapy on discharge should be considered * Since hospitalization, pt has been managed with SQ basal/bolus regimen. * Of note, BSGs have improved over the last 2 days. Lantus dose was increased on 08/21, Novolog doses were increased 08/22 * Fasting BSG 140 this AM with 50 units of basal on board * Post-prandial BSGs better controlled w/ change to CF/CR made yesterday * Anticipate patient to require ~80-90 units of insulin per day while tolerating a diet with current stressors PLAN FOR INPATIENT GLYCEMIC CONTROL: * Hold outpatient oral diabetes medications * Basal insulin * Lantus 25 units SQ BID * Bolus insulin * NovoLog per scale ACHS or Q6hrs while NPO * Goal Range: Low 110 mg/dL - High 140 mg/dL * Correction Factor: 15 mg/dL/unit * Nutritional / Prandial insulin per carb ratio of 1 unit per 5 grams CHO consumed PLAN FOR DISCHARGE: * Given A1c > 10%, insulin therapy should be considered on discharge. Would recommend Basal insulin + Prandial insulin + Metformin on discharge if no contraindications to ongoing metformin therapy. If unable to comply with Prandial insulin, could consider use of GLP1RA administered SQ once weekly (liraglutide or semaglutide) in place of Prandial insulin - however coverage of these agents should be confirmed with insurance prior to prescribing. * Basal insulin recommendation: Lantus 40 units daily * Novolog recommendation: Novolog 10 units with each meal - hold if not eating * Metformin recommendation: 1gm PO BID with meals * BSGs monitored before each meal and at bedtime with this regimen * Would recommend d/c of pioglitizone given ADHF * Would recommend d/c of glipizide on discharge if starting insulin therapy * Patient should f/u promptly with PCP or Endocrinology to have further dosing adjustments made upon discharge.
[2019-08-24] MEDS: FUROSEMIDE 80 MG TAB PO SCH ×2 (11:58→17:03)
[2019-08-24] MEDS: LIDOCAINE 5% 1 PATCH TD SCH (16:23)
--- NOTE | 2019-08-24 23:25 | Communication Note ---
Date of Service: August 24, 2019 Notified by RN of patient family request for call back from AM provider tomorrow to discuss family desire to transfer patient to tertiary center for further management. Will relay to AM provider.
[2019-08-25] MEDS: OXYCODONE/ACETAMINOPHEN 5mg/325mg TAB PO PRN ×4 (01:06→20:21)
[2019-08-25] MEDS: AMPICILLIN/SULBACTAM SOD 3,000 MG in 0.9 % SODIUM CHLORIDE 100 ML IV SCH ×2 (05:33→08:31)
[2019-08-25 07:48] LABS: Hematocrit (blood only) 43.3 % (42-52); Hemoglobin 14.4 g/dL (14.0-18.0); Mean Corpuscular Hemoglobin 31.9 pg (25-34); Mean Corpuscular Hgb Conc 33.3 g/dL (32-36); Mean Platelet Volume 9.7 fL (7.4-10.4); Platelet Count 306 K/uL (130-400); RDW Coefficient of Variation 14.6 % (11.5-14.5); RDW Standard Deviation 51.8 fL (36.4-46.3); Red Blood Count 4.51 M/uL (4.7-6.1); White Blood Count 16.55 K/uL (4.8-10.8)
[2019-08-25 08:14] LABS: BUN Creatinine Ratio 23.8 (10-20); Calcium 10.3 mg/dl (8.5-10.1); Est GFR (African American) 51.5; Est GFR (Non-African American) 44.5; Magnesium 2.2 mg/dl (1.8-2.4); Partial Thromboplastin Ratio 1.1; Partial Thromboplastin Time 29.9 Seconds (21.0-31.0); Phosphorus 3.8 mg/dl (2.5-4.9); Potassium 3.7 mmol/L (3.5-5.1)
[2019-08-25] MEDS: INSULIN ASPART 100 UNITS/ML 3 ML PEN SC SCH ×4 (08:26→20:21)
[2019-08-25] MEDS: LIDOCAINE 5% 1 PATCH TD SCH (08:27)
[2019-08-25] MEDS: METOPROLOL SUCC 50MG EXT REL TAB PO SCH ×2 (08:27→20:22)
[2019-08-25] MEDS: APIXABAN 5 MG TABLET PO SCH ×2 (08:27→20:23)
[2019-08-25] MEDS: CLOPIDOGREL BISULFATE 75 MG TAB PO SCH (08:27)
[2019-08-25] MEDS: SPIRONOLACTONE 25 MG TAB PO SCH (08:27)
[2019-08-25] MEDS: NICOTINE 21 MG/24 HR TDSY TD SCH (08:28)
[2019-08-25] MEDS: UMECLIDINIUM BROMIDE 62.5MCG/BLISTER 7 PUFFS/INHALER INH SCH (08:28)
[2019-08-25] MEDS: FLUTICASONE/VILANTEROL 100/25MCG 14 PUFFS/INHALER INH SCH (08:28)
[2019-08-25] MEDS: INSULIN GLARGINE SOLOSTAR 100 UNITS/ML 3 ML PEN SC SCH ×2 (08:28→20:22)
--- NOTE | 2019-08-25 08:57 | Hospitalist Progress Note ---
Date of Service August 25, 2019 Assessment & Plan Admission and Anticipated Discharge Date Admission Date: August 18, 2019 Subjective Tried to contact patient's family at . Unfortunately nobody answered and I was not able to leave a message either. We will try again later. Case management aware. Results & Data Results & Data ([facility]) Vital Signs (Past 12 Hours) Vital Signs Temp Pulse Resp BP Pulse Ox 08/25/19 07:37 36.7 C 92 H 20 117/64 93 08/25/19 00:25 36.7 C 85 21 146/83 H 95
[2019-08-25] MEDS ORDERED: VANCOMYCIN CONSULT ACTIVE PRN (08:58)
--- NOTE | 2019-08-25 09:02 | Hospitalist Progress Note ---
Date of Service August 25, 2019 Assessment & Plan (1) Congestive heart failure: Suspect related to non-compliance and dietary indiscretion although history from pt is limited. Last ECHO appears to have been in 2016 and shower LVEF 55-59%, moderate concentric LVH, dilated IVC, elevated RA pressure Acute decompensated congestive heart failure Diuresed initially with IV Lasix Current ECHO showed LV systolic function is mildly reduced to 45 to 50% of EF, mild global hypokinesis of the left ventricle, left atrium moderately dilated, aortic valve sclerosis without significant stenosis, trace AR, mild MR and mild TR estimated systolic pulmonary artery pressure 45 mmHg and dilated IVC with normal inspiratory variation suggesting a right atrial pressure of 8 mmHg Consult cardiology-appreciate input and recommendation Denies any significant shortness of breath at rest Symptomatically much better Furosemide has been changed to oral 80 mg twice daily and will be continued as an outpatient Essential (primary) hypertension Blood pressure seems to be controlled with current medication better Down the line hydralazine/nitrates can be used (2) Atrial fibrillation with rapid ventricular response: Given metoprolol 5 mg IV x 1 dose in ED - rate appears more stable around 90-110 Toprol-XL 100 mg daily has been changed to metoprolol tartrate 50 mg 3 times daily Eliquis 5 mg twice daily has been started HR in low 100 Metoprolol succinate has been increased to 100 mg twice daily Beta-pao dose has been increased and will continue to maintain heart rate (3) Cellulitis of leg: CRP elevated at 3.64. WBCs not elevated and pt currently afebrile. Unclear how actue LE skin changes are but with elevated CRP and physical exam, will start antibiotics. - Will start empiric IV Vanco and Ceftriaxone - Check blood cultures-negative -There is no definite cellulitis of the leg and the erythema has improved -changed antibiotic to intravenous Unasyn to cover possible axillary abscess/erysipelas involving the lower extremity by previous hospitalist -Now however WBC elevated, will repeat chest x-ray, will obtain UA, and blood culture, will broaden of antibiotic coverage Left axillary area cellulitis Skin redness and tenderness Lymphadenopathy without any abscess Antibiotics have been changed to intravenous Unasyn by previous hospitalist, however now WBC count is elevated, see above likely Oral Augmentin on discharge (4) Neck mass: Had a lesion removed from left upper back in late 2018 - biopsy confirmed squamous cell CA (prior hx of same in 2018 on chest and left elbow). Reports two new lesions on neck for which he was trying to get back in with [facility] surgery to see - seem to be causing increasing neck pain. He reports oxycodone has not been helpful and causes GI distress. - Tylenol for pain with Tramadol for breakthrough -Would have metastatic disease -Started oral Percocet and obtained CT of the neck and chest without contrast to evaluate the mass -CT of the neck:5 cm left supraclavicular mass/pathologic node suspicious for neoplasm. This lesion would be amenable to ultrasound-guided fine-needle aspiration biopsy. - CT chest did show: 10 cm left axillary mass/adenopathy. 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 Moffett discussed with plastic surgeon and pt will need to have an appointment with oncolog. surgeon on discharge -Continues to have pain at neck and left axilla, gets somewhat confused with pain medications, will consult with pain management -Lidocaine patch added (5) COPD (chronic obstructive pulmonary disease): Does not complain of SOB at present and lungs without wheezing - suspect hypoxia on presentation more related to CHF than COPD - Continue home inhalers with prn nebs -No signs of exacerbation (6) JOSE on CPAP: Pt unclear if he uses CPAP (which he tells me) or BiPAP (which he told the ED staff) but does know that he uses oxygen with his machine while he sleeps -CPAP per protocol while admitted (7) CKD (chronic kidney disease) stage 3, GFR 30-59 ml/min: Labs from Feb 2019 - BUN 22, Creatinine 1.3. Stable labs in the ED - Monitor labs with diuresis (8) Type 2 diabetes mellitus: Uncontrolled Last A1c in Feb 2019 = 9.3. It is unclear if patient is taking oral hypogylcemics as prescribed - HOLD home oral meds - Insulin sliding scale - adjust pending response - BSG ACHS - Diabetic diet - Current A1c 12.1% - diabetic education and pharm. glycemic control ordered - pt will benefit from starting insulin on discharge (pt is new insulin) PT and OT evaluation - recommend rehab but pt hesitant about rehab, discussed w/ caregiver Dalia who also agrees that pt would benefit from rehab after d/c Possible discharge in a day or [address] Dr. Moffett discussed with the daughter in detail and answered all of her questions. I discussed with Dalia (caregiver) and answered all her questions. Overall prognosis remains guarded Admission and Anticipated Discharge Date Admission Date: August 18, 2019 Subjective Made aware of events overnight by nurse Chaz, and pace analyst Dr. Ford. Tried to contact patient's family at . Unfortunately nobody answered and I was not able to leave a message either. Case management aware. Patient is currently sitting up in a chair, in no acute distress. He is apologetic about his behavior. Currently has no complaints besides left neck pain. Says the lidocaine patch is helping somewhat. Pain management consulted. Denies fevers, chills, chest pain, shortness of breath, abdominal pain, nausea or vomiting. White blood cell count elevated. Will obtain repeat chest x-ray, UA, blood culture, will broaden up antibiotics. Review of Systems Review of Systems: All systems reviewed & are unremarkable except as noted in HPI & below Constitutional: no fever and no chills Respiratory: no cough and no dyspnea Cardiovascular: no chest pain and no palpitations Gastrointestinal: no abdominal pain, no nausea and no vomiting Physical Exam Physical Exam: Physical Exam: Sitting on a chair, in mild distress due to neck pain Constitutional: + ill appearing and + morbidly obese; some distress (Due to pain) Eyes: PERRL, conjunctivae normal, anicteric sclerae ENMT: external ear and nose normal, oropharynx normal Neck: Left supraclavicular swelling with tenderness on palpation Respiratory: normal respiratory effort; no respiratory distress Auscultation: + diminished lung sounds and + crackles (mild bibasilar crackles) Cardiovascular: Rate/Rhythm: regular rate and regular rhythm Heart Sounds: no murmur Extremities: + edema (1+ bilateral) Gastrointestinal (Abdomen): Inspection/Auscultation: + abdomen distended and normal bowel sounds Percussion/Palpation: abdomen soft; abdomen nontender : Miller catheter in place, drains dark urine Musculoskeletal: No acute arthritis involving any joint Neurologic: moves all extremities; no focal motor deficits Alert , awake .currently answers questions appropriately, but occasionally gets confused (per nursing staff) at times with occasional hallucinations worse with use of narcotics /pain medication Lymphatic: + lymphadenopathy (Left supraclavicular) Results & Data Results & Data ([facility]) Vital Signs (Past 12 Hours) Vital Signs Temp Pulse Resp BP Pulse Ox 08/25/19 07:37 36.7 C 92 H 20 117/64 93 08/25/19 00:25 36.7 C 85 21 146/83 H 95 (1) Type 2 diabetes mellitus Chronic kidney disease stage: stage 3 (moderate) Diabetes mellitus complication detail: with chronic kidney disease Diabetes mellitus complication status: with kidney complications Diabetes mellitus buttermaker continuous churn insulin use: without longterm use Qualified Code(s): 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 mellitus with diabetic chronic kidney disease; N18.3 - Chronic kidney disease, stage 3 (moderate) (2) Congestive heart failure Heart failure chronicity: acute on chronic Heart failure type: unspecified Qualified Code(s): I50.9 - Heart failure, unspecified (3) Cellulitis of leg Laterality: left Qualified Code(s): L03.116 - Cellulitis of left lower limb (4) COPD (chronic obstructive pulmonary disease) COPD type: unspecified COPD Qualified Code(s): J44.9 - Chronic obstructive pulmonary disease, unspecified
[2019-08-25] MEDS ORDERED: CEFEPIME CONSULT ACTIVE PRN (09:03)
[2019-08-25] MEDS ORDERED: VANCOMYCIN HCL 2,500 MG in SODIUM CHLORIDE 0.9% 500 ML IV ONE (09:15)
--- NOTE | 2019-08-25 09:17 | XRay Report ---
XR chest 1V portable CLINICAL HISTORY: elev WBC, r/o develop. pna dyspnea COMPARISON STUDY: 08/18/2019 FINDINGS: Improving congestive heart failure. Mild decrease in cardiac size. Improved pulmonary vascu lature. IMPRESSION: Improving congestive heart failure ACT 112: Negative or not required by law. The above report was generated using voice recognition software. It may contain grammatical, syntax or spelling errors. Electronically signed by: Edwar Barajas M.D. 08/25/2019 9:16 AM
[2019-08-25] MEDS: CEFEPIME 2,000 MG in SYRINGE 7.5 ML IV SCH ×2 (10:00→21:04)
[2019-08-25] MEDS: FUROSEMIDE 80 MG TAB PO SCH ×2 (10:17→17:30)
--- NOTE | 2019-08-25 10:42 | Pharmacy Report ---
Pharmacy Abx Dose Short Note - Date of Service August 25, 2019 - Assessment & Plan Assessment * 74 year old M admitted 08/17 for ADHF, a fib RVR, lower extremity cellulitis and axillary cellulitis * Patient received Vanco 08/17-08/19, Rocephin 08/17-08/20, Unasyn started 08/20 and continued until this AM * Provider has ordered Vancomycin IV + Cefepime IV for lack of improvement in cellulitis and concern for possible developing HAP. Pharm to dose abx. * CXR ordered today: read as "improved congestive heart failure" * WBC has been trending upwards since 08/21 * Patient remains afebrile * O2 sat 93-95% on room air * BLCXs have been sent * Will check procal and nasal swab for MRSA. If HAP unlikely, might consider converting patient to daptomycin monotherapy for SSTI Plan Vancomycin * Patient received vancomycin early this admission. A maint dose of 1500mg IV Q 12 hrs led to supratherapeutic level of 24.6 and this was prior to achieving steady state. Given rise in SCr and no consolidation noted on CXR read, will dose vancomycin 1500mg IV Q 24 hrs with goal trough level of ~15mcg/mL * Given patient's body habitus and changing renal fxn, he is not a candidate for AUC dosing method * Will check trough level w/ 3rd dose if therapy to continue Cefepime * eCrCl 30-60cc/min: 2gm IV Q 12 hrs indicated Pharmacy will continue to follow and will adjust dose/frequency as necessary. Thank you.
[2019-08-25] MEDS ORDERED: INSULIN GLARGINE SOLOSTAR 100 UNITS/ML 3 ML PEN SC SCH (11:30)
--- NOTE | 2019-08-25 11:47 | Pharmacy Report ---
Pharmacy Glycemic Short Note 2 - Date of Service August 25, 2019 - Glycemic Short BSG Results (Last 24 hours): 08/24/19 08/24/19 08/25/19 16:32 20:26 07:17 Glucose 169 H POC Glucose 131 H 191 H 08/25/19 08/25/19 07:35 11:18 Glucose POC Glucose 180 H 233 H OUTPATIENT ANTIDIABETIC REGIMEN: * Compliance with out-pt regimen uncertain * empagliflozin 10mg PO daily * glipizide 20mg PO BID * metformin 1gm PO BID * A1c = 12.1% ASSESSMENT: 08/24 * Over the last 24 hrs 79 units of SQ insulin administered (patient was tolerating diet) * BSGs have ranged 131-233 * Fasting BSG 169-180 this AM with 50 units of basal on board - will titrate upwards ~20% * Post-prandial BSGs controlled with current CR ~50% of the time. Pre-lunch BSG appears to be most elevated. Will trial higher dose of Novolog w/ breakfast. 08/23 * Type 2 diabetic admitted for ADHF, a fib w/ RVR, lower extremity and axiliary cellulitis * Patient's compliance with home medication regimen uncertain, however given A1c a trail of insulin therapy on discharge should be considered * Since hospitalization, pt has been managed with SQ basal/bolus regimen. * Of note, BSGs have improved over the last 2 days. Lantus dose was increased on 08/21, Novolog doses were increased 08/22 * Fasting BSG 140 this AM with 50 units of basal on board * Post-prandial BSGs better controlled w/ change to CF/CR made yesterday * Anticipate patient to require ~80-90 units of insulin per day while tolerating a diet with current stressors PLAN FOR INPATIENT GLYCEMIC CONTROL: * Hold outpatient oral diabetes medications * Basal insulin - increase * Lantus 30 units SQ BID * Bolus insulin - increase * NovoLog per scale ACHS or Q6hrs while NPO * Goal Range: Low 110 mg/dL - High 140 mg/dL * Correction Factor: 15 mg/dL/unit * Nutritional / Prandial insulin per carb ratio of 1 unit per 4 grams CHO consumed with breakfast, 1 unit per 5 grams CHO consumed w/ lunch and dinn er PLAN FOR DISCHARGE: * Given A1c > 10%, insulin therapy should be considered on discharge. Would recommend Basal insulin + Prandial insulin + Metformin on discharge if no contraindications to ongoing metformin therapy. If unable to comply with Prandial insulin, could consider use of GLP1RA administered SQ once weekly (liraglutide or semaglutide) in place of Prandial insulin - however coverage of these agents should be confirmed with insurance prior to prescribing. * Basal insulin recommendation: Lantus 50 units daily * Novolog recommendation: Novolog 10 units with each meal - hold if not eating * Metformin recommendation: 1gm PO BID with meals * BSGs monitored before each meal and at bedtime with this regimen * Would recommend d/c of pioglitizone given ADHF * Would recommend d/c of glipizide on discharge if starting insulin therapy * Patient should f/u promptly with PCP or Endocrinology to have further dosing adjustments made upon discharge.
[2019-08-25 18:57] LABS: Hematocrit (blood only) 40.6 % (42-52); Hemoglobin 13.7 g/dL (14.0-18.0); Mean Corpuscular Hemoglobin 32.1 pg (25-34); Mean Corpuscular Hgb Conc 33.7 g/dL (32-36); Mean Corpuscular Volume 95.1 fL (80-100); Mean Platelet Volume 10.2 fL (7.4-10.4); Platelet Count 309 K/uL (130-400); RDW Coefficient of Variation 14.6 % (11.5-14.5); RDW Standard Deviation 50.8 fL (36.4-46.3); Red Blood Count 4.27 M/uL (4.7-6.1); White Blood Count 18.69 K/uL (4.8-10.8)
[2019-08-25] MEDS: ACETAMINOPHEN 500 MG TAB PO PRN (22:10)
[2019-08-26] MEDS: OXYCODONE/ACETAMINOPHEN 5mg/325mg TAB PO PRN ×4 (00:26→15:38)
[2019-08-26 04:39] LABS: Appearance Urine Clear (Clear); Bacteria Urine Automated Negative (Negative); Bilirubin Urine Negative (Negative); Blood Urine Trace (Negative); Color Urine Yellow; Glucose Urine UA Negative (Negative); Ketones Urine Negative (Negative); Leukocyte Esterase Urine 1+ (Negative); Nitrite Urine Negative (Negative); Protein Urine Negative (Negative); RBC Urine Automated 0-4 /hpf (0-4); Specific Gravity Urine 1.016 (1.000-1.030); Urobilinogen Urine Negative (Negative)
[2019-08-26 07:00] LABS: Hematocrit (blood only) 40.7 % (42-52); Hemoglobin 13.8 g/dL (14.0-18.0); Mean Corpuscular Hemoglobin 32.5 pg (25-34); Mean Corpuscular Hgb Conc 33.9 g/dL (32-36); Mean Corpuscular Volume 95.8 fL (80-100); Platelet Count 307 K/uL (130-400); RDW Coefficient of Variation 14.7 % (11.5-14.5); RDW Standard Deviation 51.3 fL (36.4-46.3); Red Blood Count 4.25 M/uL (4.7-6.1); White Blood Count 15.04 K/uL (4.8-10.8)
[2019-08-26 07:15] LABS: Partial Thromboplastin Ratio 1.1; Partial Thromboplastin Time 30.2 Seconds (21.0-31.0)
[2019-08-26 07:33] LABS: BUN Creatinine Ratio 23.7 (10-20); Calcium 10.1 mg/dl (8.5-10.1); Est GFR (African American) 50.3; Est GFR (Non-African American) 43.4; Potassium 3.8 mmol/L (3.5-5.1)
[2019-08-26] MEDS: INSULIN ASPART 100 UNITS/ML 3 ML PEN SC SCH ×4 (07:37→22:08)
[2019-08-26] MEDS: FLUTICASONE/VILANTEROL 100/25MCG 14 PUFFS/INHALER INH SCH (07:40)
[2019-08-26] MEDS: METOPROLOL SUCC 50MG EXT REL TAB PO SCH ×2 (07:40→22:05)
[2019-08-26] MEDS: CLOPIDOGREL BISULFATE 75 MG TAB PO SCH (07:41)
[2019-08-26] MEDS: NICOTINE 21 MG/24 HR TDSY TD SCH (07:41)
[2019-08-26] MEDS: APIXABAN 5 MG TABLET PO SCH ×2 (07:42→22:04)
[2019-08-26] MEDS: LIDOCAINE 5% 1 PATCH TD SCH (07:42)
[2019-08-26] MEDS: SPIRONOLACTONE 25 MG TAB PO SCH (07:42)
[2019-08-26] MEDS: UMECLIDINIUM BROMIDE 62.5MCG/BLISTER 7 PUFFS/INHALER INH SCH (07:43)
[2019-08-26] MEDS: FUROSEMIDE 80 MG TAB PO SCH ×2 (07:43→16:55)
--- NOTE | 2019-08-26 08:00 | Hospitalist Progress Note ---
Date of Service August 26, 2019 Assessment & Plan (1) Congestive heart failure: Suspect related to non-compliance and dietary indiscretion although history from pt is limited. Last ECHO appears to have been in 2016 and shower LVEF 55-59%, moderate concentric LVH, dilated IVC, elevated RA pressure Acute decompensated congestive heart failure Diuresed initially with IV Lasix Current ECHO showed LV systolic function is mildly reduced to 45 to 50% of EF, mild global hypokinesis of the left ventricle, left atrium moderately dilated, aortic valve sclerosis without significant stenosis, trace AR, mild MR and mild TR estimated systolic pulmonary artery pressure 45 mmHg and dilated IVC with normal inspiratory variation suggesting a right atrial pressure of 8 mmHg Consult cardiology-appreciate input and recommendation Denies any significant shortness of breath at rest Symptomatically much better Furosemide has been changed to oral 80 mg twice daily and will be continued as an outpatient Essential (primary) hypertension Blood pressure seems to be controlled with current medication better Down the line hydralazine/nitrates can be used (2) Atrial fibrillation with rapid ventricular response: Given metoprolol 5 mg IV x 1 dose in ED - rate appears more stable around 90-110 Toprol-XL 100 mg daily has been changed to metoprolol tartrate 50 mg 3 times daily Eliquis 5 mg twice daily has been started HR in low 100 Metoprolol succinate has been increased to 100 mg twice daily Beta-pao dose has been increased and will continue to maintain heart rate (3) Cellulitis of leg: CRP elevated at 3.64. WBCs not elevated and pt currently afebrile. Unclear how actue LE skin changes are but with elevated CRP and physical exam, will start antibiotics. - Will start empiric IV Vanco and Ceftriaxone - Check blood cultures-negative -There is no definite cellulitis of the leg and the erythema has improved -changed antibiotic to intravenous Unasyn to cover possible axillary abscess/erysipelas involving the lower extremity by previous hospitalist -Now however WBC elevated, repeated chest x-ray -negative, Miller removed, UA negative, blood culture so far negative, broadened antibiotic coverage Left axillary area cellulitis Skin redness and tenderness Lymphadenopathy without any abscess Antibiotics have been changed to intravenous Unasyn by previous hospitalist, however now WBC count is elevated, see above likely Oral Augmentin on discharge (4) Neck mass: Had a lesion removed from left upper back in late 2018 - biopsy confirmed squamous cell CA (prior hx of same in 2018 on chest and left elbow). Reports two new lesions on neck for which he was trying to get back in with [facility] surgery to see - seem to be causing increasing neck pain. He reports oxycodone has not been helpful and causes GI distress. - Tylenol for pain with Tramadol for breakthrough -Would have metastatic disease -Started oral Percocet and obtained CT of the neck and chest without contrast to evaluate the mass -CT of the neck:5 cm left supraclavicular mass/pathologic node suspicious for neoplasm. This lesion would be amenable to ultrasound-guided fine-needle aspiration biopsy. - CT chest did show: 10 cm left axillary mass/adenopathy. 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 Moffett discussed with plastic surgeon and pt will need to have an appointment with oncolog. surgeon on discharge -Continues to have pain at neck and left axilla, gets somewhat confused with pain medications, will consult with pain management -Lidocaine patch added, cont. percocet as needed (5) COPD (chronic obstructive pulmonary disease): Does not complain of SOB at present and lungs without wheezing - suspect hypoxia on presentation more related to CHF than COPD - Continue home inhalers with prn nebs -No signs of exacerbation (6) JOSE on CPAP: Pt unclear if he uses CPAP (which he tells me) or BiPAP (which he told the ED staff) but does know that he uses oxygen with his machine while he sleeps -CPAP per protocol while admitted (7) CKD (chronic kidney disease) stage 3, GFR 30-59 ml/min: Labs from Feb 2019 - BUN 22, Creatinine 1.3. Stable labs in the ED - Monitor labs with diuresis (8) Type 2 diabetes mellitus: Uncontrolled Last A1c in Feb 2019 = 9.3. It is unclear if patient is taking oral hypogylcemics as prescribed - HOLD home oral meds - Insulin sliding scale - adjust pending response - BSG ACHS - Diabetic diet - Current A1c 12.1% - diabetic education and pharm. glycemic control ordered - pt will benefit from starting insulin on discharge (pt is new insulin) PT and OT evaluation - recommend rehab but pt hesitant about rehab, discussed w/ caregiver Dalia who also agrees that pt would benefit from rehab after d/c Possible discharge in a day or 2 Dr. Moffett discussed with the daughter in detail and answered all of her questio ns. I discussed with Dalia (caregiver) and answered all her questions. Overall prognosis remains guarded Admission and Anticipated Discharge Date Admission Date: August 18, 2019 Subjective Tried to contact patient's family at yesterday, unfortunately nobody answered and I was not able to leave a message either. Case management aware. Made aware by case management, that patient's daughter Betina will be the primary contact from now on, her number is [phone]. Patient is currently sitting up in a chair, eating lunch, comfortable, in no acute distress. Currently has no complaints, states that his pain is not bothering him, reports that he was "aggravated by nursing staff which made the pain worse". I consulted pain management, and at this point, they feel that patient's pain was well-controlled on the current regimen. Denies fevers, chills, chest pain, shortness of breath, abdominal pain, nausea or vomiting. White blood cell count elevated. UA negative, Miller removed, chest x-ray negative, blood culture negative so far, white blood cell count elevated likely due to cellulitis in his left armpit. Update: Made aware by staff, patient had 4 beat V. tach, discussed this with cardiology. Review of Systems Review of Systems: All systems reviewed & are unremarkable except as noted in HPI & below Constitutional: no fever and no chills Respiratory: no cough and no dyspnea Cardiovascular: no chest pain and no palpitations Gastrointestinal: no abdominal pain, no nausea and no vomiting Physical Exam Physical Exam: Physical Exam: Sitting on a chair, in no acute distress, eating lunch, comfortable Constitutional: + ill appearing and + morbidly obese Eyes: PERRL, conjunctivae normal, anicteric sclerae ENMT: external ear and nose normal, oropharynx normal Neck: Left supraclavicular swelling with tenderness on palpation Respiratory: normal respiratory effort; no respiratory distress Auscultation: + diminished lung sounds and + crackles (mild bibasilar crackles) Cardiovascular: Rate/Rhythm: regular rate and regular rhythm Heart Sounds: no murmur Extremities: + edema (trace bilateral) Gastrointestinal (Abdomen): Inspection/Auscultation: + abdomen distended and normal bowel sounds Percussion/Palpation: abdomen soft; abdomen nontender : Miller catheter removed Musculoskeletal: No acute arthritis involving any joint, moves extremities spontaneously Neurologic: moves all extremities; no focal motor deficits Alert , awake .currently answers questions appropriately, but occasionally gets confused (per nursing staff) at times with occasional hallucinations worse with use of narcotics /pain medication Lymphatic: + lymphadenopathy (Left supraclavicular) Results & Data Results & Data ([facility]) Vital Signs (Past 12 Hours) Vital Signs Temp Pulse Pulse Resp BP BP Pulse Ox 08/26/19 07: 37.0 C 88 20 124/91 93 08/26/19 05:04 36.8 C 93 H 22 120/66 93 08/25/19 22:23 100 H 22 95 08/25/19 20:30 36.8 C 96 H 24 131/88 94 Laboratory Results 08/26/19 08/26/19 08/26/19 Range/Units 07:18 06:27 06:27 WBC (4.8-10.8) K/uL RBC (4.7-6.1) M/uL Hgb (14.0-18.0) g/dL Hct (42-52) % MCV (80-100) fL MCH (25-34) pg MCHC (32-36) g/dL RDW Std Deviation (36.4-46.3) fL RDW Coeff of [place] (11.5-14.5) % Plt Count (130-400) K/uL MPV (7.4-10.4) fL APTT 30.2 (21.0-31.0) Seconds PTT Ratio 1.1 Sodium 135 L (136-145) mmol/L Potassium 3.8 (3.5-5.1) mmol/L Chloride 96 L (98-107) mmol/L Carbon Dioxide 29 (21-32) mmol/L Anion Gap 10.0 (3-11) BUN 37 H (7-18) mg/dl Creatinine 1.56 H (0.6-1.4) mg/dl Est Cr Clr Drug Dosing 55.0 ml/min Est GFR ( Amer) 50.3 Est GFR (Non-Af Amer) 43.4 BUN/Creatinine Ratio 23.7 H (10-20) Glucose 119 H (70-99) mg/dl POC Glucose 125 H (70-99) mg/dl Calcium 10.1 (8.5-10.1) mg/dl Phosphorus (2.5-4.9) mg/dl Magnesium (1.8-2.4) mg/dl Procalcitonin (0-0.5) ng/ml Urine Color Urine Appearance (Clear) Urine pH (4.5-7.5) Ur Specific [place] (1.000-1.030) Urine Protein (Negative) Urine Glucose (UA) (Negative) Urine Ketones (Negative) Urine Blood (Negative) Urine Nitrite (Negative) Urine Bilirubin (Negative) Urine Urobilinogen (Negative) Ur Leukocyte Esterase (Negative) Urine WBC (Auto) (0-5) /hpf Urine RBC (Auto) (0-4) /hpf U Hyaline Cast (Auto) (0-5) /lpf U Epithel Cells (Auto) (0-5) /lpf Urine Bacteria (Auto) (Negative) Nasal Screen MRSA (PCR) (Negative) 08/26/19 08/26/19 08/25/19 Range/Units 06:27 03:55 20:21 WBC 15.04 H (4.8-10.8) K/uL RBC 4.25 L (4.7-6.1) M/uL Hgb 13.8 L (14.0-18.0) g/dL Hct 40.7 L (42-52) % MCV 95.8 (80-100) fL MCH 32.5 (25-34) pg MCHC 33.9 (32-36) g/dL RDW Std Deviation 51.3 H (36.4-46.3) fL RDW Coeff of [place] 14.7 H (11.5-14.5) % Plt Count 307 (130-400) K/uL MPV 10.0 (7.4-10.4) fL APTT (21.0-31.0) Seconds PTT Ratio Sodium (136-145) mmol/L Potassium (3.5-5.1) mmol/L Chloride (98-107) mmol/L Carbon Dioxide (21-32) mmol/L Anion Gap (3-11) BUN (7-18) mg/dl Creatinine (0.6-1.4) mg/dl Est Cr Clr Drug Dosing ml/min Est GFR ( Amer) Est GFR (Non-Af Amer) BUN/Creatinine Ratio (10-20) Glucose (70-99) mg/dl POC Glucose 153 H (70-99) mg/dl Calcium (8.5-10.1) mg/dl Phosphorus (2.5-4.9) mg/dl Magnesium (1.8-2.4) mg/dl Procalcitonin (0-0.5) ng/ml Urine Color Yellow Urine Appearance Clear (Clear) Urine pH 5.0 (4.5-7.5) Ur Specific [place] 1.016 (1.000-1.030) Urine Protein Negative (Negative) Urine Glucose (UA) Negative (Negative) Urine Ketones Negative (Negative) Urine Blood Trace H (Negative) Urine Nitrite Negative (Negative) Urine Bilirubin Negative (Negative) Urine Urobilinogen Negative (Negative) Ur Leukocyte Esterase 1+ H (Negative) Urine WBC (Auto) 1-5 (0-5) /hpf Urine RBC (Auto) 0-4 (0-4) /hpf U Hyaline Cast (Auto) 1-5 (0-5) /lpf U Epithel Cells (Auto) 5-10 H (0-5) /lpf Urine Bacteria (Auto) Negative (Negative) Nasal Screen MRSA (PCR) (Negative) 08/25/19 08/25/19 08/25/19 Range/Units 20:00 17:42 16:29 WBC 18.69 H (4.8-10.8) K/uL RBC 4.27 L (4.7-6.1) M/uL Hgb 13.7 L (14.0-18.0) g/dL Hct 40.6 L (42-52) % MCV 95.1 (80-100) fL MCH 32.1 (25-34) pg MCHC 33.7 (32-36) g/dL RDW Std Deviation 50.8 H (36.4-46.3) fL RDW Coeff of [place] 14.6 H (11.5-14.5) % Plt Count 309 (130-400) K/uL MPV 10.2 (7.4-10.4) fL APTT (21.0-31.0) Seconds PTT Ratio Sodium (136-145) mmol/L Potassium (3.5-5.1) mmol/L Chloride (98-107) mmol/L Carbon Dioxide (21-32) mmol/L Anion Gap (3-11) BUN (7-18) mg/dl Creatinine (0.6-1.4) mg/dl Est Cr Clr Drug Dosing ml/min Est GFR ( Amer) Est GFR (Non-Af Amer) BUN/Creatinine Ratio (10-20) Glucose (70-99) mg/dl POC Glucose 76 (70-99) mg/dl Calcium (8.5-10.1) mg/dl Phosphorus (2.5-4.9) mg/dl Magnesium (1.8-2.4) mg/dl Procalcitonin (0-0.5) ng/ml Urine Color Urine Appearance (Clear) Urine pH (4.5-7.5) Ur Specific [place] (1.000-1.030) Urine Protein (Negative) Urine Glucose (UA) (Negative) Urine Ketones (Negative) Urine Blood (Negative) Urine Nitrite (Negative) Urine Bilirubin (Negative) Urine Urobilinogen (Negative) Ur Leukocyte Esterase (Negative) Urine WBC (Auto) (0-5) /hpf Urine RBC (Auto) (0-4) /hpf U Hyaline Cast (Auto) (0-5) /lpf U Epithel Cells (Auto) (0-5) /lpf Urine Bacteria (Auto) (Negative) Nasal Screen MRSA (PCR) Negative (Negative) 08/25/19 08/25/19 08/25/19 Range/Units 11:18 10:45 07:17 WBC (4.8-10.8) K/uL RBC (4.7-6.1) M/uL Hgb (14.0-18.0) g/dL Hct (42-52) % MCV (80-100) fL MCH (25-34) pg MCHC (32-36) g/dL RDW Std Deviation (36.4-46.3) fL RDW Coeff of [place] (11.5-14.5) % Plt Count (130-400) K/uL MPV (7.4-10.4) fL APTT 29.9 (21.0-31.0) Seconds PTT Ratio 1.1 Sodium (136-145) mmol/L Potassium (3.5-5.1) mmol/L Chloride (98-107) mmol/L Carbon Dioxide (21-32) mmol/L Anion Gap (3-11) BUN (7-18) mg/dl Creatinine (0.6-1.4) mg/dl Est Cr Clr Drug Dosing ml/min Est GFR ( Amer) Est GFR (Non-Af Amer) BUN/Creatinine Ratio (10-20) Glucose (70-99) mg/dl POC Glucose 233 H (70-99) mg/dl Calcium (8.5-10.1) mg/dl Phosphorus (2.5-4.9) mg/dl Magnesium (1.8-2.4) mg/dl Procalcitonin 0.37 (0-0.5) ng/ml Urine Color Urine Appearance (Clear) Urine pH (4.5-7.5) Ur Specific [place] (1.000-1.030) Urine Protein (Negative) Urine Glucose (UA) (Negative) Urine Ketones (Negative) Urine Blood (Negative) Urine Nitrite (Negative) Urine Bilirubin (Negative) Urine Urobilinogen (Negative) Ur Leukocyte Esterase (Negative) Urine WBC (Auto) (0-5) /hpf Urine RBC (Auto) (0-4) /hpf U Hyaline Cast (Auto) (0-5) /lpf U Epithel Cells (Auto) (0-5) /lpf Urine Bacteria (Auto) (Negative) Nasal Screen MRSA (PCR) (Negative) 08/25/19 Range/Units 07:17 WBC (4.8-10.8) K/uL RBC (4.7-6.1) M/uL Hgb (14.0-18.0) g/dL Hct (42-52) % MCV (80-100) fL MCH (25-34) pg MCHC (32-36) g/dL RDW Std Deviation (36.4-46.3) fL RDW Coeff of [place] (11.5-14.5) % Plt Count (130-400) K/uL MPV (7.4-10.4) fL APTT (21.0-31.0) Seconds PTT Ratio Sodium 133 L (136-145) mmol/L Potassium 3.7 (3.5-5.1) mmol/L Chloride 94 L (98-107) mmol/L Carbon Dioxide 32 (21-32) mmol/L Anion Gap 7.0 (3-11) BUN 36 H (7-18) mg/dl Creatinine 1.53 H (0.6-1.4) mg/dl Est Cr Clr Drug Dosing 56.0 ml/min Est GFR ( Amer) 51.5 Est GFR (Non-Af Amer) 44.5 BUN/Creatinine Ratio 23.8 H (10-20) Glucose 169 H (70-99) mg/dl POC Glucose (70-99) mg/dl Calcium 10.3 H (8.5-10.1) mg/dl Phosphorus 3.8 (2.5-4.9) mg/dl Magnesium 2.2 (1.8-2.4) mg/dl Procalcitonin (0-0.5) ng/ml Urine Color Urine Appearance (Clear) Urine pH (4.5-7.5) Ur Specific [place] (1.000-1.030) Urine Protein (Negative) Urine Glucose (UA) (Negative) Urine Ketones (Negative) Urine Blood (Negative) Urine Nitrite (Negative) Urine Bilirubin (Negative) Urine Urobilinogen (Negative) Ur Leukocyte Esterase (Negative) Urine WBC (Auto) (0-5) /hpf Urine RBC (Auto) (0-4) /hpf U Hyaline Cast (Auto) (0-5) /lpf U Epithel Cells (Auto) (0-5) /lpf Urine Bacteria (Auto) (Negative) Nasal Screen MRSA (PCR) (Negative) Medications Administered Current Inpatient Medications Acetaminophen (Tylenol) 1,000 mg PO Q6H PRN PRN Reason: Pain Stop: 09/21/19 19:06 Last Admin: 08/25/19 22:10 Dose: 1,000 mg Documented by: Albuterol (Duoneb) 3 ml INH Q6R PRN PRN Reason: cough/shortness of breath Stop: 09/17/19 12:59 Apixaban (Eliquis) 5 mg PO BID JOSH Stop: 09/22/19 20:59 Last Admin: 08/26/19 07:42 Dose: 5 mg Documented by: Clopidogrel Bisulfate (Plavix) 75 mg PO DAILY JOSH Stop: 09/18/19 08:59 Last Admin: 08/26/19 07:41 Dose: 75 mg Documented by: Dextrose (Dextrose 50%) 25 - 50 ml IV UD PRN; Protocol PRN Reason: Hypoglycemia Protocol Stop: 09/17/19 11:11 Fluticasone/Vilanterol (Breo Ellipta 100/25 Mcg Inh) 1 puffs INH DAILY [facility]; Protocol Stop: 09/18/19 08:59 Last Admin: 08/26/19 07:40 Dose: 1 puffs Documented by: Furosemide (Lasix) 80 mg PO BID17 JOSH Stop: 09/21/19 16:59 Last Admin: 08/26/19 07:43 Dose: 80 mg Documented by: Glucagon (Glucagen) 1 mg SQ UD PRN; Protocol PRN Reason: Hypoglycemia Protocol Stop: 09/17/19 11:11 Glucose (Dex4 Glucose) 4 - 8 tabs PO UD PRN; Protocol PRN Reason: Hypoglycemia Protocol Stop: 09/17/19 11:11 Glucose (Glucose 40%) 15 - 30 gm PO UD PRN; Protocol PRN Reason: Hypoglycemia Protocol Stop: 09/17/19 11:11 Haloperidol Lactate (Haldol) 2 mg IM TID PRN PRN Reason: Agitation Stop: 09/19/19 04:50 Last Admin: 08/20/19 19:42 Dose: 2 mg Documented by: Cefepime HCl 2,000 mg/ Syringe 20 mls @ 5 mls/min IV Q12H [facility] Stop: 09/01/19 09:59 Last Admin: 08/25/19 21:04 Dose: 5 mls/min Documented by: Vancomycin HCl 1,500 mg/ (Sodium Chloride) 530 mls @ 200 mls/hr IV Q24H [facility] Stop: 08/31/19 11:38 Insulin Aspart (Novolog Flexpen) 0 units SC 1130,1630,2100 [facility] Stop: 09/24/19 11:29 Last Admin: 08/25/19 20:21 Dose: 1 units Documented by: Insulin Aspart (Novolog Flexpen) 0 units SC DAILY@0730 [facility] Stop: 09/24/19 07:29 Last Admin: 08/26/19 07:37 Dose: 10 units Documented by: Insulin Glargine (Lantus Solostar Pen) 30 units SC BID [facility]; Protocol Stop: 09/24/19 20:59 Last Admin: 08/25/19 20:22 Dose: 30 units Documented by: Lidocaine (Lidoderm 5%) 1 patch TD QAM [facility] Stop: 09/23/19 15:59 Last Admin: 08/26/19 07:42 Dose: 1 patch Documented by: Metoprolol Succinate (Toprol Xl) 100 mg PO BID [facility] Stop: 09/20/19 20:59 Last Admin: 08/26/19 07:40 Dose: 100 mg Documented by: Miscellaneous (Carbohydrates For Hypoglycemia) 15 - 30 gm PO UD PRN PRN Reason: Hypoglycemia Protocol Stop: 09/17/19 11:11 Miscellaneous (Remove Nicoderm Patch) 1 ea N/A DAILY@0859 [facility] Stop: 09/23/19 08:58 Last Admin: 08/26/19 07:39 Dose: 1 ea Documented by: Miscellaneous (Remove Lidoderm Patch) 1 ea N/A DAILY@2100 [facility] Stop: 09/23/19 20:59 Last Admin: 08/25/19 20:22 Dose: 1 ea Documented by: Miscellaneous Information (Consult Glycemic Management Pharmacy) 1 ea N/A UD [facility] Stop: 09/23/19 08:25 Miscellaneous Information (Consult) 1 ea N/A UD PRN PRN Reason: Consult Stop: 09/24/19 08:57 Miscellaneous Information (Cefepime Consult Active) 1 ea N/A UD PRN PRN Reason: Consult Stop: 09/24/19 09:02 Nicotine (Nicoderm Cq) 21 mg TD QAM [facility] Stop: 09/23/19 08:59 Last Admin: 08/26/19 07:41 Dose: 21 mg Documented by: Oxycodone/Acetaminophen (Percocet 5mg/325mg) 1 tab PO Q4H PRN PRN Reason: Pain Stop: 09/02/19 10:15 Last Admin: 08/26/19 05:08 Dose: 1 tab Documented by: Spironolactone (Aldactone) 25 mg PO DAILY [facility] Stop: 09/21/19 08:59 Last Admin: 08/26/19 07:42 Dose: 25 mg Documented by: Umeclidinium [place] (Incruse Ellipta) 1 puffs INH DAILY [facility] Stop: 09/17/19 12:29 Last Admin: 08/26/19 07:43 Dose: 1 puffs Documented by: (1) Congestive heart failure Heart failure type: unspecified Heart failure chronicity: acute on chronic Qualified Code(s): I50.9 - Heart failure, unspecified (2) Cellulitis of leg Laterality: left Qualified Code(s): L03.116 - Cellulitis of left lower limb (3) COPD (chronic obstructive pulmonary disease) COPD type: unspecified COPD Qualified Code(s): J44.9 - Chronic obstructive pulmonary disease, unspecified (4) Type 2 diabetes mellitus Diabetes mellitus care home insulin use: without dedicated intermodal truck driver use Diabetes mellitus complication status: with kidney complications Diabetes mellitus complication detail: with chronic kidney disease Chronic kidney disease stage: stage 3 (moderate) Qualified Code(s): 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 mellitus with diabetic chronic kidney disease; N18.3 - Chronic kidney disease, stage 3 (moderate)
[2019-08-26] MEDS ORDERED: VANCOMYCIN HCL 1,500 MG in SODIUM CHLORIDE 0.9% 500 ML IV SCH (09:00)
--- NOTE | 2019-08-26 09:21 | Pain Management Consultation ---
Date of Consultation August 26, 2019 Assessment & Plan (1) Neck mass: (2) Cellulitis of leg: Laterality: left Qualified Code(s): L03.116 - Cellulitis of left lower limb (3) Chronic neck pain: Pain is well controlled with lidocaine patch and Percocet 5/325mg x 4 hours. He is pleased with his pain relief so no changes were made. History of Present Illness Attending Physician: Herrera Carrera MD History of Present Illness Mr. Jean is a 74 year old male that has been seen at [facility] for neck pain. Patient does have long standing neck pain after falling into a wall at his house many years ago. For the chronic neck pain he has been taking Oxycodone 15mg TID as prescribed by PCP. Patient states that the Oxycodone was not very effective towards diminishing his chronic pain. He was brought into the Emergency Department 08/18/2019 for a fall that occurred at his home. 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 With lidocaine patch and Percocet 5/325mg x 4 hours he is reporting adequate pain relief. He does not request any changes. No constipation, nausea, confusion. Pain Assessment Full Body Front + Back: 1. 2. 3. 4. Allergies Allergy/AdvReac Type Severity Reaction Status Date / Time Iodinated Contrast Media Allergy Unknown . Verified 08/18/19 09:14 lisinopril AdvReac Severe Anaphylaxis Unverified 08/18/19 09:14 tetanus toxoid, adsorbed AdvReac Intermediate Arm Unverified 08/18/19 09:14 Swelling codeine AdvReac Mild NAUSEA Verified 08/18/19 09:14 morphine AdvReac Mild itching, Unverified 08/18/19 09:14 nausea/vomiting atorvastatin AdvReac Unknown myalgia Unverified 08/18/19 09:14 doxycycline AdvReac Unknown Unknown Unverified 08/18/19 09:14 Home Medications Home Medications Medication Instructions Recorded Confirmed Type albuterol sulfate 2 puff INHALATION Q6H PRN 08/18/19 08/18/19 History allopurinol 300 mg PO DAILY 08/18/19 08/18/19 History budesonide-formoterol [Symbicort] 2 puff INHALATION BID 08/18/19 08/18/19 History camphor-menthol 1 applic TOPICAL DAILY PRN 08/18/19 08/18/19 History clopidogrel 75 mg PO DAILY 08/18/19 08/18/19 History empagliflozin [Jardiance] 10 mg PO DAILY 08/18/19 08/18/19 History epinephrine [EpiPen] 0.3 mg IM Q3H PRN 08/18/19 08/18/19 History fexofenadine 180 mg PO DAILY PRN 08/18/19 08/18/19 History furosemide 80 mg PO DAILY 08/18/19 08/18/19 History glipizide 20 mg PO BID 08/18/19 08/18/19 History ipratropium-albuterol 3 ml INHALATION Q6H PRN 08/18/19 08/18/19 History melatonin 10 mg PO HS 08/18/19 08/18/19 History metformin 1,000 mg PO BID 08/18/19 08/18/19 History metoprolol succinate 100 mg PO DAILY 08/18/19 08/18/19 History nitroglycerin 0.4 mg SUBLINGUAL UD 08/18/19 08/18/19 History omeprazole 20 mg PO BID 08/18/19 08/18/19 History oxycodone 15 mg PO Q6H PRN 08/18/19 08/18/19 History pioglitazone 30 mg PO DAILY 08/18/19 08/18/19 History potassium chloride 20 meq PO DAILY 08/18/19 08/18/19 History tiotropium bromide [Spiriva 2 puff INHALATION DAILY 08/18/19 08/18/19 History Respimat] zolpidem 1 mg PO HS 08/18/19 08/18/19 History Patient History Medical History CAD (coronary artery disease) CKD (chronic kidney disease) stage 3, GFR 30-59 ml/min COPD (chronic obstructive pulmonary disease) Gout History of ME (myocardial infarction) JOSE on CPAP Osteoarthritis Paroxysmal atrial fibrillation Recurrent major depression Type 2 diabetes mellitus Surgical History History of cardiac cath 2003, 2008, 2012, 2016 History of cataract surgery History of cholecystectomy History of coronary angioplasty with insertion of stent 10/11/15 - [place] [facility] [place] of repair of rotator cuff Family History Father , age 62 Heart disease Mother , age 70 Stroke Social History Communication Ability: Effective Beliefs That Will Affect Care: None marital status: Current Living Situation: Alone Feels Safe at Home: Declines to Answer Smoking Status: Former smoker Physical Exam Physical Exam: GENERAL: This is a 74 year old morbidly obese white male. Does not appear in any acute distress. HEAD/FACE: Normocephalic and atraumatic. EYES: No drainage or conjunctival injection. ENT: Nose without bleeding or discharge. Oral mucosa moist. NECK: Full ROM without apparent pain. There is a mass noted on the left side of the neck with a lidocaine patch on top of it. RESPIRATORY: Patient with unlabored breathing. No signs of respiratory distress. CHEST/AXILLA: Chest movement symmetrical. No deformities noted. MS/EXTREMITY: Moving extremities appropriately. NEURO: Alert and appears oriented. Speech is fluent. Cranial Nerves are grossly intact. PSYCH: Alert, pleasant, affect is calm Results Diagnostic Review CT Findings: CT soft tissue neck wo con CT DOSE: CLINICAL HISTORY: left neck lump,R/O Metastasis TECHNIQUE: Patient was scanned without intravenous contrast due to reported contrast allergy. A dose lowering technique was utilized adhering to the principles of ALARA. COMPARISON STUDY: None. FINDINGS: The lung apices are unremarkable in appearance. No thyroid lesions are visualized. No salivary gland lesions are visualized on this noncontrast study. No mucosal space lesions are visualized. There is a large left supraclavicular mass/pathologic node measuring 5 cm. This is suspicious for neoplasm. This lesion would be amenable to ultrasound-guided f ine-needle aspiration biopsy. IMPRESSION: 5 cm left supraclavicular mass/pathologic node suspicious for neoplasm. This lesion would be amenable to ultrasound-guided fine-needle aspiration biopsy. ACT 112: Negative or not required by law. Electronically signed by: Michel Mejia M.D. 08/21/2019 10:09 AM
[2019-08-26] MEDS: INSULIN GLARGINE SOLOSTAR 100 UNITS/ML 3 ML PEN SC SCH ×2 (09:41→22:07)
[2019-08-26] MEDS: CEFEPIME 2,000 MG in SYRINGE 7.5 ML IV SCH ×2 (09:47→22:04)
[2019-08-26] MEDS ORDERED: POTASSIUM CHLORIDE 20 MEQ TABCR PO STA (10:59)
[2019-08-26 11:30] LABS: BUN Creatinine Ratio 24.9 (10-20); Creatinine Clr Calc Pharmacy 55.4 ml/min; Est GFR (African American) 50.7; Est GFR (Non-African American) 43.8; Magnesium 2.2 mg/dl (1.8-2.4); Potassium 4.1 mmol/L (3.5-5.1)
[2019-08-26 11:31] LABS: Phosphorus 3.4 mg/dl (2.5-4.9)
[2019-08-26] MEDS ORDERED: DAPTOMYCIN CONSULT ACTIVE PRN (14:18)
[2019-08-26] MEDS: DAPTOmycin 550 MG in SYRINGE 0 ML IV SCH (15:39)
[2019-08-26] MEDS ORDERED: NICOTINE POLACRILEX 2 MG GUM MT PRN (20:35)
[2019-08-27 07:51] LABS: Partial Thromboplastin Ratio 1.1; Partial Thromboplastin Time 30.3 Seconds (21.0-31.0)
[2019-08-27 07:57] LABS: Hematocrit (blood only) 44.7 % (42-52); Hemoglobin 14.6 g/dL (14.0-18.0); Mean Corpuscular Hemoglobin 31.7 pg (25-34); Mean Corpuscular Hgb Conc 32.7 g/dL (32-36); Mean Platelet Volume 9.8 fL (7.4-10.4); Platelet Count 346 K/uL (130-400); RDW Coefficient of Variation 14.7 % (11.5-14.5); Red Blood Count 4.61 M/uL (4.7-6.1); White Blood Count 16.34 K/uL (4.8-10.8)
[2019-08-27 08:01] LABS: BUN Creatinine Ratio 24.7 (10-20); Calcium 10.8 mg/dl (8.5-10.1); Est GFR (African American) 48.1; Est GFR (Non-African American) 41.5; Potassium 3.6 mmol/L (3.5-5.1)
[2019-08-27] MEDS: NICOTINE 21 MG/24 HR TDSY TD SCH ×3 (08:52→09:32)
[2019-08-27] MEDS: FUROSEMIDE 80 MG TAB PO SCH ×3 (08:52→17:04)
[2019-08-27] MEDS: METOPROLOL SUCC 50MG EXT REL TAB PO SCH ×3 (08:53→21:48)
[2019-08-27] MEDS: APIXABAN 5 MG TABLET PO SCH ×3 (08:53→21:48)
[2019-08-27] MEDS: SPIRONOLACTONE 25 MG TAB PO SCH ×2 (08:53→09:30)
[2019-08-27] MEDS: LIDOCAINE 5% 1 PATCH TD SCH ×2 (08:54→09:30)
[2019-08-27] MEDS: FLUTICASONE/VILANTEROL 100/25MCG 14 PUFFS/INHALER INH SCH ×2 (08:54→09:31)
[2019-08-27] MEDS: CLOPIDOGREL BISULFATE 75 MG TAB PO SCH ×2 (08:55→09:31)
[2019-08-27] MEDS: INSULIN GLARGINE SOLOSTAR 100 UNITS/ML 3 ML PEN SC SCH ×2 (08:56→21:50)
[2019-08-27] MEDS: INSULIN ASPART 100 UNITS/ML 3 ML PEN SC SCH ×4 (08:58→21:28)
[2019-08-27] MEDS: HALOPERIDOL LACTATE 5 MG/ML 1 ML VIAL IM PRN (09:12)
[2019-08-27] MEDS: CEFEPIME 2,000 MG in SYRINGE 7.5 ML IV SCH ×2 (09:26→21:43)
[2019-08-27] MEDS: metroNIDAZOLE 500 MG/100 ML BAG IV SCH ×2 (11:13→21:58)
[2019-08-27] MEDS: DAPTOmycin 550 MG in SYRINGE 0 ML IV SCH (14:05)
[2019-08-27] MEDS: OXYCODONE/ACETAMINOPHEN 5mg/325mg TAB PO PRN ×2 (14:08→21:47)
[2019-08-28] MEDS: OXYCODONE/ACETAMINOPHEN 5mg/325mg TAB PO PRN ×2 (01:39→15:14)
[2019-08-28] MEDS: metroNIDAZOLE 500 MG/100 ML BAG IV SCH ×3 (02:37→19:24)
[2019-08-28 08:16] LABS: Hematocrit (blood only) 43.5 % (42-52); Mean Corpuscular Hemoglobin 31.5 pg (25-34); Mean Corpuscular Hgb Conc 32.2 g/dL (32-36); Mean Corpuscular Volume 97.8 fL (80-100); Mean Platelet Volume 9.4 fL (7.4-10.4); Platelet Count 376 K/uL (130-400); RDW Coefficient of Variation 14.7 % (11.5-14.5); RDW Standard Deviation 52.9 fL (36.4-46.3); Red Blood Count 4.45 M/uL (4.7-6.1); White Blood Count 15.86 K/uL (4.8-10.8)
[2019-08-28 08:50] LABS: Creatinine Clr Calc Pharmacy 54.8 ml/min; Est GFR (African American) 50.3; Est GFR (Non-African American) 43.4
[2019-08-28 08:51] LABS: BUN Creatinine Ratio 25.4 (10-20); Calcium 10.3 mg/dl (8.5-10.1); Creatinine Clr Calc Pharmacy 55.9 ml/min; Est GFR (African American) 51.5; Est GFR (Non-African American) 44.5; Potassium 3.8 mmol/L (3.5-5.1)
[2019-08-28] MEDS: SPIRONOLACTONE 25 MG TAB PO SCH (09:11)
[2019-08-28] MEDS: APIXABAN 5 MG TABLET PO SCH ×2 (09:11→20:28)
[2019-08-28] MEDS: NICOTINE 21 MG/24 HR TDSY TD SCH (09:11)
[2019-08-28] MEDS: CLOPIDOGREL BISULFATE 75 MG TAB PO SCH (09:11)
[2019-08-28] MEDS: FUROSEMIDE 80 MG TAB PO SCH (09:11)
[2019-08-28] MEDS: LIDOCAINE 5% 1 PATCH TD SCH ×2 (09:12→10:54)
[2019-08-28] MEDS: INSULIN GLARGINE SOLOSTAR 100 UNITS/ML 3 ML PEN SC SCH ×2 (09:13→20:29)
[2019-08-28] MEDS: METOPROLOL SUCC 50MG EXT REL TAB PO SCH ×2 (09:14→20:28)
[2019-08-28] MEDS: FLUTICASONE/VILANTEROL 100/25MCG 14 PUFFS/INHALER INH SCH (09:14)
[2019-08-28] MEDS: INSULIN ASPART 100 UNITS/ML 3 ML PEN SC SCH ×4 (09:18→20:30)
--- NOTE | 2019-08-28 09:44 | Hospitalist Progress Note ---
Date of Service August 27, 2019 Assessment & Plan (1) Congestive heart failure: Suspect related to non-compliance and dietary indiscretion although history from pt is limited. Last ECHO appears to have been in 2016 and shower LVEF 55-59%, moderate concentric LVH, dilated IVC, elevated RA pressure Acute decompensated congestive heart failure Diuresed initially with IV Lasix Current ECHO showed LV systolic function is mildly reduced to 45 to 50% of EF, mild global hypokinesis of the left ventricle, left atrium moderately dilated, aortic valve sclerosis without significant stenosis, trace AR, mild MR and mild TR estimated systolic pulmonary artery pressure 45 mmHg and dilated IVC with normal inspiratory variation suggesting a right atrial pressure of 8 mmHg Consult cardiology-appreciate input and recommendation Denies any significant shortness of breath at rest Symptomatically much better Furosemide has been changed to oral 80 mg twice daily and will be continued as an outpatient Essential (primary) hypertension Blood pressure seems to be controlled with current medication better Down the line hydralazine/nitrates can be used (2) Atrial fibrillation with rapid ventricular response: Given metoprolol 5 mg IV x 1 dose in ED - rate appears more stable around 90-110 Toprol-XL 100 mg daily has been changed to metoprolol tartrate 50 mg 3 times daily Eliquis 5 mg twice daily has been started HR in low 100 Metoprolol succinate has been increased to 100 mg twice daily Beta-pao dose has been increased and will continue to maintain heart rate (3) Cellulitis of leg: CRP elevated at 3.64. WBCs not elevated and pt currently afebrile. Unclear how actue LE skin changes are but with elevated CRP and physical exam, will start antibiotics. - Will start empiric IV Vanco and Ceftriaxone - Check blood cultures-negative -There is no definite cellulitis of the leg and the erythema has improved -changed antibiotic to intravenous Unasyn to cover possible axillary abscess/erysipelas involving the lower extremity by previous hospitalist -Now however WBC elevated, repeated chest x-ray -negative, Miller removed, UA negative, blood culture so far negative, broadened antibiotic coverage Left axillary area cellulitis Skin redness and tenderness Lymphadenopathy without any abscess Antibiotics have been changed to intravenous Unasyn by previous hospitalist, however now WBC count is elevated, see above likely Oral Augmentin on discharge (4) Neck mass: Had a lesion removed from left upper back in late 2018 - biopsy confirmed squamous cell CA (prior hx of same in 2018 on chest and left elbow). Reports two new lesions on neck for which he was trying to get back in with [facility] surgery to see - seem to be causing increasing neck pain. He reports oxycodone has not been helpful and causes GI distress. - Tylenol for pain with Tramadol for breakthrough -Would have metastatic disease -Started oral Percocet and obtained CT of the neck and chest without contrast to evaluate the mass -CT of the neck:5 cm left supraclavicular mass/pathologic node suspicious for neoplasm. This lesion would be amenable to ultrasound-guided fine-needle aspiration biopsy. - CT chest did show: 10 cm left axillary mass/adenopathy. 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 Moffett discussed with plastic surgeon and pt will need to have an appointment with oncolog. surgeon on discharge -Continues to have pain at neck and left axilla, gets somewhat confused with pain medications, will consult with pain management -Lidocaine patch added, cont. percocet as needed -Pain management does not recommend any changes to his current treatment (5) COPD (chronic obstructive pulmonary disease): Does not complain of SOB at present and lungs without wheezing - suspect hypoxia on presentation more related to CHF than COPD - Continue home inhalers with prn nebs -No signs of exacerbation (6) JOSE on CPAP: Pt unclear if he uses CPAP (which he tells me) or BiPAP (which he told the ED staff) but does know that he uses oxygen with his machine while he sleeps -CPAP per protocol while admitted (7) CKD (chronic kidney disease) stage 3, GFR 30-59 ml/min: Labs from Feb 2019 - BUN 22, Creatinine 1.3. Stable labs in the ED - Monitor labs with diuresis (8) Type 2 diabetes mellitus: Uncontrolled Last A1c in Feb 2019 = 9.3. It is unclear if patient is taking oral hypogylcemics as prescribed - HOLD home oral meds - Insulin sliding scale - adjust pending response - BSG ACHS - Diabetic diet - Current A1c 12.1% - diabetic education and pharm. glycemic control ordered - pt will benefit from starting insulin on discharge (pt is new insulin) PT and OT evaluation - recommend rehab but pt hesitant about rehab, discussed w/ caregiver Dalia who also agrees that pt would benefit from rehab after d/c Possible discharge in a day or 2 Dr. Moffett discussed with the daughter in detail and answered all of her questions. I discussed with Dalia (caregiver) and answered all her questions. I also discussed today (08/26) with [id number] Veda, who is currently updated and all her questions were answered to her satisfaction. Veda is concerned about possible transfer on discharge to [facility] as she is not in agreement with this facility. We will have to communicate to case management. Overall prognosis remains guarded Admission and Anticipated Discharge Date Admission Date: August 18, 2019 Subjective Tried to contact patient's family at 2 days ago, unfortunately nobody answered and I was not able to leave a message either. Case management aware. Made aware by case management, that patient's daughter Betina will be the primary contact from now on, her number is . I was able to discuss with patient's qxyqsbve-[id number]-nyb, Veda, today (08/26) over the phone while she was visiting the patient with patient's son. She is updated on current condition and all her questions were answered. She is appreciative of all the updates. On my exam, Patient sitting up in a chair, comfortable, in no acute distress, denies any complaints, states that his pain is not bothering him too much now. I consulted pain management, and at they felt that patient's pain was well-controlled on the current regimen. Pt denies fevers, chills, chest pain, shortness of breath, abdominal pain, nausea or vomiting. White blood cell count elevated. UA negative, Miller removed, chest x-ray negative, blood culture negative so far, white blood cell count elevated likely due to cellulitis in his left armpit. Review of Systems Review of Systems: All systems reviewed & are unremarkable except as noted in HPI & below Constitutional: no fever and no chills Respiratory: no cough and no dyspnea Cardiovascular: no chest pain and no palpitations Gastrointestinal: no abdominal pain, no nausea and no vomiting Musculoskeletal: left chest wall and left neck pain Physical Exam Physical Exam: Physical Exam: Sitting on a chair, in no acute distress, eating, comfortable Constitutional: + ill appearing and + morbidly obese Eyes: PERRL, conjunctivae normal, anicteric sclerae ENMT: external ear and nose normal, oropharynx normal Neck: Left supraclavicular swelling with tenderness on palpation Respiratory: normal respiratory effort; no respiratory distress Auscultation: + diminished lung sounds and + crackles (mild bibasilar crackles) Cardiovascular: Rate/Rhythm: regular rate and regular rhythm Heart Sounds: no murmur Extremities: + edema (trace bilateral) Gastrointestinal (Abdomen): Inspection/Auscultation: + abdomen distended and normal bowel sounds Percussion/Palpation: abdomen soft; abdomen nontender : Miller catheter removed Musculoskeletal: No acute arthritis involving any joint, moves extremities spontaneously Neurologic: moves all extremities; no focal motor deficits Alert , awake .currently answers questions appropriately, but occasionally gets confused (per nursing staff) at times with occasional hallucinations worse with use of narcotics /pain medication Lymphatic: + lymphadenopathy (Left supraclavicular) Results & Data Results & Data ([facility]) Vital Signs (Past 12 Hours) Vital Signs Temp Pulse Resp BP Pulse Ox 08/28/19 07:12 36.9 C 91 H 20 160/95 H 94 (1) Congestive heart failure Heart failure type: unspecified Heart failure chronicity: acute on chronic Qualified Code(s): I50.9 - Heart failure, unspecified (2) Cellulitis of leg Laterality: left Qualified Code(s): L03.116 - Cellulitis of left lower limb (3) COPD (chronic obstructive pulmonary disease) COPD type: unspecified COPD Qualified Code(s): J44.9 - Chronic obstructive pulmonary disease, unspecified (4) Type 2 diabetes mellitus Diabetes mellitus mcfp insulin use: without sewer hand use Diabetes mellitus complication status: with kidney complications Diabetes mellitus complication detail: with chronic kidney disease Chronic kidney disease stage: stage 3 (moderate) Qualified Code(s): 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 mellitus with diabetic chronic kidney disease; N18.3 - Chronic kidney disease, stage 3 (moderate)
--- NOTE | 2019-08-28 09:45 | Hospitalist Progress Note ---
Date of Service August 28, 2019 Assessment & Plan (1) Congestive heart failure: Suspect related to non-compliance and dietary indiscretion although history from pt is limited. Last ECHO appears to have been in 2016 and shower LVEF 55-59%, moderate concentric LVH, dilated IVC, elevated RA pressure Acute decompensated congestive heart failure Diuresed initially with IV Lasix Current ECHO showed LV systolic function is mildly reduced to 45 to 50% of EF, mild global hypokinesis of the left ventricle, left atrium moderately dilated, aortic valve sclerosis without significant stenosis, trace AR, mild MR and mild TR estimated systolic pulmonary artery pressure 45 mmHg and dilated IVC with normal inspiratory variation suggesting a right atrial pressure of 8 mmHg Consult cardiology-appreciate input and recommendation Denies any significant shortness of breath at rest Symptomatically much better Furosemide has been changed to oral 80 mg twice daily and will be continued as an outpatient Essential (primary) hypertension Blood pressure seems to be controlled with current medication better Down the line hydralazine/nitrates can be used (2) Atrial fibrillation with rapid ventricular response: Given metoprolol 5 mg IV x 1 dose in ED - rate appears more stable around 90-110 Toprol-XL 100 mg daily has been changed to metoprolol tartrate 50 mg 3 times daily Eliquis 5 mg twice daily has been started HR in low 100 Metoprolol succinate has been increased to 100 mg twice daily Beta-pao dose has been increased and will continue to maintain heart rate (3) Cellulitis of leg: CRP elevated at 3.64. WBCs not elevated and pt currently afebrile. Unclear how actue LE skin changes are but with elevated CRP and physical exam, will start antibiotics. - Will start empiric IV Vanco and Ceftriaxone - Check blood cultures-negative -There is no definite cellulitis of the leg and the erythema has improved -changed antibiotic to intravenous Unasyn to cover possible axillary abscess/erysipelas involving the lower extremity by previous hospitalist -Now however WBC elevated, repeated chest x-ray -negative, Miller removed, UA negative, blood culture so far negative, broadened antibiotic coverage Left axillary area cellulitis Skin redness and tenderness Lymphadenopathy without any abscess Antibiotics have been changed to intravenous Unasyn by previous hospitalist, however now WBC count is elevated, see above likely Oral Augmentin on discharge (4) Neck mass: Had a lesion removed from left upper back in late 2018 - biopsy confirmed squamous cell CA (prior hx of same in 2018 on chest and left elbow). Reports two new lesions on neck for which he was trying to get back in with [facility] surgery to see - seem to be causing increasing neck pain. He reports oxycodone has not been helpful and causes GI distress. - Tylenol for pain with Tramadol for breakthrough -Would have metastatic disease -Started oral Percocet and obtained CT of the neck and chest without contrast to evaluate the mass -CT of the neck:5 cm left supraclavicular mass/pathologic node suspicious for neoplasm. This lesion would be amenable to ultrasound-guided fine-needle aspiration biopsy. - CT chest did show: 10 cm left axillary mass/adenopathy. 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 Moffett discussed with plastic surgeon and pt will need to have an appointment with oncolog. surgeon on discharge -Continues to have pain at neck and left axilla, gets somewhat confused with pain medications, will consult with pain management -Lidocaine patch added, cont. percocet as needed -Pain management does not recommend any changes to his current treatment (5) COPD (chronic obstructive pulmonary disease): Does not complain of SOB at present and lungs without wheezing - suspect hypoxia on presentation more related to CHF than COPD - Continue home inhalers with prn nebs -No signs of exacerbation (6) JOSE on CPAP: Pt unclear if he uses CPAP (which he tells me) or BiPAP (which he told the ED staff) but does know that he uses oxygen with his machine while he sleeps -CPAP per protocol while admitted (7) CKD (chronic kidney disease) stage 3, GFR 30-59 ml/min: Labs from Feb 2019 - BUN 22, Creatinine 1.3. Stable labs in the ED - Monitor labs with diuresis (8) Type 2 diabetes mellitus: Uncontrolled Last A1c in Feb 2019 = 9.3. It is unclear if patient is taking oral hypogylcemics as prescribed - HOLD home oral meds - Insulin sliding scale - adjust pending response - BSG ACHS - Diabetic diet - Current A1c 12.1% - diabetic education and pharm. glycemic control ordered - pt will benefit from starting insulin on discharge (pt is new insulin) PT and OT evaluation - recommend rehab but pt hesitant about rehab, discussed w/ caregiver Dalia who also agrees that pt would benefit from rehab after d/c Possible discharge in a day or 2 Dr. Moffett discussed with the daughter in detail and answered all of her questions. I discussed with Dalia (caregiver) and answered all her questions. I also discussed (08/26) with [id number] Veda, who is currently updated and all her questions were answered to her satisfaction. Veda is concerned about possible transfer on discharge to [facility] as she is not in agreement with t his facility. We will have to communicate to case management. Overall prognosis remains guarded Admission and Anticipated Discharge Date Admission Date: August 18, 2019 Subjective Patient's family, daughter in-law Veda, can be reached . Patient's daughter Betina can be reached at . I was able to discuss with patient's [id number], Veda, yesterday (08/26). She appreciated all the updates. she also does not want Mr. Jean to be discharged to [facility] as they have some bad experience with the facility. Will let case management aware. On my exam today, Patient sitting up in a chair, in mild distress d/t pain, asking for hot blanket as it seems to help w/ pain. I consulted pain management, and at they felt that patient's pain was well-controlled on the current regimen. Pt denies fevers, chills, chest pain, shortness of breath, abdominal pain, nausea or vomiting. White blood cell count elevated. UA negative, Miller removed, chest x-ray negative, blood culture negative so far, white blood cell count elevated likely due to cellulitis in his left armpit. Review of Systems Review of Systems: All systems reviewed & are unremarkable except as noted in HPI & below Constitutional: no fever and no chills Respiratory: no cough and no dyspnea Cardiovascular: no chest pain and no palpitations Gastrointestinal: no abdominal pain and no vomiting Genitourinary: no dysuria Musculoskeletal: left chest wall and left neck pain Physical Exam Physical Exam: Physical Exam: Sitting on a chair, in mild distress d/t pain Constitutional: + ill appearing and + morbidly obese Eyes: PERRL, conjunctivae normal, anicteric sclerae ENMT: external ear and nose normal, oropharynx normal Neck: Left supraclavicular swelling with tenderness on palpation Respiratory: normal respiratory effort; no respiratory distress Auscultation: + diminished lung sounds and + crackles (mild bibasilar crackles) Cardiovascular: Rate/Rhythm: regular rate and regular rhythm Heart Sounds: no murmur Extremities: + edema (trace bilateral) Gastrointestinal (Abdomen): Inspection/Auscultation: + abdomen distended and normal bowel sounds Percussion/Palpation: abdomen soft; abdomen nontender : Miller catheter removed Musculoskeletal: No acute arthritis involving any joint, moves extremities spontaneously Neurologic: moves all extremities; no focal motor deficits Alert , awake .currently answers questions appropriately, but occasionally gets confused (per nursing staff) at times with occasional hallucinations worse with use of narcotics /pain medication Lymphatic: + lymphadenopathy (Left supraclavicular) Results & Data Results & Data ([facility]) Vital Signs (Past 12 Hours) Vital Signs Temp Pulse Resp BP Pulse Ox 08/28/19 07:12 36.9 C 91 H 20 160/95 H 94 Laboratory Results 08/28/19 08/28/19 08/28/19 Range/Units 08:06 08:06 08:06 WBC 15.86 H (4.8-10.8) K/uL RBC 4.45 L (4.7-6.1) M/uL Hgb 14.0 (14.0-18.0) g/dL Hct 43.5 (42-52) % MCV 97.8 (80-100) fL MCH 31.5 (25-34) pg MCHC 32.2 (32-36) g/dL RDW Std Deviation 52.9 H (36.4-46.3) fL RDW Coeff of [place] 14.7 H (11.5-14.5) % Plt Count 376 (130-400) K/uL MPV 9.4 (7.4-10.4) fL Sodium 134 L (136-145) mmol/L Potassium 3.8 (3.5-5.1) mmol/L Chloride 97 L (98-107) mmol/L Carbon Dioxide 32 (21-32) mmol/L Anion Gap 5.0 (3-11) BUN 39 H (7-18) mg/dl Creatinine 1.53 H 1.56 H (0.6-1.4) mg/dl Est Cr Clr Drug Dosing 55.9 54.8 ml/min Est GFR ( Amer) 51.5 50.3 Est GFR (Non-Af Amer) 44.5 43.4 BUN/Creatinine Ratio 25.4 H (10-20) Glucose 94 (70-99) mg/dl POC Glucose (70-99) mg/dl Calcium 10.3 H (8.5-10.1) mg/dl 08/28/19 08/27/19 08/27/19 Range/Units 07:26 20:58 16:38 WBC (4.8-10.8) K/uL RBC (4.7-6.1) M/uL Hgb (14.0-18.0) g/dL Hct (42-52) % MCV (80-100) fL MCH (25-34) pg MCHC (32-36) g/dL RDW Std Deviation (36.4-46.3) fL RDW Coeff of [place] (11.5-14.5) % Plt Count (130-400) K/uL MPV (7.4-10.4) fL Sodium (136-145) mmol/L Potassium (3.5-5.1) mmol/L Chloride (98-107) mmol/L Carbon Dioxide (21-32) mmol/L Anion Gap (3-11) BUN (7-18) mg/dl Creatinine (0.6-1.4) mg/dl Est Cr Clr Drug Dosing ml/min Est GFR ( Amer) Est GFR (Non-Af Amer) BUN/Creatinine Ratio (10-20) Glucose (70-99) mg/dl POC Glucose 99 79 137 H (70-99) mg/dl Calcium (8.5-10.1) mg/dl 08/27/19 Range/Units 11:42 WBC (4.8-10.8) K/uL RBC (4.7-6.1) M/uL Hgb (14.0-18.0) g/dL Hct (42-52) % MCV (80-100) fL MCH (25-34) pg MCHC (32-36) g/dL RDW Std Deviation (36.4-46.3) fL RDW Coeff of Ky (11.5-14.5) % Plt Count (130-400) K/uL MPV (7.4-10.4) fL Sodium (136-145) mmol/L Potassium (3.5-5.1) mmol/L Chloride (98-107) mmol/L Carbon Dioxide (21-32) mmol/L Anion Gap (3-11) BUN (7-18) mg/dl Creatinine (0.6-1.4) mg/dl Est Cr Clr Drug Dosing ml/min Est GFR ( Amer) Est GFR (Non-Af Amer) BUN/Creatinine Ratio (10-20) Glucose (70-99) mg/dl POC Glucose 107 H (70-99) mg/dl Calcium (8.5-10.1) mg/dl Medications Administered Current Inpatient Medications Acetaminophen (Tylenol) 1,000 mg PO Q6H PRN PRN Reason: Pain Stop: 09/21/19 19:06 Last Admin: 08/25/19 22:10 Dose: 1,000 mg Documented by: Albuterol (Duoneb) 3 ml INH Q6R PRN PRN Reason: cough/shortness of breath Stop: 09/17/19 12:59 Apixaban (Eliquis) 5 mg PO BID [facility] Stop: 09/22/19 20:59 Last Admin: 08/28/19 09:11 Dose: 5 mg Documented by: Clopidogrel Bisulfate (Plavix) 75 mg PO DAILY [facility] Stop: 09/18/19 08:59 Last Admin: 08/28/19 09:11 Dose: 75 mg Documented by: Dextrose (Dextrose 50%) 25 - 50 ml IV UD PRN; Protocol PRN Reason: Hypoglycemia Protocol Stop: 09/17/19 11:11 Fluticasone/Vilanterol (Breo Ellipta 100/25 Mcg Inh) 1 puffs INH DAILY [facility]; Protocol Stop: 09/18/19 08:59 Last Admin: 08/28/19 09:14 Dose: 1 puffs Documented by: Furosemide (Lasix) 80 mg PO BID17 [facility] Stop: 09/21/19 16:59 Last Admin: 08/28/19 09:11 Dose: 80 mg Documented by: Glucagon (Glucagen) 1 mg SQ UD PRN; Protocol PRN Reason: Hypoglycemia Protocol Stop: 09/17/19 11:11 Glucose (Dex4 Glucose) 4 - 8 tabs PO UD PRN; Protocol PRN Reason: Hypoglycemia Protocol Stop: 09/17/19 11:11 Glucose (Glucose 40%) 15 - 30 gm PO UD PRN; Protocol PRN Reason: Hypoglycemia Protocol Stop: 09/17/19 11:11 Haloperidol Lactate (Haldol) 2 mg IM TID PRN PRN Reason: Agitation Stop: 09/19/19 04:50 Last Admin: 08/27/19 09:12 Dose: 2 mg Documented by: Cefepime HCl 2,000 mg/ Syringe 20 mls @ 5 mls/min IV Q12H [facility] Stop: 09/01/19 09:59 Last Admin: 08/27/19 21:43 Dose: 5 mls/min Documented by: Daptomycin 550 mg/ Syringe 11 mls @ 5.5 mls/min IV Q24H [facility]; Protocol Stop: 09/02/19 14:59 Last Admin: 08/27/19 14:05 Dose: 5.5 mls/min Documented by: Metronidazole (Flagyl) 500 mg in 100 mls @ 100 mls/hr IV Q8H [facility] Stop: 09/03/19 10:59 Last Infusion: 08/28/19 03:59 Dose: Infused Documented by: Insulin Aspart (Novolog Flexpen) 0 units SC 1130,1630,2100 [facility] Stop: 09/24/19 11:29 Last Admin: 08/27/19 21:28 Dose: Not Given Documented by: Insulin Aspart (Novolog Flexpen) 0 units SC DAILY@0730 [facility] Stop: 09/24/19 07:29 Last Admin: 08/28/19 09:18 Dose: 5 units Documented by: Insulin Glargine (Lantus Solostar Pen) 0 units SC BID [facility]; Protocol Stop: 09/26/19 20:59 Last Admin: 08/28/19 09:13 Dose: 15 units Documented by: Lidocaine (Lidoderm 5%) 1 patch TD QAM [facility] Stop: 09/23/19 15:59 Last Admin: 08/28/19 09:12 Dose: Not Given Documented by: Metoprolol Succinate (Toprol Xl) 100 mg PO BID [facility] Stop: 09/20/19 20:59 Last Admin: 08/28/19 09:14 Dose: 100 mg Documented by: Miscellaneous (Carbohydrates For Hypoglycemia) 15 - 30 gm PO UD PRN PRN Reason: Hypoglycemia Protocol Stop: 09/17/19 11:11 Miscellaneous (Remove Nicoderm Patch) 1 ea N/A DAILY@0859 [facility] Stop: 09/23/19 08:58 Last Admin: 08/28/19 09:16 Dose: Not Given Documented by: Miscellaneous (Remove Lidoderm Patch) 1 ea N/A DAILY@2100 [facility] Stop: 09/23/19 20:59 Last Admin: 08/27/19 21:48 Dose: 1 ea Documented by: Miscellaneous Information (Consult Glycemic Management Pharmacy) 1 ea N/A UD [facility] Stop: 09/23/19 08:25 Miscellaneous Information (Cefepime Consult Active) 1 ea N/A UD PRN PRN Reason: Consult Stop: 09/24/19 09:02 Miscellaneous Information (Consult) 1 ea N/A UD PRN PRN Reason: Consult Stop: 09/25/19 14:17 Nicotine (Nicoderm Cq) 21 mg TD QAM [facility] Stop: 09/23/19 08:59 Last Admin: 08/28/19 09:11 Dose: Not Given Documented by: Nicotine Polacrilex (Nicorette 2mg) 1 piece MT Q1H PRN PRN Reason: smoking urge Stop: 09/25/19 20:34 Oxycodone/Acetaminophen (Percocet 5mg/325mg) 1 tab PO Q4H PRN PRN Reason: Pain Stop: 09/02/19 10:15 Last Admin: 08/28/19 01:39 Dose: 1 tab Documented by: Spironolactone (Aldactone) 25 mg PO DAILY [facility] Stop: 09/21/19 08:59 Last Admin: 08/28/19 09:11 Dose: 25 mg Documented by: (1) Congestive heart failure Heart failure type: unspecified Heart failure chronicity: acute on chronic Qualified Code(s): I50.9 - Heart failure, unspecified (2) Cellulitis of leg Laterality: left Qualified Code(s): L03.116 - Cellulitis of left lower limb (3) COPD (chronic obstructive pulmonary disease) COPD type: unspecified COPD Qualified Code(s): J44.9 - Chronic obstructive pulmonary disease, unspecified (4) Type 2 diabetes mellitus Diabetes mellitus terminal gauger insulin use: without terminal gauger use Diabetes mellitus complication status: with kidney complications Diabetes mellitus complication detail: with chronic kidney disease Chronic kidney disease stage: stage 3 (moderate) Qualified Code(s): 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 mellitus with diabetic chronic kidney disease; N18.3 - Chronic kidney disease, stage 3 (moderate)
[2019-08-28] MEDS: CEFEPIME 2,000 MG in SYRINGE 7.5 ML IV SCH ×2 (10:42→21:40)
[2019-08-28] MEDS: DAPTOmycin 550 MG in SYRINGE 0 ML IV SCH (15:14)
[2019-08-28] MEDS: SACCHAROMYCES BOULARDII 250 MG CAP PO SCH (15:45)
[2019-08-28] MEDS ORDERED: FUROSEMIDE 20 MG TAB PO SCH (17:00)
[2019-08-28] MEDS: FUROSEMIDE 40 MG TAB PO SCH (17:55)
[2019-08-29] MEDS: OXYCODONE/ACETAMINOPHEN 5mg/325mg TAB PO PRN ×2 (00:49→18:34)
[2019-08-29] MEDS: metroNIDAZOLE 500 MG/100 ML BAG IV SCH ×2 (03:21→10:58)
[2019-08-29 07:10] LABS: Hematocrit (blood only) 42.6 % (42-52); Hemoglobin 13.9 g/dL (14.0-18.0); Mean Corpuscular Hemoglobin 31.8 pg (25-34); Mean Corpuscular Hgb Conc 32.6 g/dL (32-36); Mean Corpuscular Volume 97.5 fL (80-100); Mean Platelet Volume 9.4 fL (7.4-10.4); Platelet Count 366 K/uL (130-400); RDW Coefficient of Variation 14.5 % (11.5-14.5); RDW Standard Deviation 51.6 fL (36.4-46.3); Red Blood Count 4.37 M/uL (4.7-6.1); White Blood Count 15.69 K/uL (4.8-10.8)
[2019-08-29 07:41] LABS: BUN Creatinine Ratio 22.4 (10-20); Calcium 9.8 mg/dl (8.5-10.1); Creatinine Clr Calc Pharmacy 51.7 ml/min; Est GFR (Non-African American) 40.6; Potassium 3.8 mmol/L (3.5-5.1)
[2019-08-29] MEDS: FLUTICASONE/VILANTEROL 100/25MCG 14 PUFFS/INHALER INH SCH (08:02)
--- NOTE | 2019-08-29 08:03 | Hospitalist Progress Note ---
Date of Service August 29, 2019 Assessment & Plan (1) Congestive heart failure: Suspect related to non-compliance and dietary indiscretion although history from pt is limited. Last ECHO appears to have been in 2016 and shower LVEF 55-59%, moderate concentric LVH, dilated IVC, elevated RA pressure Acute decompensated congestive heart failure Diuresed initially with IV Lasix Current ECHO showed LV systolic function is mildly reduced to 45 to 50% of EF, mild global hypokinesis of the left ventricle, left atrium moderately dilated, aortic valve sclerosis without significant stenosis, trace AR, mild MR and mild TR estimated systolic pulmonary artery pressure 45 mmHg and dilated IVC with normal inspiratory variation suggesting a right atrial pressure of 8 mmHg Consult cardiology-appreciate input and recommendation Denies any significant shortness of breath at rest Symptomatically much better Furosemide has been changed to oral 80 mg twice daily and will be likely continued as an outpatient Essential (primary) hypertension Blood pressure seems to be controlled with current medication better Down the line hydralazine/nitrates can be used (2) Atrial fibrillation with rapid ventricular response: Given metoprolol 5 mg IV x 1 dose in ED - rate appears more stable around 90-110 Toprol-XL 100 mg daily has been changed to metoprolol tartrate 50 mg 3 times daily Eliquis 5 mg twice daily has been started HR in low 100 Metoprolol succinate has been increased to 100 mg twice daily Beta-pao dose has been increased and will continue to maintain heart rate (3) Cellulitis of leg: CRP elevated at 3.64. WBCs not elevated and pt afebrile on admission. Unclear how acute LE skin changes are but with elevated CRP and physical exam,started antibiotics. - initially empiric IV Vanco and Ceftriaxone - blood cultures-negative -There is no definite cellulitis of the leg and the erythema has improved -changed antibiotic to intravenous Unasyn to cover possible axillary abscess/erysipelas involving the lower extremity by previous hospitalist Leukocytosis -Now however WBC persistently elevated, repeated chest x-ray -negative, Miller removed, UA negative, blood culture - negative, broadened antibiotic coverage -WBC count persistently 15-16,000, despite being on broad-spectrum antibiotics -This may be secondary to known extensive necrosis of left axillary mass, which by pathology shows metastatic squamous cell cancer -Contacted oncologic surgery in [place], due to persistent leukocytosis, advised to follow-up as outpatient as planned, and discharged on p.o. antibiotics, currently he is scheduled with [place] on September 08 Left axillary area cellulitis Skin redness and tenderness - improved Lymphadenopathy without any abscess Antibiotics have been changed to intravenous Unasyn by previous hospitalist, however now WBC count is elevated, see above likely Oral Augmentin and doxycycline on discharge (4) Neck mass: Had a lesion removed from left upper back in late 2018 - biopsy confirmed squamous cell CA (prior hx of same in 2018 on chest and left elbow). Reports two new lesions on neck for which he was trying to get back in with [facility] surgery to see - seem to be causing increasing neck pain. He reports oxycodone has not been helpful and causes GI distress. - Tylenol for pain with Tramadol for breakthrough -Would have metastatic disease -Started oral Percocet and obtained CT of the neck and chest without contrast to evaluate the mass -CT of the neck:5 cm left supraclavicular mass/pathologic node suspicious for neoplasm. This lesion would be amenable to ultrasound-guided fine-needle aspiration biopsy. - CT chest did show: 10 cm left axillary mass/adenopathy. 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 Moffett discussed with plastic surgeon and pt will need to have an appointment with oncolog. surgeon on discharge, currently he is scheduled with oncologic surgery in [place] on September 08 (referral made by patient's handicrafts teacher, Dr. Tiffani Briceño who performed prior [facility] surgeries) -Continues to have pain at neck and left axilla, gets somewhat confused with pain medications, consulted with pain management -Lidocaine patch added, cont. percocet as needed -Pain management does not recommend any changes to his current treatment (5) COPD (chronic obstructive pulmonary disease): Does not complain of SOB at present and lungs without wheezing - suspect hypoxia on presentation more related to CHF than COPD - Continue home inhalers with prn nebs - No signs of exacerbation (6) JOSE on CPAP: Pt unclear if he uses CPAP (which he tells me) or BiPAP (which he told the ED staff) but does know that he uses oxygen with his machine while he sleeps -CPAP per protocol while admitted (7) CKD (chronic kidney disease) stage 3, GFR 30-59 ml/min: Labs from Feb 2019 - BUN 22, Creatinine 1.3. Stable labs in the ED - Monitor labs with diuresis (8) Type 2 diabetes mellitus: Uncontrolled Last A1c in Feb 2019 = 9.3. It is unclear if patient is taking oral hypogylcemics as prescribed - HOLD home oral meds - Insulin sliding scale - adjust pending response - BSG ACHS - Diabetic diet - Current A1c 12.1% - diabetic education and pharm. glycemic control ordered - pt will benefit from starting insulin on discharge (pt is new to insulin) PT and OT evaluation - recommend rehab but pt hesitant about rehab, discussed w/ caregiver Dalia who also agrees that pt would benefit from rehab after d/c Possible discharge in a day or 2 Dr. Moffett discussed with the daughter in detail and answered all of her questions. I discussed with Dalia (caregiver) and answered all her questions. I also discussed (08/26) with [id number] Veda, who is currently updated and all her questions were answered to her satisfaction. Veda is concerned about possible transfer on discharge to [facility] as she is not in agreement with this facility. Case management aware. Overall prognosis remains guarded Admission and Anticipated Discharge Date Admission Date: August 18, 2019 Subjective Patient's family, daughter in-law Veda, can be reached . Patient's daughter Betina can be reached at . I was able to discuss with patient's [id number], Veda, on (08/26). She appreciated all the updates. On my exam today, Patient sitting up in a chair, in no distress, only complains of some persistent mild neck/left chest wall pain. No fever, chills, shortness of breath, abdomin al pain, nausea or vomiting. White blood cell count persistently elevated despite broad-spectrum antibiotics. UA negative, Miller removed, chest x-ray negative, blood culture negative so far, white blood cell count elevated likely due to cellulitis in his left armpit/extensive necrosis of mass in left axilla. Contacted oncologic surgery in [place], patient currently has appointment scheduled on September [address] [place] York, who I spoke to, patient could be discharged on p.o. antibiotics and follow-up in [place]. Review of Systems Review of Systems: All systems reviewed & are unremarkable except as noted in HPI & below Constitutional: no fever and no chills Respiratory: no cough and no dyspnea Cardiovascular: no chest pain and no palpitations Gastrointestinal: no abdominal pain, no nausea and no vomiting Musculoskeletal: + neck pain left chest wall and left neck pain Physical Exam Physical Exam: Physical Exam: Sitting on a chair, in only mild distress d/t pain Constitutional: + ill appearing and + morbidly obese Eyes: PERRL, conjunctivae normal, anicteric sclerae ENMT: external ear and nose normal, oropharynx normal Neck: Left supraclavicular swelling with tenderness on palpation Respiratory: normal respiratory effort; no respiratory distress Auscultation: + diminished lung sounds and + crackles (mild bibasilar crackles) Cardiovascular: Rate/Rhythm: regular rate and regular rhythm Heart Sounds: no murmur Extremities: + edema (trace bilateral) Gastrointestinal (Abdomen): Inspection/Auscultation: + abdomen distended and normal bowel sounds Percussion/Palpation: abdomen soft; abdomen nontender : Miller catheter removed Musculoskeletal: No acute arthritis involving any joint, moves extremities spontaneously Neurologic: moves all extremities; no focal motor deficits Alert , awake .currently answers questions appropriately, but occasionally gets confused (per nursing staff) at times with occasional hallucinations worse with use of narcotics /pain medication Lymphatic: + lymphadenopathy (Left supraclavicular) Results & Data Results & Data ([facility]) Vital Signs (Past 12 Hours) Vital Signs Temp Pulse Resp BP Pulse Ox 08/29/19 07:29 36.6 C 94 H 20 111/70 92 08/28/19 23:57 36.4 C L 88 20 135/72 93 Laboratory Results 08/29/19 08/29/19 08/29/19 Range/Units 07:19 06:53 06:53 WBC 15.69 H (4.8-10.8) K/uL RBC 4.37 L (4.7-6.1) M/uL Hgb 13.9 L (14.0-18.0) g/dL Hct 42.6 (42-52) % MCV 97.5 (80-100) fL MCH 31.8 (25-34) pg MCHC 32.6 (32-36) g/dL RDW Std Deviation 51.6 H (36.4-46.3) fL RDW Coeff of [place] 14.5 (11.5-14.5) % Plt Count 366 (130-400) K/uL MPV 9.4 (7.4-10.4) fL Sodium 133 L (136-145) mmol/L Potassium 3.8 (3.5-5.1) mmol/L Chloride 95 L (98-107) mmol/L Carbon Dioxide 32 (21-32) mmol/L Anion Gap 6.0 (3-11) BUN 37 H (7-18) mg/dl Creatinine 1.65 H (0.6-1.4) mg/dl Est Cr Clr Drug Dosing 51.7 ml/min Est GFR ( Amer) 47.0 Est GFR (Non-Af Amer) 40.6 BUN/Creatinine Ratio 22.4 H (10-20) Glucose 135 H (70-99) mg/dl POC Glucose 136 H (70-99) mg/dl Calcium 9.8 (8.5-10.1) mg/dl 08/28/19 08/28/19 08/28/19 Range/Units 20:21 16:34 11:28 WBC (4.8-10.8) K/uL RBC (4.7-6.1) M/uL Hgb (14.0-18.0) g/dL Hct (42-52) % MCV (80-100) fL MCH (25-34) pg MCHC (32-36) g/dL RDW Std Deviation (36.4-46.3) fL RDW Coeff of Ky (11.5-14.5) % Plt Count (130-400) K/uL MPV (7.4-10.4) fL Sodium (136-145) mmol/L Potassium (3.5-5.1) mmol/L Chloride (98-107) mmol/L Carbon Dioxide (21-32) mmol/L Anion Gap (3-11) BUN (7-18) mg/dl Creatinine (0.6-1.4) mg/dl Est Cr Clr Drug Dosing ml/min Est GFR ( Amer) Est GFR (Non-Af Amer) BUN/Creatinine Ratio (10-20) Glucose (70-99) mg/dl POC Glucose 184 H 146 H 172 H (70-99) mg/dl Calcium (8.5-10.1) mg/dl 08/28/19 08/28/19 08/28/19 Range/Units 08:06 08:06 08:06 WBC 15.86 H (4.8-10.8) K/uL RBC 4.45 L (4.7-6.1) M/uL Hgb 14.0 (14.0-18.0) g/dL Hct 43.5 (42-52) % MCV 97.8 (80-100) fL MCH 31.5 (25-34) pg MCHC 32.2 (32-36) g/dL RDW Std Deviation 52.9 H (36.4-46.3) fL RDW Coeff of Ky 14.7 H (11.5-14.5) % Plt Count 376 (130-400) K/uL MPV 9.4 (7.4-10.4) fL Sodium 134 L (136-145) mmol/L Potassium 3.8 (3.5-5.1) mmol/L Chloride 97 L (98-107) mmol/L Carbon Dioxide 32 (21-32) mmol/L Anion Gap 5.0 (3-11) BUN 39 H (7-18) mg/dl Creatinine 1.53 H 1.56 H (0.6-1.4) mg/dl Est Cr Clr Drug Dosing 55.9 54.8 ml/min Est GFR ( Amer) 51.5 50.3 Est GFR (Non-Af Amer) 44.5 43.4 BUN/Creatinine Ratio 25.4 H (10-20) Glucose 94 (70-99) mg/dl POC Glucose (70-99) mg/dl Calcium 10.3 H (8.5-10.1) mg/dl Medications Administered Current Inpatient Medications Acetaminophen (Tylenol) 1,000 mg PO Q6H PRN PRN Reason: Pain Stop: 09/21/19 19:06 Last Admin: 08/25/19 22:10 Dose: 1,000 mg Documented by: Albuterol (Duoneb) 3 ml INH Q6R PRN PRN Reason: cough/shortness of breath Stop: 09/17/19 12:59 Apixaban (Eliquis) 5 mg PO BID JOSH Stop: 09/22/19 20:59 Last Admin: 08/28/19 20:28 Dose: 5 mg Documented by: Clopidogrel Bisulfate (Plavix) 75 mg PO DAILY JOSH Stop: 09/18/19 08:59 Last Admin: 08/28/19 09:11 Dose: 75 mg Documented by: Dextrose (Dextrose 50%) 25 - 50 ml IV UD PRN; Protocol PRN Reason: Hypoglycemia Protocol Stop: 09/17/19 11:11 Fluticasone/Vilanterol (Breo Ellipta 100/25 Mcg Inh) 1 puffs INH DAILY JOSH; Protocol Stop: 09/18/19 08:59 Last Admin: 08/28/19 09:14 Dose: 1 puffs Documented by: Furosemide (Lasix) 40 mg PO BID17 JOSH Stop: 09/27/19 16:59 Last Admin: 08/28/19 17:55 Dose: 40 mg Documented by: Glucagon (Glucagen) 1 mg SQ UD PRN; Protocol PRN Reason: Hypoglycemia Protocol Stop: 09/17/19 11:11 Glucose (Dex4 Glucose) 4 - 8 tabs PO UD PRN; Protocol PRN Reason: Hypoglycemia Protocol Stop: 09/17/19 11:11 Glucose (Glucose 40%) 15 - 30 gm PO UD PRN; Protocol PRN Reason: Hypoglycemia Protocol Stop: 09/17/19 11:11 Haloperidol Lactate (Haldol) 2 mg IM TID PRN PRN Reason: Agitation Stop: 09/19/19 04:50 Last Admin: 08/27/19 09:12 Dose: 2 mg Documented by: Cefepime HCl 2,000 mg/ Syringe 20 mls @ 5 mls/min IV Q12H JOSH; Protocol Stop: 09/01/19 09:59 Last Admin: 08/28/19 21:40 Dose: 5 mls/min Documented by: Daptomycin 550 mg/ Syringe 11 mls @ 5.5 mls/min IV Q24H JOSH; Protocol Stop: 09/02/19 14:59 Last Admin: 08/28/19 15:14 Dose: 5.5 mls/min Documented by: Metronidazole (Flagyl) 500 mg in 100 mls @ 100 mls/hr IV Q8H JOSH Stop: 09/03/19 10:59 Last Infusion: 08/29/19 04:30 Dose: Infused Documented by: Insulin Aspart (Novolog Flexpen) 0 units SC ACHS [facility] Stop: 09/27/19 16:29 Last Admin: 08/28/19 20:30 Dose: 3 units Documented by: Insulin Glargine (Lantus Solostar Pen) 22 units SC BID [facility] Stop: 09/28/19 08:59 Lidocaine (Lidoderm 5%) 1 patch TD QAM [facility] Stop: 09/23/19 15:59 Last Admin: 08/28/19 10:54 Dose: 1 patch Documented by: Metoprolol Succinate (Toprol Xl) 100 mg PO BID [facility] Stop: 09/20/19 20:59 Last Admin: 08/28/19 20:28 Dose: 100 mg Documented by: Miscellaneous (Carbohydrates For Hypoglycemia) 15 - 30 gm PO UD PRN PRN Reason: Hypoglycemia Protocol Stop: 09/17/19 11:11 Miscellaneous (Remove Nicoderm Patch) 1 ea N/A DAILY@0859 [facility] Stop: 09/23/19 08:58 Last Admin: 08/28/19 09:16 Dose: Not Given Documented by: Miscellaneous (Remove Lidoderm Patch) 1 ea N/A DAILY@2100 [facility] Stop: 09/23/19 20:59 Last Admin: 08/28/19 20:29 Dose: 1 ea Documented by: Miscellaneous Information (Consult Glycemic Management Pharmacy) 1 ea N/A UD [facility] Stop: 09/23/19 08:25 Miscellaneous Information (Cefepime Consult Active) 1 ea N/A UD PRN PRN Reason: Consult Stop: 09/24/19 09:02 Miscellaneous Information (Consult) 1 ea N/A UD PRN PRN Reason: Consult Stop: 09/25/19 14:17 Nicotine ([facility]oderm Cq) [facility] Stop: 09/23/19 08:59 Last Admin: 08/28/19 09:11 Dose: Not Given Documented by: Nicotine Polacrilex (Nicorette 2mg) 1 piece MT Q1H PRN PRN Reason: smoking urge Stop: 09/25/19 20:34 Oxycodone/Acetaminophen (Percocet 5mg/325mg) 1 tab PO Q4H PRN PRN Reason: Pain Stop: 09/02/19 10:15 Last Admin: 08/29/19 00:49 Dose: 1 tab Documented by: Saccharomyces Boulardii (Florastor) 250 mg PO DAILY [facility] Stop: 09/27/19 14:44 Last Admin: 08/28/19 15:45 Dose: 250 mg Documented by: Spironolactone (Aldactone) 25 mg PO DAILY JOSH Stop: 09/21/19 08:59 Last Admin: 08/28/19 09:11 Dose: 25 mg Documented by: (1) Congestive heart failure Heart failure type: unspecified Heart failure chronicity: acute on chronic Qualified Code(s): I50.9 - Heart failure, unspecified (2) Cellulitis of leg Laterality: left Qualified Code(s): L03.116 - Cellulitis of left lower limb (3) COPD (chronic obstructive pulmonary disease) COPD type: unspecified COPD Qualified Code(s): J44.9 - Chronic obstructive pulmonary disease, unspecified (4) Type 2 diabetes mellitus Diabetes mellitus rodent exterminator insulin use: without rodent exterminator use Diabetes mellitus complication status: with kidney complications Diabetes mellitus complication detail: with chronic kidney disease Chronic kidney disease stage: stage 3 (moderate) Qualified Code(s): 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 mellitus with diabetic chronic kidney disease; N18.3 - Chronic kidney disease, stage 3 (moderate)
[2019-08-29] MEDS: ACETAMINOPHEN 500 MG TAB PO PRN ×2 (08:05→17:09)
[2019-08-29] MEDS: METOPROLOL SUCC 50MG EXT REL TAB PO SCH ×2 (08:06→20:38)
[2019-08-29] MEDS: APIXABAN 5 MG TABLET PO SCH ×2 (08:06→20:37)
[2019-08-29] MEDS: SACCHAROMYCES BOULARDII 250 MG CAP PO SCH (08:07)
[2019-08-29] MEDS: FUROSEMIDE 40 MG TAB PO SCH ×2 (08:07→17:21)
[2019-08-29] MEDS: CLOPIDOGREL BISULFATE 75 MG TAB PO SCH (08:07)
[2019-08-29] MEDS: SPIRONOLACTONE 25 MG TAB PO SCH (08:07)
[2019-08-29] MEDS: LIDOCAINE 5% 1 PATCH TD SCH (08:08)
[2019-08-29] MEDS: NICOTINE 21 MG/24 HR TDSY TD SCH (08:08)
[2019-08-29] MEDS: INSULIN ASPART 100 UNITS/ML 3 ML PEN SC SCH ×4 (08:12→20:36)
[2019-08-29] MEDS: INSULIN GLARGINE SOLOSTAR 100 UNITS/ML 3 ML PEN SC SCH ×2 (08:13→20:38)
[2019-08-29] MEDS ORDERED: FUROSEMIDE 80 MG TAB PO SCH (09:00)
[2019-08-29] MEDS ORDERED: FUROSEMIDE 40 MG TAB PO ONE (09:45)
[2019-08-29] MEDS: CEFEPIME 2,000 MG in SYRINGE 7.5 ML IV SCH (10:58)
--- NOTE | 2019-08-29 11:03 | Pharmacy Report ---
Glycemic Control Progress Note - Date of Service August 29, 2019 - Scope Glycemic Pharmacist consulted for glycemic control to write orders per [facility] inpatient glycemic control protocol. - Objective Accuchecks BSG(last 24 hours):: 08/28/19 08/28/19 08/28/19 11:28 16:34 20:21 Glucose POC Glucose 172 H 146 H 184 H 08/29/19 08/29/19 06:53 07:19 Glucose 135 H POC Glucose 136 H HbA1c:: Hemoglobin A1c 12.1 % (4.5-5.6) H 08/19/19 06:45 - Recent Pertinent Medications The patient is currently receiving: * Basal insulin: Lantus 15-25 units every 12 hours * Correctional Insulin: Novolog Correction per scale ACHS Goal Range: Low 110 mg/dL - High 140 mg/dL Correction Factor: 20 mg/dL/unit * Prandial insulin: Per carb ratio of 1 unit per 8 grams CHO consumed - Outpatient Anti-Diabetic Meds Jardiance 10 mg daily Glipizide 20 mg daily Metformin 1 gm PO BID Actos 30 mg daily - Assessment & Plan ASSESSMENT: * See progress note from 08/24/2019 for more background info, in short: * Pt receiving SQ basal bolus insulin regimen for hyperglycemia secondary to baseline DM (outpatient regimen on hold) and currently being treated with cefepime/daptomycin/Flagyl for cellulitis. * Patient is currently receiving an average of 22 units of insulin per day * 40 units of basal insulin * 22 units of prandial/correctional insulin * BSGs ranging 99 - 184 mg/dl over the past 24hrs * Changes needed to insulin regimen: * AM Fasting BSG = 136 mg/dl. This is in goal range for patient based on inpatient targets and co-morbidities. Basal insulin will be fixed at 22 units SQ BID for a bit then attempt to change to once daily regimen for discharge. * Post-prandial BSGs trended upwards. Tighten CR. * Total daily dose = ~70 units. Increased insulin appropriately. PLAN FOR INPATIENT GLYCEMIC CONTROL: * Changing to Lantus 22 units SQ BID * Continuing correction factor of 20 mg/dl/unit * TIGHTENING carb ratio to 1 unit per 7 grams CHO consumed * Continuing goal range of Low 110 mg/dL - High 140 mg/dL * Please note that the plan above was derived based on current level of insulin resistance and hospital stress. These recommendations are appropriate for i npatient admission only. Plan of care upon discharge will need to be reassessed to avoid potential outpatient hypo/hyperglycemia. Thank you.
[2019-08-29] MEDS: DAPTOmycin 550 MG in SYRINGE 0 ML IV SCH (15:01)
[2019-08-29] MEDS: AMOXICILLIN/CLAVULANATE 875 MG TAB PO SCH (17:43)
[2019-08-29] MEDS: DOXYCYCLINE HYCLATE 100 MG CAP PO SCH (20:37)
[2019-08-30] MEDS: OXYCODONE/ACETAMINOPHEN 5mg/325mg TAB PO PRN ×2 (00:31→18:45)
[2019-08-30] MEDS: NICOTINE 21 MG/24 HR TDSY TD SCH (09:19)
[2019-08-30 09:26] LABS: Basophils # (auto) 0.08 K/uL (0-0.2); Basophils % (auto) 0.5 %; Hematocrit (blood only) 41.7 % (42-52); Immature Granulocytes # (auto) 0.12 K/uL (0.00-0.02); Immature Granulocytes % (auto) 0.8 %; Lymphocytes # (auto) 1.46 K/uL (1.2-3.4); Lymphocytes % (auto) 9.5 %; Mean Corpuscular Hemoglobin 32.8 pg (25-34); Mean Corpuscular Hgb Conc 33.6 g/dL (32-36); Mean Corpuscular Volume 97.7 fL (80-100); Mean Platelet Volume 9.3 fL (7.4-10.4); Monocytes # (auto) 0.96 K/uL (0.11-0.59); Monocytes % (auto) 6.2 %; Neutrophils # (auto) 12.46 K/uL (1.4-6.5); Platelet Count 362 K/uL (130-400); RDW Coefficient of Variation 14.6 % (11.5-14.5); Red Blood Count 4.27 M/uL (4.7-6.1); White Blood Count 15.38 K/uL (4.8-10.8)
[2019-08-30] MEDS: FLUTICASONE/VILANTEROL 100/25MCG 14 PUFFS/INHALER INH SCH (09:33)
[2019-08-30] MEDS: AMOXICILLIN/CLAVULANATE 875 MG TAB PO SCH ×4 (09:33→17:22)
[2019-08-30] MEDS: SPIRONOLACTONE 25 MG TAB PO SCH ×2 (09:33→11:16)
[2019-08-30] MEDS: APIXABAN 5 MG TABLET PO SCH ×3 (09:33→20:43)
[2019-08-30] MEDS: CLOPIDOGREL BISULFATE 75 MG TAB PO SCH ×2 (09:34→11:14)
[2019-08-30] MEDS: FUROSEMIDE 40 MG TAB PO SCH ×2 (09:34→11:14)
[2019-08-30] MEDS: METOPROLOL SUCC 50MG EXT REL TAB PO SCH ×3 (09:34→20:45)
[2019-08-30] MEDS: SACCHAROMYCES BOULARDII 250 MG CAP PO SCH ×2 (09:34→11:14)
[2019-08-30] MEDS: DOXYCYCLINE HYCLATE 100 MG CAP PO SCH ×3 (09:34→20:48)
[2019-08-30] MEDS: INSULIN GLARGINE SOLOSTAR 100 UNITS/ML 3 ML PEN SC SCH ×3 (09:34→20:43)
[2019-08-30] MEDS: INSULIN ASPART 100 UNITS/ML 3 ML PEN SC SCH ×4 (09:34→20:44)
[2019-08-30] MEDS: LIDOCAINE 5% 1 PATCH TD SCH ×2 (09:34→10:47)
[2019-08-30 10:01] LABS: BUN Creatinine Ratio 23.3 (10-20); Creatinine Clr Calc Pharmacy 49.4 ml/min; Est GFR (Non-African American) 38.9; Magnesium 2.4 mg/dl (1.8-2.4); Phosphorus 2.8 mg/dl (2.5-4.9); Potassium 4.5 mmol/L (3.5-5.1)
[2019-08-30] MEDS: ACETAMINOPHEN 500 MG TAB PO PRN (10:46)
--- NOTE | 2019-08-30 10:58 | XRay Report ---
KUB HISTORY: Screening for MRI pre mri COMPARISON: Chest CT 08/21/2019 FINDINGS: The bowel gas pattern is non-obstructive. No opaque foreign body. Mild distal colonic fecal retention. There is no organomegaly. No renal calculi. No ureteral calculi. No pneumoperitoneum or pneumatosis. Multilevel degenerative changes of the lumbar spine. No fracture. IMPRESSION: 1. Nonobstructive bowel gas pattern. 2. No opaque foreign body. ACT 112: Negative or not required by law. The above report was generated using voice recognition software. It may contain grammatical, syntax o r spelling errors. Electronically signed by: Michael Decker M.D. 08/30/2019 10:57 AM
--- NOTE | 2019-08-30 11:53 | Pharmacy Report ---
Glycemic Control Progress Note - Date of Service August 30, 2019 - Scope Glycemic Pharmacist consulted for glycemic control to write orders per [facility] inpatient glycemic control protocol. - Objective Accuchecks BSG(last 24 hours):: 08/29/19 08/29/19 08/30/19 16:21 20:10 07:39 Glucose POC Glucose 240 H 118 H 131 H 08/30/19 08/30/19 09:17 11:32 Glucose 263 H POC Glucose 208 H HbA1c:: Hemoglobin A1c 12.1 % (4.5-5.6) H 08/19/19 06:45 - Recent Pertinent Medications The patient is currently receiving: * Basal insulin: Lantus 22 units every 12 hours * Correctional Insulin: Novolog Correction per scale ACHS Goal Range: Low 110 mg/dL - High 140 mg/dL Correction Factor: 20 mg/dL/unit * Prandial insulin: Per carb ratio of 1 unit per 7 grams CHO consumed - Outpatient Anti-Diabetic Meds Jardiance 10 mg PO daily glipizide 20 mg PO BID metformin 1 gm PO BID Actos 30 mg daily - Assessment & Plan ASSESSMENT: * See progress note from for more background info, in short: * Pt receiving SQ basal bolus insulin regimen for hyperglycemia secondary to baseline DM (outpatient regimen on hold). Patient is currently on Augmentin as well for infection. * Patient is currently receiving an average of 62 units of insulin per day * 44 units of basal insulin * 20 units of prandial/correctional insulin * BSGs ranging 118 - 240 mg/dl over the past 24hrs * Changes needed to insulin regimen: * AM Fasting BSG = 131 mg/dl. This is in goal range for patient based on inpatient targets and co-morbidities. It appears that 44 units/day of Lantus is appropriate. Therefore will move forward with once daily Lantus dosing. AM Lantus given late due to patient mental status -- this works perfectly with moving full dose to dinner. * Post-prandial BSGs are elevated. Tightened Novolog parameters. * Total daily dose = ~70 units. PLAN FOR INPATIENT GLYCEMIC CONTROL: * Continuing Lantus 22 units SQ BID with moving to 44 units daily at dinner tomorrow * TIGHTENING correction factor of 18 mg/dl/unit * TIGHTENING carb ratio to 1 unit per 5 grams CHO consumed * Continuing goal range of Low 110 mg/dL - High 140 mg/dL RECOMMENDATIONS FOR DISCHARGE: * Recommend d/c of Actos (due to CHF), Glipizide (due to starting insulin). * eGFR is borderline for utilizing metformin. When between 30-45 mL/min, it is recommended a maximum of 500 mg daily. * Recommend starting Lantus 44 units daily. * if possible, could use 10 units of Novolog with the largest meal of the day. Thank you.
--- NOTE | 2019-08-30 12:09 | Hospitalist Progress Note ---
Date of Service August 30, 2019 Assessment & Plan (1) Congestive heart failure: Suspect related to non-compliance and dietary indiscretion although history from pt is limited. Last ECHO appears to have been in 2016 and shower LVEF 55-59%, moderate concentric LVH, dilated IVC, elevated RA pressure Acute decompensated congestive heart failure Diuresed initially with IV Lasix Current ECHO showed LV systolic function is mildly reduced to 45 to 50% of EF, mild global hypokinesis of the left ventricle, left atrium moderately dilated, aortic valve sclerosis without significant stenosis, trace AR, mild MR and mild TR estimated systolic pulmonary artery pressure 45 mmHg and dilated IVC with normal inspiratory variation suggesting a right atrial pressure of 8 mmHg Consult cardiology-appreciate input and recommendation Denies any significant shortness of breath at rest Symptomatically much better Furosemide has been changed to oral 80 mg twice daily and will be likely continued as an outpatient Cr and BUN elevated, will hold furosemide and will continue to monitor BMP cl osely Essential (primary) hypertension Blood pressure seems to be controlled with current medication better Down the line hydralazine/nitrates can be used (2) Atrial fibrillation with rapid ventricular response: Given metoprolol 5 mg IV x 1 dose in ED - rate appears more stable around 90-110 Toprol-XL 100 mg daily has been changed to metoprolol tartrate 50 mg 3 times daily Eliquis 5 mg twice daily has been started HR in low 100 Metoprolol succinate has been increased to 100 mg twice daily Beta-pao dose has been increased and will continue to maintain heart rate (3) Cellulitis of leg: CRP elevated at 3.64. WBCs not elevated and pt afebrile on admission. Unclear how acute LE skin changes are but with elevated CRP and physical exam,started antibiotics. - initially empiric IV Vanco and Ceftriaxone - blood cultures-negative -There is no definite cellulitis of the leg and the erythema has improved -changed antibiotic to intravenous Unasyn to cover possible axillary abscess/erysipelas involving the lower extremity by previous hospitalist Leukocytosis -Now however WBC persistently elevated, repeated chest x-ray -negative, Miller removed, UA negative, blood culture - negative, broadened antibiotic coverage -WBC count persistently 15-16,000, despite being on broad-spectrum antibiotics -This may be secondary to known extensive necrosis of left axillary mass, which by pathology shows metastatic squamous cell cancer -Contacted oncologic surgery in [place], due to persistent leukocytosis, advised to follow-up as outpatient as planned, and discharged on p.o. antibiotics, currently he is scheduled with surgical oncology in [place] on September 08 Left axillary area cellulitis Skin redness and tenderness - improved Lymphadenopathy without any abscess Antibiotics have been changed to intravenous Unasyn by previous hospitalist, however now WBC count is elevated, see above likely Oral Augmentin and doxycycline on discharge (4) Neck mass: Had a lesion removed from left upper back in late 2019 - biopsy confirmed squamous cell CA (prior hx of same in 2018 on chest and left elbow). Reports two new lesions on neck for which he was trying to get back in with [facility] surgery to see - seem to be causing increasing neck pain. He reports oxycodone has not been helpful and causes GI distress. - Tylenol for pain with Tramadol for breakthrough -Would have metastatic disease -Started oral Percocet and obtained CT of the neck and chest without contrast to evaluate the mass -CT of the neck:5 cm left supraclavicular mass/pathologic node suspicious for neoplasm. This lesion would be amenable to ultrasound-guided fine-needle aspiration biopsy. - CT chest did show: 10 cm left axillary mass/adenopathy. 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 Moffett discussed with plastic surgeon and pt will need to have an appointment with oncolog. surgeon on discharge, currently he is scheduled with oncologic surgery in [place] on September 08 (referral made by patient's milk treater, Dr. Tiffani Briceño who performed prior [facility] surgeries) -Continued to have pain at neck and left axilla, gets somewhat confused with pain medications, consulted with pain management -Lidocaine patch added, cont. percocet as needed -Pain management does not recommend any changes to his current treatment (5) COPD (chronic obstructive pulmonary disease): Does not complain of SOB at present and lungs without wheezing - suspect hypoxia on presentation more related to CHF than COPD - Continue home inhalers with prn nebs - No signs of exacerbation (6) JOSE on CPAP: Pt unclear if he uses CPAP (which he tells me) or BiPAP (which he told the ED staff) but does know that he uses oxygen with his machine while he sleeps -CPAP per protocol while admitted (7) CKD (chronic kidney disease) stage 3, GFR 30-59 ml/min: Labs from Feb 2019 - BUN 22, Creatinine 1.3. Stable labs in the ED - Monitor labs with diuresis (8) Type 2 diabetes mellitus: Uncontrolled Last A1c in Feb 2019 = 9.3. It is unclear if patient is taking oral hypogylcemics as prescribed - HOLD home oral meds - Insulin sliding scale - adjust pending response - BSG ACHS - Diabetic diet - Current A1c 12.1% - diabetic education and pharm. glycemic control ordered - pt will benefit from starting insulin on discharge (pt is new to insulin) PT and OT evaluation - recommend rehab but pt hesitant about rehab, discussed w/ caregiver Dalia who also agrees that pt would benefit from rehab after d/c Possible discharge in a day or 2 Dr. Moffett discussed with the daughter in detail and answered all of her questions. I discussed with Dalia (caregiver) and answered all her questions. I also discussed (08/26) with [id number] Veda, answered all her questions to her satisfaction. Veda is concerned about possible transfer on discharge to [facility] as she is not in agreement with this facility. Case management aware. Overall prognosis remains guarded Admission and Anticipated Discharge Date Admission Date: August 18, 2019 Subjective Patient's family, daughter in-law Veda, can be reached . Patient's daughter Betina can be reached at . I was able to discuss with patient's [id number], Veda, on (08/26). She appreciated all the updates. Met with patient's caregiver Dalia today at the bedside, August 30, 2019, updated her about appointment with surgical oncology in [place] on September 08. Scheduling not able to reach the patient, and notify him about the appointment. On my exam today, Patient sitting up in a chair, in no distress, only complains of some persistent mild neck/left chest wall pain. No fever, chills, shortness of breath, abdominal pain, nausea or vomiting. White blood cell count persistently elevated despite broad-spectrum antibiotics. UA negative, Miller removed, chest x-ray negative, blood culture negative so far, white blood cell count elevated likely due to cellulitis in his left armpit/extensive necrosis of mass in left axilla. Contacted oncologic surgery in [place], patient currently has appointment scheduled on September [address] [place] York, who I spoke to, patient could be discharged on p.o. antibiotics and follow-up in [place]. Review of Systems Musculoskeletal: + neck pain left chest wall and left neck pain Physical Exam Physical Exam: Physical Exam: Sitting on a chair, in only mild distress d/t pain Constitutional: + ill appearing and + morbidly obese Eyes: PERRL, conjunctivae normal, anicteric sclerae ENMT: external ear and nose normal, oropharynx normal Neck: Left supraclavicular swelling with tenderness on palpation Respiratory: normal respiratory effort; no respiratory distress Auscultation: + diminished lung sounds, no wheezing, rhonchi or crackles appreciated Cardiovascular: Rate/Rhythm: regular rate and regular rhythm Heart Sounds: no murmur Extremities: + edema (trace bilateral) Gastrointestinal (Abdomen): Inspection/Auscultation: + abdomen distended and normal bowel sounds Percussion/Palpation: abdomen soft; abdomen nontender : Miller catheter removed Musculoskeletal: No acute arthritis involving any joint, moves extremities spontaneously Neurologic: moves all extremities; no focal motor deficits Alert , awake .currently answers questions appropriately, but occasionally gets confused (per nursing staff) at times with occasional hallucinations worse with use of narcotics /pain medication Lymphatic: + lymphadenopathy (Left supraclavicular) Results & Data Results & Data ([facility]) Vital Signs (Past 12 Hours) Vital Signs Temp Pulse Resp BP Pulse Ox 08/30/19 07:25 36.5 C 91 H 20 146/86 H 93 Laboratory Results 08/30/19 08/30/19 08/30/19 Range/Units 11:32 09:17 09:17 WBC 15.38 H (4.8-10.8) K/uL RBC 4.27 L (4.7-6.1) M/uL Hgb 14.0 (14.0-18.0) g/dL Hct 41.7 L (42-52) % MCV 97.7 (80-100) fL MCH 32.8 (25-34) pg MCHC 33.6 (32-36) g/dL RDW Std Deviation 52.0 H (36.4-46.3) fL RDW Coeff of [place] 14.6 H (11.5-14.5) % Plt Count 362 (130-400) K/uL MPV 9.3 (7.4-10.4) fL Immature Gran % (Auto) 0.8 % Neut % (Auto) 81.0 % Lymph % (Auto) 9.5 % [place] % (Auto) 6.2 % Eos % (Auto) 2.0 % Baso % (Auto) 0.5 % Neut # (Auto) 12.46 H (1.4-6.5) K/uL Lymph # (Auto) 1.46 (1.2-3.4) K/uL [place] # (Auto) 0.96 H (0.11-0.59) K/uL Eos # (Auto) 0.30 (0-0.5) K/uL Baso # (Auto) 0.08 (0-0.2) K/uL Immature Gran # (Auto) 0.12 H (0.00-0.02) K/uL Peripher Smr Path Cons Sodium 133 L (136-145) mmol/L Potassium 4.5 D (3.5-5.1) mmol/L Chloride 95 L (98-107) mmol/L Carbon Dioxide 33 H (21-32) mmol/L Anion Gap 5.0 (3-11) BUN 40 H (7-18) mg/dl Creatinine 1.71 H (0.6-1.4) mg/dl Est Cr Clr Drug Dosing 49.4 ml/min Est GFR ( Amer) 45.0 Est GFR (Non-Af Amer) 38.9 BUN/Creatinine Ratio 23.3 H (10-20) Glucose 263 H (70-99) mg/dl POC Glucose 208 H (70-99) mg/dl Calcium 10.0 (8.5-10.1) mg/dl Phosphorus 2.8 (2.5-4.9) mg/dl Magnesium 2.4 (1.8-2.4) mg/dl 08/30/19 08/29/19 08/29/19 Range/Units 07:39 20:10 16:21 WBC (4.8-10.8) K/uL RBC (4.7-6.1) M/uL Hgb (14.0-18.0) g/dL Hct (42-52) % MCV (80-100) fL MCH (25-34) pg MCHC (32-36) g/dL RDW Std Deviation (36.4-46.3) fL RDW Coeff of [place] (11.5-14.5) % Plt Count (130-400) K/uL MPV (7.4-10.4) fL Immature Gran % (Auto) % Neut % (Auto) % Lymph % (Auto) % [place] % (Auto) % Eos % (Auto) % Baso % (Auto) % Neut # (Auto) (1.4-6.5) K/uL Lymph # (Auto) (1.2-3.4) K/uL [place] # (Auto) (0.11-0.59) K/uL Eos # (Auto) (0-0.5) K/uL Baso # (Auto) (0-0.2) K/uL Immature Gran # (Auto) (0.00-0.02) K/uL Peripher Smr Path Cons Sodium (136-145) mmol/L Potassium (3.5-5.1) mmol/L Chloride (98-107) mmol/L Carbon Dioxide (21-32) mmol/L Anion Gap (3-11) BUN (7-18) mg/dl Creatinine (0.6-1.4) mg/dl Est Cr Clr Drug Dosing ml/min Est GFR ( Amer) Est GFR (Non-Af Amer) BUN/Creatinine Ratio (10-20) Glucose (70-99) mg/dl POC Glucose 131 H 118 H 240 H (70-99) mg/dl Calcium (8.5-10.1) mg/dl Phosphorus (2.5-4.9) mg/dl Magnesium (1.8-2.4) mg/dl 08/29/19 Range/Units 06:53 WBC (4.8-10.8) K/uL RBC (4.7-6.1) M/uL Hgb (14.0-18.0) g/dL Hct (42-52) % MCV (80-100) fL MCH (25-34) pg MCHC (32-36) g/dL RDW Std Deviation (36.4-46.3) fL RDW Coeff of Ky (11.5-14.5) % Plt Count (130-400) K/uL MPV (7.4-10.4) fL Immature Gran % (Auto) % Neut % (Auto) % Lymph % (Auto) % [place] % (Auto) % Eos % (Auto) % Baso % (Auto) % Neut # (Auto) (1.4-6.5) K/uL Lymph # (Auto) (1.2-3.4) K/uL [place] # (Auto) (0.11-0.59) K/uL Eos # (Auto) (0-0.5) K/uL Baso # (Auto) (0-0.2) K/uL Immature Gran # (Auto) (0.00-0.02) K/uL Peripher Smr Path Cons Sodium (136-145) mmol/L Potassium (3.5-5.1) mmol/L Chloride (98-107) mmol/L Carbon Dioxide (21-32) mmol/L Anion Gap (3-11) BUN (7-18) mg/dl Creatinine (0.6-1.4) mg/dl Est Cr Clr Drug Dosing ml/min Est GFR ( Amer) Est GFR (Non-Af Amer) BUN/Creatinine Ratio (10-20) Glucose (70-99) mg/dl POC Glucose (70-99) mg/dl Calcium (8.5-10.1) mg/dl Phosphorus (2.5-4.9) mg/dl Magnesium (1.8-2.4) mg/dl Medications Administered Current Inpatient Medications Acetaminophen (Tylenol) 1,000 mg PO Q6H PRN PRN Reason: Pain Stop: 09/21/19 19:06 Last Admin: 08/30/19 10:46 Dose: 1,000 mg Documented by: Albuterol (Duoneb) 3 ml INH Q6R PRN PRN Reason: cough/shortness of breath Stop: 09/17/19 12:59 Amoxicillin/Clavulanate Potassium (Augmentin 875mg) [address] [facility] Stop: 09/05/19 16:59 Last Admin: 08/30/19 11:17 Dose: 1 tab Documented by: Apixaban (Eliquis) [address] [facility] Stop: 09/22/19 20:59 Last Admin: 08/30/19 11:17 Dose: 5 mg Documented by: Clopidogrel Bisulfate (Plavix) 75 mg PO DAILY [facility] Stop: 09/18/19 08:59 Last Admin: 08/30/19 11:14 Dose: 75 mg Documented by: Dextrose (Dextrose 50%) 25 - 50 ml IV UD PRN; Protocol PRN Reason: Hypoglycemia Protocol Stop: 09/17/19 11:11 Doxycycline Hyclate (Vibramycin) 100 mg PO BID [facility] Stop: 09/05/19 20:59 Last Admin: 08/30/19 11:17 Dose: 100 mg Documented by: Fluticasone/Vilanterol (Breo Ellipta 100/25 Mcg Inh) [address] [facility]; Protocol Stop: 09/18/19 08:59 Last Admin: 08/30/19 09:33 Dose: Not Given Documented by: Furosemide (Lasix) 40 mg PO BID17 [facility] Stop: 09/28/19 16:59 Last Admin: 08/30/19 11:14 Dose: 40 mg Documented by: Glucagon (Glucagen) 1 mg SQ UD PRN; Protocol PRN Reason: Hypoglycemia Protocol Stop: 09/17/19 11:11 Glucose (Dex4 Glucose) 4 - 8 tabs PO UD PRN; Protocol PRN Reason: Hypoglycemia Protocol Stop: 09/17/19 11:11 Glucose (Glucose 40%) 15 - 30 gm PO UD PRN; Protocol PRN Reason: Hypoglycemia Protocol Stop: 09/17/19 11:11 Haloperidol Lactate (Haldol) 2 mg IM TID PRN PRN Reason: Agitation Stop: 09/19/19 04:50 Last Admin: 08/27/19 09:12 Dose: 2 mg Documented by: Albumin Human (Albumin 5%) 250 mls @ 50 mls/hr IV ONE ONE Stop: 08/30/19 17:14 Insulin Aspart (Novolog Flexpen) [address] [facility] Stop: 09/27/19 16:29 Last Admin: 08/30/19 09:34 Dose: Not Given Documented by: Insulin Glargine (Lantus Solostar Pen) [address] [facility] Stop: 09/28/19 08:59 Last Admin: 08/30/19 11:13 Dose: 22 units Documented by: Lidocaine (Lidoderm 5%) [address] [facility] Stop: 09/23/19 15:59 Last Admin: 08/30/19 10:47 Dose: 1 patch Documented by: Metoprolol Succinate (Toprol Xl) [address] [facility] Stop: 09/20/19 20:59 Last Admin: 08/30/19 11:14 Dose: 100 mg Documented by: Miscellaneous (Carbohydrates For Hypoglycemia) 15 - 30 gm PO UD PRN PRN Reason: Hypoglycemia Protocol Stop: 09/17/19 11:11 Miscellaneous (Remove Nicoderm Patch) 1 ea N/A DAILY@0859 [facility] Stop: 09/23/19 08:58 Last Admin: 08/30/19 09:20 Dose: Not Given Documented by: Miscellaneous (Remove Lidoderm Patch) 1 ea N/A DAILY@2100 [facility] Stop: 09/23/19 20:59 Last Admin: 08/29/19 20:36 Dose: 1 ea Documented by: Miscellaneous Information (Consult Glycemic Management Pharmacy) 1 ea N/A UD [facility] Stop: 09/23/19 08:25 Nicotine (Nicoderm Cq) [address] [facility] Stop: 09/23/19 08:59 Last Admin: 08/30/19 09:19 Dose: Not Given Documented by: Nicotine Polacrilex (Nicorette 2mg) 1 piece MT Q1H PRN PRN Reason: smoking urge Stop: 09/25/19 20:34 Oxycodone/Acetaminophen (Percocet 5mg/325mg) 1 tab PO Q4H PRN PRN Reason: Pain Stop: 09/02/19 10:15 Last Admin: 08/30/19 00:31 Dose: 1 tab Documented by: Saccharomyces Boulardii (Florastor) [address] [facility] Stop: 09/27/19 14:44 Last Admin: 08/30/19 11:14 Dose: 250 mg Documented by: Spironolactone (Aldactone) [address] [facility] Stop: 09/21/19 08:59 Last Admin: 08/30/19 11:16 Dose: 25 mg Documented by: (1) Congestive heart failure Heart failure type: unspecified Heart failure chronicity: acute on chronic Qualified Code(s): I50.9 - Heart failure, unspecified (2) Cellulitis of leg Laterality: left Qualified Code(s): L03.116 - Cellulitis of left lower limb (3) COPD (chronic obstructive pulmonary disease) COPD type: unspecified COPD Qualified Code(s): J44.9 - Chronic obstructive pulmonary disease, unspecified (4) Type 2 diabetes mellitus Diabetes mellitus adjunct faculty for medical terminology insulin use: without longterm use Diabetes mellitus complication status: with kidney complications Diabetes mellitus complication detail: with chronic kidney disease Chronic kidney disease stage: stage 3 (moderate) Qualified Code(s): 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 mellitus with diabetic chronic kidney disease; N18.3 - Chronic kidney disease, stage 3 (moderate)
[2019-08-30] MEDS ORDERED: ALBUMIN 5% 250 ML IV ONE (12:15)
--- NOTE | 2019-08-30 12:58 | Magnetic Resonance Report ---
MRI OF THE BRAIN WITHOUT CONTRAST CLINICAL HISTORY: Encephalopathy. Metastatic skin cancer. COMPARISON STUDY: Head CT August 18, 2019. TECHNIQUE: Utilizing a 1.5 Makayla magnet and dedicated coil, multiplanar, multiecho imaging of the bra in was performed without IV contrast. FINDINGS: There are no foci of restricted diffusion to suggest acute infarct. No acute intracranial h emorrhage, midline shift or mass effect is present. Mild atrophy is noted. Ventricular system is unre markable. Basilar cisterns are patent. There are no extra axial collections. No intracranial masses i dentified on this unenhanced study. White matter T2 hyperintense foci suggest small vessel disease. C alvarial signal is normal. Orbits are unremarkable. Small amount of fluid within the right mastoid ai r cells is noted. There is no left mastoid fluid. There is no evidence for sinusitis. IMPRESSION: 1. No acute intracranial findings. 2. Moderate atrophy and small vessel disease. 3. No evidence of intracranial metastatic disease on unenhanced exam. ACT 112: Negative or not required by law. Electronically signed by: Kartik Parra M.D. 08/30/2019 12:56 PM
[2019-08-30] MEDS: ALBUT/IPRATROP 3MG/0.5MG NEB 3 ML VIAL INH PRN (19:06)
[2019-08-31] MEDS: ALBUT/IPRATROP 3MG/0.5MG NEB 3 ML VIAL INH PRN (01:55)
[2019-08-31 06:19] LABS: Hematocrit (blood only) 42.2 % (42-52); Mean Corpuscular Hemoglobin 32.3 pg (25-34); Mean Corpuscular Hgb Conc 33.2 g/dL (32-36); Mean Corpuscular Volume 97.5 fL (80-100); Mean Platelet Volume 9.5 fL (7.4-10.4); Platelet Count 374 K/uL (130-400); RDW Coefficient of Variation 14.5 % (11.5-14.5); RDW Standard Deviation 52.3 fL (36.4-46.3); Red Blood Count 4.33 M/uL (4.7-6.1); White Blood Count 16.81 K/uL (4.8-10.8)
[2019-08-31 07:05] LABS: Creatinine Clr Calc Pharmacy 55.1 ml/min; Est GFR (African American) 51.5; Est GFR (Non-African American) 44.5; Potassium 3.9 mmol/L (3.5-5.1)
[2019-08-31] MEDS: SACCHAROMYCES BOULARDII 250 MG CAP PO SCH (08:28)
[2019-08-31] MEDS: DOXYCYCLINE HYCLATE 100 MG CAP PO SCH (08:28)
[2019-08-31] MEDS: ACETAMINOPHEN 500 MG TAB PO PRN (08:28)
[2019-08-31] MEDS: APIXABAN 5 MG TABLET PO SCH (08:29)
[2019-08-31] MEDS: NICOTINE 21 MG/24 HR TDSY TD SCH (08:30)
[2019-08-31] MEDS: AMOXICILLIN/CLAVULANATE 875 MG TAB PO SCH ×2 (08:30→16:06)
[2019-08-31] MEDS: CLOPIDOGREL BISULFATE 75 MG TAB PO SCH (08:30)
[2019-08-31] MEDS: SPIRONOLACTONE 25 MG TAB PO SCH (08:31)
[2019-08-31] MEDS: METOPROLOL SUCC 50MG EXT REL TAB PO SCH (08:31)
[2019-08-31] MEDS: LIDOCAINE 5% 1 PATCH TD SCH (08:34)
[2019-08-31] MEDS: INSULIN ASPART 100 UNITS/ML 3 ML PEN SC SCH ×2 (08:40→12:56)
[2019-08-31] MEDS: FLUTICASONE/VILANTEROL 100/25MCG 14 PUFFS/INHALER INH SCH (08:43)
--- NOTE | 2019-08-31 14:15 | Hospitalist Progress Note ---
Date of Service August 31, 2019 Assessment & Plan (1) Congestive heart failure: Suspect related to non-compliance and dietary indiscretion although history from pt is limited. Last ECHO appears to have been in 2016 and shower LVEF 55-59%, moderate concentric LVH, dilated IVC, elevated RA pressure Acute decompensated congestive heart failure Diuresed initially with IV Lasix Current ECHO showed LV systolic function is mildly reduced to 45 to 50% of EF, mild global hypokinesis of the left ventricle, left atrium moderately dilated, aortic valve sclerosis without significant stenosis, trace AR, mild MR and mild TR estimated systolic pulmonary artery pressure 45 mmHg and dilated IVC with normal inspiratory variation suggesting a right atrial pressure of 8 mmHg Consult cardiology-appreciate input and recommendation Denies any significant shortness of breath at rest Clinically much better today Oral Lasix will be given on discharge Will need to have creatinine monitored as an outpatient Essential (primary) hypertension Blood pressure seems to be controlled with current medication better Down the line hydralazine/nitrates can be used Blood pressure seems to be controlled (2) Atrial fibrillation with rapid ventricular response: Given metoprolol 5 mg IV x 1 dose in ED - rate appears more stable around 90-110 Toprol-XL 100 mg daily has been changed to metoprolol tartrate 50 mg 3 times daily Eliquis 5 mg twice daily has been started Metoprolol succinate has been increased to 100 mg twice daily Heart rate remains controlled (3) Cellulitis of leg: CRP elevated at 3.64. WBCs not elevated and pt afebrile on admission. Unclear how acute LE skin changes are but with elevated CRP and physical exam,started antibiotics. 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 antibiotics, currently he is scheduled with surgical oncology in [place] on September 08 Left axillary area cellulitis Skin redness and tenderness - improved Lymphadenopathy without any abscess Antibiotics have been changed to intravenous Unasyn by previous hospitalist, however now WBC count is elevated, see above lOral Augmentin and doxycycline on discharge (4) Neck mass: Had a lesion removed from left upper back in late 2018 - biopsy confirmed squamous cell CA (prior hx of same in 2018 on chest and left elbow). Reports two new lesions on neck for which he was trying to get back in with [facility] surgery to see - seem to be causing increasing neck pain. He reports oxycodone has not been helpful and causes GI distress. - Tylenol for pain with Tramadol for breakthrough -Would have metastatic disease -Started oral Percocet and obtained CT of the neck and chest without contrast to evaluate the mass -CT of the neck:5 cm left supraclavicular mass/pathologic node suspicious for neoplasm. This lesion would be amenable to ultrasound-guided fine-needle aspiration biopsy. - CT chest did show: 10 cm left axillary mass/adenopathy. 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 Moffett discussed with plastic surgeon and pt will need to have an appointment with oncolog. surgeon on discharge, currently he is scheduled with oncologic surgery in [place] on September 08 (referral made by patient's cook larder, Dr. Tiffani Briceño who performed prior [facility] surgeries) -Continued to have pain at neck and left axilla, gets somewhat confused with pain medications, consulted with pain management -Lidocaine patch added, cont. percocet as needed -Pain management does not recommend any changes to his current treatment (5) COPD (chronic obstructive pulmonary disease): Does not complain of SOB at present and lungs without wheezing - suspect hypoxia on presentation more related to CHF than COPD - Continue home inhalers with prn nebs - No signs of exacerbation (6) JOSE on CPAP: Pt unclear if he uses CPAP (which he tells me) or BiPAP (which he told the ED staff) but does know that he uses oxygen with his machine while he sleeps -CPAP per protocol while admitted (7) CKD (chronic kidney disease) stage 3, GFR 30-59 ml/min: Labs from Feb 2019 - BUN 22, Creatinine 1.3. Stable labs in the ED - Monitor labs with diuresis -Creatinine is little bit improved today -We will discharge home either this afternoon or tomorrow (8) Type 2 diabetes mellitus: Uncontrolled Last A1c in Feb 2019 = 9.3. It is unclear if patient is taking oral hypogylcemics as prescribed - HOLD home oral meds - Insulin sliding scale - adjust pending response - BSG ACHS - Diabetic diet - Current A1c 12.1% - diabetic education and pharm. glycemic control ordered - pt will benefit from starting insulin on discharge (pt is new to insulin) Disposition PT and OT evaluation - recommend rehab but pt hesitant about rehab, discussed w/ caregiver Dalia who also agrees that pt would benefit from rehab after d/c Possible discharge in a day or 2 Discussed with the daughter in detail and answered all of her questions. I discussed with Dalia (caregiver) and answered all her questions. I also discussed (08/26) with [id number] Veda, answered all her questions to her satisfaction. Patient is denied from [facility] Discussed with the case briefer likely discharge home with home health nurse Admission and Anticipated Discharge Date Admission Date: August 18, 2019 Subjective The patient was seen and examined in telemetry unit He is a 74-year-old obese male with significant past medical history including JOSE on CPAP, CKD, COPD, CHF was admitted with increasing shortness of breath His breathing seems to be improving but complains of some pain in the left lower neck and left upper chest wall adjoining the axillary area He denies any chest pain and/or palpitation No abdominal pain, nausea and/or vomiting 08/20/2019 Patient was seen and examined in telemetry unit He has been feeling a little bit better today and wanted to know who sent him to the hospital His neck pain has been reasonably controlled He was rushed out from the city department yesterday due to aggressive behavior which required security to call up-he was upset by the way he was handled to the city department He agreed to have the test again 08/21/2019 The patient was seen and examined in telemetry unit He has been complaining of ongoing swelling of the legs Denies any significant shortness of breath at rest His neck and axilla pain seem to be improving 08/22/2019 The patient was seen and examined in telemetry unit He feels a little bit better but he still has shortness of breath with minimal exertion Pain in the left lower neck and left axillary area are improved 08/23/2019 The patient was seen and examined in telemetry unit He has been complaining of more pain in the neck and left lateral chest wall and axillary area Denies any increasing shortness of breath and no chest pain No fever and/or chills 08/31/2019 The patient was seen and examined in the medical floor He has been feeling a lot better today and denies any significant pain He does not have any shortness of breath and/or palpitation at rest He has been denied from [facility] and now wants to go home Review of Systems Review of Systems: All systems reviewed and are unremarkable except as noted below Respiratory: Left upper chest wall pain-much improved Musculoskeletal: + neck pain left chest wall and left neck pain Physical Exam Physical Exam: Sitting at the edge of the bed without any apparent distress Constitutional: + ill appearing and + morbidly obese; no acute distress (Due to pain) Eyes: PERRL, conjunctivae normal, anicteric sclerae ENMT: external ear and nose normal, oropharynx normal Neck: Left lateral and lower neck lump with tenderness on deep palpation Respiratory: normal respiratory effort; no respiratory distress Auscultation: + diminished lung sounds and + crackles (Bibasilar crackles); no wheezes Cardiovascular: Rate/Rhythm: regular rate and regular rhythm Heart Sounds: no murmur Extremities: + edema (1+ bilateral) Chest (Breasts): Chest: + mass (Left lateral chest wall near to axilla) Gastrointestinal (Abdomen): Inspection/Auscultation: + abdomen distended and normal bowel sounds Percussion/Palpation: abdomen soft; abdomen nontender Musculoskeletal: No acute arthritis involving any joints Neurologic: moves all extremities; no focal motor deficits Lymphatic: + lymphadenopathy (Left supraclavicular) Results & Data Results & Data ([facility]) Vital Signs (Past 12 Hours) Vital Signs Temp Pulse Resp BP Pulse Ox 08/31/19 07:26 36.7 C 81 18 116/58 L 94 Laboratory Results Short CBC 08/31/19 Range/Units 06:06 WBC 16.81 H (4.8-10.8) K/uL Hgb 14.0 (14.0-18.0) g/dL Hct 42.2 (42-52) % Plt Count 374 (130-400) K/uL [facility] 08/31/19 06:06 Sodium 134 L Potassium 3.9 Chloride 98 Carbon Dioxide 30 BUN 34 H Creatinine 1.53 H Glucose 179 H Calcium 10.0 Medications Administered Current Inpatient Medications Acetaminophen (Tylenol) 1,000 mg PO Q6H PRN PRN Reason: Pain Stop: 09/21/19 19:06 Last Admin: 08/31/19 08:28 Dose: 1,000 mg Documented by: Albuterol (Duoneb) 3 ml INH Q6R PRN PRN Reason: cough/shortness of breath Stop: 09/17/19 12:59 Last Admin: 08/31/19 01:55 Dose: 3 ml Documented by: Amoxicillin/Clavulanate Potassium (Augmentin 875mg) 1 tab PO BIDM [facility] Stop: 09/05/19 16:59 Last Admin: 08/31/19 08:30 Dose: 1 tab Documented by: Apixaban (Eliquis) 5 mg PO BID [facility] Stop: 09/22/19 20:59 Last Admin: 08/31/19 08:29 Dose: 5 mg Documented by: Clopidogrel Bisulfate (Plavix) 75 mg PO DAILY [facility] Stop: 09/18/19 08:59 Last Admin: 08/31/19 08:30 Dose: 75 mg Documented by: Dextrose (Dextrose 50%) 25 - 50 ml IV UD PRN; Protocol PRN Reason: Hypoglycemia Protocol Stop: 09/17/19 11:11 Doxycycline Hyclate (Vibramycin) 100 mg PO BID [facility] Stop: 09/05/19 20:59 Last Admin: 08/31/19 08:28 Dose: 100 mg Documented by: Fluticasone/Vilanterol (Breo Ellipta 100/25 Mcg Inh) 1 puffs INH DAILY [facility]; Protocol Stop: 09/18/19 08:59 Last Admin: 08/31/19 08:43 Dose: Not Given Documented by: Furosemide (Lasix) 40 mg PO BID17 [facility] Stop: 09/28/19 16:59 Last Admin: 08/30/19 11:14 Dose: 40 mg Documented by: Glucagon (Glucagen) 1 mg SQ UD PRN; Protocol PRN Reason: Hypoglycemia Protocol Stop: 09/17/19 11:11 Glucose (Dex4 Glucose) 4 - 8 tabs PO UD PRN; Protocol PRN Reason: Hypoglycemia Protocol Stop: 09/17/19 11:11 Glucose (Glucose 40%) 15 - 30 gm PO UD PRN; Protocol PRN Reason: Hypoglycemia Protocol Stop: 09/17/19 11:11 Haloperidol Lactate (Haldol) 2 mg IM TID PRN PRN Reason: Agitation Stop: 09/19/19 04:50 Last Admin: 08/27/19 09:12 Dose: 2 mg Documented by: Insulin Aspart (Novolog Flexpen) 0 units SC ACHS [facility] Stop: 09/27/19 16:29 Last Admin: 08/31/19 12:56 Dose: 5 units Documented by: Insulin Glargine (Lantus Solostar Pen) 44 units SC QDD [facility] Stop: 09/30/19 16:29 Lidocaine (Lidoderm 5%) 1 patch TD QAM [facility] Stop: 09/23/19 15:59 Last Admin: 08/31/19 08:34 Dose: 1 patch Documented by: Metoprolol Succinate (Toprol Xl) 100 mg PO BID [facility] Stop: 09/20/19 20:59 Last Admin: 08/31/19 08:31 Dose: 100 mg Documented by: Miscellaneous (Carbohydrates For Hypoglycemia) 15 - 30 gm PO UD PRN PRN Reason: Hypoglycemia Protocol Stop: 09/17/19 11:11 Miscellaneous (Remove Nicoderm Patch) 1 ea N/A DAILY@0859 [facility] Stop: 09/23/19 08:58 Last Admin: 08/31/19 08:32 Dose: Not Given Documented by: Miscellaneous (Remove Lidoderm Patch) 1 ea N/A DAILY@2100 [facility] Stop: 09/23/19 20:59 Last Admin: 08/30/19 20:44 Dose: 1 ea Documented by: Miscellaneous Information (Consult Glycemic Management Pharmacy) 1 ea N/A UD [facility] Stop: 09/23/19 08:25 Nicotine (Nicoderm Cq) 21 mg TD QAM [facility] Stop: 09/23/19 08:59 Last Admin: 08/31/19 08:30 Dose: Not Given Documented by: Nicotine Polacrilex (Nicorette 2mg) 1 piece MT Q1H PRN PRN Reason: smoking urge Stop: 09/25/19 20:34 Oxycodone/Acetaminophen (Percocet 5mg/325mg) 1 tab PO Q4H PRN PRN Reason: Pain Stop: 09/02/19 10:15 Last Admin: 08/30/19 18:45 Dose: 1 tab Documented by: Saccharomyces Boulardii (Florastor) 250 mg PO DAILY [facility] Stop: 09/27/19 14:44 Last Admin: 08/31/19 08:28 Dose: 250 mg Documented by: Spironolactone (Aldactone) 25 mg PO DAILY [facility] Stop: 09/21/19 08:59 Last Admin: 08/31/19 08:31 Dose: 25 mg Documented by: (1) Congestive heart failure Heart failure type: unspecified Heart failure chronicity: acute on chronic Qualified Code(s): I50.9 - Heart failure, unspecified (2) Cellulitis of leg Laterality: left Qualified Code(s): L03.116 - Cellulitis of left lower limb (3) COPD (chronic obstructive pulmonary disease) COPD type: unspecified COPD Qualified Code(s): J44.9 - Chronic obstructive pulmonary disease, unspecified (4) Type 2 diabetes mellitus Diabetes mellitus custodial insulin use: without superintendent [employer] use Diabetes mellitus complication status: with kidney complications Diabetes mellitus complication detail: with chronic kidney disease Chronic kidney disease stage: stage 3 (moderate) Qualified Code(s): 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 mellitus with diabetic chronic kidney disease; N18.3 - Chronic kidney disease, stage 3 (moderate)
[2019-08-31] MEDS ORDERED: INSULIN GLARGINE SOLOSTAR 100 UNITS/ML 3 ML PEN SC SCH (16:30)
[2019-08-31] MEDS ORDERED: IPRATROPIUM BROMIDE/ALBUTEROL respimat INH INH SCH (17:00)
--- NOTE | 2019-09-01 08:02 | Discharge Summary ---
Date of Service September 01, 2019 Admission HPI Per Admitting Provider This is a 74 y/o male with a complicated PMH including CAD w/ hx MA, hx PAF, DM2, CKD3, chronic neck pain, JOSE on CPAP (or BiPAP - pt unclear), and non- compliance who was brought to the ED today via EMS after apparently falling at home and family unable to get him up. History from the patient was difficult to obtain as he frequently refused to answer questions or changed his answers depending on when and who asked him the question. The chart was extensively reviewed and the patient was discussed with the resident and the ED nurse for additional history. Apparently, the patient fell at home, likely earlier this morning, and his family was unable to get him up so they called EMS. According to the EMS report, pt was unhappy about coming to the ED but did finally agree after discussing with the medic. In the ED, pt's main complaint has been generalized pain, leg cramps, and malaise. He has been non-compliant and frequently attempting to get out of bed without assistance, removing his oxygen canula, and yelling at the nurses. When I asked pt why he was here, he asked where here was and then stated that his family wanted to get rid of him, so they called EMS. He refused to give me any contact information for his family. His PCP is Dr. Atkinson but the pt tells me that he is only willing to see Dr. Briceño with [facility] surgery and she is the "only one who listens" to him. Pt was previously followed by cardiology but has not been seen in the office since 2016 due to multiple cancellations and no-shows. He is unclear on his current medications although can confirm that he is taking the furosemide twice a day and does not think that the Combivent is helping his neck pain, which is his main concern over the past few weeks. He states that he has also tried oxycodone for the next pain but doesn't think that helps either. He is also concerned about leg cramps "since childhood" but more frequent recently so he has been drinking a glass of pickle juice whenever he has these cramps, which helps. He notes chronic issues with LE edema, worse at the end of the day, but is unclear if that has been worse recently. He is unsure how long that he has had redness on his legs. Admission Exam Per Admitting Provider Constitutional: WD/WN, vitals as above + obese; no acute distress Irritable, attempting to get out of bed, difficult to redirect at times, other times appears drowsy Eyes: + anicteric sclerae; no conjunctival abnormality ENMT: external ear and nose normal, oropharynx normal Neck: trachea midline Respiratory: no respiratory distress, no labored breathing and no retractions Auscultation: + crackles (at bilateral bases); no rhonchi and no wheezes Cardiovascular: Rate/Rhythm: + tachycardic and + irregularly irregular Extremities: normal capillary refill and + edema (trace to 1+ bilateral LE edema) Gastrointestinal (Abdomen): Inspection/Auscultation: normal bowel sounds Percussion/Palpation: abdomen soft; abdomen nontender Musculoskeletal: Head/Neck/Chest: neck supple Extremities: no cyanosis and no clubbing Skin: no jaundice Bilateral LE with patchy erythema superimposed on chronic-appearing skin changes - left > right. Mild warmth on left. No drainage or large open wounds. Some peeling skin on left. 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, JOSE on CPAP, type 2 diabetes, COPD and CKD Discharge Exam Constitutional + ill appearing and + morbidly obese; no acute distress (Due to pain) Eyes PERRL, conjunctivae normal, anicteric sclerae ENMT external ear and nose normal, oropharynx normal Respiratory normal respiratory effort; no respiratory distress Auscultation: + diminished lung sounds and + crackles (Bibasilar crackles); no wheezes Cardiovascular Rate/Rhythm: regular rate and regular rhythm Heart Sounds: no murmur Extremities: + edema (1+ bilateral) Chest (Breasts) Chest: + mass (Left lateral chest wall near to axilla) Gastrointestinal (Abdomen) Inspection/Auscultation: + abdomen distended and normal bowel sounds Percussion/Palpation: abdomen soft; abdomen nontender Neurologic moves all extremities; no focal motor deficits Lymphatic + lymphadenopathy (Left supraclavicular) Discharge Data Allergies Allergy/AdvReac Type Severity Reaction Status Date / Time Iodinated Contrast Media Allergy Unknown . Verified 08/18/19 09:14 lisinopril AdvReac Severe Anaphylaxis Unverified 08/18/19 09:14 tetanus toxoid, adsorbed AdvReac Intermediate Arm Unverified 08/18/19 09:14 Swelling codeine AdvReac Mild NAUSEA Verified 08/18/19 09:14 morphine AdvReac Mild itching, Unverified 08/18/19 09:14 nausea/vomiting atorvastatin AdvReac Unknown myalgia Unverified 08/18/19 09:14 doxycycline AdvReac Unknown Unknown Unverified 08/18/19 09:14 Consultations 08/18/19 10:00 ED Decision to Admit Stat 08/18/19 11:06 Consult Cardiology Routine 08/25/19 08:57 Consult Pain Management Routine Ordered Studies 08/18/19 08:30 CT head/brain wo con Stat 08/19/19 12:15 CT chest wo con Routine CT soft tissue neck wo con Routine 08/22/19 09:00 US FNA w/img 1st lesion Routine 08/30/19 16:37 MR brain wo con Routine Hospital Course (1) Congestive heart failure: Suspect related to non-compliance and dietary indiscretion although history from pt is limited. Last ECHO appears to have been in 2016 and shower LVEF 55-59%, moderate concentric LVH, dilated IVC, elevated RA pressure Acute decompensated congestive heart failure Diuresed initially with IV Lasix Current ECHO showed LV systolic function is mildly reduced to 45 to 50% of EF, mild global hypokinesis of the left ventricle, left atrium moderately dilated, aortic valve sclerosis without significant stenosis, trace AR, mild MR and mild TR estimated systolic pulmonary artery pressure 45 mmHg and dilated IVC with normal inspiratory variation suggesting a right atrial pressure of 8 mmHg Consult cardiology-appreciate input and recommendation Denies any significant shortness of breath at rest Clinically much better today Oral Lasix will be given on discharge Will need to have creatinine monitored as an outpatient Essential (primary) hypertension Blood pressure seems to be controlled with current medication better Down the line hydralazine/nitrates can be used Blood pressure seems to be controlled (2) Atrial fibrillation with rapid ventricular response: Given metoprolol 5 mg IV x 1 dose in ED - rate appears more stable around 90-110 Toprol-XL 100 mg daily has been changed to metoprolol tartrate 50 mg 3 times daily Eliquis 5 mg twice daily has been started Metoprolol succinate has been increased to 100 mg twice daily Heart rate remains controlled (3) Cellulitis of leg: CRP elevated at 3.64. WBCs not elevated and pt afebrile on admission. Unclear how acute LE skin changes are but with elevated CRP and physical exam,started antibiotics. - initially empiric IV Vanco and Ceftriaxone - blood cultures-negative -There is no definite cellulitis of the leg and the erythema has improved -changed antibiotic to intravenous Unasyn to cover possible axillary abscess/erysipelas involving the lower extremity by previous hospitalist Leukocytosis -Now however WBC persistently elevated, repeated chest x-ray -negative, Miller removed, UA negative, blood culture - negative, broadened antibiotic coverage -This may be secondary to known extensive necrosis of left axillary mass, which by pathology shows metastatic squamous cell cancer -Contacted oncologic surgery in [place], due to persistent leukocytosis, advised to follow-up as outpatient as planned, and discharged on p.o. antibiotics, currently he is scheduled with surgical oncology in [place] on September 08 Left axillary area cellulitis Skin redness and tenderness - improved Lymphadenopathy without any abscess Antibiotics have been changed to intravenous Unasyn by previous hospitalist, however now WBC count is elevated, see above lOral Augmentin and doxycycline on discharge (4) Neck mass: Had a lesion removed from left upper back in late 2019 - biopsy confirmed squamous cell CA (prior hx of same in 2018 on chest and left elbow). Reports two new lesions on neck for which he was trying to get back in with [facility] surgery to see - seem to be causing increasing neck pain. He reports oxycodone has not been helpful and causes GI distress. - Tylenol for pain with Tramadol for breakthrough -Would have metastatic disease -Started oral Percocet and obtained CT of the neck and chest without contrast to evaluate the mass -CT of the neck:5 cm left supraclavicular mass/pathologic node suspicious for neoplasm. This lesion would be amenable to ultrasound-guided fine-needle aspiration biopsy. - CT chest did show: 10 cm left axillary mass/adenopathy. 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 Moffett discussed with plastic surgeon and pt will need to have an appointment with oncolog. surgeon on discharge, currently he is scheduled with oncologic surgery in [place] on September 08 (referral made by patient's jacker, Dr. Tiffani Briceño who performed prior [facility] surgeries) -Continued to have pain at neck and left axilla, gets somewhat confused with pain medications, consulted with pain management -Lidocaine patch added, cont. percocet as needed -Pain management does not recommend any changes to his current treatment (5) COPD (chronic obstructive pulmonary disease): Does not complain of SOB at present and lungs without wheezing - suspect hypoxia on presentation more related to CHF than COPD - Continue home inhalers with prn nebs - No signs of exacerbation (6) JOSE on CPAP: Pt unclear if he uses CPAP (which he tells me) or BiPAP (which he told the ED staff) but does know that he uses oxygen with his machine while he sleeps -CPAP per protocol while admitted (7) CKD (chronic kidney disease) stage 3, GFR 30-59 ml/min: Labs from Feb 2019 - BUN 22, Creatinine 1.3. Stable labs in the ED - Monitor labs with diuresis -Creatinine is little bit improved today -We will discharge home either this afternoon or tomorrow (8) Type 2 diabetes mellitus: Uncontrolled Last A1c in Feb 2019 = 9.3. It is unclear if patient is taking oral hypogyl cemics as prescribed - HOLD home oral meds - Insulin sliding scale - adjust pending response - BSG ACHS - Diabetic diet - Current A1c 12.1% - diabetic education and pharm. glycemic control ordered - pt will benefit from starting insulin on discharge (pt is new to insulin) Disposition PT and OT evaluation - recommend rehab but pt hesitant about rehab, discussed w/ caregiver Dalia who also agrees that pt would benefit from rehab after d/c Possible discharge in a day or 2 Discussed with the daughter in detail and answered all of her questions. I discussed with Dalia (caregiver) and answered all her questions. I also discussed (08/26) with [id number] Veda, answered all her questions to her satisfaction. 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 Tea MD Department [facility] ) Diet: Carb Consistent or DM2 and Heart Healthy Addtl Attending Provider Instructions: Please take precaution to avoid fall Please keep your appointments as a scheduled Use your CPAP as advised Pending Studies at Discharge: No Stand-Alone Forms: My Osmopure, Smoking Cessation Medications and DC Order Prescriptions: New doxycycline hyclate 100 mg Capsule 100 mg PO BID 10 Days Qty: 20 RF: 0 metoprolol succinate 50 mg Tablet Extended Release 24 Hr 100 mg PO BID 30 Days Qty: 120 RF: 0 spironolactone 25 mg Tablet 25 mg PO DAILY 30 Days Qty: 30 RF: 0 oxycodone-acetaminophen [Percocet] 5-325 mg Tablet 1 tab PO Q4H PRN (Reason: pain) 5 Days Qty: 15 RF: 0 nicotine [Nicoderm CQ] 21 mg/24 hr Patch 24 Hour 21 mg transdermal QAM 30 Days Qty: 30 RF: 0 amoxicillin-pot clavulanate [Augmentin] 875-125 mg Tablet 1 tab PO BIDM 10 Days Qty: 20 RF: 0 Eliquis 5 mg Tablet 5 mg PO BID 30 Days Qty: 60 RF: 0 Combivent Respimat 20-100 mcg/actuation Mist 1 puff inhalation QID 30 Days Qty: 1 RF: 0 insulin aspart U-100 [Novolog Flexpen U-100 Insulin] 100 unit/mL (3 mL) Insulin Pen 10 unit SC DAILY 30 Days Qty: 1 RF: 0 Lantus Solostar U-100 Insulin 100 unit/mL (3 mL) Insulin Pen 44 unit SC QDD 30 Days Qty: 1 RF: 0 lidocaine 5 % Adhesive Patch,Medicated 1 patch transdermal QAM 30 Days Qty: 30 RF: 0 furosemide 80 mg tablet 80 mg PO BID Qty: 60 RF: 0 Saccharomyces boulardii [Florastor] 250 mg Capsule 250 mg PO DAILY 30 Days Qty: 30 RF: 0 Continued ipratropium-albuterol 0.5 mg-3 mg(2.5 mg base)/3 mL solution for nebulization 3 ml INHALATION Q6H PRN (Reason: cough/shortness of breath ) RF: 0 clopidogrel 75 mg tablet 75 mg PO DAILY RF: 0 fexofenadine 180 mg Tablet 180 mg PO DAILY PRN (Reason: Allergy Symptoms) RF: 0 potassium chloride 20 mEq tablet,ER particles/crystals 20 meq PO DAILY RF: 0 nitroglycerin 0.4 mg tablet, sublingual 0.4 mg sublingual UD RF: 0 omeprazole 20 mg capsule,delayed release(DR/EC) 20 mg PO BID RF: 0 camphor-menthol 0.5-0.5 % Lotion 1 applic TOPICAL DAILY PRN (Reason: Itching) RF: 0 epinephrine [EpiPen] 0.3 mg/0.3 mL Auto-Injector 0.3 mg IM Q3H PRN (Reason: Anaphylaxis) RF: 0 zolpidem 10 mg Tablet 1 mg PO HS RF: 0 albuterol sulfate 90 mcg/actuation HFA aerosol inhaler 2 puff INHALATION Q6H PRN (Reason: Shortness Of Breath) RF: 0 budesonide-formoterol [Symbicort] 160-4.5 mcg/actuation HFA aerosol inhaler 2 puff INHALATION BID RF: 0 melatonin 10 mg Capsule 10 mg PO HS RF: 0 Discontinued furosemide 40 mg tablet 80 mg PO DAILY RF: 0 glipizide 10 mg tablet 20 mg PO BID RF: 0 metoprolol succinate 100 mg tablet extended release 24 hr 100 mg PO DAILY RF: 0 oxycodone 15 mg tablet 15 mg PO Q6H PRN (Reason: Pain) RF: 0 metformin 1,000 mg tablet 1,000 mg PO BID RF: 0 allopurinol 300 mg tablet 300 mg PO DAILY RF: 0 pioglitazone 30 mg tablet 30 mg PO DAILY RF: 0 Spiriva Respimat 2.5 mcg/actuation mist 2 puff INHALATION DAILY RF: 0 Jardiance 10 mg tablet 10 mg PO DAILY RF: 0 Discharge Orders: Discharge Order (Routine); Ordered 08/31/19 Ordered By: Mariangel Holguin/Other Patient Handouts: Hypoglycemia (Low Blood Sugar), Managing Type 2 Diabetes, Diabetes: Meal Planning, Insulin Glargine injection Admission Data Admit Date/Time: 08/18/19 10:06 Attending Provider: Mariangel Moffett Admit Provider: Mariangel Moffett Primary Care Provider: Guy Atkinson Other Providers: Jet Dawn ; [facility] ; [place] ; Mariangel Moffett ; Rashid Louis ; Sabine Baldwin ; Herrera Carrera Other Interventions: Discharge Summary Assessment (RN) Last Done: 08/31/19 16:27 DC Date/Time DO NOT enter until pt leaves facility: 08/31/19 18:14
== END 2019-08-31 18:14 | disposition home health service (06) | DRG 291 ==
LOC: ED 08:04 → 2E 10:06 → SUATTDRO 10:06 → 2E 10:47 → 2W 08-26 15:40

== ENCOUNTER 2019-09-29 11:31 | Inpatient (IN) ==
[2019-09-29] MEDS ORDERED: cloNIDine HCL 0.3 MG/24 HR TRANSDERM SYS TD STA (11:59)
[2019-09-29] MEDS ORDERED: MULTI-VITAMIN INFUSION 10 ML, THIAMINE HCL 100 MG, FOLIC ACID 1 MG in SODIUM CHLORIDE 0... IV ONE (11:59)
[2019-09-29 12:35] LABS: Basophils # (auto) 0.06 K/uL (0-0.2); Basophils % (auto) 0.4 %; Eosinophils # (auto) 0.35 K/uL (0-0.5); Eosinophils % (auto) 2.4 %; Hematocrit (blood only) 41.3 % (42-52); Hemoglobin 13.8 g/dL (14.0-18.0); Immature Granulocytes # (auto) 0.05 K/uL (0.00-0.02); Immature Granulocytes % (auto) 0.3 %; Lymphocytes # (auto) 1.56 K/uL (1.2-3.4); Lymphocytes % (auto) 10.6 %; Mean Corpuscular Hemoglobin 32.5 pg (25-34); Mean Corpuscular Hgb Conc 33.4 g/dL (32-36); Mean Corpuscular Volume 97.4 fL (80-100); Mean Platelet Volume 9.5 fL (7.4-10.4); Monocytes # (auto) 1.38 K/uL (0.11-0.59); Monocytes % (auto) 9.4 %; Neutrophils # (auto) 11.34 K/uL (1.4-6.5); Neutrophils % (auto) 76.9 %; Platelet Count 367 K/uL (130-400); RDW Coefficient of Variation 13.8 % (11.5-14.5); RDW Standard Deviation 49.2 fL (36.4-46.3); Red Blood Count 4.24 M/uL (4.7-6.1); White Blood Count 14.74 K/uL (4.8-10.8)
--- NOTE | 2019-09-29 12:48 | CT Scan Report ---
CT head/brain wo con CLINICAL HISTORY: Acute change in mental status COMPARISON STUDY: 09/17/2019 TECHNIQUE: Axial CT of the brain is performed from the vertex to the skull base. IV contrast was not administered for this examination. A dose lowering technique was utilized adhering to the principles of ALARA. CT DOSE: 687.98 mGy.cm FINDINGS: No intra or extra-axial mass lesions are visualized. There is no CT evidence of acute cortical infarc tion. There is no evidence of midline shift. There is no acute hemorrhage. No calvarial fractures ar e visualized. There are patchy white matter hypodensities likely on a small vessel basis. There is no evidence of pathologic ventricular dilatation. There is no evidence of acute sinusitis. There is residual left parietal scalp edema in the region of the prior scalp contusion. IMPRESSION: No acute intracranial findings ACT 112: Negative or not required by law. Electronically signed by: Michel Mejia M.D. 09/29/2019 12:46 PM
[2019-09-29 12:55] LABS: Alanine Aminotransferase 30 U/L (12-78); Albumin Level 2.8 gm/dl (3.4-5.0); Aspartate Aminotransferase 19 U/L (15-37); BUN Creatinine Ratio 26.5 (10-20); Blood Urea Nitrogen 37 mg/dl (7-18); Calcium 10.6 mg/dl (8.5-10.1); Carbon Dioxide 33 mmol/L (21-32); Chloride 95 mmol/L (98-107); Creatinine Clr Calc Pharmacy 60.7 ml/min; Est GFR (African American) 56.9; Est GFR (Non-African American) 49.1; Glucose 126 mg/dl (70-99); Potassium 3.6 mmol/L (3.5-5.1); Sodium 134 mmol/L (136-145)
--- NOTE | 2019-09-29 13:04 | XRay Report ---
XR chest 1V portable HISTORY: 74 years-old Male weakness acute weakness COMPARISON: Chest radiograph 09/17/2019 TECHNIQUE: Portable AP view of the chest FINDINGS: Cardiac silhouette is enlarged, unchanged. No pneumothorax, large pleural effusion or overt pulmonary edema. Mild pulmonary vascular congestion. Linear subsegmental left lung base atelectasis/scarring. Degenerative changes of the shoulders and spine. IMPRESSION: Cardiomegaly with pulmonary vascular congestion. ACT 112: Negative or not required by law. The above report was generated using voice recognition software. It may contain grammatical, syntax o r spelling errors. Electronically signed by: Michael Decker M.D. 09/29/2019 1:03 PM
[2019-09-29 13:05] LABS: Albumin Globulin Ratio 0.5 (0.9-2); Alkaline Phosphatase 193 U/L (45-117); Bilirubin,Total 0.9 mg/dl (0.2-1); Creatine Kinase 35 U/L (39-308); Creatine Kinase MB 1.7 ng/ml (0.5-3.6); Globulin 5.6 gm/dl (2.5-4.0); Total Protein 8.4 gm/dl (6.4-8.2); Troponin I < 0.015 ng/ml (0-0.045)
[2019-09-29] MEDS ORDERED: DAPTOMYCIN CONSULT ACTIVE PRN ×3 (13:16→16:17)
[2019-09-29] MEDS ORDERED: DAPTOmycin 550 MG in SYRINGE 0 ML IV ONE (13:16)
[2019-09-29] MEDS ORDERED: cefTRIAXone SODIUM 2,000 MG/70 ML BAG IV STA (13:16)
[2019-09-29] MEDS ORDERED: ENOXAPARIN INJ 40 MG/0.4 ML SYR SQ SCH (14:30)
--- NOTE | 2019-09-29 14:34 | History & Physical Report ---
Date of Service September 29, 2019 Assessment & Plan (1) Altered mental status: Reportedly patient was having a "bad day" per his friend/caregiver today Currently he is in the ED and is able to answer most questions appropriately, he knows the year, his name and he also states that he is at [facility] He does remember that he got a call about the PET scan scheduling Sometimes patient answers slow and it is not clear what he says however will need to check what his baseline is CT head negative Urine tox pending May be secondary to cellulitis which we will be treating Will admit for observation (2) Cellulitis: Noted erythematous and tender skin at left armpit area, this is also the area where patient has metastatic squamous cell carcinoma In ED patient was given ceftriaxone and daptomycin, will continue antibiotic coverage for now (3) Metastatic squamous cell carcinoma: Patient is to be evaluated further as outpatient, PET scan was recently arranged and scheduled for the patient (4) JOSE on CPAP: CPAP at night Hx of COPD -Does not seem to be in acute exacerbation, continue home inhalers -No wheezing on physical exam, however will be monitoring closely (5) CKD (chronic kidney disease) stage 3, GFR 30-59 ml/min: -Continue to monitor renal function -Try to avoid nephrotoxic agents (6) Type 2 diabetes mellitus: A1c in August above 12% During last admission patient was started on insulin Glycemic control by pharmacist appreciated (7) Atrial fibrillation: Continue Eliquis and metoprolol (8) Congestive heart failure: -Continue Toprol, furosemide, spironolactone -At this point does not seem to be in acute exacerbation, chest x-ray did show mild pulmonary vascular congestion, this seems to be chronic -We will obtain proBNP -weight seems to be unchanged, 120.6 kg in ED -We will continue to monitor weight, I's and O's, patient will be placed on low- sodium diet and fluid restricted diet Code: Full DVT ppx: on Eliquis Dispo: admit to tele/ observation, consult case management History of Present Illness Chief Complaint: Altered mental status Primary Care Provider: Guy Atkinson MD 74-year-old male with PMH DM type II, CKD stage III, COPD, JOES, paroxysmal atrial fibrillation, chronic diastolic and systolic CHF, CAD, recently diagnosed squamous cell carcinoma who presented to the ED after his friend/caregiver called in and said that patient was having a" bad day". She said that yesterday patient was doing quite well, but today when the physical therapist came patient seemed to be confused. He did agree to come in with EMS and he was already feeling better. In the emergency room he was answering most questions appropriately. CT head was negative. White blood cell count slightly elevated however this has been chronic for the patient. In the emergency room however it was noticed that his left armpit showed cellulitis, this is also the place that patient has squamous cell metastatic cancer. Urine toxicology was obtained in the ED however results are pending. In ED received daptomycin and ceftriaxone. Patient tells me that he was having trouble in the morning getting out of bed, as he was hooked up to his CPAP. He also remembers that he was called about u pcoming PET scan. He can tell me his name and the year, and tells me that he is at [facility]. During last admission, patient was also treated for CHF exacerbation, currently his weight seems to be unchanged at 120.6 kg. Chest x-ray shows mild pulmonary vascular congestion, that does not seem to be changed from previous though. Allergies Allergy/AdvReac Type Severity Reaction Status Date / Time Iodinated Contrast Media Allergy Unknown . Verified 09/29/19 12:55 lisinopril AdvReac Severe Anaphylaxis Unverified 09/29/19 12:55 tetanus toxoid, adsorbed AdvReac Intermediate Arm Unverified 09/29/19 12:55 Swelling codeine AdvReac Mild NAUSEA Verified 09/29/19 12:55 morphine AdvReac Mild itching, Unverified 09/29/19 12:55 nausea/vomiting atorvastatin AdvReac Unknown myalgia Unverified 09/29/19 12:55 doxycycline AdvReac Unknown Unknown Unverified 09/29/19 12:55 Home Medications Home Medications Medication Instructions Recorded Confirmed Type albuterol sulfate 2 puff INHALATION Q6H PRN 08/18/19 09/29/19 History budesonide-formoterol [Symbicort] 2 puff INHALATION BID 08/18/19 09/29/19 History camphor-menthol 1 applic TOPICAL DAILY PRN 08/18/19 09/29/19 History clopidogrel 75 mg PO DAILY 08/18/19 09/29/19 History epinephrine [EpiPen] 0.3 mg IM Q3H PRN 08/18/19 09/29/19 History fexofenadine 180 mg PO DAILY PRN 08/18/19 09/29/19 History ipratropium-albuterol 3 ml INHALATION Q6H PRN 08/18/19 09/29/19 History melatonin 10 mg PO HS 08/18/19 09/29/19 History nitroglycerin 0.4 mg SUBLINGUAL UD 08/18/19 09/29/19 History omeprazole 20 mg PO BID 08/18/19 09/29/19 History zolpidem 10 mg PO HS 08/18/19 09/29/19 History apixaban [Eliquis] 5 mg PO BID 30 Days #60 tab 08/31/19 09/29/19 Rx furosemide 80 mg PO BID #60 tab 08/31/19 09/29/19 Rx ipratropium-albuterol [Combivent 1 puff INHALATION QID 30 Days #1 08/31/19 09/29/19 Rx Respimat] device metoprolol succinate 100 mg PO BID 30 Days #120 tab 08/31/19 09/29/19 Rx spironolactone 25 mg PO DAILY 30 Days #30 tab 08/31/19 09/29/19 Rx insulin aspart U-100 [Novolog 10 unit SC DAILYBB 09/17/19 09/29/19 History Flexpen U-100 Insulin] insulin glargine [Lantus Solostar 47 unit SC HS 09/17/19 09/29/19 History U-100 Insulin] lactulose 5 ml PO DAILY 09/17/19 09/29/19 History lidocaine 1 patch TRANSDERMAL HS 09/17/19 09/29/19 History morphine 15 mg PO BID 09/17/19 09/29/19 History oxycodone 15 mg PO Q6H PRN 09/17/19 09/29/19 History polyethylene glycol 3350 [Miralax] 17 g PO DAILY PRN 09/17/19 09/29/19 History Past Med/Surg History Medical History (Updated 09/29/19 @ 15:30 by Herrera Carrera MD) Atrial fibrillation CAD (coronary artery disease) CKD (chronic kidney disease) stage 3, GFR 30-59 ml/min COPD (chronic obstructive pulmonary disease) Gout History of IL (myocardial infarction) Metastatic squamous cell carcinoma JOSE on CPAP Osteoarthritis Paroxysmal atrial fibrillation Recurrent major depression Type 2 diabetes mellitus Surgical History History of cardiac cath 2003, 2008, 2012, 2016 History of cataract surgery History of cholecystectomy History of coronary angioplasty with insertion of stent 10/11/15 - distal LAD stent placed at [facility] History of repair of rotator cuff Family History Father , age 62 Heart disease Mother , age 70 Stroke Social History Smoking Status: Former smoker Hx Alcohol Use: No Hx Substance Use: No Preferred Language: Romanian Communication Ability: Effective Beliefs That Will Affect Care: None marital status: Current Living Situation: Alone Feels Safe at Home: Yes Review of Systems Review of Systems: All systems reviewed & are unremarkable except as noted in HPI & below However patient does not answer all questions appropriately Constitutional: no fever and no chills Respiratory: no cough and no dyspnea Cardiovascular: no chest pain and no palpitations Gastrointestinal: no abdominal pain, no nausea and no vomiting Genitourinary: no dysuria Musculoskeletal: no problem reported Integumentary: Left armpit pain Neurologic: + confusion (Per caregiver) Psychiatric: no hallucinations Endocrine: no problem reported Hematologic / Lymphatic: Lymphadenopathy at his left armpit and left neck Allergy / Immunological: no dyspnea and no rash Physical Exam Physical Exam: Elderly male sitting up in bed, in no acute distress Constitutional: WD/WN, vitals as above + obese Eyes: PERRL, conjunctivae normal, anicteric sclerae EOM intact bilaterally ENMT: external ear and nose normal, oropharynx normal Neck: trachea midline, no thyromegaly There is a small known mass at left neck Respiratory: normal respiratory effort, lungs clear to auscultation no respiratory distress Auscultation: + diminished lung sounds; no crackles, no rhonchi and no wheezes Cardiovascular: Extremities: no edema Irregularly irregular Chest (Breasts): Chest: normal inspection of chest Additional Comments: Left axilla however shows erythema, tenderness to palpation, underlying mass noted Gastrointestinal (Abdomen): Inspection/Auscultation: abdomen normal to inspection, + abdomen distended (mildly) and normal bowel sounds Percussion/Palpation: abdomen soft; no guarding and abdomen not rigid Obese Musculoskeletal: no cyanosis or clubbing, extremities motor strength 5/5 Head/Neck/Chest: normocephalic and head atraumatic Extremities: extremities normal to inspection There is mild erythema on the posterior right calf seems to be secondary to venous stasis, does not seem to be tender to palpation Skin: no rashes, warm and dry Neurologic: PERRL, EOMI, accommodation nl, no face palsy, no dysarthria moves all extremities; no focal motor deficits Occasionally patient speech is little slow Psychiatric: Affect: euthymic affect Currently he is alert and oriented and mostly answering questions appropriately Genitourinary: no CVA tenderness Lymphatic: + lymphadenopathy (left neck mass, left axilla mass) Results & Data Results & Data ([facility]) Vital Signs (Past 12 Hours) Vital Signs Temp Pulse Resp BP Pulse Ox 09/29/19 13:10 85 17 09/29/19 13:01 87 16 09/29/19 13:00 91 H 17 127/100 09/29/19 12:50 95 H 15 96 09/29/19 12:47 99 H 18 09/29/19 12:30 102 H 18 09/29/19 12:29 84 19 145/81 H 09/29/19 12:20 97 H 27 H 09/29/19 12:18 98 09/29/19 12:11 106 H 13 09/29/19 12:00 96 H 17 09/29/19 11:50 96 H 09/29/19 11:43 36.9 C 100 H 20 123/60 93 09/29/19 11:39 90 18 123/60 Laboratory Results 09/29/19 09/29/19 09/29/19 Range/Units 14:45 12:19 12:19 WBC (4.8-10.8) K/uL RBC (4.7-6.1) M/uL Hgb (14.0-18.0) g/dL Hct (42-52) % MCV (80-100) fL MCH (25-34) pg MCHC (32-36) g/dL RDW Std Deviation (36.4-46.3) fL RDW Coeff of [place] (11.5-14.5) % Plt Count (130-400) K/uL MPV (7.4-10.4) fL Immature Gran % (Auto) % Neut % (Auto) % Lymph % (Auto) % [place] % (Auto) % Eos % (Auto) % Baso % (Auto) % Neut # (Auto) (1.4-6.5) K/uL Lymph # (Auto) (1.2-3.4) K/uL [place] # (Auto) (0.11-0.59) K/uL Eos # (Auto) (0-0.5) K/uL Baso # (Auto) (0-0.2) K/uL Immature Gran # (Auto) (0.00-0.02) K/uL Sodium 134 L (136-145) mmol/L Potassium 3.6 (3.5-5.1) mmol/L Chloride 95 L (98-107) mmol/L Carbon Dioxide 33 H (21-32) mmol/L Anion Gap 7.0 (3-11) BUN 37 H (7-18) mg/dl Creatinine 1.41 H (0.6-1.4) mg/dl Est Cr Clr Drug Dosing 60.7 ml/min Est GFR ( Amer) 56.9 Est GFR (Non-Af Amer) 49.1 BUN/Creatinine Ratio 26.5 H (10-20) Glucose 126 H (70-99) mg/dl Calcium 10.6 H (8.5-10.1) mg/dl Total Bilirubin 0.9 (0.2-1) mg/dl AST 19 (15-37) U/L ALT 30 (12-78) U/L Alkaline Phosphatase 193 H (45-117) U/L Total Creatine Kinase 35 L (39-308) U/L CK-MB (CK-2) 1.7 (0.5-3.6) ng/ml CK/CKMB % Calc 4.9 H (0-3.0) Troponin I < 0.015 (0-0.045) ng/ml Total Protein 8.4 H (6.4-8.2) gm/dl Albumin 2.8 L (3.4-5.0) gm/dl Globulin 5.6 H (2.5-4.0) gm/dl Albumin/Globulin Ratio 0.5 L (0.9-2) TSH 1.990 (0.300-4.500) uIu/ml Urine Color Pending Urine Appearance Pending Urine pH Pending Ur Specific [place] Pending Urine Protein Pending Urine Glucose (UA) Pending Urine Ketones Pending Urine Blood Pending Urine Nitrite Pending Urine Bilirubin Pending Urine Urobilinogen Pending Ur Leukocyte Esterase Pending Ethyl Alcohol mg/dL < 3.0 (0-3) mg/dl 09/29/19 Range/Units 12:19 WBC 14.74 H (4.8-10.8) K/uL RBC 4.24 L (4.7-6.1) M/uL Hgb 13.8 L (14.0-18.0) g/dL Hct 41.3 L (42-52) % MCV 97.4 (80-100) fL MCH 32.5 (25-34) pg MCHC 33.4 (32-36) g/dL RDW Std Deviation 49.2 H (36.4-46.3) fL RDW Coeff of [place] 13.8 (11.5-14.5) % Plt Count 367 (130-400) K/uL MPV 9.5 (7.4-10.4) fL Immature Gran % (Auto) 0.3 % Neut % (Auto) 76.9 % Lymph % (Auto) 10.6 % [place] % (Auto) 9.4 % Eos % (Auto) 2.4 % Baso % (Auto) 0.4 % Neut # (Auto) 11.34 H (1.4-6.5) K/uL Lymph # (Auto) 1.56 (1.2-3.4) K/uL [place] # (Auto) 1.38 H (0.11-0.59) K/uL Eos # (Auto) 0.35 (0-0.5) K/uL Baso # (Auto) 0.06 (0-0.2) K/uL Immature Gran # (Auto) 0.05 H (0.00-0.02) K/uL Sodium (136-145) mmol/L Potassium (3.5-5.1) mmol/L Chloride (98-107) mmol/L Carbon Dioxide (21-32) mmol/L Anion Gap (3-11) BUN (7-18) mg/dl Creatinine (0.6-1.4) mg/dl Est Cr Clr Drug Dosing ml/min Est GFR ( Amer) Est GFR (Non-Af Amer) BUN/Creatinine Ratio (10-20) Glucose (70-99) mg/dl Calcium (8.5-10.1) mg/dl Total Bilirubin (0.2-1) mg/dl AST (15-37) U/L ALT (12-78) U/L Alkaline Phosphatase (45-117) U/L Total Creatine Kinase (39-308) U/L CK-MB (CK-2) (0.5-3.6) ng/ml CK/CKMB % Calc (0-3.0) Troponin I (0-0.045) ng/ml Total Protein (6.4-8.2) gm/dl Albumin (3.4-5.0) gm/dl Globulin (2.5-4.0) gm/dl Albumin/Globulin Ratio (0.9-2) TSH (0.300-4.500) uIu/ml Urine Color Urine Appearance Urine pH Ur Specific [place] Urine Protein Urine Glucose (UA) Urine Ketones Urine Blood Urine Nitrite Urine Bilirubin Urine Urobilinogen Ur Leukocyte Esterase Ethyl Alcohol mg/dL (0-3) mg/dl Diagnostic Findings Head CT 09/29/19 IMPRESSION: No acute intracranial findings Medications Administered CXR 09/29/19 IMPRESSION: Cardiomegaly with pulmonary vascular congestion. Code Status & VTE Plan VTE Prophylaxis Plan VTE Prophylaxis will be ordered: Yes (1) Type 2 diabetes mellitus Chronic kidney disease stage: stage 3 (moderate) Diabetes mellitus complication detail: with chronic kidney disease Diabetes mellitus complication status: with kidney complications Diabetes mellitus technician terminal and repeater insulin use: without intermediate use Qualified Code(s): 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 mellitus with diabetic chronic kidney disease; N18.3 - Chronic kidney disease, stage 3 (moderate) (2) Congestive heart failure Heart failure chronicity: acute on chronic Heart failure type: unspecified Qualified Code(s): I50.9 - Heart failure, unspecified
[2019-09-29 15:07] LABS: Appearance Urine Clear (Clear); Bacteria Urine Automated Negative (Negative); Bilirubin Urine Negative (Negative); Blood Urine 1+ (Negative); Color Urine Yellow; Epithelial Cell Urine Auto >30 /lpf (0-5); Glucose Urine UA Negative (Negative); Ketones Urine Negative (Negative); Leukocyte Esterase Urine Trace (Negative); Nitrite Urine Negative (Negative); Protein Urine Negative (Negative); RBC Urine Automated 0-4 /hpf (0-4); Specific Gravity Urine 1.011 (1.000-1.030); Urobilinogen Urine Negative (Negative)
[2019-09-29] MEDS ORDERED: ACETAMINOPHEN 325 MG TAB PO PRN (15:54)
[2019-09-29] MEDS ORDERED: POLYETHYLENE (MIRALAX) 17 GM PACK PO PRN (18:58)
[2019-09-29] MEDS ORDERED: ALBUTEROL HFA 8 GM INHALER INH PRN (18:58)
[2019-09-29] MEDS ORDERED: IPRATROPIUM BROMIDE/ALBUTEROL respimat INH INH SCH (18:58)
[2019-09-29] MEDS ORDERED: ALBUT/IPRATROP 3MG/0.5MG NEB 3 ML VIAL INH PRN (18:58)
[2019-09-29] MEDS ORDERED: PHARMACY GLYCEMIC MGMT CONSULT PRN (19:35)
[2019-09-29] MEDS: OXYCODONE HCL IR 5 MG TAB (IMMEDIATE RELEASE) PO PRN (19:57)
[2019-09-29 20:08] LABS: Amphetamines+Metham, Urine Neg (Neg); Barbiturates, Urine Neg (Neg); Benzodiazepine, Urine Neg (Neg); Cocaine, Urine Neg (Neg); MDMA (Ecstacy), Urine Neg (Neg); Methadone, Urine Neg (Neg); Opiate, Urine Pos (Neg); Phencyclidine, Urine Neg (Neg)
[2019-09-29] MEDS: CHECK CLONIDINE PATCH PLACEMENT SCH (20:15)
[2019-09-29] MEDS: FLUTICASONE/VILANTEROL 200/25MCG 14 PUFFS/INHALER INH SCH (20:16)
[2019-09-29] MEDS: FUROSEMIDE 80 MG TAB PO SCH (20:16)
[2019-09-29] MEDS: LIDOCAINE 5% 1 PATCH TD SCH (20:18)
[2019-09-29] MEDS: APIXABAN 5 MG TABLET PO SCH (20:18)
[2019-09-29] MEDS: METOPROLOL SUCC 50MG EXT REL TAB PO SCH (20:19)
[2019-09-29] MEDS: PANTOprazole 40 MG TAB PO SCH (20:19)
[2019-09-29] MEDS: INSULIN ASPART 100 UNITS/ML 3 ML PEN SC SCH (20:21)
--- NOTE | 2019-09-29 20:23 | Pharmacy Report ---
Glycemic Control Consultation - Date of Service September 29, 2019 - Scope Scope: Glycemic Pharmacist consulted for glycemic control and to write orders per [facility] inpatient glycemic control protocol. - Objective Weight: 120.6 kg Accuchecks BSG (last 24hrs): 09/29/19 12:19 Glucose 126 H Laboratory Data (last 24hrs): 09/29/19 12:19 Potassium 3.6 Carbon Dioxide 33 H Anion Gap 7.0 Creatinine 1.41 H Est Cr Clr Drug Dosing 60.7 HbA1c: HbA1c = 12.1% on 08/19/19 - Recent Pertinent Medications Outpatient Anti-diabetic Regimen: * Lantus 47 units SQ HS * NovoLog 10 units with breakfast Risk Factors for Insulin Resistance: * Infection * Diet - Assessment & Plan Assessment & Plan: ASSESSMENT: * 74yo T2DM male known to pharmacy from previous admission in August. * Last admission, Pt was initiated on SQ basal bolus insulin regimen for home outpatient regimen * Pt admitted for AMS, cellulitis, Metastatic squamous cell carcinoma. Admitting GLU on PRP is in goal range. * Will continue outpatient dosing and titrate based on BSG trends * This is similar to previous admission dosing regimen PLAN FOR INPATIENT GLYCEMIC CONTROL: * Basal insulin * Lantus 47 units SQ HS * Bolus insulin * NovoLog per scale ACHS or Q6hrs while NPO * Goal Range: Low 110 mg/dL - High 140 mg/dL * Correction Factor: 20 mg/dL/unit * Nutritional / Prandial insulin per carb ratio of 1 unit per 6 grams CHO consumed * Please note that the plan above was derived based on current level of insulin resistance and hospital stress. These recommendations are appropriate for inpatient admission only. Plan of care upon discharge will need to be reassessed to avoid potential outpatient hypo/hyperglycemia. Thank you.
[2019-09-29] MEDS: INSULIN GLARGINE SOLOSTAR 100 UNITS/ML 3 ML PEN SC SCH (20:28)
[2019-09-29] MEDS: MELATONIN 3 MG TAB PO SCH (20:58)
[2019-09-29] MEDS ORDERED: INSULIN GLARGINE SOLOSTAR 100 UNITS/ML 3 ML PEN SC SCH (21:00)
[2019-09-29] MEDS: Albuterol HFA 8 GM Inhaler (Combivent Respimat P&T Subs) INH SCH (21:54)
[2019-09-29] MEDS: Ipratropium HFA Inhaler (Combivent Respimat P&T Subs) INH SCH (21:54)
[2019-09-30] MEDS: CHECK CLONIDINE PATCH PLACEMENT SCH ×3 (01:42→15:58)
[2019-09-30] MEDS: OXYCODONE HCL IR 5 MG TAB (IMMEDIATE RELEASE) PO PRN ×3 (03:19→20:28)
[2019-09-30] MEDS ORDERED: HYDROmorphone INJ 0.5 MG/0.5 ML SYR IV STA (05:38)
--- NOTE | 2019-09-30 05:41 | Electrocardiogram Report ---
Test Reason : Blood Pressure : / mmHG Vent. Rate : 094 BPM Atrial Rate : 085 BPM P-R Int : 000 ms QRS Dur : 098 ms QT Int : 350 ms P-R-T Axes : 000 038 013 degrees QTc Int : 437 ms Atrial fibrillation Abnormal ECG When compared with ECG of 17-SEP-2019 04:45, No significant change was found Confirmed by Fidel Mcgrath ([id number]) on 09/30/2019 5:41:19 AM Referred By: REFERRED SELF Confirmed By:Fidel Mcgrath
--- NOTE | 2019-09-30 06:41 | Emergency Department Note ---
History of Present Illness General Chief complaint: Illness Stated complaint: confusion Time Seen by Provider: 09/29/19 11:44 Source: patient, EMS, RN notes reviewed and old records reviewed Mode of arrival: EMS Limitations: other ([facility]) History of Present Illness Provider complaint: Altered mental status Onset (ago): hour(s) 2 Location: head Radiation: non-radiation Maximum Pain Intensity: 2 Associated symptoms: + denies other symptoms This is a 74-year-old male who presents back to the emergency department after being asked to leave approximately 1 week ago. Miguel Forman was calling the patient to set up a PET scan appointment and were concerned that the patient a ppeared altered. They then called 911. EMS notes that the patient appears to be at his baseline. Upon arrival to the emergency department the patient has no complaints and is not sure why he is here. Home Medications Home Medications Medication Instructions Recorded Confirmed Type albuterol sulfate 2 puff INHALATION Q6H PRN 08/18/19 09/29/19 History budesonide-formoterol [Symbicort] 2 puff INHALATION BID 08/18/19 09/29/19 History camphor-menthol 1 applic TOPICAL DAILY PRN 08/18/19 09/29/19 History clopidogrel 75 mg PO DAILY 08/18/19 09/29/19 History epinephrine [EpiPen] 0.3 mg IM Q3H PRN 08/18/19 09/29/19 History fexofenadine 180 mg PO DAILY PRN 08/18/19 09/29/19 History ipratropium-albuterol 3 ml INHALATION Q6H PRN 08/18/19 09/29/19 History melatonin 10 mg PO HS 08/18/19 09/29/19 History nitroglycerin 0.4 mg SUBLINGUAL UD 08/18/19 09/29/19 History omeprazole 20 mg PO BID 08/18/19 09/29/19 History zolpidem 10 mg PO HS 08/18/19 09/29/19 History apixaban [Eliquis] 5 mg PO BID 30 Days #60 tab 08/31/19 09/29/19 Rx furosemide 80 mg PO BID #60 tab 08/31/19 09/29/19 Rx ipratropium-albuterol [Combivent 1 puff INHALATION QID 30 Days #1 08/31/19 09/29/19 Rx Respimat] device metoprolol succinate 100 mg PO BID 30 Days #120 tab 08/31/19 09/29/19 Rx spironolactone 25 mg PO DAILY 30 Days #30 tab 08/31/19 09/29/19 Rx insulin aspart U-100 [Novolog 10 unit SC DAILYBB 09/17/19 09/29/19 History Flexpen U-100 Insulin] insulin glargine [Lantus Solostar 47 unit SC HS 09/17/19 09/29/19 History U-100 Insulin] lactulose 15 ml PO DAILY 09/17/19 09/29/19 History lidocaine 1 patch TRANSDERMAL HS 09/17/19 09/29/19 History morphine 15 mg PO BID 09/17/19 09/29/19 History oxycodone 15 mg PO Q6H PRN 09/17/19 09/29/19 History polyethylene glycol 3350 [Miralax] 17 g PO DAILY PRN 09/17/19 09/29/19 History Allergies Allergy/AdvReac Type Severity Reaction Status Date / Time Iodinated Contrast Media Allergy Unknown . Verified 09/29/19 12:55 lisinopril AdvReac Severe Anaphylaxis Unverified 09/29/19 12:55 tetanus toxoid, adsorbed AdvReac Intermediate Arm Unverified 09/29/19 12:55 Swelling codeine AdvReac Mild NAUSEA Verified 09/29/19 12:55 morphine AdvReac Mild itching, Unverified 09/29/19 12:55 nausea/vomiting atorvastatin AdvReac Unknown myalgia Unverified 09/29/19 12:55 doxycycline AdvReac Unknown Unknown Unverified 09/29/19 12:55 Past Med/Surg History Medical History Atrial fibrillation CAD (coronary artery disease) CKD (chronic kidney disease) stage 3, GFR 30-59 ml/min COPD (chronic obstructive pulmonary disease) Gout History of IA (myocardial infarction) Metastatic squamous cell carcinoma JOSE on CPAP Osteoarthritis Paroxysmal atrial fibrillation Recurrent major depression Type 2 diabetes mellitus Surgical History History of cardiac cath 2003, 2008, 2012, 2016 History of cataract surgery History of cholecystectomy History of coronary angioplasty with insertion of stent 10/11/15 - distal LAD stent placed at [facility] [place] History of repair of rotator cuff Family History Father , age 62 Heart disease Mother , age 70 Stroke Social History Smoking Status: Former smoker Hx Alcohol Use: No Hx Substance Use: No Preferred Language: German Communication Ability: Effective Beliefs That Will Affect Care: None marital status: Current Living Situation: Alone Feels Safe at Home: Yes Review of Systems A total of 10 systems reviewed and were otherwise negative Physical Exam Vital Signs Vital Signs - 24 hr 09/29/19 11:39 09/29/19 11:43 09/29/19 11:50 Temperature 36.9 C Temperature Source Oral Pulse Rate 90 100 H 96 H Pulse Rate from SpO2 Sensor Respiratory Rate 18 20 Blood Pressure 123/60 123/60 Blood Pressure Mean 91 81 Pulse Oximetry 93 Oxygen Delivery Method Nasal Cannula Oxygen Flow Rate 2 Sepsis Recent Fever Within 48 Hours No Sepsis New/Unexplained Change in Mental Status No Sepsis Action Taken by Nursing No Action Required 09/29/19 12:00 09/29/19 12:11 09/29/19 12:18 Temperature Temperature Source Pulse Rate 96 H 106 H Pulse Rate from SpO2 Sensor Respiratory Rate 17 13 Blood Pressure Blood Pressure Mean Pulse Oximetry 98 Oxygen Delivery Method Nasal Cannula Oxygen Flow Rate Sepsis Recent Fever Within 48 Hours Sepsis New/Unexplained Change in Mental Status Sepsis Action Taken by Nursing 09/29/19 12:20 09/29/19 12:29 09/29/19 12:30 Temperature Temperature Source Pulse Rate 97 H 84 102 H Pulse Rate from SpO2 Sensor Respiratory Rate 27 H 19 18 Blood Pressure 145/81 H Blood Pressure Mean 89 Pulse Oximetry Oxygen Delivery Method Oxygen Flow Rate Sepsis Recent Fever Within 48 Hours Sepsis New/Unexplained Change in Mental Status Sepsis Action Taken by Nursing 09/29/19 12:47 09/29/19 12:50 09/29/19 13:00 Temperature Temperature Source Pulse Rate 99 H 95 H 91 H Pulse Rate from SpO2 Sensor 100 H Respiratory Rate 18 15 17 Blood Pressure 127/100 Blood Pressure Mean 108 Pulse Oximetry 96 Oxygen Delivery Method Oxygen Flow Rate Sepsis Recent Fever Within 48 Hours Sepsis New/Unexplained Change in Mental Status Sepsis Action Taken by Nursing 09/29/19 13:01 09/29/19 13:10 09/29/19 13:20 Temperature Temperature Source Pulse Rate 87 85 98 H Pulse Rate from SpO2 Sensor Respiratory Rate 16 17 15 Blood Pressure Blood Pressure Mean Pulse Oximetry Oxygen Delivery Method Oxygen Flow Rate Sepsis Recent Fever Within 48 Hours Sepsis New/Unexplained Change in Mental Status Sepsis Action Taken by Nursing 09/29/19 13:30 09/29/19 13:40 09/29/19 13:50 Temperature Temperature Source Pulse Rate 91 H 94 H 92 H Pulse Rate from SpO2 Sensor Respiratory Rate 21 14 14 Blood Pressure Blood Pressure Mean Pulse Oximetry Oxygen Delivery Method Oxygen Flow Rate Sepsis Recent Fever Within 48 Hours Sepsis New/Unexplained Change in Mental Status Sepsis Action Taken by Nursing 09/29/19 14:00 09/29/19 14:01 09/29/19 14:11 Temperature Temperature Source Pulse Rate 85 91 H 109 H Pulse Rate from SpO2 Sensor Respiratory Rate 16 22 24 Blood Pressure 117/72 Blood Pressure Mean 84 Pulse Oximetry Oxygen Delivery Method Oxygen Flow Rate Sepsis Recent Fever Within 48 Hours Sepsis New/Unexplained Change in Mental Status Sepsis Action Taken by Nursing 09/29/19 14:20 Temperature Temperature Source Pulse Rate 100 H Pulse Rate from SpO2 Sensor Respiratory Rate 18 Blood Pressure Blood Pressure Mean Pulse Oximetry Oxygen Delivery Method Oxygen Flow Rate Sepsis Recent Fever Within 48 Hours Sepsis New/Unexplained Change in Mental Status Sepsis Action Taken by Nursing VITAL SIGNS - Vital signs and nursing notes were reviewed. GENERAL - 74-year-old male appearing stated age who is in no acute distress. Hard of hearing SKIN - Large mass left upper chest wall/shoulder area, area appears cellulitis HEAD - NC/AT. EYES - PERRL with EOMI bilaterally. Sclera anicteric. Palpebral conjunctiva pink and moist with no injection noted. EARS - No deformities of external structures noted on gross examination bilaterally. No pain elicited with palpation of the tragus bilaterally. External auditory canals without discharge or otorrhea. Tympanic membranes pearly lebron without retraction or bulging. No fluid or purulent material visualized behind the TM. Handle of malleus, umbo, cone of light, pars tensa/flaccid all easily visualized. NOSE - Midline and without cyanosis. No epistaxis or purulent drainage noted. Septum midline without deviation or septal hematoma noted. MOUTH/OROPHARYNX - Without perioral cyanosis. Buccal mucosa pink and moist and without leukoplakia. Tongue midline with equal elevation of palate bilaterally. No tonsillar hypertrophy, erythema, or exudates noted. dentition noted. NECK - Neck with FROM. Supple to palpation. lymphadenopathy noted. No nuchal rigidity. LUNGS - Chest wall symmetric without accessory muscle use, intercostals retractions, or central cyanosis. Normal vesicular breath sounds CTA B/L. No wheezes, rales, or rhonchi appreciated. CARDIAC - RRR with S1/S2. No murmur, rubs, or gallops appreciated. ABDOMEN - Abdominal contour without pulsations or visible masses. BS normoactive all four quadrants. No tenderness, palpable masses, hepatosplenomegaly, or ascites noted. EXTREMITIES - No clubbing or peripheral cyanosis. No pretibial edema present. +3/5 radial, posterior tibial, and dorsalis pedis pulses palpated throughout. +5/5 strength noted in UE/LE bilaterally. NEUROLOGIC - Cranial nerves II through XII grossly intact. Sensory intact to light touch throughout. Patellar reflexes +2/4. PSYCH - A&Ox3 and cooperates fully with examiner. Pt is very pleasant and interacts well with examiner. Course Administered Medications Albuterol (Albuterol Hfa 8 Gm Inhaler (Combivent Respimat P&T Subs)) 1 puffs INH QIDR JOSH Stop: 10/29/19 19:29 Last Admin: 09/30/19 07:35 Dose: 1 puffs Documented by: [id number] Admin: 09/29/19 21:54 Dose: 1 puffs Documented by: [id number] Apixaban (Apixaban 5 Mg Tablet) 5 mg PO BID JOSH Stop: 10/29/19 20:59 Last Admin: 09/29/19 20:18 Dose: 5 mg Documented by: [id number] Fluticasone/Vilanterol (Fluticasone/Vilanterol 200/25mcg 14 Puffs/Inhaler) 1 puffs INH PM JOSH Stop: 10/29/19 20:59 Last Admin: 09/29/19 20:16 Dose: 1 puffs Documented by: [id number] Furosemide (Furosemide 80 Mg Tab) 80 mg PO BID17 JOSH Stop: 10/29/19 19:59 Last Admin: 09/29/19 20:16 Dose: 80 mg Documented by: [id number] Insulin Aspart (Insulin Aspart 100 Units/Ml 3 Ml Pen) 10 units SC ACHS JOSH Stop: 10/29/19 20:59 Last Admin: 09/29/19 20:21 Dose: 10 units Documented by: [id number] Cosigned by: [id number] Insulin Glargine (Insulin Glargine Solostar 100 Units/Ml 3 Ml Pen) 47 units SC [facility] Stop: 10/29/19 20:59 Last Admin: 09/29/19 20:28 Dose: 47 units Documented by: [id number] Cosigned by: [id number] Ipratropium [place] (Ipratropium Hfa Inhaler (Combivent Respimat P&T Subs)) 1 puffs INH QIDR [facility] Stop: 10/29/19 19:29 Last Admin: 09/30/19 07:35 Dose: 1 puffs Documented by: [id number] Admin: 09/29/19 21:54 Dose: 1 puffs Documented by: [id number] Lidocaine (Lidocaine 5% 1 Patch) 1 patch TD [facility] Stop: 10/29/19 20:59 Last Admin: 09/29/19 20:18 Dose: 1 patch Documented by: [id number] Melatonin (Melatonin 3 Mg Tab) 9 mg PO [facility] Stop: 10/29/19 20:59 Last Admin: 09/29/19 20:58 Dose: 9 mg Documented by: [id number] Metoprolol Succinate (Metoprolol Succ 50mg Ext Rel Tab) 100 mg PO BID [facility] Stop: 10/29/19 20:59 Last Admin: 09/29/19 20:19 Dose: 100 mg Documented by: [id number] Miscellaneous (Remove Clonidine Patch) 1 ea N/A CQWK [facility] Stop: 10/29/19 11:59 Last Admin: 09/29/19 20:15 Dose: Not Given Documented by: [id number] Miscellaneous (Check Clonidine Patch Placement) 1 ea N/A QS [facility] Stop: 10/29/19 15:59 Last Admin: 09/30/19 01:42 Dose: 1 ea Documented by: [id number] Admin: 09/29/19 20:15 Dose: Not Given Documented by: [id number] Miscellaneous (Remove Lidoderm Patch) 1 ea N/A DAILY@2100 [facility] Stop: 10/29/19 20:59 Last Admin: 09/29/19 20:19 Dose: 1 ea Documented by: [id number] Oxycodone HCl (Oxycodone Hcl Ir 5 Mg Tab (Immediate Release)) 5 mg PO Q4H PRN PRN Reason: Pain Stop: 10/13/19 15:53 Last Admin: 09/30/19 03:19 Dose: 5 mg Documented by: [id number] Admin: 09/29/19 19:57 Dose: 5 mg Documented by: [id number] Pantoprazole Sodium (Pantoprazole 40 Mg Tab) 40 mg PO BID JOSH Stop: 10/29/19 20:59 Last Admin: 09/29/19 20:19 Dose: 40 mg Documented by: [id number] Discontinued Medications Clonidine HCl (Clonidine Hcl 0.3 Mg/24 Hr Transderm Sys) 1 patch TD NOW STA Stop: 09/29/19 12:00 Last Admin: 09/29/19 13:15 Dose: 1 patch Documented by: [id number] Hydromorphone HCl (Hydromorphone Inj 0.5 Mg/0.5 Ml Syr) 0.5 mg IV NOW STA Stop: 09/30/19 05:39 Last Admin: 09/30/19 06:41 Dose: 0.5 mg Documented by: [id number] Multivitamins 10 ml/ Thiamine HCl 100 mg/ Folic Acid 1 mg/Sodium Chloride 1,011.2 mls @ 1,011.2 mls/hr IV .Q1H ONE Stop: 09/29/19 12:58 Last Infusion: 09/29/19 15:10 Dose: 0 mls/hr Documented by: [id number] Admin: 09/29/19 13:14 Dose: 1,011.2 mls/hr Documented by: [id number] Ceftriaxone Sodium (Rocephin) 2,000 mg in 70 mls @ 140 mls/hr IV NOW STA Stop: 09/29/19 13:45 Last Infusion: 09/29/19 15:10 Dose: 0 mls/hr Documented by: [id number] Admin: 09/29/19 14:11 Dose: 140 mls/hr Documented by: [id number] Daptomycin 550 mg/ Syringe 11 mls @ 5.5 mls/min IV NOW ONE; Protocol Stop: 09/29/19 13:17 Last Admin: 09/29/19 14:11 Dose: 5.5 mls/min Documented by: [id number] Medical Decision Making Differential Diagnosis Infection, dehydration, metabolic abnormality, hypo/hyperglycemia, electrolyte disturbance, anemia, hypoxia, cardiac sources, intracerebral event, toxicologic, neurologic, as well as other pathologies. Medical Records Attestation: I reviewed the patient's medical records. Home Medications Current Medication List: was personally reviewed by me Laboratory Data Attestation: I reviewed the patient's lab results. Result diagrams: 09/29/19 12:19 09/29/19 12:19 Lab Results 09/29/19 09/29/19 09/29/19 Range/Units 12:19 12:19 12:19 WBC 14.74 H (4.8-10.8) K/uL RBC 4.24 L (4.7-6.1) M/uL Hgb 13.8 L (14.0-18.0) g/dL Hct 41.3 L (42-52) % MCV 97.4 (80-100) fL MCH 32.5 (25-34) pg MCHC 33.4 (32-36) g/dL RDW Std Deviation 49.2 H (36.4-46.3) fL RDW Coeff of [place] 13.8 (11.5-14.5) % Plt Count 367 (130-400) K/uL MPV 9.5 (7.4-10.4) fL Immature Gran % (Auto) 0.3 % Neut % (Auto) 76.9 % Lymph % (Auto) 10.6 % Carbon % (Auto) 9.4 % Eos % (Auto) 2.4 % Baso % (Auto) 0.4 % Neut # (Auto) 11.34 H (1.4-6.5) K/uL Lymph # (Auto) 1.56 (1.2-3.4) K/uL Carbon # (Auto) 1.38 H (0.11-0.59) K/uL Eos # (Auto) 0.35 (0-0.5) K/uL Baso # (Auto) 0.06 (0-0.2) K/uL Immature Gran # (Auto) 0.05 H (0.00-0.02) K/uL Sodium 134 L (136-145) mmol/L Potassium 3.6 (3.5-5.1) mmol/L Chloride 95 L (98-107) mmol/L Carbon Dioxide 33 H (21-32) mmol/L Anion Gap 7.0 (3-11) BUN 37 H (7-18) mg/dl Creatinine 1.41 H (0.6-1.4) mg/dl Est Cr Clr Drug Dosing 60.7 ml/min Est GFR ( Amer) 56.9 Est GFR (Non-Af Amer) 49.1 BUN/Creatinine Ratio 26.5 H (10-20) Glucose 126 H (70-99) mg/dl Calcium 10.6 H (8.5-10.1) mg/dl Total Bilirubin 0.9 (0.2-1) mg/dl AST 19 (15-37) U/L ALT 30 (12-78) U/L Alkaline Phosphatase 193 H (45-117) U/L Total Creatine Kinase 35 L (39-308) U/L CK-MB (CK-2) 1.7 (0.5-3.6) ng/ml CK/CKMB % Calc 4.9 H (0-3.0) Troponin I < 0.015 (0-0.045) ng/ml NT-Pro-B Natriuret Pep (0-900) pg/ml Total Protein 8.4 H (6.4-8.2) gm/dl Albumin 2.8 L (3.4-5.0) gm/dl Globulin 5.6 H (2.5-4.0) gm/dl Albumin/Globulin Ratio 0.5 L (0.9-2) TSH 1.990 (0.300-4.500) uIu/ml Ethyl Alcohol mg/dL < 3.0 (0-3) mg/dl 09/29/19 Range/Units 12:19 WBC (4.8-10.8) K/uL RBC (4.7-6.1) M/uL Hgb (14.0-18.0) g/dL Hct (42-52) % MCV (80-100) fL MCH (25-34) pg MCHC (32-36) g/dL RDW Std Deviation (36.4-46.3) fL RDW Coeff of [place] (11.5-14.5) % Plt Count (130-400) K/uL MPV (7.4-10.4) fL Immature Gran % (Auto) % Neut % (Auto) % Lymph % (Auto) % Carbon % (Auto) % Eos % (Auto) % Baso % (Auto) % Neut # (Auto) (1.4-6.5) K/uL Lymph # (Auto) (1.2-3.4) K/uL Carbon # (Auto) (0.11-0.59) K/uL Eos # (Auto) (0-0.5) K/uL Baso # (Auto) (0-0.2) K/uL Immature Gran # (Auto) (0.00-0.02) K/uL Sodium (136-145) mmol/L Potassium (3.5-5.1) mmol/L Chloride (98-107) mmol/L Carbon Dioxide (21-32) mmol/L Anion Gap (3-11) BUN (7-18) mg/dl Creatinine (0.6-1.4) mg/dl Est Cr Clr Drug Dosing ml/min Est GFR ( Amer) Est GFR (Non-Af Amer) BUN/Creatinine Ratio (10-20) Glucose (70-99) mg/dl Calcium (8.5-10.1) mg/dl Total Bilirubin (0.2-1) mg/dl AST (15-37) U/L ALT (12-78) U/L Alkaline Phosphatase (45-117) U/L Total Creatine Kinase (39-308) U/L CK-MB (CK-2) (0.5-3.6) ng/ml CK/CKMB % Calc (0-3.0) Troponin I (0-0.045) ng/ml NT-Pro-B Natriuret Pep 2614 H (0-900) pg/ml Total Protein (6.4-8.2) gm/dl Albumin (3.4-5.0) gm/dl Globulin (2.5-4.0) gm/dl Albumin/Globulin Ratio (0.9-2) TSH (0.300-4.500) uIu/ml Ethyl Alcohol mg/dL (0-3) mg/dl Imaging Data Radiologist's Impression: [facility], [place] [phone] XRay Report Patient: MALIK MEJIAit Date: 09/29/19 MR#: [id number]: [address] Acct ID:[id number]: Date: 1945[facility] Zip: [place] [address] Age: 74Location: ED Sex: MRoom/Bed: Att Phy:Diagnosis: confusion Layla Phy: Guy tAkinson MDService Date: 09/29/19 Fam Phy:Interpreting Phy: Kevin Decker Admit Phy: Ordering Phy: Pasha Michelle MD cc: ~ XR chest 1V portable HISTORY: 74 years-old Male weakness acute weakness COMPARISON: Chest radiograph 09/17/2019 TECHNIQUE: Portable AP view of the chest FINDINGS: Cardiac silhouette is enlarged, unchanged. No pneumothorax, large pleural effusion or overt pulmonary edema. Mild pulmonary vascular congestion. Linear subsegmental left lung base atelectasis/scarring. Degenerative changes of the shoulders and spine. IMPRESSION: Cardiomegaly with pulmonary vascular congestion. ACT 112: Negative or not required by law. The above report was generated using voice recognition software. It may contain grammatical, syntax or spelling errors. Electronically signed by: Michael Decker M.D. 09/29/2019 1:03 PM Dictated: 09/29/19 1301 Transcribed: 09/29/19 1301 [facility], [place] [phone] CT Scan Report Patient: MALIK MEJIA Date: 09/29/19 MR#: [id number]: [address] Acct ID:[id number]: Date: 1945[facility] [place] [address] Age: 74Location: ED Sex: MRoom/Bed: Att Phy:Diagnosis: confusion Layla Phy: Guy Atkinson MDService Date: 09/29/19 Fam Phy:Interpreting Phy: Michel Mejia MD Admit Phy: Ordering Phy: Pasha Michelle MD cc: ~ CT head/brain wo con CLINICAL HISTORY: Acute change in mental status COMPARISON STUDY: 09/17/2019 TECHNIQUE: Axial CT of the brain is performed from the vertex to the skull base . IV contrast was not administered for this examination. A dose lowering technique was utilized adhering to the principles of ALARA. CT DOSE: 687.98 mGy.cm FINDINGS: No intra or extra-axial mass lesions are visualized. There is no CT evidence of acute cortical infarction. There is no evidence of midline shift. There is no acute hemorrhage. No calvarial fractures are visualized. There are patchy white matter hypodensities likely on a small vessel basis. There is no evidence of pathologic ventricular dilatation. There is no evidence of acute sinusitis. There is residual left parietal scalp edema in the region of the prior scalp contusion. IMPRESSION: No acute intracranial findings ACT 112: Negative or not required by law. Electronically signed by: Michel Mejia M.D. 09/29/2019 12:46 PM Dictated: 09/29/19 1245 Transcribed: 09/29/19 124 ECG Data Attestation: I personally reviewed and interpreted this ECG as follows: Indication: + altered mental status Rate (beats per minute): 94 Rhythm: + atrial fibrillation ECG Intervals/blocks: + Normal QT-c (437) ECG [place]: + Normal ECG ST segments: no ST depression and no ST elevation Comparison ECG Date: from (09/17/2019) Change: no significant change MDM Narrative Patient was seen and evaluated as above in room B3. Review was performed of nursing notes and vital signs. I did review pertinent previous visits and patient history. After obtaining a thorough history and physical examination the above work up was performed. This is a 74-year-old male who presents the emergency department for unknown reasons. The patient was warned that he would be turned over to the police if his behavior warranted being thrown out of the emergency department. Patient is indignant about this and does not recall what happened. He does have an elevation in his white blood cell count and I suspect a cellulitis to the left shoulder. For this reason the patient was started on broad-spectrum antibiotic s. I am concerned that the patient will go into alcohol withdrawal. He was therefore started on clonidine as well as a banana bag. I did discuss the case with the hospitalist service. An order was placed for continuous cardiac monitoring. The monitor shows a rate of 91 with a fib rhythm. The patient was evaluated during the global COVID-19 pandemic, and that diagnosis was suspected/considered upon their initial presentation. Their evaluation, treatment and testing was consistent with current guidelines for patients who present with complaints or symptoms that may be related to COVID- 19. Impression & Plan Cellulitis, Metastatic squamous cell carcinoma, Atrial fibrillation, Altered mental status Discharge Plan Visit Data Chief Complaint: Illness Stated Complaint: confusion ED Provider: Pasha Michelle Discharge Problem: Cellulitis, Metastatic squamous cell carcinoma, Atrial fibrillation, Altered mental status Patient Disposition: Admitted As Inpatient Discharge Instructions Interventions: ED Discharge Assessment Last Done: 09/29/19 17:45 Discharge Problem: Cellulitis Qualifiers: Site of cellulitis: unspecified site Qualified Code(s): L03.90 - Cellulitis, unspecified Atrial fibrillation Qualifiers: Atrial fibrillation type: unspecified Qualified Code(s): I48.91 - Unspecified atrial fibrillation Altered mental status Qualifiers: Altered mental status type: unspecified Qualified Code(s): R41.82 - Altered mental status, unspecified
[2019-09-30] MEDS: Albuterol HFA 8 GM Inhaler (Combivent Respimat P&T Subs) INH SCH ×4 (07:35→19:00)
[2019-09-30] MEDS: Ipratropium HFA Inhaler (Combivent Respimat P&T Subs) INH SCH ×4 (07:35→19:00)
[2019-09-30 08:22] LABS: Hematocrit (blood only) 42.1 % (42-52); Hemoglobin 13.9 g/dL (14.0-18.0); Mean Corpuscular Hemoglobin 32.6 pg (25-34); Mean Corpuscular Volume 98.8 fL (80-100); Mean Platelet Volume 9.5 fL (7.4-10.4); Platelet Count 348 K/uL (130-400); RDW Coefficient of Variation 13.9 % (11.5-14.5); RDW Standard Deviation 49.7 fL (36.4-46.3); Red Blood Count 4.26 M/uL (4.7-6.1)
[2019-09-30] MEDS: SPIRONOLACTONE 25 MG TAB PO SCH (08:34)
[2019-09-30] MEDS: CLOPIDOGREL BISULFATE 75 MG TAB PO SCH (08:35)
[2019-09-30] MEDS: FUROSEMIDE 80 MG TAB PO SCH ×2 (08:35→20:09)
[2019-09-30] MEDS: METOPROLOL SUCC 50MG EXT REL TAB PO SCH ×2 (08:36→20:18)
[2019-09-30] MEDS: APIXABAN 5 MG TABLET PO SCH ×2 (08:36→20:10)
[2019-09-30] MEDS: PANTOprazole 40 MG TAB PO SCH ×2 (08:36→20:17)
[2019-09-30] MEDS: LACTULOSE SYRUP 10 GM/15 ML BTL 960 ML PO SCH (08:36)
[2019-09-30 08:47] LABS: BUN Creatinine Ratio 22.8 (10-20); Creatinine Clr Calc Pharmacy 66.8 ml/min; Est GFR (African American) 64.5; Est GFR (Non-African American) 55.7; Potassium 3.5 mmol/L (3.5-5.1)
[2019-09-30] MEDS: INSULIN ASPART 100 UNITS/ML 3 ML PEN SC SCH ×5 (08:47→20:23)
[2019-09-30 08:48] LABS: Calcium 10.6 mg/dl (8.5-10.1)
[2019-09-30] MEDS: DAPTOmycin 375 MG in SYRINGE 0 ML IV SCH (14:01)
[2019-09-30] MEDS: cefTRIAXone SODIUM 2,000 MG in DEXTROSE 5% 50 ML IV SCH (14:02)
--- NOTE | 2019-09-30 17:08 | Hospitalist Progress Note ---
Date of Service September 30, 2019 Assessment & Plan (1) Altered mental status: Possible metabolic encephalopathy secondary to infection/cellulitis CT head negative Urine tox negative Continue to monitor, fall precaution (2) Cellulitis: L Armpit cellulitis erythematous and tender skin at left armpit area, this is also the area where patient has metastatic squamous cell carcinoma continue IV ceftriaxone and daptomycin, (3) Metastatic squamous cell carcinoma: Continue follow-up with hematology oncology Outpatient PET scan scheduled (4) JOSE on CPAP: CPAP at night Hx of COPD -Not in acute exacerbation, continue PRN home inhalers (5) CKD (chronic kidney disease) stage 3, GFR 30-59 ml/min: No function stable (6) Type 2 diabetes mellitus: A1c in August above 12% Insulin sliding scale Glycemic control by pharmacist appreciated (7) Atrial fibrillation: Continue Eliquis and metoprolol (8) Congestive heart failure: -Continue Toprol, furosemide, spironolactone Stable volume status chest x-ray did show mild pulmonary vascular congestion, this seems to be chronic l continue to monitor weight, I's and O's, patient will be placed on low-sodium diet and fluid restricted diet Code: Full DVT ppx: on Eliquis Dispo: PT OT evaluation requested Patient service consulted for discharge planning Admission and Anticipated Discharge Date Admission Date: September 29, 2019 Subjective remains confused disoriented sitting up on bedside commode talking randomly wants to leave now , after counselling willing to stay complains of right arm pain no sob , no fever or chills Physical Exam Constitutional: WD/WN, vitals as above + ill appearing and + obese Eyes: PERRL, conjunctivae normal, anicteric sclerae ENMT: external ear and nose normal, oropharynx normal Neck: trachea midline, no thyromegaly Respiratory: normal respiratory effort, lungs clear to auscultation Cardiovascular: Rate/Rhythm: regular rate and regular rhythm Extremities: + edema Gastrointestinal (Abdomen): Percussion/Palpation: + abdomen tender and abdomen soft Musculoskeletal: no cyanosis or clubbing, extremities motor strength 5/5 Neurologic: PERRL, EOMI, accommodation nl, no face palsy, no dysarthria Psychiatric: Orientation: alert Results & Data Results & Data ([facility]) Vital Signs (Past 12 Hours) Vital Signs Temp Pulse Resp BP Pulse Ox 09/30/19 15:52 36.9 C 104 H 18 122/75 94 09/30/19 15:39 104 H 20 93 09/30/19 13:32 36.5 C 101 H 16 130/50 L 94 09/30/19 11:04 91 H 20 93 09/30/19 07:35 91 H 18 91 09/30/19 06:55 36.5 C 104 H 19 119/72 91 (1) Type 2 diabetes mellitus Chronic kidney disease stage: stage 3 (moderate) Diabetes mellitus complication detail: with chronic kidney disease Diabetes mellitus complication status: with kidney complications Diabetes mellitus ocean transportation intermediary insulin use: without ocean transportation intermediary use Qualified Code(s): 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 mellitus with diabetic chronic kidney disease; N18.3 - Chronic kidney disease, stage 3 (moderate) (2) Congestive heart failure Heart failure chronicity: acute on chronic Heart failure type: unspecified Qualified Code(s): I50.9 - Heart failure, unspecified (3) Atrial fibrillation Atrial fibrillation type: unspecified Qualified Code(s): I48.91 - Unspecified atrial fibrillation (4) Cellulitis Site of cellulitis: unspecified site Qualified Code(s): L03.90 - Cellulitis, unspecified (5) Altered mental status Altered mental status type: unspecified Qualified Code(s): R41.82 - Altered mental status, unspecified
[2019-09-30] MEDS: FLUTICASONE/VILANTEROL 200/25MCG 14 PUFFS/INHALER INH SCH (20:10)
[2019-09-30] MEDS: LIDOCAINE 5% 1 PATCH TD SCH (20:16)
[2019-09-30] MEDS: INSULIN GLARGINE SOLOSTAR 100 UNITS/ML 3 ML PEN SC SCH (20:23)
[2019-09-30] MEDS: MELATONIN 3 MG TAB PO SCH (20:28)
[2019-10-01] MEDS: CHECK CLONIDINE PATCH PLACEMENT SCH ×4 (01:19→23:33)
[2019-10-01] MEDS: OXYCODONE HCL IR 5 MG TAB (IMMEDIATE RELEASE) PO PRN ×2 (01:32→09:56)
[2019-10-01] MEDS: Albuterol HFA 8 GM Inhaler (Combivent Respimat P&T Subs) INH SCH ×4 (07:42→19:06)
[2019-10-01] MEDS: Ipratropium HFA Inhaler (Combivent Respimat P&T Subs) INH SCH ×4 (07:43→19:06)
--- NOTE | 2019-10-01 09:21 | Pharmacy Report ---
Pharmacy Glycemic Short Note 2 - Date of Service October 01, 2019 - Glycemic Short BSG Results (Last 24 hours): 09/30/19 09/30/19 09/30/19 13:02 16:34 20:09 POC Glucose 161 H 113 H 148 H 10/01/19 07:18 POC Glucose 97 OUTPATIENT ANTIDIABETIC REGIMEN: * Lantus 47 units SQ HS * NovoLog 10 units with breakfast ASSESSMENT: 10/01/19 * Patient received 60 units of insulin yesterday, blood sugars ranging 88-161mg/dl * Patient's regimen heavy w/ basal, but this is what patient does at home and achieving good glycemic control as inpatient, so no changes at this time * Patient remains on IV Daptomycin for armpit cellulitis 09/29/19 * 74yo T2DM male known to pharmacy from previous admission in August. * Last admission, Pt was initiated on SQ basal bolus insulin regimen for home outpatient regimen * Pt admitted for AMS, cellulitis, Metastatic squamous cell carcinoma. Admitting GLU on PRP is in goal range. * Will continue outpatient dosing and titrate based on BSG trends * This is similar to previous admission dosing regimen PLAN FOR INPATIENT GLYCEMIC CONTROL: * Basal insulin * Lantus 47 units SQ HS * Bolus insulin * NovoLog per scale ACHS or Q6hrs while NPO * Goal Range: Low 110 mg/dL - High 140 mg/dL * Correction Factor: 20 mg/dL/unit * Nutritional / Prandial insulin per carb ratio of 1 unit per 6 grams CHO consumed
[2019-10-01] MEDS: CLOPIDOGREL BISULFATE 75 MG TAB PO SCH (09:48)
[2019-10-01] MEDS: METOPROLOL SUCC 50MG EXT REL TAB PO SCH ×2 (09:48→20:48)
[2019-10-01] MEDS: PANTOprazole 40 MG TAB PO SCH ×2 (09:49→20:48)
[2019-10-01] MEDS: SPIRONOLACTONE 25 MG TAB PO SCH (09:49)
[2019-10-01] MEDS: APIXABAN 5 MG TABLET PO SCH ×2 (09:49→20:48)
[2019-10-01] MEDS: FUROSEMIDE 80 MG TAB PO SCH ×2 (09:50→17:56)
[2019-10-01] MEDS: INSULIN ASPART 100 UNITS/ML 3 ML PEN SC SCH ×5 (09:51→20:52)
[2019-10-01] MEDS: LACTULOSE SYRUP 10 GM/15 ML BTL 960 ML PO SCH (09:52)
[2019-10-01] MEDS: DAPTOmycin 375 MG in SYRINGE 0 ML IV SCH (13:53)
[2019-10-01] MEDS: cefTRIAXone SODIUM 2,000 MG in DEXTROSE 5% 50 ML IV SCH (13:53)
--- NOTE | 2019-10-01 16:47 | Hospitalist Progress Note ---
Date of Service October 01, 2019 Assessment & Plan (1) Altered mental status: Possible metabolic encephalopathy secondary to infection/cellulitis CT head negative (2) Cellulitis: L Armpit cellulitis erythematous and tender skin at left armpit area, this is also the area where patient has metastatic squamous cell carcinoma continue IV ceftriaxone and daptomycin, pain control with lidoderm patch (3) Metastatic squamous cell carcinoma: Continue follow-up with hematology oncology Outpatient PET scan scheduled (4) JOSE on CPAP: CPAP at night Hx of COPD -Not in acute exacerbation, continue PRN home inhalers (5) CKD (chronic kidney disease) stage 3, GFR 30-59 ml/min: renal function stable (6) Type 2 diabetes mellitus: A1c in August above 12% Insulin sliding scale Glycemic control by pharmacist appreciated (7) Atrial fibrillation: Continue Eliquis and metoprolol (8) Congestive heart failure: -Continue Toprol, furosemide, spironolactone Stable volume status chest x-ray did show mild pulmonary vascular congestion, this seems to be chronic continue to monitor weight, I's and O's, patient will be placed on low-sodium diet and fluid restricted diet Code: Full DVT ppx: on Eliquis Dispo: PT OT evaluation requested Patient service consulted for discharge planning Admission and Anticipated Discharge Date Admission Date: September 30, 2019 Subjective Complaints of pain around neck area, requesting for Lidoderm patch Still remains confused Oriented to person only Review of Systems Review of Systems: However patient does not answer all questions appropriately Integumentary: Left armpit pain Hematologic / Lymphatic: Lymphadenopathy at his left armpit and left neck Physical Exam Constitutional: WD/WN, vitals as above + ill appearing and + obese Eyes: PERRL, conjunctivae normal, anicteric sclerae ENMT: external ear and nose normal, oropharynx normal Neck: trachea midline, no thyromegaly Respiratory: normal respiratory effort, lungs clear to auscultation Cardiovascular: Rate/Rhythm: regular rate and regular rhythm Extremities: + edema Gastrointestinal (Abdomen): Percussion/Palpation: + abdomen tender and abdomen soft Musculoskeletal: no cyanosis or clubbing, extremities motor strength 5/5 Neurologic: PERRL, EOMI, accommodation nl, no face palsy, no dysarthria Psychiatric: Orientation: alert Results & Data Results & Data ([facility]) Vital Signs (Past 12 Hours) Vital Signs Temp Pulse Resp BP Pulse Ox 08/22/20 15:24 89 18 94 10/01/19 15:00 36.7 C 90 16 104/52 L 92 10/01/19 11:23 88 18 93 10/01/19 07:43 100 H 18 92 (1) Type 2 diabetes mellitus Chronic kidney disease stage: stage 3 (moderate) Diabetes mellitus complication detail: with chronic kidney disease Diabetes mellitus complication status: with kidney complications Diabetes mellitus longterm insulin use: without longterm use Qualified Code(s): 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 mellitus with diabetic chronic kidney disease; N18.3 - Chronic kidney disease, stage 3 (moderate) (2) Congestive heart failure Heart failure chronicity: acute on chronic Heart failure type: unspecified Qualified Code(s): I50.9 - Heart failure, unspecified (3) Atrial fibrillation Atrial fibrillation type: unspecified Qualified Code(s): I48.91 - Unspecified atrial fibrillation (4) Cellulitis Site of cellulitis: unspecified site Qualified Code(s): L03.90 - Cellulitis, unspecified (5) Altered mental status Altered mental status type: unspecified Qualified Code(s): R41.82 - Altered mental status, unspecified
[2019-10-01] MEDS ORDERED: ONDANSETRON INJ 2 MG/ML 2 ML VIAL IV PRN (19:05)
[2019-10-01 20:33] LABS: Codeine Urine NEGATIVE ng/mL (<50); Hydrocodone Urine NEGATIVE ng/mL (<50); Hydromor Urine NEGATIVE ng/mL (<50); Morphine Urine 4420 ng/mL (<50); Norhydrocodone Conf Ur NEGATIVE ng/mL (<50); Noroxycodone Urine 294 ng/mL (<50); Oxycodone Urine 221 ng/mL (<50); Oxymorph Urine 302 ng/mL (<50)
[2019-10-01] MEDS: LIDOCAINE 5% 1 PATCH TD SCH (20:47)
[2019-10-01] MEDS: MELATONIN 3 MG TAB PO SCH (20:51)
[2019-10-01] MEDS: INSULIN GLARGINE SOLOSTAR 100 UNITS/ML 3 ML PEN SC SCH (20:52)
[2019-10-01] MEDS: FLUTICASONE/VILANTEROL 200/25MCG 14 PUFFS/INHALER INH SCH ×2 (20:55→21:01)
[2019-10-02] MEDS: OXYCODONE HCL IR 5 MG TAB (IMMEDIATE RELEASE) PO PRN ×2 (04:42→11:39)
[2019-10-02] MEDS ORDERED: HYDROmorphone INJ 0.5 MG/0.5 ML SYR IV STA (05:26)
[2019-10-02] MEDS ORDERED: EUCERIN CR 120 GM JAR EXT PRN (06:10)
[2019-10-02] MEDS: Ipratropium HFA Inhaler (Combivent Respimat P&T Subs) INH SCH ×4 (06:47→18:59)
[2019-10-02] MEDS: Albuterol HFA 8 GM Inhaler (Combivent Respimat P&T Subs) INH SCH ×4 (06:48→18:59)
[2019-10-02 06:56] LABS: Creatinine Clr Calc Pharmacy 68.2 ml/min; Est GFR (African American) 67.1; Est GFR (Non-African American) 57.9
[2019-10-02] MEDS ORDERED: FEXOFENADINE HCL 180 MG TAB PO PRN (07:10)
[2019-10-02] MEDS: METOPROLOL SUCC 50MG EXT REL TAB PO SCH ×2 (07:34→20:38)
[2019-10-02] MEDS: CHECK CLONIDINE PATCH PLACEMENT SCH ×2 (07:34→14:58)
[2019-10-02] MEDS: CLOPIDOGREL BISULFATE 75 MG TAB PO SCH (07:35)
[2019-10-02] MEDS: PANTOprazole 40 MG TAB PO SCH ×2 (07:35→20:38)
[2019-10-02] MEDS: FUROSEMIDE 80 MG TAB PO SCH ×2 (07:35→15:52)
[2019-10-02] MEDS: SPIRONOLACTONE 25 MG TAB PO SCH (07:36)
[2019-10-02] MEDS: APIXABAN 5 MG TABLET PO SCH ×2 (07:36→20:38)
[2019-10-02] MEDS: INSULIN ASPART 100 UNITS/ML 3 ML PEN SC SCH ×4 (08:29→20:55)
[2019-10-02] MEDS: MoRPHine SULFATE CR 15 MG TABCR PO SCH ×2 (08:31→20:37)
--- NOTE | 2019-10-02 08:41 | Hospitalist Progress Note ---
Date of Service October 02, 2019 Assessment & Plan (1) Altered mental status: Possible metabolic encephalopathy secondary to infection/cellulitis CT head negative Ental status gradually improving to baseline (2) Cellulitis: L Armpit cellulitis Rounding wound for cancerous lesion erythematous and tender skin at left armpit area, this is also the area where patient has metastatic squamous cell carcinoma continue IV ceftriaxone and daptomycin, Patient's chronic pain medication, MS Contin/oxycodone resumed (3) Metastatic squamous cell carcinoma: Continue follow-up with hematology oncology Outpatient PET scan scheduled (4) JOSE on CPAP: CPAP at night Hx of COPD -Not in acute exacerbation, continue PRN home inhalers (5) CKD (chronic kidney disease) stage 3, GFR 30-59 ml/min: renal function stable (6) Type 2 diabetes mellitus: A1c in August above 12% Insulin sliding scale Glycemic control by pharmacist appreciated (7) Atrial fibrillation: Continue Eliquis and metoprolol (8) Congestive heart failure: -Continue Toprol, furosemide, spironolactone Stable volume status chest x-ray did show mild pulmonary vascular congestion, this seems to be chronic continue to monitor weight, I's and O's, on low-sodium diet Code: Full DVT ppx: on Eliquis Dispo: PT OT evaluation requested-patient remains high fall risk, will benefit with skilled rehab Patient service consulted for discharge planning Admission and Anticipated Discharge Date Admission Date: September 30, 2019 Subjective Complains of pain around his neck area, left armpit Fever or chills More drowsy today, states he feels cold, was not able to have much sleep last night Patient is afebrile vital stable No complaint of abdominal pain, no nausea vomiting Physical Exam Constitutional: WD/WN, vitals as above + ill appearing and + obese Eyes: PERRL, conjunctivae normal, anicteric sclerae ENMT: external ear and nose normal, oropharynx normal Neck: trachea midline, no thyromegaly Respiratory: normal respiratory effort, lungs clear to auscultation Cardiovascular: Rate/Rhythm: regular rate and regular rhythm Extremities: + edema Gastrointestinal (Abdomen): Percussion/Palpation: + abdomen tender and abdomen soft Musculoskeletal: no cyanosis or clubbing, extremities motor strength 5/5 Neurologic: PERRL, EOMI, accommodation nl, no face palsy, no dysarthria Psychiatric: Orientation: alert Results & Data Results & Data ([facility]) Vital Signs (Past 12 Hours) Vital Signs Temp Pulse Pulse Resp BP Pulse Ox 10/02/19 08:16 36.8 C 81 18 120/80 98 10/01/19 23:04 36.3 C L 101 H 17 122/69 93 10/01/19 22:15 84 18 93 (1) Type 2 diabetes mellitus Chronic kidney disease stage: stage 3 (moderate) Diabetes mellitus complication detail: with chronic kidney disease Diabetes mellitus complication status: with kidney complications Diabetes mellitus local company intermodal truck driver insulin use: without senior living use Qualified Code(s): 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 mellitus with diabetic chronic kidney disease; N18.3 - Chronic kidney disease, stage 3 (moderate) (2) Congestive heart failure Heart failure chronicity: acute on chronic Heart failure type: unspecified Qualified Code(s): I50.9 - Heart failure, unspecified (3) Atrial fibrillation Atrial fibrillation type: unspecified Qualified Code(s): I48.91 - Unspecified atrial fibrillation (4) Cellulitis Site of cellulitis: unspecified site Qualified Code(s): L03.90 - Cellulitis, unspecified (5) Altered mental status Altered mental status type: unspecified Qualified Code(s): R41.82 - Altered mental status, unspecified
[2019-10-02] MEDS: LACTULOSE SYRUP 10 GM/15 ML BTL 960 ML PO SCH (09:00)
--- NOTE | 2019-10-02 11:26 | Pharmacy Report ---
Pharmacy Glycemic Short Note 2 - Date of Service October 02, 2019 - Glycemic Short BSG Results (Last 24 hours): 10/01/19 10/01/19 10/01/19 11:55 16:43 20:09 POC Glucose 145 H 96 120 H 10/02/19 07:46 POC Glucose 72 OUTPATIENT ANTIDIABETIC REGIMEN: * Lantus 47 units SQ HS * NovoLog 10 units with breakfast ASSESSMENT: 10/02/19 * Patient is currently receiving an average of 52 units of insulin per day * 47 units of basal insulin * 5 units of prandial/correctional insulin * BSGs ranging 96 - 145 over the past 24hrs * Changes needed to insulin regimen: * AM Fasting BSG = 72 . Fasting BSG has been trending downward, therefore I will decrease basal insulin by 20% * Post-prandial BSGs are at goal. No changes needed to novolog. 10/01/19 * Patient received 60 units of insulin yesterday, blood sugars ranging 88- 161mg/dl * Patient's regimen heavy w/ basal, but this is what patient does at home and achieving good glycemic control as inpatient, so no changes at this time * Patient remains on IV Daptomycin for armpit cellulitis 09/29/19 * 74yo T2DM male known to pharmacy from previous admission in August. * Last admission, Pt was initiated on SQ basal bolus insulin regimen for home outpatient regimen * Pt admitted for AMS, cellulitis, Metastatic squamous cell carcinoma. Admitting GLU on PRP is in goal range. * Will continue outpatient dosing and titrate based on BSG trends * This is similar to previous admission dosing regimen PLAN FOR INPATIENT GLYCEMIC CONTROL: * Basal insulin * Lantus 38 units SQ HS * Bolus insulin * NovoLog per scale ACHS or Q6hrs while NPO * Goal Range: Low 110 mg/dL - High 140 mg/dL * Correction Factor: 20 mg/dL/unit * Nutritional / Prandial insulin per carb ratio of 1 unit per 6 grams CHO consumed
[2019-10-02] MEDS: cefTRIAXone SODIUM 2,000 MG in DEXTROSE 5% 50 ML IV SCH (13:33)
[2019-10-02] MEDS: DAPTOmycin 375 MG in SYRINGE 0 ML IV SCH (13:33)
[2019-10-02] MEDS: MELATONIN 3 MG TAB PO SCH (20:37)
[2019-10-02] MEDS: ZOLPIDEM TARTRATE 10 MG TAB PO SCH (20:37)
[2019-10-02] MEDS: LIDOCAINE 5% 1 PATCH TD SCH (20:37)
[2019-10-02] MEDS: FLUTICASONE/VILANTEROL 200/25MCG 14 PUFFS/INHALER INH SCH (20:39)
[2019-10-02] MEDS ORDERED: INSULIN GLARGINE SOLOSTAR 100 UNITS/ML 3 ML PEN SC SCH ×2 (21:00)
[2019-10-03] MEDS: CHECK CLONIDINE PATCH PLACEMENT SCH ×4 (01:24→23:44)
[2019-10-03] MEDS: OXYCODONE HCL IR 5 MG TAB (IMMEDIATE RELEASE) PO PRN (01:40)
[2019-10-03] MEDS: Albuterol HFA 8 GM Inhaler (Combivent Respimat P&T Subs) INH SCH ×4 (07:23→19:19)
[2019-10-03] MEDS: Ipratropium HFA Inhaler (Combivent Respimat P&T Subs) INH SCH ×4 (07:23→19:20)
[2019-10-03] MEDS ORDERED: GLUCOSE 40% GEL 15 GM TUBE PO PRN (07:30)
[2019-10-03] MEDS ORDERED: CARBOHYDRATES FOR HYPOGLYCEMIA PO PRN (07:30)
[2019-10-03] MEDS ORDERED: GLUCOSE 10 TABS/TUBE PO PRN (07:30)
[2019-10-03] MEDS ORDERED: GLUCAGON FOR INJ 1 MG VIAL IM PRN (07:30)
[2019-10-03] MEDS ORDERED: DEXTROSE 50% 50 ML SYRINGE IV PRN (07:30)
[2019-10-03] MEDS: SPIRONOLACTONE 25 MG TAB PO SCH (09:05)
[2019-10-03] MEDS: LACTULOSE SYRUP 10 GM/15 ML BTL 960 ML PO SCH (09:06)
[2019-10-03] MEDS: FUROSEMIDE 80 MG TAB PO SCH ×2 (09:06→16:05)
[2019-10-03] MEDS: APIXABAN 5 MG TABLET PO SCH ×2 (09:06→20:29)
[2019-10-03] MEDS: PANTOprazole 40 MG TAB PO SCH ×2 (09:07→20:30)
[2019-10-03] MEDS: CLOPIDOGREL BISULFATE 75 MG TAB PO SCH (09:07)
[2019-10-03] MEDS: METOPROLOL SUCC 50MG EXT REL TAB PO SCH ×2 (09:07→20:30)
[2019-10-03] MEDS: MoRPHine SULFATE CR 15 MG TABCR PO SCH ×2 (09:11→20:29)
[2019-10-03] MEDS: INSULIN ASPART 100 UNITS/ML 3 ML PEN SC SCH ×4 (09:20→20:28)
--- NOTE | 2019-10-03 10:58 | Pharmacy Report ---
Pharmacy Glycemic Short Note 2 - Date of Service October 03, 2019 - Glycemic Short BSG Results (Last 24 hours): OUTPATIENT ANTIDIABETIC REGIMEN: * Lantus 47 units SQ HS * NovoLog 10 units with breakfast ASSESSMENT: 10/03/19 * Patient received 46 units of insulin yesterday * 33 units basal + 13 units bolus * BSGs ranging 72 - 120 mg/dL over the last 24 hours * Received call from RN last evening regarding patient's BSGs being on the lower end. I decreased his basal insulin dose another 10% last evening which resulted in a 30% decrease in basal insulin dose yesterday. * Fasting BSG this morning is 76 mg/dL. Will decrease basal insulin by another 20% today. * Lunchtime BSG was 77 mg/dL. No change to prandial insulin. 10/02/19 * 74yo T2DM male known to pharmacy from previous admission in August. * Last admission, Pt was initiated on SQ basal bolus insulin regimen for home outpatient regimen * Pt admitted for AMS, cellulitis, Metastatic squamous cell carcinoma. Admitting GLU on PRP is in goal range. * Will continue outpatient dosing and titrate based on BSG trends * This is similar to previous admission dosing regimen * Patient is currently receiving an average of 52 units of insulin per day * 47 units of basal insulin * 5 units of prandial/correctional insulin * BSGs ranging 96 - 145 over the past 24hrs * Changes needed to insulin regimen: * AM Fasting BSG = 72 . Fasting BSG has been trending downward, therefore I will decrease basal insulin by 20% * Post-prandial BSGs are at goal. No changes needed to novolog. PLAN FOR INPATIENT GLYCEMIC CONTROL: * Basal insulin - decrease * Lantus 26 units SQ HS * Bolus insulin - no change * NovoLog per scale ACHS or Q6hrs while NPO * Goal Range: Low 110 mg/dL - High 140 mg/dL * Correction Factor: 20 mg/dL/unit * Nutritional / Prandial insulin per carb ratio of 1 unit per 6 grams CHO consumed
[2019-10-03] MEDS: DAPTOmycin 375 MG in SYRINGE 0 ML IV SCH (13:40)
[2019-10-03] MEDS: cefTRIAXone SODIUM 2,000 MG in DEXTROSE 5% 50 ML IV SCH (13:44)
--- NOTE | 2019-10-03 17:41 | Hospitalist Progress Note ---
Date of Service October 03, 2019 Assessment & Plan (1) Altered mental status: Possible metabolic encephalopathy secondary to infection/cellulitis CT head negative Mental status gradually improving to baseline (2) Cellulitis: L Armpit cellulitis Underlying malignant lesion on left armpit from squamous cell carcinoma erythematous and tender skin at left armpit area, this is also the area where patient has metastatic squamous cell carcinoma Area of pain and discomfort, erythema has continues to improve IV ceftriaxone and daptomycin, Which is been negative so far, plan to transition to p.o. antibiotic in next 1-2 hours Patient's chronic pain medication, MS Contin/oxycodone resumed (3) Metastatic squamous cell carcinoma: Continue follow-up with hematology oncology Outpatient PET scan scheduled (4) JOSE on CPAP: CPAP at night Hx of COPD -Not in acute exacerbation, continue PRN home inhalers (5) CKD (chronic kidney disease) stage 3, GFR 30-59 ml/min: renal function stable (6) Type 2 diabetes mellitus: A1c in August above 12% Insulin sliding scale Glycemic control by pharmacist appreciated (7) Atrial fibrillation: Continue Eliquis and metoprolol (8) Congestive heart failure: -Continue Toprol, furosemide, spironolactone Stable volume status chest x-ray did show mild pulmonary vascular congestion, this seems to be chronic continue to monitor weight, I's and O's, on low-sodium diet Code: Full DVT ppx: on Eliquis Dispo: PT OT evaluation requested-patient remains high fall risk, will benefit with skilled rehab Patient service consulted for discharge planning Admission and Anticipated Discharge Date Admission Date: September 30, 2019 Subjective Pain on left arm has improved, no fever or chills Remained confused, knows that he is in the hospital, could not tell me the year and date Denies of any other discomfort No nausea vomiting or abdominal pain, no diarrhea Appreciate physical therapy eval, patient will need skilled rehab on discharge Physical Exam Constitutional: WD/WN, vitals as above + ill appearing and + obese Eyes: PERRL, conjunctivae normal, anicteric sclerae ENMT: external ear and nose normal, oropharynx normal Neck: trachea midline, no thyromegaly Respiratory: normal respiratory effort, lungs clear to auscultation Cardiovascular: Rate/Rhythm: regular rate and regular rhythm Extremities: + edema Gastrointestinal (Abdomen): Percussion/Palpation: + abdomen tender and abdomen soft Musculoskeletal: no cyanosis or clubbing, extremities motor strength 5/5 Neurologic: PERRL, EOMI, accommodation nl, no face palsy, no dysarthria Psychiatric: Orientation: alert Results & Data Results & Data ([facility]) Vital Signs (Past 12 Hours) Vital Signs Temp Pulse Resp BP Pulse Ox 10/03/19 15:10 36.6 C 78 18 120/66 93 10/03/19 14:36 95 H 18 92 10/03/19 11:22 62 18 92 10/03/19 07:25 99 H 16 96 10/03/19 07:16 36.7 C 85 18 134/74 94 (1) Type 2 diabetes mellitus Chronic kidney disease stage: stage 3 (moderate) Diabetes mellitus complication detail: with chronic kidney disease Diabetes mellitus complication status: with kidney complications 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: without alf use Qualified Code(s): 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 mellitus with diabetic chronic kidney disease; N18.3 - Chronic kidney disease, stage 3 (moderate) (2) Congestive heart failure Heart failure chronicity: acute on chronic Heart failure type: unspecified Qualified Code(s): I50.9 - Heart failure, unspecified (3) Atrial fibrillation Atrial fibrillation type: unspecified Qualified Code(s): I48.91 - Unspecified atrial fibrillation (4) Cellulitis Site of cellulitis: unspecified site Qualified Code(s): L03.90 - Cellulitis, unspecified (5) Altered mental status Altered mental status type: unspecified Qualified Code(s): R41.82 - Altered mental status, unspecified
[2019-10-03] MEDS: ZOLPIDEM TARTRATE 10 MG TAB PO SCH (20:27)
[2019-10-03] MEDS: INSULIN GLARGINE SOLOSTAR 100 UNITS/ML 3 ML PEN SC SCH (20:28)
[2019-10-03] MEDS: FLUTICASONE/VILANTEROL 200/25MCG 14 PUFFS/INHALER INH SCH (20:29)
[2019-10-03] MEDS: LIDOCAINE 5% 1 PATCH TD SCH (20:29)
[2019-10-03] MEDS: MELATONIN 3 MG TAB PO SCH (20:38)
[2019-10-04] MEDS: OXYCODONE HCL IR 5 MG TAB (IMMEDIATE RELEASE) PO PRN (02:39)
[2019-10-04] MEDS: Albuterol HFA 8 GM Inhaler (Combivent Respimat P&T Subs) INH SCH ×4 (07:17→19:44)
[2019-10-04] MEDS: Ipratropium HFA Inhaler (Combivent Respimat P&T Subs) INH SCH ×4 (07:18→19:43)
[2019-10-04] MEDS: CHECK CLONIDINE PATCH PLACEMENT SCH ×3 (07:58→23:34)
[2019-10-04] MEDS: INSULIN ASPART 100 UNITS/ML 3 ML PEN SC SCH ×4 (07:58→20:24)
[2019-10-04] MEDS: METOPROLOL SUCC 50MG EXT REL TAB PO SCH ×2 (07:59→20:15)
[2019-10-04] MEDS: APIXABAN 5 MG TABLET PO SCH ×2 (07:59→20:09)
[2019-10-04] MEDS: PANTOprazole 40 MG TAB PO SCH ×2 (07:59→20:09)
[2019-10-04] MEDS: CLOPIDOGREL BISULFATE 75 MG TAB PO SCH (08:00)
[2019-10-04] MEDS: FUROSEMIDE 80 MG TAB PO SCH ×2 (08:00→17:22)
[2019-10-04] MEDS: LACTULOSE SYRUP 10 GM/15 ML BTL 960 ML PO SCH (08:00)
[2019-10-04] MEDS: SPIRONOLACTONE 25 MG TAB PO SCH (08:00)
[2019-10-04] MEDS: MoRPHine SULFATE CR 15 MG TABCR PO SCH ×2 (08:03→20:08)
--- NOTE | 2019-10-04 10:56 | Pharmacy Report ---
Pharmacy Glycemic Short Note 2 - Date of Service October 04, 2019 - Glycemic Short BSG Results (Last 24 hours): OUTPATIENT ANTIDIABETIC REGIMEN: * Lantus 47 units SQ HS * NovoLog 10 units with breakfast ASSESSMENT: 10/04/19 * Patient received 29 units of insulin yesterday (this is > 50% reduction in insulin requirements since 09/29 - likely due to patient's poor appetite) * 26 units basal + 3 units of bolus * BSGs ranging 76 - 116 mg/dL - well controlled. * Fasting BSG this AM was 101 mg/dL - well controlled. Patient ate 50 gm of CHO but still reported bad appetite. Continue basal dose. * Lunchtime BSG was 115 mg/dL - well controlled. 10/03/19 * Patient received 46 units of insulin yesterday * 33 units basal + 13 units bolus * BSGs ranging 72 - 120 mg/dL over the last 24 hours * Received call from RN last evening regarding patient's BSGs being on the lower end. I decreased his basal insulin dose another 10% last evening which res ulted in a 30% decrease in basal insulin dose yesterday. * Fasting BSG this morning is 76 mg/dL. Will decrease basal insulin by another 20% today. * Lunchtime BSG was 77 mg/dL. No change to prandial insulin. 10/02/19 * 74yo T2DM male known to pharmacy from previous admission in August. * Last admission, Pt was initiated on SQ basal bolus insulin regimen for home outpatient regimen * Pt admitted for AMS, cellulitis, Metastatic squamous cell carcinoma. Admitting GLU on PRP is in goal range. * Will continue outpatient dosing and titrate based on BSG trends * This is similar to previous admission dosing regimen * Patient is currently receiving an average of 52 units of insulin per day * 47 units of basal insulin * 5 units of prandial/correctional insulin * BSGs ranging 96 - 145 over the past 24hrs * Changes needed to insulin regimen: * AM Fasting BSG = 72 . Fasting BSG has been trending downward, therefore I will decrease basal insulin by 20% * Post-prandial BSGs are at goal. No changes needed to novolog. PLAN FOR INPATIENT GLYCEMIC CONTROL: * Basal insulin - no change * Lantus 26 units SQ HS * Bolus insulin - no change * NovoLog per scale ACHS or Q6hrs while NPO * Goal Range: Low 110 mg/dL - High 140 mg/dL * Correction Factor: 20 mg/dL/unit * Nutritional / Prandial insulin per carb ratio of 1 unit per 6 grams CHO consumed
[2019-10-04 11:27] LABS: Basophils # (auto) 0.06 K/uL (0-0.2); Basophils % (auto) 0.3 %; Eosinophils # (auto) 0.32 K/uL (0-0.5); Eosinophils % (auto) 1.8 %; Hematocrit (blood only) 44.5 % (42-52); Hemoglobin 14.9 g/dL (14.0-18.0); Immature Granulocytes # (auto) 0.09 K/uL (0.00-0.02); Immature Granulocytes % (auto) 0.5 %; Lymphocytes # (auto) 1.79 K/uL (1.2-3.4); Lymphocytes % (auto) 10.2 %; Mean Corpuscular Hgb Conc 33.5 g/dL (32-36); Mean Corpuscular Volume 95.7 fL (80-100); Mean Platelet Volume 9.4 fL (7.4-10.4); Monocytes # (auto) 1.05 K/uL (0.11-0.59); Neutrophils # (auto) 14.27 K/uL (1.4-6.5); Neutrophils % (auto) 81.2 %; Platelet Count 383 K/uL (130-400); RDW Coefficient of Variation 13.4 % (11.5-14.5); RDW Standard Deviation 46.6 fL (36.4-46.3); Red Blood Count 4.65 M/uL (4.7-6.1); White Blood Count 17.58 K/uL (4.8-10.8)
[2019-10-04 11:54] LABS: BUN Creatinine Ratio 22.9 (10-20); Calcium 11.9 mg/dl (8.5-10.1); Creatinine Clr Calc Pharmacy 67.6 ml/min; Est GFR (African American) 67.1; Est GFR (Non-African American) 57.9; Potassium 3.4 mmol/L (3.5-5.1)
[2019-10-04] MEDS: cephALEXin 250 MG CAP PO SCH ×2 (14:31→20:09)
--- NOTE | 2019-10-04 16:40 | CT Scan Report ---
CT head/brain wo con CLINICAL HISTORY: scalp bleeding TRAUMA COMPARISON STUDY: 09/29/2019 TECHNIQUE: Axial CT of the brain is performed from the vertex to the skull base. IV contrast was not administered for this examination. A dose lowering technique was utilized adhering to the principles of ALARA. CT DOSE: 614.27 mGy.cm FINDINGS: No intra or extra-axial mass lesions are visualized. There is no CT evidence of acute cortical infarc tion. There is no evidence of midline shift. There is no acute hemorrhage. No calvarial fractures ar e visualized. There are patchy white matter hypodensities likely on a small vessel basis. There is no evidence of pathologic ventricular dilatation. There is no evidence of acute sinusitis. There is irregularity of the left parietal vertex scalp in t he region of a prior laceration. IMPRESSION: 1. No acute intracranial findings 2. Irregularity left parietal vertex scalp in the region of a prior laceration ACT 112: Negative or not required by law. Electronically signed by: Michel Mejia M.D. 10/04/2019 4:39 PM
--- NOTE | 2019-10-04 17:28 | Hospitalist Progress Note ---
Date of Service October 04, 2019 Assessment & Plan (1) Altered mental status: Possible metabolic encephalopathy secondary to infection/cellulitis CT head negative Mental status gradually improving to baseline scalp bleeding ; CT head on admission showed 09/28 : There is residual left parietal scalp edema in the region of the prior scalp contusion. possible due to multiple falls at home noted to have bleeding on the scalp area repeat CT head shows no acute change-left parital scalp area contusion , possible overlying skin laceration caused the bleeding cont to local wound care bandage (2) Cellulitis: L Armpit cellulitis Underlying malignant lesion on left armpit from squamous cell carcinoma erythematous and tender skin at left armpit area, this is also the area where patient has metastatic squamous cell carcinoma Area of pain and discomfort, erythema has continues to improve was on IV ceftriaxone and daptomycin, cultures been Which is been negative so far, changed to PO Keflex Patient's chronic pain medication, MS Contin/oxycodone resumed (3) Metastatic squamous cell carcinoma: Continue follow-up with hematology oncology Outpatient PET scan scheduled (4) JOSE on CPAP: CPAP at night Hx of COPD -Not in acute exacerbation, continue PRN home inhalers (5) CKD (chronic kidney disease) stage 3, GFR 30-59 ml/min: renal function stable (6) Type 2 diabetes mellitus: A1c in August above 12% Insulin sliding scale Glycemic control by pharmacist appreciated (7) Atrial fibrillation: Continue Eliquis and metoprolol (8) Congestive heart failure: -Continue Toprol, furosemide, spironolactone Stable volume status chest x-ray did show mild pulmonary vascular congestion, this seems to be chronic continue to monitor weight, I's and O's, on low-sodium diet Code: Full DVT ppx: on Eliquis Dispo: PT OT evaluation requested-patient remains high fall risk, will benefit with skilled rehab Patient service consulted for discharge planning COVID 19 test negative Admission and Anticipated Discharge Date Admission Date: September 30, 2019 Subjective scalp bleeding noted -no fall or head trauma during this hospital stay pt offers no complain no fever or chills remains confused , oriented to person only Physical Exam Constitutional: WD/WN, vitals as above + ill appearing and + obese Eyes: PERRL, conjunctivae normal, anicteric sclerae ENMT: external ear and nose normal, oropharynx normal Neck: trachea midline, no thyromegaly Respiratory: normal respiratory effort, lungs clear to auscultation Cardiovascular: Rate/Rhythm: regular rate and regular rhythm Extremities: + edema Gastrointestinal (Abdomen): Percussion/Palpation: + abdomen tender and abdomen soft Musculoskeletal: no cyanosis or clubbing, extremities motor strength 5/5 Neurologic: PERRL, EOMI, accommodation nl, no face palsy, no dysarthria Psychiatric: Orientation: alert Results & Data Results & Data ([facility]) Vital Signs (Past 12 Hours) Vital Signs Temp Pulse Resp BP Pulse Ox 10/04/19 16:14 89 16 90 10/04/19 15:30 36.4 C L 114 H 18 111/71 95 10/04/19 11:29 88 18 91 10/04/19 07:26 36.5 C 100 H 18 137/78 92 10/04/19 07:18 93 H 16 92 (1) Type 2 diabetes mellitus Chronic kidney disease stage: stage 3 (moderate) Diabetes mellitus complication detail: with chronic kidney disease Diabetes mellitus complication status: with kidney complications Diabetes mellitus fpc insulin use: without fire watcher use Qualified Code(s): 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 mellitus with diabetic chronic kidney disease; N18.3 - Chronic kidney disease, stage 3 (moderate) (2) Congestive heart failure Heart failure chronicity: acute on chronic Heart failure type: unspecified Qualified Code(s): I50.9 - Heart failure, unspecified (3) Atrial fibrillation Atrial fibrillation type: unspecified Qualified Code(s): I48.91 - Unspecified atrial fibrillation (4) Cellulitis Site of cellulitis: unspecified site Qualified Code(s): L03.90 - Cellulitis, unspecified (5) Altered mental status Altered mental status type: unspecified Qualified Code(s): R41.82 - Altered mental status, unspecified
[2019-10-04] MEDS ORDERED: POTASSIUM CHLORIDE 20 MEQ TABCR PO ONE (19:45)
[2019-10-04] MEDS: MELATONIN 3 MG TAB PO SCH (20:08)
[2019-10-04] MEDS: ZOLPIDEM TARTRATE 10 MG TAB PO SCH (20:08)
[2019-10-04] MEDS: LIDOCAINE 5% 1 PATCH TD SCH (20:10)
[2019-10-04] MEDS: FLUTICASONE/VILANTEROL 200/25MCG 14 PUFFS/INHALER INH SCH (20:23)
[2019-10-04] MEDS: INSULIN GLARGINE SOLOSTAR 100 UNITS/ML 3 ML PEN SC SCH (20:25)
[2019-10-05] MEDS: cephALEXin 250 MG CAP PO SCH ×4 (01:49→20:27)
[2019-10-05] MEDS: OXYCODONE HCL IR 5 MG TAB (IMMEDIATE RELEASE) PO PRN ×2 (06:57→14:28)
[2019-10-05] MEDS: Ipratropium HFA Inhaler (Combivent Respimat P&T Subs) INH SCH (07:27)
[2019-10-05] MEDS: Albuterol HFA 8 GM Inhaler (Combivent Respimat P&T Subs) INH SCH (07:28)
[2019-10-05] MEDS ORDERED: IPRATROPIUM BROMIDE HFA INHALER INH PRN (08:17)
[2019-10-05] MEDS ORDERED: ALBUTEROL HFA 8 GM INHALER INH PRN (08:17)
[2019-10-05 08:27] LABS: Basophils # (auto) 0.03 K/uL (0-0.2); Basophils % (auto) 0.2 %; Eosinophils # (auto) 0.22 K/uL (0-0.5); Eosinophils % (auto) 1.3 %; Hematocrit (blood only) 42.1 % (42-52); Hemoglobin 14.3 g/dL (14.0-18.0); Immature Granulocytes # (auto) 0.05 K/uL (0.00-0.02); Immature Granulocytes % (auto) 0.3 %; Lymphocytes # (auto) 1.41 K/uL (1.2-3.4); Lymphocytes % (auto) 8.2 %; Mean Corpuscular Hemoglobin 32.4 pg (25-34); Mean Corpuscular Volume 95.2 fL (80-100); Mean Platelet Volume 9.6 fL (7.4-10.4); Monocytes # (auto) 1.05 K/uL (0.11-0.59); Monocytes % (auto) 6.1 %; Neutrophils # (auto) 14.44 K/uL (1.4-6.5); Neutrophils % (auto) 83.9 %; Platelet Count 353 K/uL (130-400); RDW Coefficient of Variation 13.4 % (11.5-14.5); RDW Standard Deviation 46.3 fL (36.4-46.3); Red Blood Count 4.42 M/uL (4.7-6.1)
[2019-10-05 08:55] LABS: BUN Creatinine Ratio 22.2 (10-20); Creatinine Clr Calc Pharmacy 69.1 ml/min; Est GFR (African American) 68.4; Magnesium 2.1 mg/dl (1.8-2.4); Potassium 3.3 mmol/L (3.5-5.1)
[2019-10-05] MEDS: SPIRONOLACTONE 25 MG TAB PO SCH (08:56)
[2019-10-05] MEDS: CHECK CLONIDINE PATCH PLACEMENT SCH ×2 (08:56→16:15)
[2019-10-05] MEDS: MoRPHine SULFATE CR 15 MG TABCR PO SCH ×2 (08:57→21:35)
[2019-10-05] MEDS: LACTULOSE SYRUP 10 GM/15 ML BTL 960 ML PO SCH (08:57)
[2019-10-05] MEDS: CLOPIDOGREL BISULFATE 75 MG TAB PO SCH (08:57)
[2019-10-05] MEDS: APIXABAN 5 MG TABLET PO SCH ×2 (08:57→21:25)
[2019-10-05] MEDS: METOPROLOL SUCC 50MG EXT REL TAB PO SCH ×2 (08:58→21:25)
[2019-10-05] MEDS: PANTOprazole 40 MG TAB PO SCH ×2 (08:58→21:25)
[2019-10-05] MEDS: INSULIN ASPART 100 UNITS/ML 3 ML PEN SC SCH ×4 (09:01→21:25)
[2019-10-05] MEDS ORDERED: POTASSIUM CHLORIDE 20 MEQ TABCR PO ONE (09:30)
--- NOTE | 2019-10-05 09:32 | Pharmacy Report ---
Pharmacy Glycemic Short Note 2 - Date of Service October 05, 2019 - Glycemic Short BSG Results (Last 24 hours): OUTPATIENT ANTIDIABETIC REGIMEN: * Lantus 47 units SQ HS * NovoLog 10 units with breakfast ASSESSMENT: 10/04: * 74yo T2DM male known to pharmacy from previous admission in August. * Last admission, Pt was initiated on SQ basal bolus insulin regimen for home outpatient regimen * Pt admitted on 09/28 for AMS, cellulitis, Metastatic squamous cell carcinoma. Admitting GLU on PRP is in goal range. * Patient received 40 units of insulin total yesterday * 26 units of basal insulin * 14 units of prandial/correctional insulin * BSGs ranging 101 - 130 over the past 24hrs - well controlled * Risk factors for insulin resistance are constant over the past 24hrs * Infection is being adequately treated with PO Keflex * Anticipating insulin regimen will need increased for the next 24hrs d/t: * AM Fasting BSG = 154 mg/dL - therefore, will increase Basal insulin by ~ 20% today * Post-prandial BSGs parker throughout the day yesterday - believe this may be secondary to a basal deficiency so will not adjust CF/CR at this time PLAN FOR INPATIENT GLYCEMIC CONTROL: * Basal insulin - increase 20% * Lantus 33 units SQ HS * Bolus insulin - no change * NovoLog per scale ACHS or Q6hrs while NPO * Goal Range: Low 110 mg/dL - High 140 mg/dL * Correction Factor: 20 mg/dL/unit * Nutritional / Prandial insulin per carb ratio of 1 unit per 6 grams CHO consumed DISCHARGE RECOMMENDATIONS: * A1c = 12.1% from 08/19/2019. Patient was admitted around this A1c and anti- diabetic regimen was changed. * Goal A1c is < 8% in this patient based on age and comorbidities. * Outpatient medications should include: Lantus 44 units SQ QDD + Novolog 10 units SQ QDB + Metformin 1000 mg PO BIDM + Jardiance 10 mg PO Daily. * Glipizide and Actos were discontinued during last admission * There is some question surrounding the patient's adherence to medications give n recent A1c. Stressed the importance of adhering to medications to help control BSGs and improve overall health. * Patient should monitor BSGs 2x a day (when he wakes up and before he goes to sleep). * Patient requires close follow up with outpatient PCP/endocrinology. * Recommend continuing current outpatient regimen upon discharge.
[2019-10-05] MEDS ORDERED: MICONAZOLE NITRATE POWDER 43 GM EXT PRN (10:32)
--- NOTE | 2019-10-05 16:58 | Hospitalist Progress Note ---
Date of Service October 05, 2019 Assessment & Plan (1) Altered mental status: Altered mental status Likely metabolic encephalopathy CT head:No acute intracranial findings Reorient frequently Check VBG, Procalcitonin Monitor Multiple Falls CT head:No acute intracranial findings. Irregularity left parietal vertex scalp in the region of a prior laceration Fall precautions Hypokalemia Normal Mag levels Replete electrolytes as needed Monitor (2) Cellulitis: Left Armpit cellulitis Underlying malignant lesion on left armpit from squamous cell carcinoma Received IV ceftriaxone and daptomycin Check US to r/o abscess Currently pn PO keflex On chronic pain medications (3) Metastatic squamous cell carcinoma: Follows with Hematology oncology Outpatient PET scan scheduled (4) JOSE on CPAP: CPAP at night COPD Chronic respiratory failure with hypoxia No signs of acute exacerbation continue home inhalers Continue Supplemental oxygen (5) CKD (chronic kidney disease) stage 3, GFR 30-59 ml/min: renal function at baseline monitor (6) Type 2 diabetes mellitus: A1c in August above 12% Continue Insulin therapy Glycemic control pharmacist consulted (7) Atrial fibrillation: Continue metoprolol On apixaban for anticoagulation (8) Congestive heart failure: Continue Metoprolol, Toprol, furosemide, spironolactone Monitor volume status low-sodium diet Fluid restriction DVT Px: On Apixaban Code Status: Full Code Disposition: SNF Admission and Anticipated Discharge Date Admission Date: September 30, 2019 Subjective Patient is seen and examined at bedside Complains of left arm. Pain intermittently Oriented only to person History limited secondary to cognitive status Denies chest pain, shortness of breath Review of Systems Review of Systems: Unobtainable due to cognitive status Physical Exam Physical Exam: Physical Exam: Vitals signs as noted above General Appearance:Obese, no apparent distress Head: normocephalic, Atraumatic Eyes: normal inspection, EOMI Neck: supple, Trachea midline Respiratory/Chest: Normal breath sounds, CTA, No accessory muscle use Cardiovascular: S1, S2, No murmur Abdomen/GI:Soft, Non tender, Bowel sounds present Extremities/Musculoskelatal:normal inspection, Left Armpit swelling, redness, tender Neurologic/Psych:grossly no focal neurological deficits Skin: normal color, warm Results & Data Results & Data ([facility]) Vital Signs (Past 12 Hours) Vital Signs Temp Pulse Resp BP Pulse Ox 10/05/19 15:21 36.7 C 92 H 18 132/74 91 10/05/19 11:35 36.4 C L 88 18 154/64 H 89 L 10/05/19 07:54 36.4 C L 99 H 18 147/79 H 93 Laboratory Results Short CBC 10/05/19 Range/Units 08:06 WBC 17.20 H (4.8-10.8) K/uL Hgb 14.3 (14.0-18.0) g/dL Hct 42.1 (42-52) % Plt Count 353 (130-400) K/uL BMP 10/05/19 08:06 Sodium 133 L Potassium 3.3 L Chloride 94 L Carbon Dioxide 33 H BUN 27 H Creatinine 1.21 Glucose 150 H Calcium 12.0 H (1) Altered mental status Altered mental status type: unspecified Qualified Code(s): R41.82 - Altered mental status, unspecified (2) Cellulitis Site of cellulitis: unspecified site Qualified Code(s): L03.90 - Cellulitis, unspecified (3) Type 2 diabetes mellitus Diabetes mellitus terminal operator insulin use: without chcf use Diabetes mellitus complication status: with kidney complications Diabetes mellitus complication detail: with chronic kidney disease Chronic kidney disease stage: stage 3 (moderate) Qualified Code(s): 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 mellitus with diabetic chronic kidney disease; N18.3 - Chronic kidney disease, stage 3 (moderate) (4) Atrial fibrillation Atrial fibrillation type: unspecified Qualified Code(s): I48.91 - Unspecified atrial fibrillation (5) Congestive heart failure Heart failure type: unspecified Heart failure chronicity: acute on chronic Qualified Code(s): I50.9 - Heart failure, unspecified
[2019-10-05] MEDS: FUROSEMIDE 80 MG TAB PO SCH (17:36)
[2019-10-05] MEDS: FOLIC ACID 1 MG TAB PO SCH (18:01)
[2019-10-05] MEDS: THIAMINE HCL 100 MG TAB PO SCH (18:01)
--- NOTE | 2019-10-05 21:05 | Ultrasound Report ---
LEFT AXILLARY ULTRASOUND CLINICAL HISTORY: Left Armpit R/O abscess COMPARISON STUDY: Chest CT August 21, 2019. TECHNIQUE: Targeted sonography of the left axilla was performed. FINDINGS: Note is made of a 16.2 x 12.1 x 13.1 cm hypoechoic left axillary abnormality which correspo nds to the finding on CT of August 21, 2019. This has increased in size since prior exam. This contains low level echoes without color flow. Irregular thickened wall is noted. IMPRESSION: Large 16.2 x 12.1 x 13.1 cm hypoechoic left axillary abnormality which has increased in size since chest CT of August 21, 2019. This favors a pathologic necrotic lymph node and could be corre lated with biopsy of August 22, 2019. The central component likely reflects necrosis. However, sterilit y cannot be assessed by sonography. ACT 112: Negative or not required by law. Electronically signed by: Kartik Parra M.D. 10/05/2019 9:04 PM
[2019-10-05] MEDS: INSULIN GLARGINE SOLOSTAR 100 UNITS/ML 3 ML PEN SC SCH (21:26)
[2019-10-05] MEDS: FLUTICASONE/VILANTEROL 200/25MCG 14 PUFFS/INHALER INH SCH (21:27)
[2019-10-05] MEDS: LIDOCAINE 5% 1 PATCH TD SCH (21:27)
[2019-10-05] MEDS: ZOLPIDEM TARTRATE 10 MG TAB PO SCH (21:35)
[2019-10-05] MEDS: MELATONIN 3 MG TAB PO SCH (21:37)
[2019-10-06] MEDS: CHECK CLONIDINE PATCH PLACEMENT SCH ×4 (00:46→23:51)
[2019-10-06] MEDS: cephALEXin 250 MG CAP PO SCH ×4 (03:33→20:04)
[2019-10-06 08:25] LABS: Basophils # (auto) 0.05 K/uL (0-0.2); Basophils % (auto) 0.3 %; Eosinophils # (auto) 0.19 K/uL (0-0.5); Hematocrit (blood only) 44.5 % (42-52); Hemoglobin 15.1 g/dL (14.0-18.0); Immature Granulocytes # (auto) 0.08 K/uL (0.00-0.02); Immature Granulocytes % (auto) 0.4 %; Lymphocytes # (auto) 1.58 K/uL (1.2-3.4); Lymphocytes % (auto) 8.6 %; Mean Corpuscular Hemoglobin 32.7 pg (25-34); Mean Corpuscular Hgb Conc 33.9 g/dL (32-36); Mean Corpuscular Volume 96.3 fL (80-100); Mean Platelet Volume 9.7 fL (7.4-10.4); Monocytes # (auto) 1.21 K/uL (0.11-0.59); Monocytes % (auto) 6.6 %; Neutrophils # (auto) 15.29 K/uL (1.4-6.5); Neutrophils % (auto) 83.1 %; Platelet Count 354 K/uL (130-400); RDW Coefficient of Variation 13.5 % (11.5-14.5); RDW Standard Deviation 47.4 fL (36.4-46.3); Red Blood Count 4.62 M/uL (4.7-6.1)
[2019-10-06 08:27] LABS: Base Excess VBG 8.9 mEq/L; HCO3 VBG 35 mmol/L; Oxygen Saturation VBG < 60.0 %; PCO2 VBG 53 mmHg (38-50); PO2 VBG 24 mmHg; pH VBG 7.44 (7.36-7.41)
--- NOTE | 2019-10-06 09:27 | Pharmacy Report ---
Pharmacy Glycemic Short Note 2 - Date of Service October 06, 2019 - Glycemic Short BSG Results (Last 24 hours): 10/05/19 10/05/19 10/05/19 11:40 16:32 20:16 Glucose POC Glucose 141 H 127 H 139 H 10/06/19 10/06/19 07:34 08:10 Glucose Cancelled POC Glucose 139 H OUTPATIENT ANTIDIABETIC REGIMEN: * Lantus 47 units SQ HS * NovoLog 10 units with breakfast ASSESSMENT: 10/05: * BSGs well controlled over last 24 hrs * Patient received 35 units over last 24 hrs however he consumed very little PO due to patient's mental status (oriented only to person, sometimes combative, and frequent sleeping per nursing documentation) * Fasting BSG 139 this AM, at goal, with 33 units of basal insulin on board - will continue the same and monitor for falling BSGs if poor PO intake continues * Post-prandial BSGs did appear to be well controlled on 10/03 when patient was eating more consistently - no changes today, but will monitor BSG pattern PLAN FOR INPATIENT GLYCEMIC CONTROL: * Basal insulin - no change * Lantus 33 units SQ HS * Bolus insulin - no change * NovoLog per scale ACHS or Q6hrs while NPO * Goal Range: Low 110 mg/dL - High 140 mg/dL * Correction Factor: 20 mg/dL/unit * Nutritional / Prandial insulin per carb ratio of 1 unit per 6 grams CHO consumed DISCHARGE RECOMMENDATIONS: * A1c = 12.1% from 08/19/2019. Patient was admitted around this A1c and anti- diabetic regimen was changed. * Goal A1c needs to be determined based upon goals of care. Patient has had recent Palliative Care consultation. He had been dependent on some home health services. It now sounds as though he may transition to [facility] on discharge. * If discharged to [facility], would recommend continuation of basal/bolus regimen. At this time it appears the following would be appropriate * Lantus dosing once daily per scale: 0 units if BSG less than 110, 15 units if BSG 110-140, 30 units if BSG greater than 140 * Novolog: goal range 110-140, Correction factor 20mg/dL/unit; Carb ratio 1 unit per 6 grams CHO consumed
[2019-10-06] MEDS: INSULIN ASPART 100 UNITS/ML 3 ML PEN SC SCH ×4 (09:28→20:10)
[2019-10-06] MEDS: METOPROLOL SUCC 50MG EXT REL TAB PO SCH ×2 (09:44→20:04)
[2019-10-06] MEDS: FUROSEMIDE 80 MG TAB PO SCH ×2 (09:45→16:16)
[2019-10-06] MEDS: THIAMINE HCL 100 MG TAB PO SCH (09:45)
[2019-10-06] MEDS: CLOPIDOGREL BISULFATE 75 MG TAB PO SCH (09:45)
[2019-10-06] MEDS: MoRPHine SULFATE CR 15 MG TABCR PO SCH ×2 (09:45→20:05)
[2019-10-06] MEDS: SPIRONOLACTONE 25 MG TAB PO SCH (09:46)
[2019-10-06] MEDS: FOLIC ACID 1 MG TAB PO SCH (09:46)
[2019-10-06] MEDS: APIXABAN 5 MG TABLET PO SCH ×2 (09:46→20:04)
[2019-10-06] MEDS: PANTOprazole 40 MG TAB PO SCH ×2 (09:46→20:04)
[2019-10-06] MEDS: LACTULOSE SYRUP 10 GM/15 ML BTL 960 ML PO SCH (09:47)
[2019-10-06 09:54] LABS: BUN Creatinine Ratio 22.5 (10-20); Calcium 13.2 mg/dl (8.5-10.1); Creatinine Clr Calc Pharmacy 69.1 ml/min; Est GFR (African American) 68.4; Magnesium 2.1 mg/dl (1.8-2.4)
--- NOTE | 2019-10-06 10:31 | XRay Report ---
KUB HISTORY: MRI clearance. COMPARISON: KUB 08/30/2019. FINDINGS: The bowel gas pattern is unremarkable. There are no dilated loops of small bowel to suggest an obstruction. No renal calculi. No ureteral calculi. No pneumoperitoneum or pneumatosis. Moderate well-formed stool within the colon. Surgical clips within the right upper quadrant consistent with a prior cholecystectomy. No additional radiopaque foreign bodies identified within the abdomen or pelv is. IMPRESSION: Surgical clips within the right upper quadrant consistent with prior cholecystectomy. No additional r adiopaque foreign bodies identified within the abdomen or pelvis. ACT 112: Negative or not required by law. Electronically signed by: Rishi Truong M.D. 10/06/2019 10:30 AM
[2019-10-06] MEDS ORDERED: CALCITONIN SALMON 400 UNITS/2 ML SQ SCH (10:45)
--- NOTE | 2019-10-06 10:49 | Nephrology Consultation ---
Date of Consultation October 06, 2019 Assessment & Plan (1) Hypercalcemia: almost certainly hypercalcemia of malignancy but will do at least initial work up -ordered pth, pthrp, 25 ohd for 1600 draw along with repeat bmp >>PTH and 25 OHD D both low -update albumin ordered > 2.5 is value -not a candidate for aggressive hydration d/t HF status but will recheck CXR and consider low rate NS along with continued lasix -gave 4 mg zometa x 1 and started 400 units SQ calcitonin x 6 doses q6h Present on Admission?: Yes (2) Metastatic squamous cell carcinoma: staging work up in process; no therapy yet; L axillary lesion FNA path noted. Present on Admission?: Yes (3) Heart failure, chronic systolic: mild w/ EF 45% and dx'd last month; on lasix and spironlactone; cont same for now -repeat CXR to update volume/HF status Present on Admission?: Yes History of Present Illness Reason for Consultation: hypercalcemia Requesting Physician: Dr Pastrana Attending Physician: Anastacio Pastrana MD History of Present Illness 74 y/o M with metastatic sqaumous cell carcinoma admitted 09/28 for altered mental status and L axillary cellulitis whom I'm asked to see for hypercalcemia. PMH includes HFpEF, a fib on eliquis, DM2 with August HbA1c>12%, CKD 3 baseline creatinine 1.3, COPD, JOSE on CPAP. he had a large well differentiated squamous cell CA of L elbow in 2017 managed with Moh's; then noted in 01/2019 by derm to have >3 cm poorly differentiated infiltrating L upper back SCC managed again with Moh's and with postoperative XRT recommended but declined by pt. Admitted here last month with HF exacerbation and neck mass 08/17-08/31. he was to have OP PET scan and other oncology w/u though this has not yet been done; he has not yet est with oncology formally. Noted to have some pyschomotor slowing on 09/28 presentation to ER though was alert & 0 x 3; concern was for L axillary lesion treated as cellulitis but concerning for metastatic SCC; FNA subsequently confirmed this suspicion. Presenting Ca was 10.6 with albumin 2.8; slow uptrend to 12.0 yesterday and 13.2 today. concern that his MS has worsened since weekend. not on any d or Ca rich meds/supplements; on lasix 80 mg po bid and spironolactone 25 mg daily for HF. on evaluation, difficult to get reliable hx or ros from patient. He tells me he has no pain; he asks me to interact with "her" and points to other side of room (we were alone in room at the time). Allergies Allergy/AdvReac Type Severity Reaction Status Date / Time Iodinated Contrast Media Allergy Unknown . Verified 09/29/19 12:55 lisinopril AdvReac Severe Anaphylaxis Unverified 09/29/19 12:55 tetanus toxoid, adsorbed AdvReac Intermediate Arm Unverified 09/29/19 12:55 Swelling codeine AdvReac Mild NAUSEA Verified 09/29/19 12:55 morphine AdvReac Mild itching, Unverified 09/29/19 12:55 nausea/vomiting atorvastatin AdvReac Unknown myalgia Unverified 09/29/19 12:55 doxycycline AdvReac Unknown Unknown Unverified 09/29/19 12:55 Home Medications Home Medications Medication Instructions Recorded Confirmed Type albuterol sulfate 2 puff INHALATION Q6H PRN 08/18/19 09/29/19 History budesonide-formoterol [Symbicort] 2 puff INHALATION BID 08/18/19 09/29/19 History camphor-menthol 1 applic TOPICAL DAILY PRN 08/18/19 09/29/19 History clopidogrel 75 mg PO DAILY 08/18/19 09/29/19 History epinephrine [EpiPen] 0.3 mg IM Q3H PRN 08/18/19 09/29/19 History fexofenadine 180 mg PO DAILY PRN 08/18/19 09/29/19 History ipratropium-albuterol 3 ml INHALATION Q6H PRN 08/18/19 09/29/19 History melatonin 10 mg PO HS 08/18/19 09/29/19 History nitroglycerin 0.4 mg SUBLINGUAL UD 08/18/19 09/29/19 History omeprazole 20 mg PO BID 08/18/19 09/29/19 History zolpidem 10 mg PO HS 08/18/19 09/29/19 History apixaban [Eliquis] 5 mg PO BID 30 Days #60 tab 08/31/19 09/29/19 Rx furosemide 80 mg PO BID #60 tab 08/31/19 09/29/19 Rx ipratropium-albuterol [Combivent 1 puff INHALATION QID 30 Days #1 08/31/19 09/29/19 Rx Respimat] device metoprolol succinate 100 mg PO BID 30 Days #120 tab 08/31/19 09/29/19 Rx spironolactone 25 mg PO DAILY 30 Days #30 tab 08/31/19 09/29/19 Rx insulin aspart U-100 [Novolog 10 unit SC DAILYBB 09/17/19 09/29/19 History Flexpen U-100 Insulin] insulin glargine [Lantus Solostar 47 unit SC HS 09/17/19 09/29/19 History U-100 Insulin] lactulose 15 ml PO DAILY 09/17/19 09/29/19 History lidocaine 1 patch TRANSDERMAL HS 09/17/19 09/29/19 History morphine 15 mg PO BID 09/17/19 09/29/19 History oxycodone 15 mg PO Q6H PRN 09/17/19 09/29/19 History polyethylene glycol 3350 [Miralax] 17 g PO DAILY PRN 09/17/19 09/29/19 History Patient History Medical History (Updated 10/06/19 @ 10:57 by Debby Fenton MD, PhD) Atrial fibrillation CAD (coronary artery disease) CKD (chronic kidney disease) stage 3, GFR 30-59 ml/min COPD (chronic obstructive pulmonary disease) Gout Heart failure, chronic systolic History of [place] (myocardial infarction) Metastatic squamous cell carcinoma JOSE on CPAP Osteoarthritis Paroxysmal atrial fibrillation Recurrent major depression Type 2 diabetes mellitus Surgical History History of cardiac cath 2003, 2008, 2012, 2016 History of cataract surgery History of cholecystectomy History of coronary angioplasty with insertion of stent 10/11/15 - [place] [facility] [place] of repair of rotator cuff Family History Father , age 62 Heart disease Mother , age 70 Stroke Social History Smoking Status: Former smoker Hx Alcohol Use: No Hx Substance Use: No Preferred Language: Sami Communication Ability: Impaired Beliefs That Will Affect Care: None marital status: Current Living Situation: Alone Feels Safe at Home: Yes Review of Systems Review of Systems: Unobtainable due to reduced consciousness Physical Exam Constitutional: well developed, well nourished and + altered mental status; no acute distress lying flat on RA Eyes: EOM intact bilaterally ENMT: Ears: no external ear abnormality Nose: no external nose abnormality Mouth: + dry oral mucous membranes Neck: no nuchal rigidity Respiratory: normal respiratory effort and able to speak in complete sentences; no respiratory distress Auscultation: + diminished lung sounds; no crackles and no wheezes Cardiovascular: Heart Sounds: normal S1 and normal S2; no murmur Extremiti es: no edema Gastrointestinal (Abdomen): Inspection/Auscultation: normal bowel sounds Percussion/Palpation: abdomen soft; abdomen nontender Musculoskeletal: moves all extremities; resists me if I try to examine L axilla Skin: no rashes, warm and dry + erythema (L axilla and induration, tenderness) Neurologic: fluent but incoherent speech, no tremor Psychiatric: Orientation: alert and oriented to person Results & Data ([facility]) Vital Signs (Past 12 Hours) Vital Signs Temp Pulse Resp BP Pulse Ox 10/06/19 07:58 36.6 C 92 H 18 134/63 93 10/06/19 06:35 16 93 10/06/19 04:46 92 10/06/19 03:12 137/82 92 10/05/19 23:00 36.5 C 86 20 142/81 H 93 Laboratory Results 10/06/19 08:10 10/06/19 16:25 repeat Ca 12.8; albumin 2.5 corrected Ca 14 Diagnostic Findings L axillary u/s 10/04 FINDINGS: Note is made of a 16.2 x 12.1 x 13.1 cm hypoechoic left axillary abnormality which corresponds to the finding on CT of August 21, 2019. This has increased in size since prior exam. This contains low level echoes without color flow. Irregular thickened wall is noted. IMPRESSION: Large 16.2 x 12.1 x 13.1 cm hypoechoic left axillary abnormality which has increased in size since chest CT of August 21, 2019. This favors a pathologic necrotic lymph node and could be correlated with biopsy of August 22, 2019. The central component likely reflects necrosis. However, sterility cannot be assessed by sonography. KUB today Surgical clips within the right upper quadrant consistent with prior cholecystectomy. No additional radiopaque foreign bodies identified within the abdomen or pelvis. 09/28 CXR IMPRESSION: Cardiomegaly with pulmonary vascular congestion.
[2019-10-06] MEDS ORDERED: ZOLEDRONIC ACID 4 MG in 0.9 % SODIUM CHLORIDE 100 ML IV ONE (11:00)
[2019-10-06] MEDS: OLANZapine 10 MG/2.1 ML SDV IM PRN ×2 (12:59→20:45)
[2019-10-06] MEDS: OXYCODONE HCL IR 5 MG TAB (IMMEDIATE RELEASE) PO PRN (16:16)
[2019-10-06 17:02] LABS: BUN Creatinine Ratio 20.4 (10-20); Calcium 12.8 mg/dl (8.5-10.1); Creatinine Clr Calc Pharmacy 64.3 ml/min; Est GFR (African American) 62.7; Est GFR (Non-African American) 54.1; Potassium 3.7 mmol/L (3.5-5.1)
--- NOTE | 2019-10-06 18:28 | Hospitalist Progress Note ---
Date of Service October 06, 2019 Assessment & Plan (1) Altered mental status: Altered mental status Likely metabolic encephalopathy Hypercalcemia could be contributing CT head:No acute intracranial findings Reorient frequently Normal procalcitonin No significant hypercapnia on VBG Monitor Hypercalcemia Likely secondary to squamous cell carcinoma Given Zometa Hypercalcemia work-up pending Appreciate nephrology input Also started on calcitonin Monitor calcium levels History of CHF, limiting aggressive hydration Multiple Falls CT head:No acute intracranial findings. Irregularity left parietal vertex scalp in the region of a prior laceration Fall precautions Hypokalemia Normal Mag levels Replete electrolytes as needed Monitor (2) Cellulitis: Left Armpit cellulitis Underlying malignant lesion on left armpit from squamous cell carcinoma Received IV ceftriaxone and daptomycin Extremity USD: Large 16.2 x 12.1 x 13.1 cm hypoechoic left axillary abnormality which has increased in size since chest CT of August 21, 2019. This favors a pathologic necrotic lymph node and could be correlated with biopsy of August 22, 2019. The central component likely reflects necrosis. However, sterility cannot be assessed by sonography. Continue PO keflex On chronic pain medications (3) Metastatic squamous cell carcinoma: Not a surgical candidate as per surgical oncology Discussed with Surgical Oncology Dr. John Roman on 10/06/19 Also discussed with medical oncology Dr.Nilesh Granda on 10/06/19 Will consult radiation oncology for possible radiation Needs PET scan as outpatient Needs follow-up with oncology as outpatient (4) JOSE on CPAP: CPAP at night COPD Chronic respiratory failure with hypoxia No signs of acute exacerbation continue home inhalers Continue Supplemental oxygen (5) CKD (chronic kidney disease) stage 3, GFR 30-59 ml/min: renal function at baseline monitor (6) Type 2 diabetes mellitus: A1c in August above 12% Continue Insulin therapy Glycemic control pharmacist consulted (7) Atrial fibrillation: Continue metoprolol On apixaban for anticoagulation (8) Congestive heart failure: Continue Metoprolol, furosemide, spironolactone Monitor volume status low-sodium diet Fluid restriction DVT Px: On Apixaban Code Status: Full Code Disposition: SNF Admission and Anticipated Discharge Date Admission Date: September 30, 2019 Subjective Patient is seen and examined at bedside Agitated, combative this morning Could not obtain MRI brain today Discussed with medical and surgical oncology Hypercalcemia noted on labs Appreciate nephrology input Patient remains confused Discussed with patient's caregiver at bedside Complains of left arm pain History is limited secondary to mental status. Review of Systems Review of Systems: Unobtainable due to cognitive status Physical Exam Physical Exam: Physical Exam: Vitals signs as noted above General Appearance:Obese, no apparent distress Head: normocephalic, Atraumatic Eyes: normal inspection, EOMI Neck: supple, Trachea midline Respiratory/Chest: Normal breath sounds, CTA, No accessory muscle use Cardiovascular: S1, S2, No murmur Abdomen/GI:Soft, Non tender, Bowel sounds present Extremities/Musculoskelatal:normal inspection, Left Armpit swelling, redness, tender Neurologic/Psych:grossly no focal neurological deficits Skin: normal color, warm Results & Data Results & Data ([facility]) Vital Signs (Past 12 Hours) Vital Signs Temp Pulse Resp BP Pulse Ox 10/06/19 15:08 36.5 C 93 H 20 146/65 H 100 10/06/19 07:58 36.6 C 92 H 18 134/63 93 10/06/19 06:35 16 93 Laboratory Results Short CBC 10/06/19 Range/Units 08:10 WBC 18.40 H (4.8-10.8) K/uL Hgb 15.1 (14.0-18.0) g/dL Hct 44.5 (42-52) % Plt Count 354 (130-400) K/uL BMP 10/06/19 10/06/19 10/06/19 08:10 09:24 16:25 Sodium Cancelled 135 L 135 L Potassium Cancelled 4.0 D 3.7 Chloride Cancelled 96 L 98 Carbon Dioxide Cancelled 34 H 30 BUN Cancelled 27 H 27 H Creatinine Cancelled 1.21 1.30 Glucose Cancelled 141 H 155 H Calcium Cancelled 13.2 H* 12.8 H* Liver Function 10/06/19 10/06/19 10/06/19 Range/Units 08:10 09:24 09:24 AST Cancelled 15 ALT Cancelled 16 Albumin 2.5 L (3.4-5.0) gm/dl (1) Altered mental status Altered mental status type: unspecified Qualified Code(s): R41.82 - Altered mental status, unspecified (2) Cellulitis Site of cellulitis: unspecified site Qualified Code(s): L03.90 - Cellulitis, unspecified (3) Type 2 diabetes mellitus Diabetes mellitus termite exterminator helper insulin use: without termite exterminator helper use Diabetes mellitus complication status: with kidney complications Diabetes mellitus complication detail: with chronic kidney disease Chronic kidney disease stage: stage 3 (moderate) Qualified Code(s): 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 mellitus with diabetic chronic kidney disease; N18.3 - Chronic kidney disease, stage 3 (moderate) (4) Atrial fibrillation Atrial fibrillation type: unspecified Qualified Code(s): I48.91 - Unspecified atrial fibrillation (5) Congestive heart failure Heart failure type: unspecified Heart failure chronicity: acute on chronic Qualified Code(s): I50.9 - Heart failure, unspecified
--- NOTE | 2019-10-06 18:44 | XRay Report ---
SINGLE VIEW CHEST CLINICAL HISTORY: Dyspnea. FINDINGS: An AP, portable, upright chest radiograph is compared to study dated 09/29/2019 and correlat ed with chest CT dated 08/21/2019. The examination is degraded by portable technique, large body habit us, and patient rotation. The heart is enlarged noting atherosclerotic calcification of the thoracic aorta. The pulmonary vasculature is noncongested. Atelectasis is noted at the lung bases, left greate r than right. No airspace consolidation or large pleural effusion is identified. No pneumothorax is s een. The skeletal structures are osteopenic. The bony thorax is grossly intact. IMPRESSION: 1. Cardiomegaly without radiographic evidence of congestive failure. 2. No airspace consolidation or large pleural effusion is identified. ACT 112: Negative or not required by law. Electronically signed by: Jarrell Pickering M.D. 10/06/2019 6:43 PM
[2019-10-06] MEDS: LIDOCAINE 5% 1 PATCH TD SCH (20:05)
[2019-10-06] MEDS: MELATONIN 3 MG TAB PO SCH (20:05)
[2019-10-06] MEDS: ZOLPIDEM TARTRATE 10 MG TAB PO SCH (20:05)
[2019-10-06] MEDS: FLUTICASONE/VILANTEROL 200/25MCG 14 PUFFS/INHALER INH SCH (20:06)
[2019-10-06] MEDS: CALCITONIN SALMON 400 UNITS/2 ML SQ SCH ×2 (20:06→23:38)
[2019-10-06] MEDS: INSULIN GLARGINE SOLOSTAR 100 UNITS/ML 3 ML PEN SC SCH (20:09)
[2019-10-06] MEDS ORDERED: OLANZapine 10 MG/2.1 ML SDV IM STA (23:11)
--- NOTE | 2019-10-06 23:19 | Communication Note ---
Date of Service: October 06, 2019 Increased agitation noted as per RN. AP Delirium Zyprexa PRN Appropriate to hold [id number] narcotics and sedatives for sedation confusion. Recheck UA, PRP now Will relay to AM provider.
[2019-10-07] MEDS: cephALEXin 250 MG CAP PO SCH (05:31)
[2019-10-07] MEDS ORDERED: LORazepam 2 MG/4 ML VIAL ONE (05:42)
[2019-10-07] MEDS ORDERED: HALOPERIDOL LACTATE 5 MG/ML 1 ML VIAL IM STA (05:44)
[2019-10-07 05:46] LABS: Basophils # (auto) 0.04 K/uL (0-0.2); Basophils % (auto) 0.2 %; Eosinophils # (auto) 0.07 K/uL (0-0.5); Eosinophils % (auto) 0.3 %; Hematocrit (blood only) 48.6 % (42-52); Hemoglobin 16.3 g/dL (14.0-18.0); Immature Granulocytes # (auto) 0.05 K/uL (0.00-0.02); Immature Granulocytes % (auto) 0.2 %; Lymphocytes # (auto) 1.81 K/uL (1.2-3.4); Lymphocytes % (auto) 8.6 %; Mean Corpuscular Hemoglobin 32.9 pg (25-34); Mean Corpuscular Hgb Conc 33.5 g/dL (32-36); Mean Platelet Volume 9.6 fL (7.4-10.4); Monocytes # (auto) 1.31 K/uL (0.11-0.59); Monocytes % (auto) 6.2 %; Neutrophils # (auto) 17.69 K/uL (1.4-6.5); Neutrophils % (auto) 84.5 %; Platelet Count 402 K/uL (130-400); RDW Coefficient of Variation 13.5 % (11.5-14.5); RDW Standard Deviation 47.8 fL (36.4-46.3); Red Blood Count 4.96 M/uL (4.7-6.1); White Blood Count 20.97 K/uL (4.8-10.8)
[2019-10-07] MEDS ORDERED: HALOPERIDOL LACTATE 5 MG/ML 1 ML VIAL ONE (05:46)
[2019-10-07] MEDS ORDERED: OXYCODONE HCL IR 5 MG TAB (IMMEDIATE RELEASE) PO PRN (06:32)
[2019-10-07 06:33] LABS: Albumin Globulin Ratio 0.5 (0.9-2); Albumin Level 2.8 gm/dl (3.4-5.0); Calcium 13.1 mg/dl (8.5-10.1); Creatinine Clr Calc Pharmacy 64.3 ml/min; Est GFR (African American) 62.7; Est GFR (Non-African American) 54.1; Globulin 6.2 gm/dl (2.5-4.0); Magnesium 2.2 mg/dl (1.8-2.4); Potassium 4.6 mmol/L (3.5-5.1)
[2019-10-07] MEDS ORDERED: SODIUM CHLORIDE 0.9% 500 ML IV ONE (06:39)
[2019-10-07] MEDS: CALCITONIN SALMON 400 UNITS/2 ML SQ SCH ×3 (06:50→17:09)
[2019-10-07] MEDS ORDERED: FUROSEMIDE 80 MG in SYRINGE 0 ML IV ONE (07:00)
[2019-10-07] MEDS ORDERED: CEFEPIME CONSULT ACTIVE PRN (08:06)
[2019-10-07] MEDS: OLANZapine 10 MG/2.1 ML SDV IM PRN ×3 (08:30→22:28)
[2019-10-07] MEDS: CHECK CLONIDINE PATCH PLACEMENT SCH ×3 (08:34→21:55)
--- NOTE | 2019-10-07 08:44 | Radiation OncologyConsultation ---
Date of Consultation October 07, 2019 Assessment & Plan (1) Metastatic squamous cell carcinoma: Assessment: A 74-year-old male with history of metastatic squamous cell carcinoma involving the left lower neck and left axilla. The patient was to undergo further staging procedures with PET but missed this appointment due to deterioration of his status. He has had recent significant mental status changes but CT scans have shown no evidence of intracranial abnormalities and an earlier MRI without contrast showed no abnormalities. It is felt that his mental status changes due to metabolic causes and is being evaluated for treatment. The patient does have a large mass at the base of the left neck measuring 8 cm and a 16 cm mass in the left axilla. I was asked to see the patient for consideration of palliative radiation. The patient is not felt to be a surgical candidate. It is uncertain whether he would be a candidate for systemic chemotherapy but will be evaluated once he is stabilized and discharged. Treatment Options: 1. The patient would appear to be a potential candidate for palliative radiation. However given his mental status it would be impossible to place him on the table and provide palliative radiation without significant risk of patient falling from the table or moving during treatment. 2. Palliative systemic chemotherapy as determined by medical oncology. 3. Palliative care. 4. Hospice. Recommendations: Palliative radiation to the lesion in the left lower neck and left axilla once the patient's mental status has cleared. Plan: 1. We will await the patient's mental status to stabilize to the point where he can participate in decision-making and in his treatment. 2. When improved we could bring him down either as inpatient or outpatient for CT simulation. 3. Evaluation by medical oncology when able. 4. Staging PET CT to better define tumor volume upon discharge. 5. Continued follow-up by Demetrio Healy. Rationale/Explanation of Treatment: The patient has 2 obvious lesions causing him discomfort and pain. They are very well may be additional areas of disease that would be identified on PET CT scan. This could be obtained following his stabilization and discharge. He would also be evaluated by medical oncology upon discharge. He may be a candidate for systemic chemotherapy. He could be a candidate for palliative radiation once his mental status has improved to the point where he could participate in his treatment and we could be sure of his safety on the treatment table. We would likely treat him with a course of palliative radiation for 10-15 treatments to shrink the lesion and palliate his pain. Dr. Pastrana will contact us once his status has improved to the point where we can discuss treatment options. At that point if the patient agrees we would bring him down for a CT simulation. Following treatment planning we could begin his short course of palliative radiation. This chart was completed in part utilizing [employer] Speech Voice Recognition software. Grammatical errors, random word insertions, pronoun errors and incomplete sentences are occasional consequence of this system due to software limitations, ambient noise and hardware issues. Any formal questions or concerns about the content, text or information contained within the body of this dictation should be directly addressed to the provider for clarification. Rene Young MD Department of Radiation Oncology [facility] and [facility] History of Present Illness Reason for Consultation: Enlarging mass in the left axilla. Attending Physician: Anastacio Pastrana MD History of Present Illness Mr. Strange is a 74-year-old male who is a patient of Dr. Aaron. 11/10/2017. Patient had a 4 cm biopsy-proven squamous cell carcinoma removed from his left elbow by Mohs surgery. He was found to have a lesion in the left upper back with a biopsy performed confirming poorly differentiated invasive squamous cell carcinoma. This confirmed an invasive squamous cell carcinoma, poorly differentiated extending broadly to the deep inked margin of the specimen. Accession number [id number]. He was treated with a Mohs procedure 02/03/2019. The tumor was greater than 3 cm in greatest dimension. There was mention of recommendation for local radiation at that time which the patient chose not to proceed with. Patient subsequently developed a left axillary recurrent mass which was biopsied and reportedly positive for metastatic squamous cell carcinoma. 08/19/2019. Patient undergoes CT of the chest without contrast. This showed no lytic or blastic bony lesions but did identify a 10 cm left axillary mass that would be amenable to ultrasound-guided fine-needle aspiration biopsy. Patient also underwent a CT of the soft tissues of the neck. This identified a large left supraclavicular mass measuring 5 cm that was suspicious for neoplasm. This lesion was felt to be amenable to ultrasound-guided FNA. 08/21/2019. Patient agrees to an ultrasound-guided FNA of the left axillary mass. 08/22/2019. The FNA was reported out as a metastatic squamous cell carcinoma associated with extensive necrosis. 08/30/2019. Patient undergoes an MRI of the brain without contrast. There was no acute intracranial findings. There was moderate atrophy and small vessel disease. There was no evidence of intracranial metastatic disease on the unenhanced study. 09/07/2019. Patient was seen by his PCP Demetrio Healy (family medicine). The patient was recently admitted after tripping over his dog and being unable to get up the patient was admitted on August 17 and discharged on August 30. The patient was found to have acute renal failure and acute heart failure and progression of his neck mass over the past several months. He was complaining of pain in his neck and in the mass in the left axilla. A lidocaine patch was placed on the neck mass with some benefit and he was given oxycodone for pain. Patient was started on antibiotics which he was completing. His exam identified a large left supraclavicular mass which was tender as well as a left axillary mass which was tender. The patient was sent to Dr. Roman for evaluation of the surgical options. 09/09/2019. Patient subsequently developed evidence of recurrence on the left back and a increasing mass in the left axilla. Patient was seen by Dr. Silverio strickland (general surgery) he examined the patient and noted a palpable mass in the left axilla and in the left neck. He recommended imaging studies of but did not feel the patient would likely be a candidate for surgical excision. He recommended medical oncology consultation. 09/17/2019. Patient is seen in the emergency department after complaint of generalized weakness and a fall. Patient undergoes CT of the head without contrast. This showed no acute intracranial abnormalities. 09/26/2019. Patient underwent a tele-medicine visit. Patient's condition was deteriorating. There was difficulty with palliative medicine adjusting his pain medication. He was suggested the patient might be better served by being evaluated by his PCP or going to the emergency department. 09/29/2019. The patient presented to the emergency department after appearing confused. CT of the head without contrast was again performed. The patient was experiencing acute changes in mental status. There was no intra-or extra-axial masses visualized no midline shift no acute hemorrhage and no acute intracranial findings appreciated. 10/02/2019. Patient is felt to have probable metabolic encephalopathy. Patient is to be evaluated by Dr. Granda upon discharge 10/04/2019. CT of the head. This again showed no intra-or extra axial masses no evidence of infarction, midline shift or acute hemorrhage. No acute intracranial findings appreciated. 10/05/2019. Patient undergoes ultrasound examination of the left armpit to rule out an abscess. This identified a 16.2 x 12.1 x 13.1 cm hypoechoic left axill jose alberto abnormality which corresponds to the findings on the CT scan of 08/21/2019. This lesion had increased in size compared to the prior examination. The central component likely represents necrosis. 10/07/2019. Patient continued to have issues with his mental status. In the morning he became combative requiring sedation. We were asked to see the patient in referral for consideration of palliative radiation. This chart was completed in part utilizing [employer] Voice Recognition software. Grammatical errors, random word insertions, pronoun errors and incomplete sentences are occasional consequence of this system due to software limitations, ambient noise and hardware issues. Any formal questions or concerns about the content, text or information contained within the body of this dictation should be directly addressed to the provider for clarification. Rene Young MD Department of Radiation Oncology [facility] and [facility]. Allergies Allergy/AdvReac Type Severity Reaction Status Date / Time Iodinated Contrast Media Allergy Unknown . Verified 09/29/19 12:55 lisinopril AdvReac Severe Anaphylaxis Unverified 09/29/19 12:55 tetanus toxoid, adsorbed AdvReac Intermediate Arm Unverified 09/29/19 12:55 Swelling codeine AdvReac Mild NAUSEA Verified 09/29/19 12:55 morphine AdvReac Mild itching, Unverified 09/29/19 12:55 nausea/vomiting atorvastatin AdvReac Unknown myalgia Unverified 09/29/19 12:55 doxycycline AdvReac Unknown Unknown Unverified 09/29/19 12:55 Home Medications Home Medications Medication Instructions Recorded Confirmed Type albuterol sulfate 2 puff INHALATION Q6H PRN 08/18/19 09/29/19 History budesonide-formoterol [Symbicort] 2 puff INHALATION BID 08/18/19 09/29/19 History camphor-menthol 1 applic TOPICAL DAILY PRN 08/18/19 09/29/19 History clopidogrel 75 mg PO DAILY 08/18/19 09/29/19 History epinephrine [EpiPen] 0.3 mg IM Q3H PRN 08/18/19 09/29/19 History fexofenadine 180 mg PO DAILY PRN 08/18/19 09/29/19 History ipratropium-albuterol 3 ml INHALATION Q6H PRN 08/18/19 09/29/19 History melatonin 10 mg PO HS 08/18/19 09/29/19 History nitroglycerin 0.4 mg SUBLINGUAL UD 08/18/19 09/29/19 History omeprazole 20 mg PO BID 08/18/19 09/29/19 History zolpidem 10 mg PO HS 08/18/19 09/29/19 History apixaban [Eliquis] 5 mg PO BID 30 Days #60 tab 08/31/19 09/29/19 Rx furosemide 80 mg PO BID #60 tab 08/31/19 09/29/19 Rx ipratropium-albuterol [Combivent 1 puff INHALATION QID 30 Days #1 08/31/19 09/29/19 Rx Respimat] device metoprolol succinate 100 mg PO BID 30 Days #120 tab 08/31/19 09/29/19 Rx spironolactone 25 mg PO DAILY 30 Days #30 tab 08/31/19 09/29/19 Rx insulin aspart U-100 [Novolog 10 unit SC DAILYBB 09/17/19 09/29/19 History Flexpen U-100 Insulin] insulin glargine [Lantus Solostar 47 unit SC HS 09/17/19 09/29/19 History U-100 Insulin] lactulose 15 ml PO DAILY 09/17/19 09/29/19 History lidocaine 1 patch TRANSDERMAL HS 09/17/19 09/29/19 History morphine 15 mg PO BID 09/17/19 09/29/19 History oxycodone 15 mg PO Q6H PRN 09/17/19 09/29/19 History polyethylene glycol 3350 [Miralax] 17 g PO DAILY PRN 09/17/19 09/29/19 History Patient History Medical History (Updated 10/06/19 @ 10:57 by Debby Fenton MD, PhD) Atrial fibrillation CAD (coronary artery disease) CKD (chronic kidney disease) stage 3, GFR 30-59 ml/min COPD (chronic obstructive pulmonary disease) Gout Heart failure, chronic systolic History of NE (myocardial infarction) Metastatic squamous cell carcinoma JOSE on CPAP Osteoarthritis Paroxysmal atrial fibrillation Recurrent major depression Type 2 diabetes mellitus Surgical History History of cardiac cath 2003, 2008, 2012, 2016 History of cataract surgery History of cholecystectomy History of coronary angioplasty with insertion of stent 10/11/15 - distal LAD stent placed at [facility] [place] History of repair of rotator cuff Family History Father , age 62 Heart disease Mother , age 70 Stroke Social History Smoking Status: Former smoker Hx Alcohol Use: No Hx Substance Use: No Preferred Language: Malian Communication Ability: Impaired Beliefs That Will Affect Care: None marital status: Current Living Situation: Alone Feels Safe at Home: Yes Physical Exam Physical Exam: Constitutional: The patient is lying in his bed he is confused and talking. He is unable to respond to any questions. He appears agitated and is moving. He does attempt to push my hand away when I attempt to examine him. Neck: There is no right neck cervical or supraclavicular adenopathy. Examination of the left neck reveals no upper neck adenopathy but at the base of the left neck is a large mass that is tender and appears to involve the overlying skin. This lesion is partially fixed but is not friable. There is a lidocaine patch overlying the lesion. Axilla: Right axilla was without abnormal adenopathy. In the left axilla there is a large soft mass that is difficult to determine the exact size of the lesion. On scan the lesion is over 16 cm. The overlying skin is red however there is no evidence of breakthrough or breakdown of the skin. Lungs: Patient is uncooperative but no obvious rales or rhonchi appreciated. Heart: The patient has no evidence of murmurs. Abdomen: Obese nontender no obvious masses or organomegaly. Skin: Erythema overlying the left axillary mass. Neurologic: The patient does not appear to be oriented to person or place. He is unable to respond to any questions or to any request. Results (Rad Onc) Laboratory Results: were reviewed and pertinent findings noted in HPI Pathology Results: were reviewed and pertinent findings noted in HPI Imaging Studies: were reviewed and pertinent findings noted in HPI
[2019-10-07] MEDS: CEFEPIME 2,000 MG in SYRINGE 7.5 ML IV SCH ×2 (09:22→20:29)
[2019-10-07] MEDS: INSULIN ASPART 100 UNITS/ML 3 ML PEN SC SCH ×4 (09:23→21:07)
[2019-10-07] MEDS: METOPROLOL SUCC 50MG EXT REL TAB PO SCH ×3 (09:34→20:25)
[2019-10-07] MEDS: APIXABAN 5 MG TABLET PO SCH ×3 (09:34→20:24)
[2019-10-07] MEDS: PANTOprazole 40 MG TAB PO SCH ×3 (09:35→20:24)
[2019-10-07] MEDS: CLOPIDOGREL BISULFATE 75 MG TAB PO SCH ×2 (09:35→10:03)
[2019-10-07] MEDS: SPIRONOLACTONE 25 MG TAB PO SCH ×2 (09:35→10:03)
[2019-10-07] MEDS: THIAMINE HCL 100 MG TAB PO SCH ×2 (09:35→10:03)
[2019-10-07] MEDS: FOLIC ACID 1 MG TAB PO SCH ×2 (09:35→10:03)
[2019-10-07] MEDS: LACTULOSE SYRUP 10 GM/15 ML BTL 960 ML PO SCH (10:01)
--- NOTE | 2019-10-07 10:58 | Nephrology Progress Note ---
Date of Service October 07, 2019 Assessment & Plan (1) Hypercalcemia: hypercalcemia of malignancy from advanced metastatic squamous cell CA. worsening calcium despite calcitonin and lasix; would not expect zometa to kick in until approx 10/07 -ordered pth, pthrp, 25 ohd for 1600 draw along with repeat bmp >>PTH and 25 OHD D both low; pthrp pending; serum albumin 2.5; do not believe further diagnostic w/u indicated at this time -update albumin ordered > 2.5 is value -change NS from 50 mL hourly to 125 mL hourly and give lasix 60 mg IV q4h; stop PO lasix >> will this evening increase IVF rate and will add K to fluids -recheck bmp ordered for 1500 >>ca 12.3 (improving) -had 10/05 mg zometa x 1 at 1300 -increased calcitonin 800 units SQ calcitonin q6h >> for midday and 1800 dose; pharmacy looking into whether stores allow this dose to be extended to tomorrow -cannot rule out need for dialysis if we cannot stabilize this; however calcium would have to worsen considerably even to consider dialysis and this patient is probably not a dialysis candidate; will consider further if situation indicates (2) Metastatic squamous cell carcinoma: staging work up in process; no therapy yet; L axillary lesion FNA path noted. -follow up rad onc recs (3) Heart failure, chronic systolic: mild w/ EF 45% and dx'd last month; on lasix and spironlactone; with clearer CXR, will stop spironolactone and plan lasix/IVF as above d/t calcium increase Admission and Anticipated Discharge Date Admission Date: September 30, 2019 Subjective more agitation ON and meds adjusted; CXR clear and started on low rate NS 50 mL hourly this am. Ca up to 14.3 corrected; rad onc c/s pending as is palliative consult Review of Systems Review of Systems: Unobtainable due to reduced consciousness Physical Exam Constitutional: well developed, well nourished and + altered mental status; + uncooperative Eyes: EOM intact bilaterally ENMT: Ears: no external ear abnormality Nose: no external nose abnormality Mouth: + dry oral mucous membranes Neck: no nuchal rigidity Respiratory: normal respiratory effort; no respiratory distress and + not able to speak in complete sentence Auscultation: + diminished lung sounds; no crackles and no wheezes lying flat on RA Cardiovascular: Heart Sounds: normal S1 and normal S2; no murmur Extremities: no edema Gastrointestinal (Abdomen): Inspection/Auscultation: normal bowel sounds Percussion/Palpation: abdomen soft; abdomen nontender Musculoskeletal: chambers Skin: no rashes, warm and dry + erythema (L axilla and induration, tenderness) Neurologic: obtunded Results & Data ([facility]) Vital Signs (Past 12 Hours) Vital Signs Temp Pulse Resp BP Pulse Ox 10/07/19 09:20 36.4 C L 93 H 20 156/88 H 91 Laboratory Results 10/07/19 05:32 10/07/19 05:32 Ca 13.1 >> corrects to 14.3 Diagnostic Findings CXR 1. Cardiomegaly without radiographic evidence of congestive failure. 2. No airspace consolidation or large pleural effusion is identified.
[2019-10-07] MEDS ORDERED: SODIUM CHLORIDE 0.9% 1000ML 1,000 ML IV SCH (11:00)
--- NOTE | 2019-10-07 11:22 | Pharmacy Report ---
Pharmacy Glycemic Short Note 2 - Date of Service October 07, 2019 - Glycemic Short BSG Results (Last 24 hours): 10/06/19 10/06/19 10/06/19 11:25 16:17 16:25 Glucose 155 H POC Glucose 147 H 146 H 10/06/19 10/07/19 10/07/19 20:10 05:32 07:54 Glucose 173 H POC Glucose 191 H 174 H OUTPATIENT ANTIDIABETIC REGIMEN: * Lantus 47 units SQ HS * NovoLog 10 units with breakfast ASSESSMENT: 10/06 * BSGs again fairly well controlled over last 24 hrs, although BSGs starting to trend upwards over last several checks. It sounds as though this patient's mental status has not improved and he has been more combative. This agitation could certainly contribute to upwards BSG trend. ABX regimen expanded today due to concerns for rising WBC, possible sepsis from SSTI. * Fasting BSG 174 with 33 units basal on board - will cautiously increase basal dose given correctional insulin doses required in last 24 hrs while essentially NPO. Patient is refusing PO meds and meals at this time. Given poor PO intake, only 10% increase in basal today. Will need to monitor PO intake, as his basal insulin needs will likely increase if PO intake improves in the future. * No changes will be made to Novolog doses at this time given adequate performance in recent past - will follow BSG pattern 10/05 * BSGs well controlled over last 24 hrs * Patient received 35 units over last 24 hrs however he consumed very little PO due to patient's mental status (oriented only to person, sometimes combative, and frequent sleeping per nursing documentation) * Fasting BSG 139 this AM, at goal, with 33 units of basal insulin on board - will continue the same and monitor for falling BSGs if poor PO intake continues * Post-prandial BSGs did appear to be well controlled on 10/03 when patient was eating more consistently - no changes today, but will monitor BSG pattern PLAN FOR INPATIENT GLYCEMIC CONTROL: * Basal insulin - increase * Lantus 36 units SQ HS * Bolus insulin - no change * NovoLog per scale ACHS or Q6hrs while NPO * Goal Range: Low 110 mg/dL - High 140 mg/dL * Correction Factor: 20 mg/dL/unit * Nutritional / Prandial insulin per carb ratio of 1 unit per 6 grams CHO consumed DISCHARGE RECOMMENDATIONS: * A1c = 12.1% from 08/19/2019. Patient was admitted around this A1c and anti- diabetic regimen was changed. * Goal A1c needs to be determined based upon goals of care. Patient has had recent Palliative Care consultation. He had been dependent on some home health services. It now sounds as though he may transition to [facility] on discharge. * If discharged to [facility], would recommend continuation of basal/bolus regimen. At this time it appears the following would be appropriate * Lantus dosing once daily per scale: 0 units if BSG less than 110, 15 units if BSG 110-140, 30 units if BSG greater than 140 * Novolog: goal range 110-140, Correction factor 20mg/dL/unit; Carb ratio 1 unit per 6 grams CHO consumed
[2019-10-07] MEDS: FUROSEMIDE 60 MG in SYRINGE 0 ML IV SCH ×4 (12:04→22:25)
[2019-10-07] MEDS: HALOPERIDOL LACTATE 5 MG/ML 1 ML VIAL IM PRN ×2 (12:30→19:56)
--- NOTE | 2019-10-07 15:35 | Hospitalist Progress Note ---
Date of Service October 07, 2019 Assessment & Plan (1) Altered mental status: Altered mental status Likely metabolic encephalopathy Hypercalcemia could be contributing CT head:No acute intracranial findings Reorient frequently Normal procalcitonin No significant hypercapnia on VBG Could not get MRI brain to R/O Metastasis Will obtain MRI as able Hypercalcemia Likely secondary to squamous cell carcinoma Given Zometa PTH:6.5 PTH related Peptide:pending Vit D 25 OH: 9.9 Appreciate nephrology input Received Lasix, calcitonin Monitor calcium levels closely Continue IV fluids Continue IV lasix Increased Calcitonin Multiple Falls CT head:No acute intracranial findings. Irregularity left parietal vertex scalp in the region of a prior laceration Fall precautions Hypokalemia Normal Mag levels Replete electrolytes as needed Monitor (2) Cellulitis: Left Armpit cellulitis Underlying malignant lesion on left armpit from squamous cell carcinoma Received IV ceftriaxone and daptomycin Extremity USD: Large 16.2 x 12.1 x 13.1 cm hypoechoic left axillary abnormality which has increased in size since chest CT of August 21, 2019. This favors a pathologic necrotic lymph node and could be correlated with biopsy of August 22, 2019. The central component likely reflects necrosis. However, sterility cannot be assessed by sonography. --On chronic pain medications --Hold Narcotics for now --Will broaden antibiotic coverage to Cefepime --Worsening Leukocytosis likely due to SCC (3) Metastatic squamous cell carcinoma: Not a surgical candidate as per surgical oncology Discussed with Surgical Oncology Dr. John Roman on 10/06/19 Also discussed with medical oncology Dr.Nilesh Granda on 10/06/19 Discussed with Radiation oncology for possible palliative radiation--On 10/07/19 Needs PET scan as outpatient Needs MRI brain to r/o brain mets Needs follow-up with oncology as outpatient Currently unstable for radiation therapy Appreciate Palliative Care Input (4) JOSE on CPAP: CPAP at night COPD Chronic respiratory failure with hypoxia No signs of acute exacerbation continue home inhalers Continue Supplemental oxygen (5) CKD (chronic kidney disease) stage 3, GFR 30-59 ml/min: renal function at baseline monitor (6) Type 2 diabetes mellitus: A1c in August above 12% Continue Insulin therapy Glycemic control pharmacist consulted (7) Atrial fibrillation: Continue metoprolol On apixaban for anticoagulation (8) Congestive heart failure: Continue Metoprolol, furosemide, spironolactone as able Monitor volume status low-sodium diet Fluid restriction DVT Px: On Apixaban Code Status: Full Code Disposition: To be determined Very poor Prognosis Admission and Anticipated Discharge Date Admission Date: September 30, 2019 Subjective Patient is seen and examined at bedside Patient remains confused History is limited due to mental status Discussed with Palliative Care today Tried to reach Family--Ton Gómez: No answer Will try to reach family again Very Poor Prognosis Also spoke with Radiation Oncology--Unstable for palliative radiation currently Calcium levels remain elevated despite calcitonin, Lasix, Zometa Increased IV fluids Review of Systems Review of Systems: Unobtainable due to cognitive status Physical Exam Physical Exam: Physical Exam: Vitals signs as noted above General Appearance:Obese, Confused Head: normocephalic, Atraumatic Eyes: normal inspection, EOMI Neck: supple, Trachea midline Respiratory/Chest: Normal breath sounds, CTA, No accessory muscle use Cardiovascular: S1, S2, No murmur Abdomen/GI:Soft, Non tender, Bowel sounds present Extremities/Musculoskelatal:normal inspection, Left Armpit swelling, redness, tender Neurologic/Psych:grossly no focal neurological deficits Skin: normal color, warm Results & Data Results & Data ([facility]) Vital Signs (Past 12 Hours) Vital Signs Temp Pulse Resp BP Pulse Ox 10/07/19 09:20 36.4 C L 93 H 20 156/88 H 91 (1) Altered mental status Altered mental status type: unspecified Qualified Code(s): R41.82 - Altered mental status, unspecified (2) Cellulitis Site of cellulitis: unspecified site Qualified Code(s): L03.90 - Cellulitis, unspecified (3) Type 2 diabetes mellitus Diabetes mellitus medical terminologist insulin use: without senior living use Diabetes mellitus complication status: with kidney complications Diabetes mellitus complication detail: with chronic kidney disease Chronic kidney disease stage: stage 3 (moderate) Qualified Code(s): 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 mellitus with diabetic chronic kidney disease; N18.3 - Chronic kidney disease, stage 3 (moderate) (4) Atrial fibrillation Atrial fibrillation type: unspecified Qualified Code(s): I48.91 - Unspecified atrial fibrillation (5) Congestive heart failure Heart failure type: unspecified Heart failure chronicity: acute on chronic Qualified Code(s): I50.9 - Heart failure, unspecified
[2019-10-07 15:38] LABS: BUN Creatinine Ratio 25.3 (10-20); Calcium 12.3 mg/dl (8.5-10.1); Creatinine Clr Calc Pharmacy 63.2 ml/min; Est GFR (African American) 63.3; Est GFR (Non-African American) 54.6
--- NOTE | 2019-10-07 16:02 | Palliative Care Consultation ---
Date of Consultation October 07, 2019 Assessment & Plan (1) Goals of care, counseling/discussion: Patient is a 74-year-old male with a past medical history significant for a large left neck and axillary mass-recently diagnosed with squamous cell carcinoma. Patient has not yet seen oncology or started any treatment. Patient was still undergoing staging with a PET scan which she missed due to altered mental status. Patient was brought to [facility] on 09/28 for altered mental status, calcium level was 10.6 with an albumin of 2.8-he was admitted for further work- up and treatment. Patient had been having significant pain related to his cancer and was being followed by [facility]. Patient's past medical history is also significant for CAD-status post stent. Poorly controlled diabetes-A1c 12%, A. fib-on Eliquis and metoprolol, CHF-EF 45%, JOSE-on CPAP, COPD and CKD stage III. Chart reviewed, patient seen and examined, nursing and phlebotomy at bedside. Patient combative, confused, unable to answer simple questions by nodding yes or no, unable to state his name. -Patient has 2 children, a son Ton and a daughter Betina who are not involved in his care. Patient has a friend who is also his caregiver Dalia Baumann - attempted to reach her at 2 different phone numbers-no answer - LM -Was able to reach son's [phone] able to update her on his current condition and his grave prognosis. Did speak to patient's son Ton along with [id number], Veda on speaker phone-updated them on his current status as well as current treatment. Informed family that he has a dire prognosis, patient does not have advanced directives or healthcare surrogate. Did let Veda know that in the [facility] is the consensus of adult children. Also informed Veda that the family can appoint a decision-maker if they feel they are not able to. -Patient will remain a full code at this time until I hear back from family. We will continue aggressive treatment for his hypercalcemia-inform family that without aggressive treatment for his cancer the calcium level will continue to rise. -Altered mental status-likely due to hypercalcemia due to squamous cell carcinoma-calcium has been rising despite treatment, patient was given a dose of Zometa on 10/05 as well as calcitonin and Lasix-calcium level this afternoon came down to 12.3 from 13.1. -Patient is not an HD candidate for his hypercalcemia as patient is very confused and combative would not be able to cooperate. -Patient is also not a candidate for palliative radiation at this time due to being combative and uncooperative. -Patient with an elevated white count-was 14.7 on admission, parker to 20.97, patient currently on IV cefepime, chest x-ray was clear, UA was not impressive with trace leukocytes, negative nitrates, 1+ blood, negative bacteria seen on smear. -Patient combative with care-has required IM Zyprexa x3 and IM Haldol x1 in the past 24 hours -Plan is to continue to aggressively treat his hypercalcemia, await decision from family regarding CODE STATUS and healthcare surrogate. (2) Hypercalcemia: (3) Metastatic squamous cell carcinoma: (4) Altered mental status: (5) Neck mass: History of Present Illness Reason for Consultation: Goals of care and code status Requesting Physician: Dr Pastrana Attending Physician: Anastacio Pastrana MD History of Present Illness Patient is a 74-year-old male with a past medical history significant for a large left neck and axillary mass-recently diagnosed with squamous cell carcinoma. Patient has not yet seen oncology or started any treatment. Patient was still undergoing staging with a PET scan which she missed due to altered mental status. Patient was brought to [facility] on 09/28 for altered mental status, calcium level was 10.6 with an albumin of 2.8-he was admitted for further work- up and treatment. Patient had been having significant pain related to his cancer and was being [facility]. Patient's past medical history is also significant for CAD-status post stent. Poorly controlled d iabetes-A1c 12%, A. fib-on Eliquis and metoprolol, CHF-EF 45%, JOSE-on CPAP, COPD and CKD stage III. Chart reviewed, patient seen and examined, nursing and phlebotomy at bedside. Patient combative, confused, unable to answer simple questions by nodding yes or no, unable to state his name. -Patient has 2 children, a son Ton and a daughter Betina who are not involved in his care. Patient has a friend who is also his caregiver Dalia Baumann - attempted to reach her at 2 different phone numbers-no answer - LM -Was able to reach son's [phone] able to update her on his current condition and his grave prognosis. Did speak to patient's son Ton along with ookwybih-li-zgc, eVda on speaker phone-updated them on his current status as well as current treatment. Informed family that he has a dire prognosis, patient does not have advanced directives or healthcare surrogate. Did let Veda know that in the [facility] is the consensus of adult children. Also informed Veda that the family can appoint a decision-maker if they feel they are not able to. -Patient will remain a full code at this time until I hear back from family. We will continue aggressive treatment for his hypercalcemia-inform family that without aggressive treatment for his cancer the calcium level will continue to rise. -Altered mental status-likely due to hypercalcemia due to squamous cell carcinoma-calcium has been rising despite treatment, patient was given a dose of Zometa on 10/05 as well as calcitonin and Lasix-calcium level this afternoon came down to 12.3 from 13.1. -Patient is not an HD candidate for his hypercalcemia as patient is very confused and combative would not be able to cooperate. -Patient is also not a candidate for palliative radiation at this time due to being combative and uncooperative. -Patient with an elevated white count-was 14.7 on admission, parker to 20.97, patient currently on IV cefepime, chest x-ray was clear, UA was not impressive with trace leukocytes, negative nitrates, 1+ blood, negative bacteria seen on smear. -Patient combative with care-has required IM Zyprexa x3 and IM Haldol x1 in the past 24 hours -Plan is to continue to aggressively treat his hypercalcemia, await decision from family regarding CODE STATUS and healthcare surrogate. Allergies Allergy/AdvReac Type Severity Reaction Status Date / Time Iodinated Contrast Media Allergy Unknown . Verified 09/29/19 12:55 lisinopril AdvReac Severe Anaphylaxis Unverified 09/29/19 12:55 tetanus toxoid, adsorbed AdvReac Intermediate Arm Unverified 09/29/19 12:55 Swelling codeine AdvReac Mild NAUSEA Verified 09/29/19 12:55 morphine AdvReac Mild itching, Unverified 09/29/19 12:55 nausea/vomiting atorvastatin AdvReac Unknown myalgia Unverified 09/29/19 12:55 doxycycline AdvReac Unknown Unknown Unverified 09/29/19 12:55 Home Medications Home Medications Medication Instructions Recorded Confirmed Type albuterol sulfate 2 puff INHALATION Q6H PRN 08/18/19 09/29/19 History budesonide-formoterol [Symbicort] 2 puff INHALATION BID 08/18/19 09/29/19 History camphor-menthol 1 applic TOPICAL DAILY PRN 08/18/19 09/29/19 History clopidogrel 75 mg PO DAILY 08/18/19 09/29/19 History epinephrine [EpiPen] 0.3 mg IM Q3H PRN 08/18/19 09/29/19 History fexofenadine 180 mg PO DAILY PRN 08/18/19 09/29/19 History ipratropium-albuterol 3 ml INHALATION Q6H PRN 08/18/19 09/29/19 History melatonin 10 mg PO HS 08/18/19 09/29/19 History nitroglycerin 0.4 mg SUBLINGUAL UD 08/18/19 09/29/19 History omeprazole 20 mg PO BID 08/18/19 09/29/19 History zolpidem 10 mg PO HS 08/18/19 09/29/19 History apixaban [Eliquis] 5 mg PO BID 30 Days #60 tab 08/31/19 09/29/19 Rx furosemide 80 mg PO BID #60 tab 08/31/19 09/29/19 Rx ipratropium-albuterol [Combivent 1 puff INHALATION QID 30 Days #1 08/31/19 09/29/19 Rx Respimat] device metoprolol succinate 100 mg PO BID 30 Days #120 tab 08/31/19 09/29/19 Rx spironolactone 25 mg PO DAILY 30 Days #30 tab 08/31/19 09/29/19 Rx insulin aspart U-100 [Novolog 10 unit SC DAILYBB 09/17/19 09/29/19 History Flexpen U-100 Insulin] insulin glargine [Lantus Solostar 47 unit SC HS 09/17/19 09/29/19 History U-100 Insulin] lactulose 15 ml PO DAILY 09/17/19 09/29/19 History lidocaine 1 patch TRANSDERMAL HS 09/17/19 09/29/19 History morphine 15 mg PO BID 09/17/19 09/29/19 History oxycodone 15 mg PO Q6H PRN 09/17/19 09/29/19 History polyethylene glycol 3350 [Miralax] 17 g PO DAILY PRN 09/17/19 09/29/19 History Patient History Medical History Atrial fibrillation CAD (coronary artery disease) CKD (chronic kidney disease) stage 3, GFR 30-59 ml/min COPD (chronic obstructive pulmonary disease) Gout Heart failure, chronic systolic History of CA (myocardial infarction) Metastatic squamous cell carcinoma JOSE on CPAP Osteoarthritis Paroxysmal atrial fibrillation Recurrent major depression Type 2 diabetes mellitus Surgical History History of cardiac cath 2003, 2008, 2012, 2015 History of cataract surgery History of cholecystectomy History of coronary angioplasty with insertion of stent 10/11/15 - distal LAD stent placed at [facility] History of repair of rotator cuff Family History Father , age 62 Heart disease Mother , age 70 Stroke Social History Smoking Status: Former smoker Hx Alcohol Use: No Hx Substance Use: No Preferred Language: Bahamian Communication Ability: Impaired Beliefs That Will Affect Care: None marital status: Current Living Situation: Alone Feels Safe at Home: Yes Review of Systems Review of Systems: Unobtainable due to cognitive status Physical Exam Physical Exam: PE: Patient combative with care and blood draws, patient unable to answer any simple questions, speech is garbled HEENT: EOMI, gaze unfocused Respirations: Unlabored clear breath sounds CV: Regular rate Abdomen: Soft, no grimace or signs of pain with palpation Neuro: Patient confused, agitated and combative Results & Data ([facility]) Vital Signs (Past 12 Hours) Vital Signs Temp Pulse Resp BP Pulse Ox 10/07/19 09:20 97.5 F L 93 H 20 156/88 H 91 Laboratory Results 10/07/19 05:32 10/07/19 05:32 Ca 13.1 >> corrects to 14.3 PG Care Time/CCT Total # of Minutes Spent Total Time Spent with Patient: Total time spent 90 minutes with greater than 50% of the time spent at bedside assessing patient's current status as well as attempting to reach family by phone, collaborated with attending physician and case management. Is greater than 50% in coordination of care (as documented) at patient's floor/unit and/or counseling patient: Coding Level of Care Code 91970 Inpt Consult Level 3 Diagnoses Goals of care, counseling/discussion Z71.89 Hypercalcemia E83.52 Metastatic squamous cell carcinoma C79.9 Altered mental status R41.82 Neck mass R22.1 Time Spent (min) 90
[2019-10-07] MEDS ORDERED: FUROSEMIDE 80 MG TAB PO SCH (17:00)
[2019-10-07 18:30] LABS: Potassium 3.6 mmol/L (3.5-5.1)
[2019-10-07] MEDS: POTASSIUM CHLORIDE 40 MEQ in SODIUM CHLORIDE 0.9% 1000ML 1,000 ML IV SCH (20:04)
[2019-10-07] MEDS: FLUTICASONE/VILANTEROL 200/25MCG 14 PUFFS/INHALER INH SCH (20:24)
[2019-10-07] MEDS: MELATONIN 3 MG TAB PO SCH (20:24)
[2019-10-07] MEDS: LIDOCAINE 5% 1 PATCH TD SCH (20:25)
[2019-10-07] MEDS ORDERED: INSULIN GLARGINE SOLOSTAR 100 UNITS/ML 3 ML PEN SC SCH (21:00)
[2019-10-08] MEDS: POTASSIUM CHLORIDE 40 MEQ in SODIUM CHLORIDE 0.9% 1000ML 1,000 ML IV SCH ×2 (03:28→11:10)
[2019-10-08] MEDS: FUROSEMIDE 60 MG in SYRINGE 0 ML IV SCH ×3 (03:28→11:10)
[2019-10-08] MEDS ORDERED: MELATONIN 3 MG TAB PO PRN (03:36)
[2019-10-08] MEDS: HALOPERIDOL LACTATE 5 MG/ML 1 ML VIAL IM PRN ×2 (05:56→19:03)
[2019-10-08] MEDS: INSULIN ASPART 100 UNITS/ML 3 ML PEN SC SCH ×2 (08:51→13:36)
[2019-10-08] MEDS ORDERED: CALCITONIN SALMON 400 UNITS/2 ML SQ SCH (09:00)
[2019-10-08] MEDS: CEFEPIME 2,000 MG in SYRINGE 7.5 ML IV SCH (09:52)
[2019-10-08] MEDS: CHECK CLONIDINE PATCH PLACEMENT SCH (09:56)
[2019-10-08] MEDS: SPIRONOLACTONE 25 MG TAB PO SCH (10:48)
[2019-10-08] MEDS: CLOPIDOGREL BISULFATE 75 MG TAB PO SCH (10:48)
[2019-10-08] MEDS: APIXABAN 5 MG TABLET PO SCH (10:48)
[2019-10-08] MEDS: LACTULOSE SYRUP 10 GM/15 ML BTL 960 ML PO SCH (10:48)
[2019-10-08] MEDS: PANTOprazole 40 MG TAB PO SCH (10:48)
[2019-10-08] MEDS: FOLIC ACID 1 MG TAB PO SCH (10:48)
[2019-10-08] MEDS: METOPROLOL SUCC 50MG EXT REL TAB PO SCH (10:49)
[2019-10-08] MEDS: THIAMINE HCL 100 MG TAB PO SCH (10:49)
[2019-10-08 12:40] LABS: Hematocrit (blood only) 46.2 % (42-52); Hemoglobin 15.1 g/dL (14.0-18.0); Mean Corpuscular Hemoglobin 31.3 pg (25-34); Mean Corpuscular Hgb Conc 32.7 g/dL (32-36); Mean Corpuscular Volume 95.9 fL (80-100); Platelet Count 338 K/uL (130-400); RDW Standard Deviation 48.8 fL (36.4-46.3); Red Blood Count 4.82 M/uL (4.7-6.1); White Blood Count 23.39 K/uL (4.8-10.8)
[2019-10-08 12:48] LABS: BUN Creatinine Ratio 25.2 (10-20); Est GFR (African American) 52.4; Est GFR (Non-African American) 45.2
[2019-10-08 13:07] LABS: Basophils # (auto) 0.03 K/uL (0-0.2); Basophils % (auto) 0.1 %; Eosinophils # (auto) 0.02 K/uL (0-0.5); Eosinophils % (auto) 0.1 %; Immature Granulocytes # (auto) 0.11 K/uL (0.00-0.02); Immature Granulocytes % (auto) 0.5 %; Lymphocytes # (auto) 1.23 K/uL (1.2-3.4); Lymphocytes % (auto) 5.3 %; Monocytes # (auto) 1.54 K/uL (0.11-0.59); Monocytes % (auto) 6.6 %; Neutrophils # (auto) 20.46 K/uL (1.4-6.5); Neutrophils % (auto) 87.4 %
--- NOTE | 2019-10-08 13:20 | Palliative Care Progress Note ---
Date of Service October 08, 2019 Assessment & Plan (1) Goals of care, counseling/discussion: Patient is a 74-year-old male with a past medical history significant for a large left neck and axillary mass-recently diagnosed with squamous cell carcinoma. Patient has not yet seen oncology or started any treatment. Patient was still undergoing staging with a PET scan which she missed due to altered mental status. Patient was brought to [facility] on 09/28 for altered mental status, calcium level was 10.6 with an albumin of 2.8-he was admitted for further work- up and treatment. Patient had been having significant pain related to his cancer and was being followed by [facility] care. Patient's past medical history is also significant for CAD-status post stent. Poorly controlled diabetes-A1c 12%, A. fib-on Eliquis and metoprolol, CHF-EF 45%, JOSE-on CPAP, COPD and CKD stage III. Chart reviewed, patient seen and examined, nursing and phlebotomy at bedside. Patient combative, confused, unable to answer simple questions by nodding yes or no, unable to state his name. -Patient has 2 children, a son Ton and a daughter Betina. Met with Betina and Ton's , Veda at bedside-updated them on his current status as well as current treatment. Informed family that he has a dire prognosis -Altered mental status-likely due to hypercalcemia due to squamous cell carcinoma-calcium has been rising despite treatment, patient was given a dose of Zometa on 10/05 as well as calcitonin and Lasix-calcium level this afternoon came down to 12.3 from 13.1. -Patient is not an HD candidate for his hypercalcemia as patient is very confused and combative would not be able to cooperate. -Patient is also not a candidate for palliative radiation at this time due to being combative and uncooperative. -Patient combative with care-has required IM Zyprexa x3 and IM Haldol x3 in the past 24 hours -Plan is to transition to comfort care, change CODE STATUS to DNR. -Spoke with case management regarding home as well as possibility of admitting patient [facility] hosp[facility] depending on how he does overnight. (2) Hypercalcemia: (3) Metastatic squamous cell carcinoma: (4) Altered mental status: (5) Neck mass: Admission and Anticipated Discharge Date Admission Date: September 30, 2019 Subjective Chart reviewed, patient seen and examined. Met with patient's daughter, Betina and DIL, Veda, at bedside. Pt's son gave his permission to make decision for comfort care. Pt did not recognize either family member, was combative. TENZIN stated that his tumor is a lot larger than when she saw it last. Discussed pt's current condition and well as prognosis and treatments tried so far. Even if we were able to get his Ca++ down, dont's know how long it would stay down and if it would be long enough to get chemo that may treat his cancer. Family voiced understanding, appropriately tearful at bedside. Daughter stated " he never took care of himself". Provided support to family at bedside - assured them we would keep him comfortable and also medicate for his dignity ( he is frequently pulling sheet off ), he now has a Miller for urinary retention. - family agrees to comfort measures only, including stopping meds , IV fluids and blood draws, will need to continue zyprexa and haldol for agitation. - Will change code status to DNR - [facility] chose [facility] in [place] - Collaborated with attending physician and CM Review of Systems Review of Systems: Unobtainable due to cognitive status Physical Exam Physical Exam: PE: Patient arousable, confused, combative with care HEENT: EOMI, hearing appears to be within normal limits Respirations: Clear breath sounds CV: Regular rate, no edema Abdomen: Soft, no grimace on palpation, obese Extremities: Multiple ecchymoses Neuro: Confused, not oriented to person Results & Data ([facility]) Vital Signs (Past 12 Hours) Vital Signs Temp Pulse Resp BP 10/08/19 08:00 97.9 F 80 20 131/79 PG Care Time/CCT Total # of Minutes Spent Total Time Spent with Patient: Total time spent 65 minutes with greater than 50% of the time at bedside meeting with family to discuss prognosis, current treatments as well as goals of care. Prolonged Care Time Prolonged Care Time: Yes Total Prolonged Care Time: 30 Coding Level of Care Code 86012 Subseq Hosp Care Lvl 3 Diagnoses Goals of care, counseling/discussion Z71.89 Hypercalcemia E83.52 Metastatic squamous cell carcinoma C79.9 Altered mental status R41.82 Neck mass R22.1 Additional Codes Prolonged Care Time - Prolonged Care Time: Yes ([id number]) Time Spent (min) 65 Critical Care Time Prolonged Care Time Prolonged Care Time: Yes Total Prolonged Care Time: 30 65
[2019-10-08] MEDS ORDERED: ONDANSETRON INJ 2 MG/ML 2 ML VIAL IV PRN (13:23)
[2019-10-08] MEDS ORDERED: ONDANSETRON 4 MG OD TAB SL PRN (13:23)
[2019-10-08] MEDS ORDERED: LORazepam 0.5 MG TAB PO PRN (13:23)
--- NOTE | 2019-10-08 18:23 | Hospitalist Progress Note ---
Date of Service October 08, 2019 Assessment & Plan (1) Altered mental status: Altered mental status Likely metabolic encephalopathy Hypercalcemia could be contributing CT head:No acute intracranial findings Reorient frequently Normal procalcitonin Could not get MRI brain to R/O Metastasis Transitioned to Comfort Measures Hypercalcemia Likely secondary to squamous cell carcinoma Given Zometa PTH:6.5 PTH related Peptide:pending Vit D 25 OH: 9.9 Appreciate nephrology input Received Lasix, calcitonin, IV fluids, Zometa, calcitonin Transition to comfort measures Multiple Falls CT head:No acute intracranial findings. Irregularity left parietal vertex scalp in the region of a prior laceration (2) Cellulitis: Left Armpit cellulitis Underlying malignant lesion on left armpit from squamous cell carcinoma Received IV ceftriaxone and daptomycin Extremity USD: Large 16.2 x 12.1 x 13.1 cm hypoechoic left axillary abnormality which has increased in size since chest CT of August 21, 2019. This favors a pathologic necrotic lymph node and could be correlated with biopsy of August 22, 2019. The central component likely reflects necrosis. However, sterility cannot be assessed by sonography. On chronic pain medications Received Broad Spectrum antibiotics Worsening Leukocytosis likely due to SCC (3) Metastatic squamous cell carcinoma: Not a surgical candidate as per surgical oncology Discussed with Surgical Oncology Dr. John Roman on 10/06/19 Also discussed with medical oncology Dr.Nilesh Granda on 10/06/19 Discussed with Radiation oncology for possible palliative radiation--On 10/07/19 Needs PET scan as outpatient Needs MRI brain to r/o brain mets Needs follow-up with oncology as outpatient Currently unstable for radiation therapy Appreciate Palliative Care Input Patient transition to comfort measures only Family updated Clinically deteriorating Very poor prognosis (4) JOSE on CPAP: CPAP at night COPD Chronic respiratory failure with hypoxia No signs of acute exacerbation (5) CKD (chronic kidney disease) stage 3, GFR 30-59 ml/min: Slightly worsened (6) Type 2 diabetes mellitus: A1c in August above 12% Glycemic control pharmacist consulted On comfort measures only (7) Atrial fibrillation: Was on metoprolol, apixaban for anticoagulation (8) Congestive heart failure: Was on Metoprolol, furosemide, spironolactone as able DVT Px: Was on Apixaban Code Status: DNI/DNR On Comfort Measures Only Admission and Anticipated Discharge Date Admission Date: September 30, 2019 Subjective Patient is seen and examined at bedside Patient remains confused Unable to provide any history Discussed with palliative care in detail Patient transition to comfort measures only Family updated Clinically deteriorating Very poor prognosis Review of Systems Review of Systems: Unobtainable due to cognitive status Physical Exam Physical Exam: Physical Exam: Vitals signs as noted above General Appearance:Obese, Confused Head: normocephalic, Atraumatic Eyes: normal inspection, EOMI Neck: supple, Trachea midline Respiratory/Chest: Normal breath sounds, CTA, No accessory muscle use Cardiovascular: S1, S2, No murmur Abdomen/GI:Soft, Non tender, Bowel sounds present Extremities/Musculoskelatal:normal inspection, Left Armpit swelling, redness, tender Neurologic/Psych: Could not perform complete neurological exam Skin: normal color, warm Results & Data Results & Data ([facility]) Vital Signs (Past 12 Hours) Vital Signs Temp Pulse Resp BP 10/08/19 08:00 36.6 C 80 20 131/79 Laboratory Results Short CBC 10/08/19 Range/Units 12:19 WBC 23.39 H (4.8-10.8) K/uL Hgb 15.1 (14.0-18.0) g/dL Hct 46.2 (42-52) % Plt Count 338 (130-400) K/uL BMP 10/07/19 10/08/19 14:56 12:19 Sodium 145 Potassium 3.6 D Chloride 111 H Carbon Dioxide 25 BUN 38 H Creatinine 1.51 H Glucose 184 H Calcium 11.0 H (1) Cellulitis Site of cellulitis: unspecified site Qualified Code(s): L03.90 - Cellulitis, unspecified (2) Type 2 diabetes mellitus Diabetes mellitus shelter insulin use: without wheel mill operator use Diabetes mellitus complication status: with kidney complications Diabetes mellitus complication detail: with chronic kidney disease Chronic kidney disease stage: stage 3 (moderate) Qualified Code(s): 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
[2019-10-08] MEDS: OLANZapine 10 MG/2.1 ML SDV IM PRN (21:43)
[2019-10-09] MEDS: HALOPERIDOL LACTATE 5 MG/ML 1 ML VIAL IM PRN (00:42)
[2019-10-09] MEDS: LORazepam 0.5 MG/1 ML VIAL IV PRN ×2 (06:30→14:37)
[2019-10-09] MEDS: MoRPHine SULFATE 5 MG/0.25 ML UDP PO PRN ×2 (07:50→16:41)
[2019-10-09] MEDS: MoRPHine SULFATE 4 MG/ML 1 ML CARP\\VIAL IV PRN ×4 (10:09→23:58)
--- NOTE | 2019-10-09 18:31 | Hospitalist Progress Note ---
Date of Service October 09, 2019 Assessment & Plan (1) Altered mental status: Altered mental status Likely metabolic encephalopathy Hypercalcemia could be contributing CT head:No acute intracranial findings Reorient frequently Normal procalcitonin Could not get MRI brain to R/O Metastasis Continue Comfort Measures Hypercalcemia Likely secondary to squamous cell carcinoma Given Zometa PTH:6.5 PTH related Peptide:pending Vit D 25 OH: 9.9 Appreciate nephrology input Received Lasix, calcitonin, IV fluids, Zometa, calcitonin On comfort measures only Multiple Falls CT head:No acute intracranial findings. Irregularity left parietal vertex scalp in the region of a prior laceration (2) Cellulitis: Left Armpit cellulitis Underlying malignant lesion on left armpit from squamous cell carcinoma Received IV ceftriaxone and daptomycin Extremity USD: Large 16.2 x 12.1 x 13.1 cm hypoechoic left axillary abnormality which has increased in size since chest CT of August 21, 2019. This favors a pathologic necrotic lymph node and could be correlated with biopsy of August 22, 2019. The central component likely reflects necrosis. However, sterility cannot be assessed by sonography. On chronic pain medications Received Broad Spectrum antibiotics Worsening Leukocytosis likely due to SCC (3) Metastatic squamous cell carcinoma: Not a surgical candidate as per surgical oncology Discussed with Surgical Oncology Dr. John Roman on 10/06/19 Also discussed with medical oncology Dr.Nilesh Granda on 10/06/19 Discussed with Radiation oncology for possible palliative radiation--On 10/07/19 Needs PET scan as outpatient Needs MRI brain to r/o brain mets Needs follow-up with oncology as outpatient Currently unstable for radiation therapy Appreciate Palliative Care Input Patient transition to comfort measures only Family updated Clinically deteriorating Very poor prognosis (4) JOSE on CPAP: CPAP at night COPD Chronic respiratory failure with hypoxia No signs of acute exacerbation (5) CKD (chronic kidney disease) stage 3, GFR 30-59 ml/min: Slightly worsened (6) Type 2 diabetes mellitus: A1c in August above 12% Glycemic control pharmacist consulted On comfort measures only (7) Atrial fibrillation: Was on metoprolol, apixaban for anticoagulation (8) Congestive heart failure: Was on Metoprolol, furosemide, spironolactone as able DVT Px: Was on Apixaban Code Status: DNI/DNR On Comfort Measures Only Admission and Anticipated Discharge Date Admission Date: September 30, 2019 Subjective Patient is seen and examined at bedside Remains obtunded Mild distress on exam Discussed with patient's family Clinically deteriorating Review of Systems Review of Systems: Unobtainable due to reduced consciousness Physical Exam Physical Exam: Physical Exam: Vitals signs as noted above General Appearance:Obese, Confused, obtunded Head: normocephalic, Atraumatic Eyes: normal inspection, EOMI Neck: supple, Trachea midline Respiratory/Chest: Normal breath sounds, CTA, No accessory muscle use Cardiovascular: S1, S2, No murmur Abdomen/GI:Soft, Non tender, Bowel sounds present Extremities/Musculoskelatal:normal inspection, Left Armpit swelling, redness improved, tender Neurologic/Psych: Could not perform complete neurological exam Skin: normal color, warm (1) Cellulitis Site of cellulitis: unspecified site Qualified Code(s): L03.90 - Cellulitis, unspecified (2) Type 2 diabetes mellitus Diabetes mellitus half-way insulin use: without rat exterminator use Diabetes mellitus complication status: with kidney complications Diabetes mellitus complication detail: with chronic kidney disease Chronic kidney disease stage: stage 3 (moderate) Qualified Code(s): 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
[2019-10-09] MEDS: ATROPINE SULFATE 1% OP SOLN 2 ML BTL SL PRN ×2 (18:35→23:58)
--- NOTE | 2019-10-10 04:17 | Death Pronouncement Note ---
Date of Service October 10, 2019 Pronouncement Note Admission Date Admission Date: September 30, 2019 Contributing Factors (1) Altered mental status: (2) Cellulitis: (3) Metastatic squamous cell carcinoma: (4) JOSE on CPAP: (5) CKD (chronic kidney disease) stage 3, GFR 30-59 ml/min: (6) Type 2 diabetes mellitus: (7) Atrial fibrillation: (8) Congestive heart failure: Additional Data Attending physician: Anastacio Pastrana MD
--- NOTE | 2019-10-10 07:42 | Discharge Summary ---
Date of Service October 10, 2019 Admission HPI Per Admitting Provider 74-year-old male with PMH DM type II, CKD stage III, COPD, JOSE, paroxysmal atrial fibrillation, chronic diastolic and systolic CHF, CAD, recently diagnosed squamous cell carcinoma who presented to the ED after his friend/caregiver called in and said that patient was having a" bad day". She said that yesterday patient was doing quite well, but today when the physical therapist came patient seemed to be confused. He did agree to come in with EMS and he was already feeling better. In the emergency room he was answering most questions appropriately. CT head was negative. White blood cell count slightly elevated however this has been chronic for the patient. In the emergency room however it was noticed that his left armpit showed cellulitis, this is also the place that patient has squamous cell metastatic cancer. Urine toxicology was obtained in the ED however results are pending. In ED received daptomycin and ceftriaxone. Patient tells me that he was having trouble in the morning getting out of bed, as he was hooked up to his CPAP. He also remembers that he was called about upcoming PET scan. He can tell me his name and the year, and tells me that he is at [facility]. During last admission, patient was also treated for CHF exacerbation, currently his weight seems to be unchanged at 120.6 kg. Chest x-ray shows mild pulmonary vascular congestion, that does not seem to be changed from previous though. Admission Exam Per Admitting Provider Physical Exam Physical Exam: Elderly male sitting up in bed, in no acute distress Constitutional: WD/WN, vitals as above + obese Eyes: PERRL, conjunctivae normal, anicteric sclerae EOM intact bilaterally ENMT: external ear and nose normal, oropharynx normal Neck: trachea midline, no thyromegaly There is a small known mass at left neck Respiratory: normal respiratory effort, lungs clear to auscultation no respiratory distress Auscultation: + diminished lung sounds; no crackles, no rhonchi and no wheezes Cardiovascular: Extremities: no edema Irregularly irregular Chest (Breasts): Chest: normal inspection of chest Additional Comments: L eft axilla however shows erythema, tenderness to palpation, underlying mass noted Gastrointestinal (Abdomen): Inspection/Auscultation: abdomen normal to inspection, + abdomen distended (mildly) and normal bowel sounds Percussion/Palpation: abdomen soft; no guarding and abdomen not rigid Obese Musculoskeletal: no cyanosis or clubbing, extremities motor strength 5/5 Head/Neck/Chest: normocephalic and head atraumatic Extremities: extremities normal to inspection There is mild erythema on the posterior right calf seems to be secondary to venous stasis, does not seem to be tender to palpation Skin: no rashes, warm and dry Neurologic: PERRL, EOMI, accommodation nl, no face palsy, no dysarthria moves all extremities; no focal motor deficits Occasionally patient speech is little slow Psychiatric: Affect: euthymic affect Currently he is alert and oriented and mostly answering questions appropriately Genitourinary: no CVA tenderness Lymphatic: + lymphadenopathy (left neck mass, left axilla mass) Principal Diagnosis Metastatic squamous cell carcinoma Hypercalcemia Discharge Data Allergies Allergy/AdvReac Type Severity Reaction Status Date / Time Iodinated Contrast Media Allergy Unknown . Verified 09/29/19 12:55 lisinopril AdvReac Severe Anaphylaxis Unverified 09/29/19 12:55 tetanus toxoid, adsorbed AdvReac Intermediate Arm Unverified 09/29/19 12:55 Swelling codeine AdvReac Mild NAUSEA Verified 09/29/19 12:55 morphine AdvReac Mild itching, Unverified 09/29/19 12:55 nausea/vomiting atorvastatin AdvReac Unknown myalgia Unverified 09/29/19 12:55 doxycycline AdvReac Unknown Unknown Unverified 09/29/19 12:55 Consultations 09/29/19 13:25 ED Decision to Admit Stat 09/29/19 15:49 Consult Case Management - Discharge Planning Routine 10/06/19 10:11 Consult Nephrology Routine 10/06/19 16:59 Consult Radiation Oncology Routine 10/07/19 07:54 Consult Palliative Care Routine 10/08/19 13:23 Consult Case Management - Discharge Planning Routine Procedures Performed CT head:No acute intracranial findings Extremity USD: Large 16.2 x 12.1 x 13.1 cm hypoechoic left axillary abnormality which has increased in size since chest CT of August 21, 2019. This favors a pathologic necrotic lymph node and could be correlated with biopsy of August 22, 2019. The central component likely reflects necrosis. However, sterility cannot be assessed by sonography. Ordered Studies 09/29/19 12:00 CT head/brain wo con Stat 10/04/19 15:30 CT head/brain wo con Stat 10/05/19 16:57 US extremity nonvascular Routine Hospital Course (1) Altered mental status: Altered mental status Likely metabolic encephalopathy Hypercalcemia could be contributing CT head:No acute intracranial findings Reorient frequently Normal procalcitonin Could not get MRI brain to R/O Metastasis Continue Comfort Measures Hypercalcemia Likely secondary to squamous cell carcinoma Given Zometa PTH:6.5 PTH related Peptide:pending Vit D 25 OH: 9.9 Appreciate nephrology input Received Lasix, calcitonin, IV fluids, Zometa, calcitonin On comfort measures only Multiple Falls CT head:No acute intracranial findings. Irregularity left parietal vertex scalp in the region of a prior laceration (2) Cellulitis: Left Armpit cellulitis Underlying malignant lesion on left armpit from squamous cell carcinoma Received IV ceftriaxone and daptomycin Extremity USD: Large 16.2 x 12.1 x 13.1 cm hypoechoic left axillary abnormality which has increased in size since chest CT of August 21, 2019. This favors a pathologic necrotic lymph node and could be correlated with biopsy of August 22, 2019. The central component likely reflects necrosis. However, sterility cannot be assessed by sonography. On chronic pain medications Received Broad Spectrum antibiotics Worsening Leukocytosis likely due to SCC (3) Metastatic squamous cell carcinoma: Not a surgical candidate as per surgical oncology Discussed with Surgical Oncology Dr. John Roman on 10/06/19 Also discussed with medical oncology Dr.Nilesh Granda on 10/06/19 Discussed with Radiation oncology for possible palliative radiation--On 10/07/19 Needs PET scan as outpatient Needs MRI brain to r/o brain mets Needs follow-up with oncology as outpatient Currently unstable for radiation therapy Appreciate Palliative Care Input Patient transition to comfort measures only Family updated Clinically deteriorating Very poor prognosis (4) JOSE on CPAP: CPAP at night COPD Chronic respiratory failure with hypoxia No signs of acute exacerbation (5) CKD (chronic kidney disease) stage 3, GFR 30-59 ml/min: Slightly worsened (6) Type 2 diabetes mellitus: A1c in August above 12% Glycemic control pharmacist consulted On comfort measures only (7) Atrial fibrillation: Was on metoprolol, apixaban for anticoagulation (8) Congestive heart failure: Was on Metoprolol, furosemide, spironolactone as able DVT Px: Was on Apixaban Code Status: DNI/DNR On Comfort Measures Only Patient on 10/10/19 while on comfort measures. Total Time Total Time Spent Total Time Spent (In Minutes): 20 minutes Discharge Plan Discharge Items Patient Disposition: Discharge Diagnosis: Metastatic squamous cell carcinoma Hypercalcemia Addtl Attending Provider Instructions: None.
== END 2019-10-10 09:52 | disposition expired | DRG 602 ==
LOC: 2N 11:31 → ED 11:31 → SUATTDRO 14:25 → 2N 17:45 → SUATTDRO 09-30 17:49